=== PATIENT | male | born 1945 | race African-American/Black ===

== ENCOUNTER 2021-10-21 11:40 | Emergency (ER) | payer MEDICARE, SELFPAY ==
[2021-10-21 11:44] VITALS: BP 152/78; PULSE 70; RESP 18; TEMP 36.3; O2SAT 99
[2021-10-21 13:03] LABS: Mucus Urine Rare /lpf; Squamous Epithelial Cell Urine Occasional /hpf (Few)
[2021-10-21 13:04] LABS: Appearance Urine Clear (Clear); Bilirubin Urine Negative (Negative); Blood Urine Trace-lysed (Negative); Color Urine Yellow (Yellow); Glucose Urine UA Negative (Negative); Ketones Urine Negative (Negative); Leukocyte Esterase Ur Negative LEU/UL (Negative); Nitrate Urine Negative (Negative); Protein Urine Negative (Negative); Urobilinogen Urine 0.2 mg/dL (<2.0); pH Urine 7.5 (5.0-9.0)
[2021-10-21 13:06] LABS: Add Urine Microscopic? YES
--- NOTE | 2021-10-21 13:22 | ED.MALEGU ---
HPI - Male Genitourinary General Chief complaint: Urogenital-Male Stated complaint: Blood in urine Time Seen by Provider: 10/21/21 12:16 Source: patient Mode of arrival: ambulatory Limitations: no limitations History of Present Illness HPI Narrative: Patient 75 years old -[place] male noticed staining of blood in the underwear anteriorly this morning. Patient denies any urinary symptoms or GI symptoms. Last bowel movement last night, last urination 2 hours prior to arrival to the emergency room without any complaints. Patient is not on any blood thinner, history of prostatectomy and penile implant. He denies any fever, chills, nausea, vomiting, abdominal pain. He denies any history of GI bleed or hematuria Related Data Home Medications Medication Instructions Recorded Confirmed albuterol sulfate 90 mcg/actuation 1 puff INHALATION Q4H PRN 07/06/19 01/31/21 aerosol inhaler budesonide-formoterol HFA 160 2 puff INHALATION Q12H 07/06/19 01/31/21 mcg-4.5 mcg/actuation aerosol inhaler loratadine 10 mg capsule 10 mg PO DAILY 07/06/19 01/31/21 bisacodyl 5 mg tablet 5 mg PO DAILY 12/27/19 01/31/21 Allergies Allergy/AdvReac Type Severity Reaction Status Date / Time No Known Allergies Allergy Verified 10/21/21 12:37 Review of Systems Review of Systems: All systems reviewed & are unremarkable except as noted in HPI and below PMFSH Past Medical History Medical History Angioedema Cellulitis of external nose Complete tear of left rotator cuff Dehydration Hepatitis C antibody test negative (12/20/16) Prostate cancer Sialadenitis Surgical History Surgical History H/O prostatectomy Family History Family History Sibling Diabetes mellitus Father Hypertension Family history of coronary artery disease Social History Social History Smoking end date: 06/09/1963 Alcohol intake: never Exam Narrative: General appearance: Well-developed, well-nourished Skin: Normal color Head: Normocephalic, nontraumatic Eyes: Clear conjunctiva ENT: Oropharynx normal, ears normal, nose normal Neck: Supple, nontender Chest and respiratory: Airway patent, no respiratory distress, no accessory muscle use Heart: Regular rate/rhythm Abdomen: Soft, nontender, no organomegaly, quiet bowel sounds rectal exam showed no gross blood, yellow liquidy stool, guaiac negative, no hemorrhoids Vascular: Normal peripheral pulses, normal capillary refill. Musculoskeletal: Normal range of motion, nontender back Neurologic: Alert and oriented ?3, SQE is normal as tested, no gross motor deficit Course Course Emergency Course: Stable Urine test showed microscopic hematuria. My plan to treat hematuria as a sign of infection, repeat urine test in 5 to 7 days, if still showing hematuria. Patient probably need further imaging and possible cystoscopy. To rule out the possible cancer Vital Signs Vital signs: Vital Signs Temperature 36.3 C L 10/21/21 11:44 Pulse Rate 70 10/21/21 11:44 Respiratory Rate 18 10/21/21 11:44 Blood Pressure 152/78 H 10/21/21 11:44 Pulse Oximetry 99 10/21/21 11:44 Temperature 36.3 C L 10/21/21 11:44 Pulse Rate 70 10/21/21 11:44 Respiratory Rate 18 10/21/21 11:44 Blood Pressure 152/78 H 10/21/21 11:44 Pulse Oximetry 99 10/21/21 11:44 MDM - Male Genitourinary Differential Diagnosis Differential diagnosis: Likely urinary tract infection and urethritis Lab Data Labs: Lab Results 10/21/21
== END 2021-10-21 13:43 | disposition home or self-care (01) ==
PROVIDERS: Emergency Provider Emergency Medicine; PCP Family Medicine
DX: R31.9 Hematuria, unspecified (principal); Z85.46 Personal history of malignant neoplasm of prostate; Z90.79 Acquired absence of other genital organ(s); Z87.891 Personal history of nicotine dependence
CPT/HCPCS: 81001; 99283

== ENCOUNTER 2021-10-22 03:00 | Emergency (ER) | payer MEDICARE, SELFPAY ==
[2021-10-22 03:21] VITALS: BP 133/80; PULSE 76; RESP 16; TEMP 36.6; O2SAT 99
--- NOTE | 2021-10-22 03:45 | ED.MALEGU ---
HPI - Male Genitourinary General Chief complaint: Urogenital-Male Stated complaint: lopez problem Time Seen by Provider: 10/22/21 03:35 History of Present Illness HPI Narrative: 75-year-old male with history of penis pump implanted 4 years ago presents today because he had noticed bleeding from his scrotum where the pump was implanted, he describes as a light losing that dripped down his leg, they were able to bandage it up and presented here. Related Data Home Medications Medication Instructions Recorded Confirmed albuterol sulfate 90 mcg/actuation 1 puff INHALATION Q4H PRN 07/06/19 01/31/21 aerosol inhaler budesonide-formoterol HFA 160 2 puff INHALATION Q12H 07/06/19 01/31/21 mcg-4.5 mcg/actuation aerosol inhaler loratadine 10 mg capsule 10 mg PO DAILY 07/06/19 01/31/21 bisacodyl 5 mg tablet 5 mg PO DAILY 12/27/19 01/31/21 Allergies Allergy/AdvReac Type Severity Reaction Status Date / Time No Known Allergies Allergy Verified 10/21/21 12:37 Review of Systems Review of Systems: All systems reviewed & are unremarkable except as noted in HPI and below PMFSH Past Medical History Medical History Angioedema Cellulitis of external nose Complete tear of left rotator cuff Dehydration Hepatitis C antibody test negative (12/20/16) Prostate cancer Sialadenitis Surgical History Surgical History H/O prostatectomy Family History Family History Sibling Diabetes mellitus Father Hypertension Family history of coronary artery disease Social History Social History Smoking end date: 06/09/1963 Alcohol intake: never Exam Narrative: EXAMINATION OF ORGAN SYSTEMS/BODY AREAS: Constitutional: Vital signs per nursing GENERAL:[No acute distress, non-toxic appearing.] HEAD: Normal with no signs of head trauma. EYES: EOMI, conjunctiva normal ENT: Hearing grossly intact LUNGS: Nonlabored breathing. HEART: [Regular rate and rhythm] : No active bleeding, punctate wound over scrotum that is nontender EXT: Normal range of motion SKIN: punctate wound as above NEURO: [Alert and oriented x 3. No gross focal sensory or strength deficits.] PSYCH: Normal affect Course Course Emergency Course: 75-year-old male presenting with scrotal bleeding, vital signs stable, exam shows no active bleeding with pinpoint puncture wound that is barely visible to the eye, suspect possible puncture from the device, he is given instructions on holding pressure if this happens again, and he has follow-up with his urologist. Stable for discharge home and can return for any further issues. Vital Signs Vital signs: Vital Signs Temperature 97.9 F 10/22/21 03:21 Pulse Rate 76 10/22/21 03:21 Respiratory Rate 16 10/22/21 03:21 Blood Pressure 133/80 10/22/21 03:21 Pulse Oximetry 99 10/22/21 03:21 Temperature 97.9 F 10/22/21 03:21 Pulse Rate 76 10/22/21 03:21 Respiratory Rate 16 10/22/21 03:21 Blood Pressure 133/80 10/22/21 03:21 Pulse Oximetry 99 10/22/21 03:21 Discharge Plan Discharge Clinical Impression: Skin tear Patient Disposition: Home, Self-Care Condition: Stable Instructions: Antibiotic Form, Laceration (ED) Additional Instructions: Please follow-up with your urologist, if you start experiencing bleeding again, you can hold pressure with some gauze, and when it stops, dressed with a Band-Aid. You can return for any further issues. Prescriptions: No Action albuterol sulfate [Proventil HFA] 90 mcg/actuation HFA aerosol inhaler 1 puff INHALATION Q4H PRN (Reason: Dyspnea) RF: 0 Symbicort 160-4.5 mcg/actuation HFA aerosol inhaler 2 puff INHALATION Q12H RF: 0 loratadine 10 mg capsule 10 mg PO DAILY RF: 0 bisacodyl 5 mg tablet 5 mg PO DAILY RF: 0 ciproflo
== END 2021-10-22 03:54 | disposition home or self-care (01) ==
PROVIDERS: Emergency Provider Emergency Medicine; PCP Family Medicine
DX: S31.33XA Puncture wound without foreign body of scrotum and testes, initial encounter (principal); Z85.46 Personal history of malignant neoplasm of prostate; Z90.79 Acquired absence of other genital organ(s); Z87.891 Personal history of nicotine dependence; X58.XXXA Exposure to other specified factors, initial encounter
CPT/HCPCS: 99281

== ENCOUNTER → 2022-04-12 14:30 | Outpatient (CLI) | payer MEDICARE, SELFPAY ==
--- NOTE | ~2022-04-12 | MR_ITS ---
EXAMINATION: MR brain/brain stem wo/w con DATE: 04/12/2022 15:42 INDICATION: Memory loss. Speech deficit. TECHNIQUE: Magnetic resonance imaging (MRI) of the brain and brainstem was performed without and with 19 mL MultiHance intravenous contrast. COMPARISON: None. FINDINGS: There are scattered areas of nonspecific increased T2-weighted signal intensity in the cere bral white matter. There is no intracranial hemorrhage, acute infarction, or abnormal intracranial ma ss lesion. There is a left mastoid effusion. The orbits are normal. There is mucosal thickening in th e paranasal sinuses. There is a 16 mm Tornwaldt cyst in the nasopharynx. IMPRESSION: 1. Moderate nonspecific cerebral white matter disease, which likely represents chronic small vessel i schemic disease. Reviewed, dictated and finalized at location A. IMPRESSION: 1. Moderate nonspecific cerebral white matter disease, which likely represents chronic small vessel ischemic disease.
== END ==
PROVIDERS: PCP Family Medicine; Visit Provider Family Medicine
DX: R41.3 Other amnesia (principal); R90.82 White matter disease, unspecified
CPT/HCPCS: 70553; A9577

== ENCOUNTER 2023-08-27 09:30 | Inpatient (IN) | payer MEDICARE, SELFPAY ==
[2023-08-27] VITALS (12 sets, daily range): BP systolic 127–160; BP diastolic 68–101; PULSE 60–80; RESP 14–18; TEMP 36.2–36.7; O2SAT 91–100
--- NOTE | ~2023-08-27 | XR_ITS ---
EXAMINATION: XR abdomen/kub 1V DATE: 09/03/2023 05:35 INDICATION: Abdominal distention. TECHNIQUE: A supine view of the abdomen on 2 radiographs was obtained. COMPARISON: CT abdomen and pelvis 09/01/2023 FINDINGS: There is distention of the rectosigmoid. The small bowel is normal in caliber. There are castro rgical clips in the pelvis. IMPRESSION: 1. Persistent distention of the rectosigmoid, likely adynamic ileus. Reviewed, dictated and finalized at location A.
--- NOTE | ~2023-08-27 | CT_ITS ---
EXAMINATION: CT brain wo con DATE: 08/31/2023 11:42 INDICATION: Confusion TECHNIQUE: Computed tomography (CT) of the head was performed without intravenous contrast. The dose- length product was 529.67 mGy-cm. Automated exposure control and iterative reconstruction technique w ere employed. COMPARISON: None FINDINGS: Generalized atrophy. There are scattered moderate periventricular and subcortical white mat ter changes, most likely related to small vessel ischemic disease (microangiopathy). No ventriculomeg jim or midline shift. Basilar cisterns are patent. Mild mucosal thickening of the paranasal sinuses. Mastoids are pneumatized. No depressed skull fractures. Small chronic right lacunar infarction. IMPRESSION: 1. No acute intracranial abnormality. Reviewed, dictated and finalized at location A.
--- NOTE | ~2023-08-27 | MR_ITS ---
EXAMINATION: MR brain/brain stem wo con DATE: 08/31/2023 15:04 INDICATION: Confusion TECHNIQUE: Magnetic resonance imaging (MRI) of the brain and brainstem was performed without intraven ous contrast. Sequences included sagittal and axial T1-weighted SE, axial diffusion-weighted FS EPI A SSET, axial T2*-weighted GRE, axial T2-weighted FLAIR Propeller, and axial T2-weighted Propeller. Mo arent diffusion coefficient (ADC) maps were created. COMPARISON: CT brain 08/27/2023 and 08/31/2023. FINDINGS: No abnormal restricted diffusion to suggest acute ischemic infarct. Tiny focal right basal ganglia in farction. No MRI evidence of hemorrhage or extra-axial collection. Small foci of susceptibility, less than 5, nonspecific but most likely reflective of prior microhemorrhages. Moderate patchy white ariel er hyperintensity, likely representing moderate small vessel ischemic disease. Mild generalized paren chymal volume loss. The basilar cisterns are patent. Flow voids are preserved. Pansinus mucosal thick ening. Bilateral lens replacements. Orbital contents are within normal limits. IMPRESSION: No acute intracranial process. Reviewed, dictated and finalized at location K.
--- NOTE | ~2023-08-27 | XR_ITS ---
EXAMINATION: XR ankle LT min 3V DATE: 08/27/2023 12:38 INDICATION: Left ankle pain post fall TECHNIQUE: Anteroposterior, oblique, mortise, and lateral views of the left ankle were obtained. COMPARISON: None. FINDINGS: There is transverse fracture through the distal fibula with a fracture plane exiting medially 1.2 cm above the level of the tibiotalar joint line. There is one cortical width posterolateral displacemen t. No other fracture identified. Specifically the medial and posterior malleoli as well as the fidelina r dome are intact. Ankle mortise remains congruent. Soft tissue swelling at the lateral aspect of th e ankle and distal calf. No ankle joint effusion. IMPRESSION: 1. [Minimally displaced oblique distal left fibular metaphyseal fracture. Reviewed, dictated and finalized at location A.
--- NOTE | ~2023-08-27 | CT_ITS ---
CT head without contrast Indication: Altered mental status Technique: Serial scans were obtained through the brain without the administration of contrast. Dose reduction technique was used on this scan by utilizing automated exposure control and iterative recon struction technique. The dose-length product (DLP) was 681.00 mGy-cm. Findings: There is no evidence of intracranial hemorrhage, mass lesion, or acute infarct. The ventri cles and subarachnoid spaces are unremarkable. Low attenuation regions are seen within the periventr icular white matter bilaterally, likely representing changes from chronic microvascular ischemic dise ase. There is no evidence of edema, mass effect or midline shift. The visualized paranasal sinuses and mastoid air cells are clear. Impression: No intracranial hemorrhage, mass, or acute infarct. Chronic white matter changes, as above. Reviewed, dictated and finalized at location M. Impression: No intracranial hemorrhage, mass, or acute infarct. Chronic white matter changes, as above.
--- NOTE | ~2023-08-27 | XR_ITS ---
EXAMINATION: XR abdomen obstructive series DATE: 09/04/2023 05:42 INDICATION: Ileus TECHNIQUE: Upright and supine views of the abdomen were obtained. COMPARISON: 09/03/2023 FINDINGS: There is unchanged prominent distention of the rectosigmoid colon. No free intraperitoneal gas is identified. There are surgical clips in the pelvis. The visualized lung bases are clear. IMPRESSION: 1. Unchanged distention of the rectosigmoid colon, likely persistent ileus. Reviewed, dictated and finalized at location F.
--- NOTE | ~2023-08-27 | XR_ITS ---
EXAMINATION: XR chest 1V portable DATE: 08/27/2023 12:38 INDICATION: Altered mental status TECHNIQUE: frontal view of the chest was obtained. COMPARISON: Chest radiograph dated 12/19/2008 FINDINGS: The lungs remain clear with no focal airspace opacities, pulmonary edema, pleural effusion or pneumot horax. The cardiomediastinal silhouette is normal. Mild thoracic spondylosis. IMPRESSION: 1. No acute cardiopulmonary disease. Reviewed, dictated and finalized at location A.
--- NOTE | ~2023-08-27 | CT_ITS ---
EXAMINATION: CT abdomen pelvis wo con DATE: 09/01/2023 13:15 INDICATION: Abdominal distention TECHNIQUE: Computed tomography (CT) of the abdomen and pelvis was performed without intravenous contr ast. Automated exposure control and iterative reconstruction technique were employed. The dose-length product was 833.67 mGy-cm. COMPARISON: 05/06/2012 FINDINGS: Decreased volume in the visualized portion of the bilateral lower lobes with mild discoid atelectasis in the right lower lobe and compressive atelectasis in the medial left lower lobe where it abuts a m oderate-sized sliding-type hiatal hernia. No pneumonia, pulmonary edema or pleural effusion. Mild car diomegaly. No pericardial effusion. Mild bilateral gynecomastia. 1 cm low-attenuation likely cyst or hemangioma in segment 5 of the liver. Gallbladder, spleen and pancreas are normal. Again seen is thic kening of the bilateral adrenal glands which maintain their adreniform shape without discrete nodule. Small region of cortical scarring at the upper pole of the right kidney. There are bilateral renal c ysts measuring 1.5 cm on the right and up to 4.9 cm on the left. Moderate amount of fluid scattered t hroughout the colon with prominent dilation of the sigmoid colon which measures up to 10 cm in brody l diameter. Small bowel and appendix are normal. Bladder is normal. Status post prostatectomy with mu ltiple surgical clips in the pelvis consistent bilateral pelvic lymph node dissections. There is some heterotopic ossification along the suprapubic anterior pelvic wall. There are small bilateral indire ct inguinal hernias containing fat and small amount of ascites. No abscess or free intraperitoneal ga s or fluid. No pathologically enlarged abdominal or pelvic lymphadenopathy. Moderate lumbar and lower thoracic spondylosis. There is a stranding and small amount of gas in the subcutaneous tissues at th e right groin as well as within a small partial collapse. Rim calcified fluid collection in the infer ior right rectus abdominis muscle which likely related to a reported recently explanted penile implan t. Correlate with surgical history. IMPRESSION: 1. Stranding and small amount of gas in the right anterior pelvic wall likely related to reported rec ent explantation of a penile prosthesis. Correlate with surgical history. 2. Gas/fluid and stool filling the colon with nonspecific dilation most prominent at the sigmoid colo n where it measures up to 10 cm diameter but without evident wall thickening or distal obstructing ma ss. Differential would include ileus or Redfield syndrome. 3. Moderate-sized sliding-type hiatal hernia. 4. Postoperative change of prior prostatectomy and bilateral pelvic lymph node dissection. 5. Small amount of fat and fluid within bilateral indirect inguinal hernias. Reviewed, dictated and finalized at location A. IMPRESSION: 1. Stranding and small amount of gas in the right anterior pelvic wall likely r elated to reported recent explantation of a penile prosthesis. Correlate with s urgical history. 2. Gas/fluid and stool filling the colon with nonspecific dilation most promine nt at the sigmoid colon where it measures up to 10 cm diameter but without evid ent wall thickening or distal obstructing mass. Differential would include ileu s or Redfield syndrome. 3. Moderate-sized sliding-type hiatal hernia. 4. Postoperative change of prior prostatectomy and bilateral pelvic lymph node dissection. 5. Small amount of fat and fluid within bilateral indirect inguinal hernias.
--- NOTE | ~2023-08-27 | XR_ITS ---
EXAMINATION: XR abdomen/kub 1V INDICATION: Ileus TECHNIQUE: Supine views of the abdomen were obtained on 2 radiographs. COMPARISON: 09/04/2023 FINDINGS: There is persistent but decreased distention of the rectosigmoid colon. No free intraperito pati gas is identified. There are surgical clips of the pelvis. IMPRESSION: 1. Persistent but decreased distention of the rectosigmoid colon, likely resolving ileus. Reviewed, dictated and finalized at location A. IMPRESSION: 1. Persistent but decreased distention of the rectosigmoid colon, likely resolv ing ileus.
--- NOTE | 2023-08-27 09:35 | ECG_ITS ---
Measurements Intervals [place] Rate: 92 P: MD: 0 QRS: 50 QRSD: 90 T: 7 QT: 355 QTc: 441 Interpretive Statements SINUS RHYTHM TRANSIENT EPISODE OF ATRIAL FIBRILLATION INCOMPLETE RIGHT BUNDLE BRANCH BLOCK ABNORMAL ECG NO PREVIOUS ECG AVAILABLE FOR COMPARISON Electronically Signed On 08-27-2023 9:45:40 CDT by Elmer Jimenes D.O.
[2023-08-27 09:54] LABS: Basophils Percent Auto 0.3 % (0.2-1.2); Eosinophils Absolute Auto 0.1 K/mm3 (0-0.3); Eosinophils Percent Auto 1.3 % (0-4.4); Hematocrit 46.1 % (42.0-52.0); Hemoglobin 15.1 g/dL (14.0-18.0); Immature Granulocyte Absolute 0.03 K/mm3 (0.00-0.031); Immature Granulocyte Percent A 0.4 % (0-0.5); Lymphocytes Absolute Auto 0.81 K/mm3 (0.9-3.2); Lymphocytes Percent Auto 11.4 % (18.3-44.2); Mean Corpuscular HGB Conc 32.8 g/dl (32-36); Mean Corpuscular Hemoglobin 30.4 pg (26-34); Mean Corpuscular Volume 92.9 fl (80-100); Mean Platelet Volume 9.4 fl (7.4-10.4); Monocytes Absolute Auto 0.4 K/mm3 (0.1-0.6); Monocytes Percent Auto 6.1 % (2.6-8.5); Neutrophils Absolute Auto 5.7 K/mm3 (1.3-6.7); Neutrophils Percent Auto 80.5 % (45.5-73.1); Platelet Count Result 239 k/mm3 (150-375); Red Blood Count 4.96 M/mm3 (4.6-6.20); Red Cell Distribution Width 14.1 % (11.5-14.5); White Blood Count 7.1 K/mm3 (4.5-10.0)
[2023-08-27 10:08] LABS: Alanine Aminotransferase 15 U/L (6-50); Albumin Level 3.7 g/dL (3.5-5.1); Alkaline Phosphatase 82 U/L (38-126); Anion Gap 2 mmol/L (8-16); Aspartate Amino Transferase 22 U/L (17-59); Bilirubin,Total 0.7 mg/dL (0.2-1.3); Blood Urea Nitrogen 15 mg/dL (9-20); Calcium 8.9 mg/dL (8.4-10.2); Carbon Dioxide 32 mmol/L (22-30); Chloride 107 mmol/L (98-107); Estimated CRCL calculation 57 ml/min; Estimated Glomerular Filt Rate > 60; Glucose 109 mg/dL (65-110); Potassium 4.1 mmol/L (3.4-5.0); Sodium 141 mmol/L (137-145)
[2023-08-27 10:09] LABS: INR 0.9; Partial Thromboplastin Time 26.2 Seconds (22.3-36.8); Prothrombin Time 12.7 Seconds (11.1-14.7)
--- NOTE | 2023-08-27 10:39 | ED.AMS ---
HPI - Altered Mental Status General Chief Complaint: Altered Mental Status Stated Complaint: ams Time Seen by Provider: 08/27/23 10:04 Source: patient and family Mode of arrival: ambulatory Limitations: no limitations History of Present Illness HPI narrative: Mr. Cohen is a 69-year-old male patient presenting to the ER today with complaints of altered mental status this morning. His reports that he was acting different this morning when he woke up and was near the bed and fell back on his bottom. He denies any back pain or pain in his buttocks. reports that they were supposed to have a visit with for a eroded penis inflation device. He denies any urinary symptoms. He is currently alert oriented x2. Related Data Home Medications Medication Instructions Recorded Confirmed bisacodyl 5 mg tablet 5 mg PO DAILY PRN Constipation 12/27/19 08/27/23 Allergies Allergy/AdvReac Type Severity Reaction Status Date / Time No Known Allergies Allergy Verified 08/27/23 14:29 Review of Systems Review of Systems: Pertinent positives per HPI. Patient denies any fever, chills, rash, headache, visual changes, dizziness, cough, runny nose, sore throat, shortness of breath, chest pain, palpitations, nausea, vomiting, diarrhea, constipation, abdominal pain, or any urinary issues. [facility] Past Medical History Medical History Angioedema Cellulitis of external nose Complete tear of left rotator cuff Dehydration Hepatitis C antibody test negative (12/20/16) Prostate cancer Sialadenitis Surgical History Surgical History H/O prostatectomy History of penile implant Family History Family History Sibling Diabetes mellitus Father Hypertension Family history of coronary artery disease Social History Social History Smoking status: Former smoker Smoking end date: 06/09/1963 Alcohol intake: never Substance use: never Lack of Transportation: No Lack of Food: Never True Current Housing: I Have Housing Concerned About Future Housing: No Difficulty Paying Gas/Electric Bills: No Difficulty Paying for Meds: No Currently Unemployed: No Education: High School Diploma/GED Difficulty w/ Childcare or Family Care: No Living arrangements: with family Spiritual care concerns: No Agree to blood products: Yes Comments At the time of my signature, I reviewed and agree with the nursing past medical, surgical, social, and family history. There is no relevant family history pertinent to the patient complaint. Exam Narrative: General: Well-developed, overweight, in no apparent distress Head: Normocephalic, atraumatic Eyes: Pupils equally round and reactive to light bilaterally, EOM intact, sclera and conjunctive clear, no discharge, lids normal Ears: TMs intact and clear, ear canals clear, no drainage, grossly hearing normal. Nose: Nares patent, no discharge, no inflammation, no sinus tenderness. Mouth: Oropharynx without lesions or masses, good dentition, MMM. Tongue midline, even rise and fall of uvula Neck: Supple, trachea midline, no enlargement of anterior or posterior cervical nodes, no thyroid masses or goiter palpable. Cardio: Regular rate and rhythm, s1 and s2 normal, no murmur appreciated. Resp: Clear to auscultation bilaterally anteriorly and posteriorly, no rhonchi, rales, wheezing or rubs : Uncircumcised male with penile implant perforated/eroded through the right side of the penis. Musculoskeletal: No deformity, tender to palpation over the left lateral ankle, grossly normal range of motion, muscle strength strong and equal, peripheral pulse strong, no edema, no cyanosis, laying on stretcher Neuro: Alert and oriented x2 with normal speech, no focal
[2023-08-27 11:23] LABS: Appearance Urine Clear (Clear); Bacteria Urine None Seen /hpf; Bilirubin Urine Negative (Negative); Blood Urine Non-Hemolyzed Trace (Negative); Color Urine Yellow (Yellow); Glucose Urine UA Negative (Negative); Ketones Urine Negative (Negative); Leukocyte Esterase Ur Negative LEU/UL (Negative); Nitrate Urine Negative (Negative); Protein Urine Negative (Negative); RBC Urine 0-2 /hpf (0-2); Specific Grav Ur 1.009 (1.001-1.035); Squamous Epithelial Cell Urine None Seen /hpf (Few); Urobilinogen Urine 0.2 mg/dL (<2.0); WBC Urine 0-5 /hpf (0-3)
[2023-08-27 11:30] LABS: Add Urine Microscopic? YES
--- NOTE | 2023-08-27 12:35 | WPDURCON ---
Assessment and Plan Assessment and plan (1) Erosion of penile prosthesis: Code(s): T83.89XA - Other specified complication of genitourinary prosthetic devices, implants and grafts, initial encounter Status: Acute Assessment and Plan: Inflatable penile prosthesis placed in 2017. Has now developed erosion of the implant. He is no longer sexually active. Will plan for penile implant removal and antibiotic washout in the OR this afternoon with Dr. Das. Continue NPO diet. He has been started on IV vancomycin and cefepime and is being hydrated with IV fluids. Urology Consult Note HPI Date Seen: 08/27/23 Primary Care Provider: Payal Mason, Consult Narrative Narrative: Lamont Cohen is a 77 year old male with history of prostate cancer s/p prostatectomy in 1997 and erectile dysfunction status post inflatable penile [place] [address] Das who is being seen in consultation for evalaution of eroded penile implant. The patient's called the office 2 days ago with concerns that the penile implant was protruding through the shaft of his penis. She first noticed a few drops of blood in his underwear about 3 weeks ago but he never had any subsequent episodes of this. She then noticed a few days ago that the penile implant was visible. She reports that the implant has been inflated for about 2 months. The patient has been suffering from some memory issues and confusion and he was unable to recall how to deflate the implant. His was unsure how to deflate it as well. He was scheduled for an appointment with Dr. Das this morning for evaluation but while getting ready for the appointment he became disoriented and had a fall, therefore came to the ER. The patient denies any penile pain, drainage, bleeding, or other concerns. He is a poor historian given his memory issues. His WBC is within normal limits. UA unremarkable. He is afebrile and his vital signs are stable. Review of Systems Review of Systems: All systems reviewed & are unremarkable except as noted in HPI and below PMFSH Past Medical History Medical History (Updated 08/27/23 @ 12:45 by Manuela Casillas PA-C) Angioedema Cellulitis of external nose Complete tear of left rotator cuff Dehydration Hepatitis C antibody test negative (12/20/16) Prostate cancer Sialadenitis Surgical History Surgical History (Updated 08/27/23 @ 12:45 by Manuela Casillas PA-C) H/O prostatectomy History of penile implant Family History Family History Sibling Diabetes mellitus Father Hypertension Family history of coronary artery disease Social History Social History Smoking status: Former smoker Smoking end date: 06/09/1963 Alcohol intake: never Substance use: never Lack of Transportation: No Lack of Food: Never True Current Housing: I Have Housing Concerned About Future Housing: No Difficulty Paying Gas/Electric Bills: No Difficulty Paying for Meds: No Currently Unemployed: No Education: High School Diploma/GED Difficulty w/ Childcare or Family Care: No Living arrangements: with family Spiritual care concerns: No Agree to blood products: Yes Meds Home Medications and Allergies Home Medications Medication Instructions Recorded Confirmed Type budesonide-formoterol HFA 160 2 puff inhalation Q12H 07/06/19 03/28/22 History mcg-4.5 mcg/actuation aerosol inhaler (Symbicort) loratadine 10 mg capsule 10 mg PO DAILY 07/06/19 03/28/22 History bisacodyl 5 mg tablet 5 mg PO DAILY 12/27/19 03/28/22 History lisinopril 10 mg tablet See Rx Instructions .Route 12/26/21 03/28/22 Rx .COMPLEX #90 tabs pravastatin 10 mg tablet 10 mg PO QHS #90 tabs 05/20/22 Rx budesonide-formoterol HFA 160 2 puff inhalation Q12H 07/18/22 History mcg-4.5 mcg/actuation aerosol inhaler (Symbic
[2023-08-27] MEDS: SODIUM CHLORIDE 0.9% IV 1,000 ML 999 ML IV CONT (12:50)
[2023-08-27] MEDS: CEFEPIME 2 GM/NS 50 ML 2 GM/50 ML BAG IVPB (12:50)
--- NOTE | 2023-08-27 13:19 | WPDHPUPDATE1 ---
History and Physical Update Update Date/Time: 08/27/23 13:19 History and Physical has been reviewed, including an updated exam of the patient. There are NO changes in the patient's condition. Risks, benefits, and alternatives have been discussed and questions answered. Patient agrees to proceed with procedure.
[2023-08-27] MEDS: VANCOMYCIN 1,250 MG/NS 250 ML 1,250 MG/250 ML BAG 166.67 MG IVPB (14:09)
--- NOTE | 2023-08-27 14:16 | WPDANESEPPF ---
Anes - Initial Pre Proc Eval Procedure: Operation Date: 08/27/23 15:00 Proposed Procedures p Removal of Penile Prosthesis - Michelle Das MD Date/Time: 08/27/23 14:16 Surgeon: June Walker MD Pre Op Diagnosis: eroding penile implant ,ams,left ankle fracture Patient Data Age: 77 Gender: M Height: 1.88 m Weight: 91 kg Last Vital Signs Temp 36.7 C 08/27/23 09:43 Pulse 73 08/27/23 12:51 Resp 17 08/27/23 12:51 BP 152/90 H 08/27/23 12:51 Pulse Ox 98 08/27/23 12:51 O2 Del Method Room Air 08/27/23 09:50 Allergies Allergy/AdvReac Type Severity Reaction Status Date / Time No Known Allergies Allergy Verified 07/10/23 13:50 Home Medications Medication Instructions Recorded Confirmed Type budesonide-formoterol HFA 160 2 puff inhalation Q12H 07/06/19 03/28/22 History mcg-4.5 mcg/actuation aerosol inhaler (Symbicort) loratadine 10 mg capsule 10 mg PO DAILY 07/06/19 03/28/22 History bisacodyl 5 mg tablet 5 mg PO DAILY 12/27/19 03/28/22 History lisinopril 10 mg tablet See Rx Instructions .Route 12/26/21 03/28/22 Rx .COMPLEX #90 tabs pravastatin 10 mg tablet 10 mg PO QHS #90 tabs 05/20/22 Rx budesonide-formoterol HFA 160 2 puff inhalation Q12H 07/18/22 History mcg-4.5 mcg/actuation aerosol inhaler (Symbicort) memantine 10 mg tablet 10 mg PO BID #60 tabs 08/12/23 Rx Laboratory Tests 08/27/23 08/27/23 08/27/23 09:45 11:14 12:49 WBC 7.1 K/mm3 (4.5-10.0) RBC 4.96 M/mm3 (4.6-6.20) Hgb 15.1 g/dL (14.0-18.0) Hct 46.1 % (42.0-52.0) MCV 92.9 fl (80-100) MCH 30.4 pg (26-34) MCHC 32.8 g/dl (32-36) RDW 14.1 % (11.5-14.5) Plt Count 239 k/mm3 (150-375) MPV 9.4 fl (7.4-10.4) Immature Gran % (Auto) 0.4 % (0-0.5) Neut % (Auto) 80.5 H % (45.5-73.1) Lymph % (Auto) 11.4 L % (18.3-44.2) [place] % (Auto) 6.1 % (2.6-8.5) Eos % (Auto) 1.3 % (0-4.4) Baso % (Auto) 0.3 % (0.2-1.2) Lymph # (Auto) 0.81 L K/mm3 (0.9-3.2) [place] # (Auto) 0.4 K/mm3 (0.1-0.6) Eos # (Auto) 0.1 K/mm3 (0-0.3) Baso # (Auto) 0.0 K/mm3 (0.0-0.1) Abs Immat Gran (auto) 0.03 K/mm3 (0.00-0.031) Absolute Neuts (auto) 5.7 K/mm3 (1.3-6.7) Absolute Nucleated RBC 0.000 K/mm3 (0.0-0.012) Nucleated RBC % 0.0 % (0.0-0.2) PT 12.7 Seconds (11.1-14.7) INR 0.9 APTT 26.2 Seconds (22.3-36.8) Sodium 141 mmol/L (137-145) Potassium 4.1 mmol/L (3.4-5.0) Chloride 107 mmol/L (98-107) Carbon Dioxide 32 H mmol/L (22-30) Anion Gap 2 L mmol/L (8-16) BUN 15 mg/dL (9-20) Creatinine 1.10 mg/dL (0.7-1.3) Estim Creat Clear Calc 57 ml/min Estimated GFR > 60 (59 - ) Glucose 109 mg/dL (65-110) Calcium 8.9 mg/dL (8.4-10.2) Total Bilirubin 0.7 mg/dL (0.2-1.3) AST 22 U/L (17-59) ALT 15 U/L (6-50) Alkaline Phosphatase 82 U/L (38-126) Total Protein 7.0 g/dL (6.3-8.2) Albumin 3.7 g/dL (3.5-5.1) Urine Color Yellow (Yellow) Urine Appearance Clear (Clear) Urine pH 7.0 (5.0-9.0) Ur Specific [place] 1.009 (1.001-1.035) Urine Protein Negative mg/dL (Negative) Urine Glucose (UA) Negative mg/dL (Negative) Urine Ketones Negative mg/dL (Negative) Ur Blood (Man) Non-hemolyzed trace (Negative) Urine Nitrate Negative (Negative) Urine Bilirubin Negative (Negative) Urine Urobilinogen 0.2 mg/dL (<2.0) Leukocyte Esterase Rfl Negative MAURICE/UL (Negative) Urine RBC 0-2 /hpf (0-2) Urine WBC 0-
[2023-08-27] MEDS: LACTATED RINGERS 1,000 ML 30 ML IV CONT ×2 (14:17→17:03)
[2023-08-27 14:50] LABS: MRSA (PCR) NOT DETECTED (NOT DETECTE)
[2023-08-27] MEDS: ceFAZolin SODIUM 1 GM VIAL (16:09)
[2023-08-27] MEDS: LIDOCAINE HCL 1% LOCAL INJ 10 ML VIAL 4 ML INFILTRATE (16:10)
--- NOTE | 2023-08-27 17:03 | W.PM.PROC2 ---
Procedure Note - Detailed Date of Procedure 08/27/23 Pre-op Diagnosis eroding penile implant Post-op Diagnosis Same Procedure Performed Explant of eroded penile implant, scrotal exploration, antibiotic washout Surgeon Michelle Das MD Anesthesia General Findings Right distal corporal erosion of penile Description of Procedure Informed consent is obtained. Patient taken to the operating. He was given IV antibiotics emergency department he was induced anesthesia he was prepped and draped in the normal sterile fashion. The right penile implant cylinder was visible extruded distally just below the glans. A Dutta catheter was placed with return clear urine. We injected local anesthetic the need each of the pre-existing incisions. Incision was made over the penoscrotal incision and we bluntly dissected down to the right corporal body taking great care not to injure the urethra. We carefully dissected and opened the corpora at the insertion site of the tubing. The cylinder and rear-tip biofuels manager were removed. We irrigated this area copiously and clearly viewed the irrigation exiting through the distal corpora. There was no urethral injury. We performed an identical procedure on the contralateral side, there was no injury to corpora on this side. Incision was made in the right lower quadrant. We dissected down to the tubing and opened Gaston's fascia the external fascia directly the penile prosthesis reservoir. The reservoir was located in sub rectus space. We were able to empty the reservoir and remove it. At this point all penile prosthesis components had been removed, they were sent for culture and specimen. We then irrigated copiously with antibiotic irrigation. We then closed the external oblique fascia with interrupted 0 Vicryl sutures. Gaston's layer was closed with 2-0 Vicryl suture. Deep dermal layer of 3-0 Vicryl suture and a 4-0 Monocryl subcuticular skin closure. A 15 Colby drain was placed in inferior scrotum. We then closed the incision in multiple layers of 3-0 Vicryl suture followed by a 3-0 Monocryl horizontal mattress skin closure. The defect in the penile shaft was rather large, we therefore placed two 3-0 chromic sutures to reapproximate the edges. Glue was placed over the penoscrotal and right lower quadrant incisions. A compressive dressing was placed. Patient was then taken recovery room stable condition. Estimated Blood Loss 20 Urine Output 125 Drains Yes Pathology Yes Complications No immediate complications Condition Stable Disposition PACU
[2023-08-27] MEDS: fentaNYL CITRATE INJ (*CRX) 100 MCG/2 ML VIAL 25 MCG IV PUSH ×2 (17:27→17:50)
--- NOTE | 2023-08-27 18:55 | PC.NURSE ---
This patient, Lamont Cohen, was admitted to Medical Room 347-. Patient/family oriented to hospital policies and general routines including ID bracelet, bed and alarms, visiting hours, pain management, procedures, bathroom and other care routines, personal items, smoking policy, room service/diet, and visiting hours. Information on how to activate the Rapid Response Team has been discussed. Patient/Family are encouraged to report perceived risks to care and to ask questions if they do not understand what they are told or what they should do.
[2023-08-27] MEDS: HYDROcodone/acetaminophen (*CRX) 5-325 MG TABLET 1 TAB PO (20:07)
[2023-08-27] MEDS: SODIUM CHLORIDE 0.9% IV 1,000 ML 125 ML IV CONT (20:12)
--- NOTE | 2023-08-27 22:21 | PM.IMHP ---
H&P: HPI History of Present Illness Date/Time: 08/27/23 22:21 Chief Complaint: Confusion and Weakness Narrative: 77 y/o M presents here with confusion, generalized weakness, and dislodged penile implant with PMH prostate cancer, sialadenitis, and dementia. Patient presents here from home with increased confusion, weakness, and dislodged penal implant. Per patient woke up acting differently (i.e. slow responses, not understanding questions), fatigued, and was unable to get out of bed. Attempted to get up and he fell back onto his bottom onto the floor. Denying pain to buttocks, reported pain to L ankle post-fall, no head strike, and no difficulty with moving LEs. witnessed fall. Unable to ambulate after fall due to pain in left ankle. Did not sleep well night prior, sleepy today. Patient had scheduled visit with Dr. Ibarra with urology for a dislodged penile implant (placed in 2017) that has now developed erosion of the implant. Patient is no longer sexually active. Currently denying dysuria, urinary frequency, or hematuria. No other recent falls and does not require an assistive device. No fever, chills, or body aches. Initial VS at presentation: 98.0? F, HR 80, RR 16, 131/81, 100% on RA. ED workup showed: No anemia, no leukocytosis, INR 0.9, creatinine 1.1, no significant electrolyte derangements, UA not suggestive of UTI, and nasal MRSA negative. Head CT showed no acute findings, chronic white matter changes. XR L ankle showed minimally displaced oblique distal left fibular metaphyseal fracture. CXR showed no acute cardiopulmonary disease. Review of Systems Review of Systems: All systems reviewed & are unremarkable except as noted in HPI and below [facility] Past Medical History Medical History (Updated 08/27/23 @ 22:38 by Yesenia Kong APRN) Angioedema Cellulitis of external nose Complete tear of left rotator cuff Dehydration Hepatitis C antibody test negative (12/20/16) Prostate cancer Sialadenitis Surgical History Surgical History H/O prostatectomy History of penile implant Family History Family History Sibling Diabetes mellitus Father Hypertension Family history of coronary artery disease Social History Social History Smoking status: Former smoker Tobacco type: cigarettes Alcohol intake: never Substance use: never Do You Feel Safe in your Home?: Yes Lack of Transportation: No Lack of Food: Never True Current Housing: I Have Housing Concerned About Future Housing: No Difficulty Paying Gas/Electric Bills: No Difficulty Paying for Meds: No Currently Unemployed: No Education: High School Diploma/GED Difficulty w/ Childcare or Family Care: No Living arrangements: with family Spiritual care concerns: No Agree to blood products: Yes Meds Home Medications and Allergies Home Medications Medication Instructions Recorded Confirmed Type bisacodyl 5 mg tablet 5 mg PO DAILY PRN Constipation 12/27/19 08/27/23 History memantine 10 mg tablet 10 mg PO BID #60 tabs 08/12/23 08/27/23 Rx Allergies Allergy/AdvReac Type Severity Reaction Status Date / Time No Known Allergies Allergy Verified 08/27/23 14:29 Vital Signs Vital Signs - 24 hr 08/27/23 09:43 08/27/23 09:50 08/27/23 11:10 Temperature 98.0 F Pulse Rate 80 71 Respiratory Rate 16 15 Blood Pressure 131/81 145/68 H Pulse Oximetry 100 100 Oxygen Delivery Room Air Room Air Oxygen Flow Rate 08/27/23 12:51 08/27/23 14:19 08/27/23 17:03 Temperature 98 F 97.2 F L Pulse Rate 73 71 60 Respiratory Rate 17 16 16 Blood Pressure 152/90 H 149/94 H 133/82 Pulse Oximetry 98 100 100 Oxygen Delivery Room Air Simple Face Mask Oxygen Flow Rate 8 08/27/23 17:15 08/27/23 17:30 08/27/23 17:45 Temperature Pulse
[2023-08-28] VITALS (7 sets, daily range): BP systolic 119–179; BP diastolic 58–76; PULSE 74–87; RESP 16–21; TEMP 36.7–37.2; O2SAT 97–100
[2023-08-28 00:11] LABS: Hematocrit 43.7 % (42.0-52.0); Mean Corpuscular Hemoglobin 30.4 pg (26-34); Mean Platelet Volume 9.4 fl (7.4-10.4); Platelet Count Result 216 k/mm3 (150-375); Red Cell Distribution Width 14.4 % (11.5-14.5); White Blood Count 11.9 K/mm3 (4.5-10.0)
[2023-08-28] MEDS: CEFEPIME 1 GM/NS 50 ML 1 GM/50 ML BAG IVPB ×3 (00:12→23:46)
[2023-08-28 00:21] LABS: Anion Gap 3 mmol/L (8-16); Blood Urea Nitrogen 13 mg/dL (9-20); Calcium 8.3 mg/dL (8.4-10.2); Carbon Dioxide 27 mmol/L (22-30); Chloride 109 mmol/L (98-107); Estimated CRCL calculation 69 ml/min; Estimated Glomerular Filt Rate > 60; Glucose 114 mg/dL (65-110); Sodium 139 mmol/L (137-145)
[2023-08-28] MEDS: SODIUM CHLORIDE 0.9% IV 1,000 ML 125 ML IV CONT ×3 (03:51→22:43)
[2023-08-28 05:56] LABS: Hematocrit 42.1 % (42.0-52.0); Hemoglobin 13.6 g/dL (14.0-18.0); Mean Corpuscular HGB Conc 32.3 g/dl (32-36); Mean Corpuscular Hemoglobin 30.3 pg (26-34); Mean Corpuscular Volume 93.8 fl (80-100); Mean Platelet Volume 9.5 fl (7.4-10.4); Platelet Count Result 193 k/mm3 (150-375); Red Blood Count 4.49 M/mm3 (4.6-6.20); Red Cell Distribution Width 14.4 % (11.5-14.5); White Blood Count 10.6 K/mm3 (4.5-10.0)
[2023-08-28 06:10] LABS: Anion Gap 3 mmol/L (8-16); Blood Urea Nitrogen 13 mg/dL (9-20); Calcium 8.1 mg/dL (8.4-10.2); Carbon Dioxide 27 mmol/L (22-30); Chloride 111 mmol/L (98-107); Estimated CRCL calculation 69 ml/min; Estimated Glomerular Filt Rate > 60; Glucose 109 mg/dL (65-110); Potassium 4.2 mmol/L (3.4-5.0); Sodium 141 mmol/L (137-145)
--- NOTE | 2023-08-28 07:27 | PM.CNOR ---
Assessment and Plan Assessment and plan (1) Closed fracture of left lateral malleolus: Qualifiers: Encounter type: initial encounter <JEFF Vela - Last Filed: 08/28/23 12:43> Code(s): S82.62XA - Displaced fracture of lateral malleolus of left fibula, initial encounter for closed fracture <JEFF Vela - Last Filed: 08/28/23 12:43> Status: Acute <JEFF Vela - Last Filed: 08/28/23 12:43> Assessment and Plan: Left ankle Cougar B lateral malleolus fracture. May be treated conservatively. I recommend a CAM boot and non-weight bearing. May rest foot down for balance only. Follow up in office in 1-2 weeks with xrays. Discussed risks of further displacement and needing ORIF later. Boot dispensed to provide stability and eventually allow patient to return to ADLs. Discussed importance of ice and elevation to improve swelling. <JEFF Vela - Last Filed: 08/28/23 12:43> Assessment and Plan: Patient seen and examined. Discussed above care plan. Radiographic images reviewed personally. Agree with conservative care plan. <Miles Zarate MD - Last Filed: 08/28/23 14:54> History of Present Illness HPI Consult date: 08/28/23 <JEFF Vela - Last Filed: 08/28/23 12:43> 08/28/23 <Miles Zarate MD - Last Filed: 08/28/23 14:54> Chief complaint: eroding penile implant ,ams,left ankle fracture <JEFF Vela - Last Filed: 08/28/23 12:43> Narrative: Patient fell in his home 08/27/23. He became disoriented and fell from standing height. Unable to walk due to left ankle pain. Patient also had an eroding penile implant for which he had removed and I&D of yesterday. Patient is fairly healthy and typically lives at home with his . Typically walks without assistance. Has dementia but it is mild. No history of ankle pain or issues. Splint was placed in the ER yesterday. <JEFF Vela - Last Filed: 08/28/23 12:43> Review of Systems Review of Systems: All systems reviewed & are unremarkable except as noted in HPI and below <JEFF Vela - Last Filed: 08/28/23 12:43> [facility] Past Medical History Medical History: Medical History (Updated 08/28/23 @ 10:20 by EJFF Vela) Angioedema Cellulitis of external nose Complete tear of left rotator cuff Dehydration Hepatitis C antibody test negative (12/20/16) Prostate cancer Sialadenitis <JEFF Vela - Last Filed: 08/28/23 12:43> Surgical History Surgical History: Surgical History H/O prostatectomy History of penile implant <JEFF Vela - Last Filed: 08/28/23 12:43> Family History Family History: Family History Sibling Diabetes mellitus Father Hypertension Family history of coronary artery disease <JEFF Vela - Last Filed: 08/28/23 12:43> Social History Social History: Social History Smoking status: Former smoker Tobacco type: cigarettes Alcohol intake: never Substance use: never Do You Feel Safe in your Home?: Yes Lack of Transportation: No Lack of Food: Never True Current Housing: I Have Housing Concerned About Future Housing: No Difficulty Paying Gas/Electric Bills: No Difficulty Paying for Meds: No Currently Unemployed: No Education: High School Diploma/GED Difficulty w/ Childcare or Family Care: No Living arrangements: with family Spiritual care concerns: No Agree to blood products: Yes <JEFF Vela - Last Filed: 08/28/23 12:43> Meds Home Medications and Allergies Home medications: Home Medications Medication Instructions Recorded Confirmed Type bisacodyl 5 mg tablet 5 mg PO DAILY PRN Constipation
--- NOTE | 2023-08-28 09:22 | WPDUROPN2 ---
Progress Note: A&P Assessment and Plan (1) Erosion of penile prosthesis: Code(s): T83.89XA - Other specified complication of genitourinary prosthetic devices, implants and grafts, initial encounter Status: Acute Assessment and Plan: Dutta catheter and penile drain the can be removed any time. If he is going to be here an additional day I will wait till tomorrow. If he is ready for discharge today we will take them prior discharge. Follow-up with Dr. Salmon is 2-3 weeks Subjective Subjective Date/Time Seen: 08/28/23 09:22 Interval history: Comfortable, no complaints Review of Systems Cardiovascular: Cardiovascular: Denies chest pain, Denies lightheadedness, Denies palpitations and Denies dyspnea Respiratory: Respiratory: Denies dyspnea Gastrointestinal: Gastrointestinal: Denies diarrhea, Denies nausea and Denies vomiting Genitourinary: Genitourinary: Denies hematuria and Denies dysuria Endocrine: Endocrine: Denies palpitations Exam Const: General: no acute distress Resp: Effort & Inspection: normal respiratory effort GI: Inspection: non-distended GI Palp: No abdominal tenderness and No Guarding due to palpation present (GI) Auscultation: normal bowel sounds : Other: Dressed/wrapped - dry Urinary Catheter: Urinary Catheter: patent and draining and urine clear Objective Data Vital Signs Vital Signs: Vital Signs - 24 hr 08/27/23 09:43 08/27/23 09:50 08/27/23 11:10 Temperature 98.0 F Pulse Rate 80 71 Respiratory Rate 16 15 Blood Pressure 131/81 145/68 H Pulse Oximetry 100 100 Oxygen Delivery Room Air Room Air Oxygen Flow Rate 08/27/23 12:51 08/27/23 14:19 08/27/23 17:03 Temperature 98 F 97.2 F L Pulse Rate 73 71 60 Respiratory Rate 17 16 16 Blood Pressure 152/90 H 149/94 H 133/82 Pulse Oximetry 98 100 100 Oxygen Delivery Room Air Simple Face Mask Oxygen Flow Rate 8 08/27/23 17:15 08/27/23 17:30 08/27/23 17:45 Temperature Pulse Rate 65 64 67 Respiratory Rate 14 16 17 Blood Pressure 148/87 H 147/89 H 146/89 H Pulse Oximetry 100 100 96 Oxygen Delivery Simple Face Mask Room Air Room Air Oxygen Flow Rate 8 08/27/23 18:00 08/27/23 18:14 08/27/23 18:45 Temperature 97.8 F Pulse Rate 67 64 72 Respiratory Rate 16 16 16 Blood Pressure 160/86 H 160/90 H 149/101 H Pulse Oximetry 96 96 97 Oxygen Delivery Room Air Room Air Oxygen Flow Rate 08/27/23 20:29 08/27/23 20:45 08/28/23 00:03 Temperature 97.8 F 98.4 F Pulse Rate 62 75 Respiratory Rate 18 16 Blood Pressure 127/75 148/73 H Pulse Oximetry 91 97 Oxygen Delivery Room Air Oxygen Flow Rate 08/28/23 05:53 Temperature 99 F Pulse Rate 74 Respiratory Rate 18 Blood Pressure 143/76 H Pulse Oximetry 100 Oxygen Delivery Oxygen Flow Rate Intake/Output Intake/Output: Intake & Output 08/25/23 08/26/23 08/27/23 08/28/23 23:59 23:59 23:59 23:59 Intake Total 1450 1106.3 Output Total 501 650 Balance 949 456.3 Meds/Results Medications: Active Medications Generic Name Dose Route Start Last Admin Trade Name Freq PRN Reason Stop Dose Admin Hydrocodone Bitart/Acetaminophen 1 tab 08/27/23 18:18 08/27/23 20:07 Hydrocodone/Acetaminophen (*Crx) 5-325 Mg Tablet PO 1 tab Q4H PRN Administration Pain Rated 1-6 Bisacodyl 5 mg 08/27/23 22:23 Bisacodyl 5 Mg Tablet Ec PO DAILY PRN Constipation Enoxaparin Sodium 40 mg 08/28/23 09:00 Enoxaparin 40 Mg/0.4 Ml Syringe SUB-Q DAILY [facility] Fentanyl Citrate 25 mcg 08/27/23 14:17 08/27/23 17:50 Fentanyl Citrate Inj (*Crx) 100 Mcg/2 Ml Vial IV PUSH 25 mcg Q2M PRN Administration Pain Sodium Chloride 1,000 mls @ 125 mls/hr 08/27/23 13:00 08/28/23 03:51 Normal Saline Iv IV CONT 125 mls/hr .Q8H PILY Administration Cefepime HCl 1 gm in 50 mls @ 100 mls/hr 08/28/23 00:00 08/28/23 00:42 Maxipime 1 Gm/Ns 50 Ml IVPB Infused Q12H PILY Infusi
[2023-08-28] MEDS: VANCOMYCIN 1,500 MG/NS 500 ML 1,500 MG/500 ML BAG 250 MG IVPB (09:58)
[2023-08-28] MEDS: ENOXAPARIN 40 MG/0.4 ML SYRINGE SUB-Q (09:59)
[2023-08-28] MEDS: MEMANTINE 10 MG TABLET PO ×2 (09:59→17:56)
--- NOTE | 2023-08-28 13:42 | PM.IMPN ---
Progress Note: A&P Assessment and Plan (1) Altered mental status: Qualifiers: Altered mental status type: disorientation Qualified Code(s): R41.0 - Disorientation, unspecified Code(s): R41.82 - Altered mental status, unspecified Status: Acute Assessment and Plan: - no leukocytosis or anemia - head CT: No intracranial hemorrhage, mass, or acute infarct. Chronic white matter changes, as detailed in report. - CXR: No acute cardiopulmonary disease - UA: Non hemolyzed trace blood, otherwise unremarkable - infection/erosion of penile implant, urology consulted - suspect encephalopathy secondary to infection/erosion of the penile implant. Started on vancomycin and cefepime. - pt has NCI sees Dr Morley on namenda (2) Erosion of penile prosthesis: Code(s): T83.89XA - Other specified complication of genitourinary prosthetic devices, implants and grafts, initial encounter Status: Acute Assessment and Plan: - urology consulted, Viky INFANTE. urology team provided the following recs: OR today for implant removal and antibiotic washout Penile prosthesis components removed and sent for culture and specimen Dutta placement, will need to remain in place, remove at urology's discretion Started on vancomycin and cefepime (3) Ankle fracture, left: Qualifiers: Encounter type: initial encounter Fracture type: closed Qualified Code(s): S82.892A - Other fracture of left lower leg, initial encounter for closed fracture Code(s): S82.892A - Other fracture of left lower leg, initial encounter for closed fracture Status: Acute Assessment and Plan: - XR, left ankle: Minimally displaced oblique distal left fibular metaphyseal fracture. - splinted in ED - ortho consulted pain control Plan Here for washout, removal of implant, and antibiotics due to eroded penile implant. Urology consulted and procedure completed. Additionally has left ankle fracture, Ortho consulted. Subjective Date/time seen: 08/28/23 13:42 Interval history: 77 y/o M presents here with confusion, generalized weakness, and dislodged penile implant with PMH prostate cancer, sialadenitis, and dementia. Patient presents here from home with increased confusion, weakness, and dislodged penal implant.? Per patient woke up acting differently (i.e. slow responses, not understanding questions), fatigued, and was unable to get out of bed.? Attempted to get up and he fell back onto his bottom onto the floor. Denying pain to buttocks, reported pain to L ankle post-fall, no head strike, and no difficulty with moving LEs. witnessed fall. Unable to ambulate after fall due to pain in left ankle. Did not sleep well night prior, sleepy today. Patient had scheduled visit with Dr. Ibarra with urology for a dislodged penile implant (placed in 2017) that has now developed erosion of the implant. Pt admitted with AMS and fell onto his ankle Pt has history of Neuro cognitive impairment sees Dr Morley states that pt is back to himself today pt has trouble with speaking before, not new problem. Await and Urology recommendation pt going for penile implant removal and antibiotic washout in the OR this afternoon with Dr. Das Orthopedic recommendations seen for ankle fracture PT/ OT ordered Review of Systems Review of Systems: Less confused today Exam Narrative: General: Awake, alert, comfortable, no acute distress HEENT: Normocephalic, atraumatic, sclerae anicteric Respiratory: Normal respiratory effort, no accessory muscle use Abdomen: Nondistended, soft, nontender : foreskin easily retractable, penile implant is inflated with erosion of the right lateral shaft and exposure of penile implant, no surrounding erythema or purulent drainage Skin: Normal coloration, warm and dry Neurologic: No focal neuro deficits noted, slightly forgetful Psychiatric: Ap
--- NOTE | 2023-08-28 13:56 | WPDANESPN ---
Anes - Prog Note Post-Op Date/Time: 08/28/23 13:56 Cardiovascular status: normal Respiratory status: normal Airway patency: baseline Mental status: baseline Post-Op hydration status: normal Vital Signs: Last Vital Signs Temp 36.7 C 08/28/23 08:03 Pulse 87 08/28/23 09:51 Resp 16 08/28/23 08:03 BP 119/58 L 08/28/23 08:03 Pulse Ox 98 08/28/23 09:51 O2 Del Method Room Air 08/28/23 09:51 O2 Flow Rate 8 08/27/23 17:15 Pain Score (VAS): 0/10 I/O: Intake & Output 08/27/23 08/28/23 08/28/23 23:59 07:59 15:59 Intake Total 400 1106.3 1480 Output Total 376 650 Balance 24 456.3 1480 Laboratory Tests 08/28/23 05:45 08/28/23 05:45 08/27/23 08/27/23 08/28/23 12:49 23:55 05:45 WBC 11.9 H 10.6 H RBC 4.60 4.49 L Hgb 14.0 13.6 L Hct 43.7 42.1 MCV 95.0 93.8 MCH 30.4 30.3 MCHC 32.0 32.3 RDW 14.4 14.4 Plt Count 216 193 MPV 9.4 9.5 Sodium 139 141 Potassium 4.0 4.2 Chloride 109 H 111 H Carbon Dioxide 27 27 Anion Gap 3 L 3 L BUN 13 13 Creatinine 0.90 0.90 Estim Creat Clear Calc 69 69 Estimated GFR > 60 > 60 Glucose 114 H 109 Calcium 8.3 L 8.1 L Nasal MRSA (PCR) Not detected Microbiology 08/27/23 16:02 Other Anaerobic Culture - Preliminary Post-procedural complaints: none Patient Feedback: Patient satisfied with anesthetic care.
[2023-08-29 05:51] LABS: Hematocrit 42.1 % (42.0-52.0); Hemoglobin 13.5 g/dL (14.0-18.0); Mean Corpuscular HGB Conc 32.1 g/dl (32-36); Mean Corpuscular Hemoglobin 30.1 pg (26-34); Mean Corpuscular Volume 93.8 fl (80-100); Mean Platelet Volume 9.6 fl (7.4-10.4); Platelet Count Result 182 k/mm3 (150-375); Red Blood Count 4.49 M/mm3 (4.6-6.20); Red Cell Distribution Width 13.8 % (11.5-14.5); White Blood Count 8.9 K/mm3 (4.5-10.0)
[2023-08-29 06:00] VITALS: BP 167/91; PULSE 70; RESP 21; TEMP 36.4; O2SAT 100
[2023-08-29 06:03] LABS: Anion Gap 1 mmol/L (8-16); Blood Urea Nitrogen 10 mg/dL (9-20); Calcium 8.2 mg/dL (8.4-10.2); Carbon Dioxide 29 mmol/L (22-30); Chloride 107 mmol/L (98-107); Estimated CRCL calculation 87 ml/min; Estimated Glomerular Filt Rate > 60; Glucose 101 mg/dL (65-110); Potassium 3.5 mmol/L (3.4-5.0); Sodium 137 mmol/L (137-145)
[2023-08-29] MEDS: VANCOMYCIN 1,500 MG/NS 500 ML 1,500 MG/500 ML BAG 250 MG IVPB (06:32)
--- NOTE | 2023-08-29 07:29 | WPDUROPN2 ---
Progress Note: A&P Assessment and Plan (1) Erosion of penile prosthesis: Code(s): T83.89XA - Other specified complication of genitourinary prosthetic devices, implants and grafts, initial encounter Status: Acute Assessment and Plan: Genital drain and Dutta catheter removed Home on oral Septra DS bid x6 days fine with me Subjective Subjective Date/Time Seen: 08/29/23 07:29 Interval history: Comfortable, no complaints Review of Systems Cardiovascular: Cardiovascular: Denies chest pain, Denies lightheadedness, Denies palpitations and Denies dyspnea Respiratory: Respiratory: Denies dyspnea Gastrointestinal: Gastrointestinal: Denies diarrhea, Denies nausea and Denies vomiting Genitourinary: Genitourinary: Denies hematuria and Denies dysuria Endocrine: Endocrine: Denies palpitations Exam Const: General: no acute distress Resp: Effort & Inspection: normal respiratory effort GI: Inspection: non-distended GI Palp: No abdominal tenderness and No Guarding due to palpation present (GI) Auscultation: normal bowel sounds Objective Data Vital Signs Vital Signs: Vital Signs - 24 hr 08/28/23 09:51 08/28/23 08:03 08/28/23 12:03 Temperature 98.0 F 98.6 F Pulse Rate 87 81 75 Respiratory Rate 16 16 Blood Pressure 119/58 L 137/64 Pulse Oximetry 98 97 98 Oxygen Delivery Room Air 08/28/23 20:00 08/28/23 22:00 08/28/23 23:27 Temperature 98.2 F Pulse Rate 76 Respiratory Rate 21 H Blood Pressure 179/74 H Pulse Oximetry 100 98 Oxygen Delivery Room Air Room Air Intake/Output Intake/Output: Intake & Output 08/26/23 08/27/23 08/28/23 08/29/23 23:59 23:59 23:59 23:59 Intake Total 1450 3906.3 250 Output Total 501 1340 1210 Balance 949 2566.3 -960 Meds/Results Medications: Active Medications Generic Name Dose Route Start Last Admin Trade Name Freq PRN Reason Stop Dose Admin Hydrocodone Bitart/Acetaminophen 1 tab 08/27/23 18:18 08/27/23 20:07 Hydrocodone/Acetaminophen (*Crx) 5-325 Mg Tablet PO 1 tab Q4H PRN Administration Pain Rated 1-6 Bisacodyl 5 mg 03/20/24 22:23 Bisacodyl 5 Mg Tablet Ec PO DAILY PRN Constipation Enoxaparin Sodium 40 mg 08/28/23 09:00 08/28/23 09:59 Enoxaparin 40 Mg/0.4 Ml Syringe SUB-Q 40 mg DAILY PILY Administration Fentanyl Citrate 25 mcg 08/27/23 14:17 08/27/23 17:50 Fentanyl Citrate Inj (*Crx) 100 Mcg/2 Ml Vial IV PUSH 25 mcg Q2M PRN Administration Pain Sodium Chloride 1,000 mls @ 125 mls/hr 08/27/23 13:00 08/28/23 22:43 Normal Saline Iv IV CONT 125 mls/hr .Q8H PILY Administration Cefepime HCl 1 gm in 50 mls @ 100 mls/hr 08/28/23 00:00 08/29/23 00:16 Maxipime 1 Gm/Ns 50 Ml IVPB Infused Q12H PILY Infusion Vancomycin HCl 1,500 mg in 500 mls @ 250 mls/hr 08/29/23 04:00 08/29/23 06:32 Vancomycin 1,500 Mg/Ns 500 Ml IVPB 250 mls/hr Q18H PILY Administration Memantine 10 mg 08/28/23 09:00 08/28/23 17:56 Memantine 10 Mg Tablet PO 10 mg BID PILY Administration Morphine Sulfate 2 mg 08/27/23 18:18 Morphine Sulfate (*Crx) 2 Mg/Ml Inj IV PUSH Q2H PRN Pain Rated 7-10 Naloxone HCl 0.1 mg 08/27/23 18:18 Naloxone Hcl 0.4 Mg/Ml Vial IV PUSH Q2M PRN Opiate Reversal Ondansetron HCl 4 mg 08/27/23 14:17 Ondansetron Inj 4 Mg/2 Ml Vial IV PUSH ONCE PRN Nausea Ondansetron HCl 4 mg 08/27/23 18:18 Ondansetron Inj 4 Mg/2 Ml Vial IV PUSH Q12H PRN Nausea And Vomiting Radiology Results: ITS Impressions Head CT 08/27/23 11:07 Impression: No intracranial hemorrhage, mass, or acute infarct. Chronic white matter changes, as above. Ankle X-Ray 08/27/23 12:45 IMPRESSION: 1. [Minimally displaced oblique distal left fibular metaphyseal fracture. Chest X-Ray 08/27/23 12:47 IMPRESSION: 1. No acute cardiopulmonary disease. Labs Labs: Laboratory Results - last 2
[2023-08-29 08:19] VITALS: O2SAT 97
[2023-08-29] MEDS: ENOXAPARIN 40 MG/0.4 ML SYRINGE SUB-Q (08:42)
[2023-08-29] MEDS: MEMANTINE 10 MG TABLET PO ×2 (08:42→17:19)
--- NOTE | 2023-08-29 10:30 | PM.PNORT ---
Progress Note: A&P Assessment and Plan (1) Closed fracture of left lateral malleolus: Qualifiers: Encounter type: initial encounter Code(s): S82.62XA - Displaced fracture of lateral malleolus of left fibula, initial encounter for closed fracture Status: Acute Assessment and Plan: Left ankle [place] B lateral malleolus fracture. May be treated conservatively. I recommend a CAM boot and non-weight bearing. May rest foot down for balance only. Patient is more confused than let on. She states he is more confused than usual. He removed the walking boot on his own this morning. He may remove when at rest but must have on if he gets up. Discussed risk of displacement with him and his . I recommend he leave it on while at home so he does not forget that he has the fracture and walks without it. He should be non-weight bearing. Discussed importance of ice and elevation to improve swelling.?He and his show understanding. Okay for discharge from orthopedic standpoint. He has a follow up scheduled in our office. Thank you for allowing us to take part in his care. Ortho instructions: Xray and follow up in office in [address] scheduled for 09/10/23 at 3:30. Please arrive at 3:15 for radiographs. [facility] . Non weight bearing with Boot for 2 weeks. May rest foot down for balance only. Okay to remove for hygiene and at rest. Ice and elevation to help with swelling and pain. Pain medication: Tylenol. Subjective Subjective Date/Time Seen: 08/29/23 10:30 Interval history: Patient resting comfortably in bed. No acute distress. Pleasantly confused. at bedside. She states he is more confused than usual. He notes pain in the ankle. He has took off the boot this morning. Review of Systems Review of Systems: All systems reviewed & are unremarkable except as noted in HPI and below Exam Narrative: Normal weight 77 y/o male resting comfortably in bed. Confused. Alert to self. Not wearing boot today. Melchor wrap in place. Mild swelling. Wiggles toes. Light touch sensation intact. No knee pain. Deltoid ligament non tender. Objective Data Vital Signs Vital Signs: Vital Signs - 24 hr 08/28/23 12:03 08/28/23 20:00 08/28/23 22:00 Temperature 98.6 F 98.2 F Pulse Rate 75 76 Respiratory Rate 16 21 H Blood Pressure 137/64 179/74 H Pulse Oximetry 98 100 Oxygen Delivery Room Air 08/28/23 23:27 08/29/23 06:00 08/29/23 08:19 Temperature 97.6 F Pulse Rate 70 Respiratory Rate 21 H Blood Pressure 167/91 H Pulse Oximetry 98 100 97 Oxygen Delivery Room Air Room Air 08/29/23 08:39 08/29/23 08:42 Temperature Pulse Rate Respiratory Rate Blood Pressure Pulse Oximetry Oxygen Delivery Room Air Room Air Intake/Output Intake/Output: Intake & Output 08/26/23 08/27/23 08/28/23 08/29/23 23:59 23:59 23:59 23:59 Intake Total 1450 3906.3 490 Output Total 501 1340 1210 Balance 949 2566.3 -720 Meds/Results Medications: Active Medications Generic Name Dose Route Start Last Admin Trade Name Freq PRN Reason Stop Dose Admin Hydrocodone Bitart/Acetaminophen 1 tab 08/27/23 18:18 08/27/23 20:07 Hydrocodone/Acetaminophen (*Crx) 5-325 Mg Tablet PO 1 tab Q4H PRN Administration Pain Rated 1-6 Bisacodyl 5 mg 08/27/23 22:23 Bisacodyl 5 Mg Tablet Ec PO DAILY PRN Constipation Enoxaparin Sodium 40 mg 08/28/23 09:00 08/29/23 08:42 Enoxaparin 40 Mg/0.4 Ml Syringe SUB-Q 40 mg DAILY PILY Administration Fentanyl Citrate 25 mcg 08/27/23 14:17 08/27/23 17:50 Fentanyl Citrate Inj (*Crx) 100 Mcg/2 Ml Vial IV PUSH 25 mcg Q2M PRN Administration Pain Sodium Chloride 1,000 mls @ 125 mls/hr 08/27/23 13:00 08/29/23 08:43 Normal Saline Iv IV CONT Not Given .Q8H [facility] Cefepime HCl 1 gm in 50 mls @ 100 mls/hr 08/28/23 00:00 08/29/23 00:16 Maxipime 1 Gm/Ns 50 Ml IVPB Infused Q12H PILY
[2023-08-29 14:15] VITALS: BP 147/77; PULSE 87; RESP 20; TEMP 36.8; O2SAT 97
--- NOTE | 2023-08-29 14:43 | PM.IMPN ---
Progress Note: A&P Assessment and Plan (1) Altered mental status: Qualifiers: Altered mental status type: disorientation Qualified Code(s): R41.0 - Disorientation, unspecified Code(s): R41.82 - Altered mental status, unspecified Status: Acute (2) Erosion of penile prosthesis: Code(s): T83.89XA - Other specified complication of genitourinary prosthetic devices, implants and grafts, initial encounter Status: Acute (3) Ankle fracture, left: Qualifiers: Encounter type: initial encounter Fracture type: closed Qualified Code(s): S82.892A - Other fracture of left lower leg, initial encounter for closed fracture Code(s): S82.892A - Other fracture of left lower leg, initial encounter for closed fracture Status: Acute Plan 69-year-old male presents to the ED on 08/27/2023 with altered mental status. He also fell back on his bottom. He was supposed to have a visit with Dr. Salmon for and eroded penile inflation device. His vitals were stable and appeared nontoxic on ED evaluation. EKG was sinus rhythm no acute ST changes. CBC with WBC count of 7.1 hemoglobin of 15.1 platelet of 239. BMP within normal limit. LFTs normal urinalysis negative for any infection. CT head was done which was negative for any acute intracranial process. Chest x-ray with no acute findings. X-ray of the left ankle was done which showed left ankle lateral malleolar fracture. Orthopedics has been consulted and was placed on cam boot and not weight bearing. Follow-up in office in 1-2 weeks. Urology was also consulted and underwent removal of penile implant scrotal exploration antibiotic washout on 08/27/2023. Post surgery Dutta catheter has been removed. He has maintain on antibiotics with vancomycin and cefepime which will be switched to Bactrim today. Since is nonweightbearing and no help at home may need to go to rehab facility. PT OT has been ordered for this. His confusion has slightly improved compared to his admission which is likely related to delirium from his underlying infection. Involvement care coordination DVT prophylaxis Lovenox will stop IV fluids Subjective Date/time seen: 08/29/23 14:43 Interval history: Confusion improving. Family at bedside. Left ankle both in place. Remains afebrile. Review of Systems Review of Systems: All systems reviewed & are unremarkable except as noted in HPI and below Exam Narrative: General: Awake, alert, comfortable, no acute distress HEENT: Normocephalic, atraumatic, sclerae anicteric Respiratory: Normal respiratory effort, no accessory muscle use Abdomen: Nondistended, soft, nontender : foreskin easily retractable, no surrounding erythema or purulent drainage Skin: Normal coloration, warm and dry Neurologic: No focal neuro deficits noted, slightly forgetful Psychiatric: Appropriate mood and affect, judgment and insight fair Left ankle boot Objective Data Vital Signs Vital Signs: Vital Signs - 24 hr 08/28/23 20:00 08/28/23 22:00 08/28/23 23:27 Temperature 98.2 F Pulse Rate 76 Respiratory Rate 21 H Blood Pressure 179/74 H Pulse Oximetry 100 98 Oxygen Delivery Room Air Room Air 08/29/23 06:00 08/29/23 08:19 08/29/23 08:39 Temperature 97.6 F Pulse Rate 70 Respiratory Rate 21 H Blood Pressure 167/91 H Pulse Oximetry 100 97 Oxygen Delivery Room Air Room Air 08/29/23 08:42 Temperature Pulse Rate Respiratory Rate Blood Pressure Pulse Oximetry Oxygen Delivery Room Air Intake/Output Intake/Output: Intake & Output 08/26/23 08/27/23 08/28/23 08/29/23 23:59 23:59 23:59 23:59 Intake Total 1450 3906.3 1230 Output Total 501 1340 1210 Balance 949 2566.3 20 Meds/Results Medications: Active Medications Generic Name Dose Route Start Last Admin Trade Name Freq PRN Reason Stop Dose Admin Hydrocodone Bitart/Acetaminophen 1 tab 08/27/23 18:18 08/27/23 20:07 Hydroco
[2023-08-29 20:29] VITALS: BP 177/92; PULSE 83; RESP 16; TEMP 37.2; O2SAT 98
[2023-08-29] MEDS: SULFAMETHOXAZOLE/TRIMETHOPRIM 800/160 MG DS TABLET 1 TAB PO (20:34)
[2023-08-30 05:59] LABS: Basophils Percent Auto 0.1 % (0.2-1.2); Eosinophils Absolute Auto 0.1 K/mm3 (0-0.3); Hematocrit 40.2 % (42.0-52.0); Hemoglobin 13.3 g/dL (14.0-18.0); Immature Granulocyte Absolute 0.04 K/mm3 (0.00-0.031); Immature Granulocyte Percent A 0.4 % (0-0.5); Lymphocytes Absolute Auto 0.35 K/mm3 (0.9-3.2); Lymphocytes Percent Auto 3.3 % (18.3-44.2); Mean Corpuscular HGB Conc 33.1 g/dl (32-36); Mean Corpuscular Hemoglobin 30.2 pg (26-34); Mean Corpuscular Volume 91.2 fl (80-100); Mean Platelet Volume 9.7 fl (7.4-10.4); Monocytes Absolute Auto 0.6 K/mm3 (0.1-0.6); Monocytes Percent Auto 5.4 % (2.6-8.5); Neutrophils Absolute Auto 9.6 K/mm3 (1.3-6.7); Neutrophils Percent Auto 89.8 % (45.5-73.1); Platelet Count Result 174 k/mm3 (150-375); Red Blood Count 4.41 M/mm3 (4.6-6.20); Red Cell Distribution Width 13.3 % (11.5-14.5); White Blood Count 10.7 K/mm3 (4.5-10.0)
[2023-08-30 06:00] VITALS: BP 139/79; PULSE 84; RESP 16; TEMP 37.5; O2SAT 95
[2023-08-30 06:09] LABS: Alanine Aminotransferase 14 U/L (6-50); Albumin Level 3.1 g/dL (3.5-5.1); Alkaline Phosphatase 70 U/L (38-126); Anion Gap 3 mmol/L (8-16); Aspartate Amino Transferase 24 U/L (17-59); Blood Urea Nitrogen 11 mg/dL (9-20); Calcium 8.3 mg/dL (8.4-10.2); Carbon Dioxide 26 mmol/L (22-30); Chloride 110 mmol/L (98-107); Estimated CRCL calculation 69 ml/min; Estimated Glomerular Filt Rate > 60; Glucose 120 mg/dL (65-110); Magnesium 1.8 mg/dL (1.6-2.3); Sodium 139 mmol/L (137-145)
[2023-08-30] MEDS: MEMANTINE 10 MG TABLET PO ×2 (09:18→17:22)
[2023-08-30] MEDS: SULFAMETHOXAZOLE/TRIMETHOPRIM 800/160 MG DS TABLET 1 TAB PO ×2 (09:18→21:52)
[2023-08-30] MEDS: ENOXAPARIN 40 MG/0.4 ML SYRINGE SUB-Q (09:19)
--- NOTE | 2023-08-30 14:39 | PM.IMPN ---
Progress Note: A&P Assessment and Plan (1) Altered mental status: Qualifiers: Altered mental status type: disorientation Qualified Code(s): R41.0 - Disorientation, unspecified Code(s): R41.82 - Altered mental status, unspecified Status: Acute (2) Erosion of penile prosthesis: Code(s): T83.89XA - Other specified complication of genitourinary prosthetic devices, implants and grafts, initial encounter Status: Acute (3) Ankle fracture, left: Qualifiers: Encounter type: initial encounter Fracture type: closed Qualified Code(s): S82.892A - Other fracture of left lower leg, initial encounter for closed fracture Code(s): S82.892A - Other fracture of left lower leg, initial encounter for closed fracture Status: Acute Plan 69-year-old male presents to the ED on 08/27/2023 with altered mental status. He also fell back on his bottom. He was supposed to have a visit with Dr. Salmon for and eroded penile inflation device. His vitals were stable and appeared nontoxic on ED evaluation. EKG was sinus rhythm no acute ST changes. CBC with WBC count of 7.1 hemoglobin of 15.1 platelet of 239. BMP within normal limit. LFTs normal urinalysis negative for any infection. CT head was done which was negative for any acute intracranial process. Chest x-ray with no acute findings. X-ray of the left ankle was done which showed left ankle lateral malleolar fracture. Orthopedics has been consulted and was placed on cam boot and not weight bearing. Follow-up in office in 1-2 weeks. Urology was also consulted and underwent removal of penile implant scrotal exploration antibiotic washout on 08/27/2023. Post surgery Dutta catheter has been removed. He has maintain on antibiotics with vancomycin and cefepime which will be switched to Bactrim. Since is nonweightbearing and no help at home may need to go to rehab facility. PT OT evaluated awaiting placement His confusion has slightly improved compared to his admission which is likely related to delirium from his underlying infection. Care coordination consulted DVT prophylaxis Lovenox will stop IV fluids Subjective Date/time seen: 08/30/23 14:39 Interval history: Anxious earlier. Confusion improving pain is controlled. Labs reviewed. Awaiting for placement Review of Systems Review of Systems: All systems reviewed & are unremarkable except as noted in HPI and below Exam Narrative: General: Awake, alert, comfortable, no acute distress HEENT: Normocephalic, atraumatic, sclerae anicteric Respiratory: Normal respiratory effort, no accessory muscle use Abdomen: Nondistended, soft, nontender : foreskin easily retractable, no surrounding erythema or purulent drainage Skin: Normal coloration, warm and dry Neurologic: No focal neuro deficits noted, slightly forgetful Psychiatric: Appropriate mood and affect, judgment and insight fair Left ankle boot Objective Data Vital Signs Vital Signs: Vital Signs - 24 hr 08/29/23 20:29 08/29/23 20:00 08/30/23 06:00 Temperature 99 F 99.5 F Pulse Rate 83 84 Respiratory Rate 16 16 Blood Pressure 177/92 H 139/79 Pulse Oximetry 98 95 Oxygen Delivery Room Air 08/30/23 08:00 Temperature Pulse Rate Respiratory Rate Blood Pressure Pulse Oximetry Oxygen Delivery Room Air Intake/Output Intake/Output: Intake & Output 08/27/23 08/28/23 08/29/23 08/30/23 23:59 23:59 23:59 23:59 Intake Total 1450 3906.3 2570 320 Output Total 501 1340 1210 Balance 949 2566.3 1360 320 Meds/Results Medications: Active Medications Generic Name Dose Route Start Last Admin Trade Name Freq PRN Reason Stop Dose Admin Hydrocodone Bitart/Acetaminophen 1 tab 08/27/23 18:18 08/27/23 20:07 Hydrocodone/Acetaminophen (*Crx) 5-325 Mg Tablet PO 1 tab Q4H PRN Administration Pain Rated 1-6 Bisacodyl 5 mg 08/27/23 22:23 Bisacodyl 5 Mg Tablet Ec PO DAILY PRN
[2023-08-30 15:10] VITALS: BP 95/48; PULSE 86; RESP 15; TEMP 36.9; O2SAT 97
[2023-08-30] MEDS: POTASSIUM CHLORIDE 20 MEQ ER TABLET 40 MEQ PO (17:24)
[2023-08-30 21:27] VITALS: BP 131/73; PULSE 88; RESP 20; TEMP 37; O2SAT 98
[2023-08-31] VITALS (10 sets, daily range): BP systolic 84–156; BP diastolic 44–79; PULSE 73–110; RESP 16–24; TEMP 36.1–38.3; O2SAT 90–97; BMI 11.0
[2023-08-31 06:26] LABS: Basophils Percent Auto 0.1 % (0.2-1.2); Eosinophils Absolute Auto 0.6 K/mm3 (0-0.3); Eosinophils Percent Auto 6.9 % (0-4.4); Hematocrit 42.4 % (42.0-52.0); Hemoglobin 13.6 g/dL (14.0-18.0); Immature Granulocyte Absolute 0.05 K/mm3 (0.00-0.031); Immature Granulocyte Percent A 0.5 % (0-0.5); Lymphocytes Absolute Auto 0.55 K/mm3 (0.9-3.2); Mean Corpuscular HGB Conc 32.1 g/dl (32-36); Mean Corpuscular Hemoglobin 30.2 pg (26-34); Mean Corpuscular Volume 94.2 fl (80-100); Mean Platelet Volume 9.9 fl (7.4-10.4); Monocytes Absolute Auto 0.4 K/mm3 (0.1-0.6); Monocytes Percent Auto 4.8 % (2.6-8.5); Neutrophils Absolute Auto 7.6 K/mm3 (1.3-6.7); Neutrophils Percent Auto 81.7 % (45.5-73.1); Platelet Count Result 202 k/mm3 (150-375); Red Cell Distribution Width 14.2 % (11.5-14.5); White Blood Count 9.2 K/mm3 (4.5-10.0)
[2023-08-31 06:42] LABS: Alanine Aminotransferase 15 U/L (6-50); Albumin Level 3.4 g/dL (3.5-5.1); Alkaline Phosphatase 67 U/L (38-126); Anion Gap 6 mmol/L (8-16); Aspartate Amino Transferase 22 U/L (17-59); Bilirubin,Total 0.9 mg/dL (0.2-1.3); Blood Urea Nitrogen 19 mg/dL (9-20); Calcium 8.5 mg/dL (8.4-10.2); Carbon Dioxide 25 mmol/L (22-30); Chloride 107 mmol/L (98-107); Estimated CRCL calculation 45 ml/min; Estimated Glomerular Filt Rate 59; Glucose 104 mg/dL (65-110); Potassium 3.6 mmol/L (3.4-5.0); Sodium 138 mmol/L (137-145)
[2023-08-31] MEDS: MEMANTINE 10 MG TABLET PO ×2 (09:30→18:19)
[2023-08-31] MEDS: ENOXAPARIN 40 MG/0.4 ML SYRINGE SUB-Q (09:30)
[2023-08-31] MEDS: SULFAMETHOXAZOLE/TRIMETHOPRIM 800/160 MG DS TABLET 1 TAB PO (09:30)
--- NOTE | 2023-08-31 11:20 | PC.NURSE ---
Patient off of unit to CT scan
--- NOTE | 2023-08-31 11:22 | PM.IMPN ---
Progress Note: A&P Assessment and Plan (1) Altered mental status: Qualifiers: Altered mental status type: disorientation Qualified Code(s): R41.0 - Disorientation, unspecified Code(s): R41.82 - Altered mental status, unspecified Status: Acute (2) Erosion of penile prosthesis: Code(s): T83.89XA - Other specified complication of genitourinary prosthetic devices, implants and grafts, initial encounter Status: Acute (3) Ankle fracture, left: Qualifiers: Encounter type: initial encounter Fracture type: closed Qualified Code(s): S82.892A - Other fracture of left lower leg, initial encounter for closed fracture Code(s): S82.892A - Other fracture of left lower leg, initial encounter for closed fracture Status: Acute Plan 69-year-old male presents to the ED on 08/27/2023 with altered mental status. He also fell back on his bottom. He was supposed to have a visit with Dr. Salmon for and eroded penile inflation device. His vitals were stable and appeared nontoxic on ED evaluation. EKG was sinus rhythm no acute ST changes. CBC with WBC count of 7.1 hemoglobin of 15.1 platelet of 239. BMP within normal limit. LFTs normal urinalysis negative for any infection. CT head was done which was negative for any acute intracranial process. Chest x-ray with no acute findings. X-ray of the left ankle was done which showed left ankle lateral malleolar fracture. Orthopedics has been consulted and was placed on cam boot and not weight bearing. Follow-up in office in 1-2 weeks. Urology was also consulted and underwent removal of penile implant scrotal exploration antibiotic washout on 08/27/2023. Post surgery Dutta catheter has been removed. He has maintain on antibiotics with vancomycin and cefepime which will be switched to Bactrim. Since is nonweightbearing and no help at home may need to go to rehab facility. PT OT evaluated awaiting placement His confusion has slightly improved compared to his admission which is likely related to delirium from his underlying infection. Care coordination consulted Confusion has worsened today. Gentle IV fluid check ABG and also get MRI DVT prophylaxis Lovenox Subjective Date/time seen: 08/31/23 11:22 Interval history: Patient more confused today. Labs were reviewed. Creatinine has bumped up to 1.4. Family at bedside. Review of Systems Review of Systems: All systems reviewed & are unremarkable except as noted in HPI and below Exam Narrative: General: Awake, alert, comfortable, no acute distress HEENT: Normocephalic, atraumatic, sclerae anicteric Respiratory: Normal respiratory effort, no accessory muscle use Abdomen: Nondistended, soft, nontender : foreskin easily retractable, no surrounding erythema or purulent drainage Skin: Normal coloration, warm and dry Neurologic: No focal neuro deficits noted, slightly forgetful slurred speech Psychiatric: Appropriate mood and affect, judgment and insight fair Left ankle boot Objective Data Vital Signs Vital Signs: Vital Signs - 24 hr 08/30/23 15:10 08/30/23 21:27 08/30/23 20:00 Temperature 98.5 F 98.6 F Pulse Rate 86 88 Respiratory Rate 15 20 Blood Pressure 95/48 L 131/73 Pulse Oximetry 97 98 Oxygen Delivery Room Air 08/31/23 07:39 08/31/23 06:40 Temperature 97.0 F L Pulse Rate 93 Respiratory Rate 16 Blood Pressure 156/79 H Pulse Oximetry 97 95 Oxygen Delivery Room Air Intake/Output Intake/Output: Intake & Output 08/28/23 08/29/23 08/30/23 08/31/23 23:59 23:59 23:59 23:59 Intake Total 3906.3 2570 1180 620 Output Total 1340 1210 Balance 2566.3 1360 1180 620 Meds/Results Medications: Active Medications Generic Name Dose Route Start Last Admin Trade Name Freq PRN Reason Stop Dose Admin Hydrocodone Bitart/Acetaminophen 1 tab 08/27/23 18:18 08/27/23 20:07 Hydrocodone/Acetaminophen (*Crx) 5-325 Mg Tablet PO 1 tab Q4H PRN
[2023-08-31] MEDS: SODIUM CHLORIDE 0.9% IV 1,000 ML 75 ML IV CONT (12:43)
[2023-08-31 12:53] LABS: Glucose Point of Care 121 mg/dl (65-105)
[2023-08-31 12:53] LABS: Alveolar/Arterial O2 Gradient 50.8 mmHg; Base Excess ABG -0.1 mEq/l (+/-2.0); Device ROOM AIR; Fractional Inspired Oxygen 21 %; HCO3 ABG 22.1 mEq/l (22.0-26.0); Modified Allen's Test Pass; Oxygen Saturation ABG 94.2 % (95.0-100.0); Oxyhemoglobin 92.5 % THb (90.0-100.0); PCO2 ABG 29.5 mmHg (35.0-45.0); PO2 ABG 63.6 mmHg (80.0-100.0); PO2 FiO2 Ratio Arterial Blood 3.03 %; Site Drawn LEFT RADIAL; Total Hemoglobin 14.6 g/dL (12.0-18.0); pH ABG 7.492 (7.350-7.450)
--- NOTE | 2023-08-31 14:35 | PC.NURSE ---
Patient off of unit for MRI
[2023-08-31 16:33] LABS: Lactic Acid Reflex 1.9 mmol/L (0.7-2.0)
[2023-08-31 16:34] LABS: Anion Gap 3 mmol/L (8-16); Blood Urea Nitrogen 22 mg/dL (9-20); Calcium 8.4 mg/dL (8.4-10.2); Carbon Dioxide 27 mmol/L (22-30); Chloride 106 mmol/L (98-107); Estimated CRCL calculation 38 ml/min; Estimated Glomerular Filt Rate 47; Glucose 121 mg/dL (65-110); Potassium 3.3 mmol/L (3.4-5.0); Sodium 136 mmol/L (137-145)
[2023-08-31] MEDS: VANCOMYCIN 1,000 MG/NS 250 ML 1,000 MG/250 ML BAG 250 MG IVPB (16:48)
[2023-08-31] MEDS: ACETAMINOPHEN 325 MG TABLET 650 MG PO (18:19)
[2023-08-31] MEDS: POTASSIUM CHLORIDE 20 MEQ ER TABLET PO (18:19)
[2023-08-31] MEDS: VANCOMYCIN 1,250 MG/NS 250 ML 1,250 MG/250 ML BAG 166.67 MG IVPB (18:20)
[2023-08-31 18:41] LABS: Add Urine Microscopic? YES; Appearance Urine Sl Cloudy (Clear); Color Urine Amber (Yellow); Glucose Urine UA Negative (Negative); Protein Urine 1+ mg/dL (Negative); Specific Grav Ur >= 1.030 (1.001-1.035); pH Urine 5.5 (5.0-9.0)
[2023-08-31 18:42] LABS: Bilirubin Urine 1+ (Negative); Blood Urine Trace-intact (Negative); Ketones Urine Trace mg/dL (Negative); Leukocyte Esterase Ur Negative LEU/UL (Negative); Nitrate Urine Negative (Negative); Urobilinogen Urine 0.2 mg/dL (<2.0)
[2023-08-31 18:50] LABS: Bacteria Urine None Seen /hpf; Calcium Oxalate Crystals Urine Present /hpf; Need Manual Microscopic Reviewed; Squamous Epithelial Cell Urine Few /hpf (Few); WBC Urine 0-5 /hpf (0-3)
--- NOTE | 2023-08-31 20:13 | ECG_ITS ---
Measurements Intervals Mobile Rate: 74 P: 52 [place]: 152 QRS: 34 QRSD: 95 T: 6 QT: 372 QTc: 413 Interpretive Statements SINUS RHYTHM POSSIBLE LEFT ATRIAL ENLARGEMENT INCOMPLETE RIGHT BUNDLE BRANCH BLOCK MINIMAL Q WAVES- INFERIOR LEADS BORDERLINE ECG COMPARED TO ECG 08/27/2023 09:37:38 NO SIGNIFICANT CHANGES Electronically Signed On 08-31-2023 21:06:07 CDT by Elmer Jimenes D.O.
[2023-09-01] MEDS: SODIUM CHLORIDE 0.9% IV 1,000 ML 75 ML IV CONT (01:14)
[2023-09-01] MEDS: CEFEPIME 1 GM/NS 50 ML 1 GM/50 ML BAG IVPB ×2 (01:14→09:50)
[2023-09-01 06:00] VITALS: BP 141/81; PULSE 74; RESP 18; TEMP 37.1; O2SAT 97
[2023-09-01] MEDS: BISACODYL 5 MG TABLET EC PO (06:05)
[2023-09-01 06:14] LABS: Estimated CRCL calculation 38 ml/min; Estimated Glomerular Filt Rate 47
[2023-09-01 09:00] LABS: Basophils Percent Auto 0.1 % (0.2-1.2); Eosinophils Absolute Auto 1.1 K/mm3 (0-0.3); Eosinophils Percent Auto 12.6 % (0-4.4); Hematocrit 38.4 % (42.0-52.0); Hemoglobin 12.6 g/dL (14.0-18.0); Immature Granulocyte Percent A 1.2 % (0-0.5); Lymphocytes Absolute Auto 0.37 K/mm3 (0.9-3.2); Lymphocytes Percent Auto 4.4 % (18.3-44.2); Mean Corpuscular HGB Conc 32.8 g/dl (32-36); Mean Corpuscular Hemoglobin 30.2 pg (26-34); Mean Corpuscular Volume 92.1 fl (80-100); Mean Platelet Volume 10.1 fl (7.4-10.4); Monocytes Absolute Auto 0.5 K/mm3 (0.1-0.6); Monocytes Percent Auto 5.9 % (2.6-8.5); Neutrophils Absolute Auto 6.3 K/mm3 (1.3-6.7); Neutrophils Percent Auto 75.8 % (45.5-73.1); Platelet Count Result 197 k/mm3 (150-375); Red Blood Count 4.17 M/mm3 (4.6-6.20); Red Cell Distribution Width 14.3 % (11.5-14.5); White Blood Count 8.4 K/mm3 (4.5-10.0)
[2023-09-01 09:11] LABS: Alanine Aminotransferase 14 U/L (6-50); Albumin Level 2.9 g/dL (3.5-5.1); Alkaline Phosphatase 59 U/L (38-126); Anion Gap 4 mmol/L (8-16); Aspartate Amino Transferase 29 U/L (17-59); Bilirubin,Total 0.5 mg/dL (0.2-1.3); Blood Urea Nitrogen 23 mg/dL (9-20); Calcium 8.2 mg/dL (8.4-10.2); Carbon Dioxide 23 mmol/L (22-30); Chloride 110 mmol/L (98-107); Estimated CRCL calculation 40 ml/min; Estimated Glomerular Filt Rate 51; Glucose 112 mg/dL (65-110); Magnesium 1.9 mg/dL (1.6-2.3); Potassium 3.3 mmol/L (3.4-5.0); Sodium 137 mmol/L (137-145)
[2023-09-01] MEDS: POTASSIUM CHLORIDE 20 MEQ ER TABLET PO (09:50)
[2023-09-01] MEDS: ENOXAPARIN 40 MG/0.4 ML SYRINGE SUB-Q (09:50)
[2023-09-01] MEDS: MEMANTINE 10 MG TABLET PO ×2 (09:50→17:51)
[2023-09-01 14:00] VITALS: BP 125/67; PULSE 83; RESP 16; TEMP 37.2; O2SAT 100
--- NOTE | 2023-09-01 14:07 | PM.PNORT ---
Progress Note: A&P Assessment and Plan (1) Closed fracture of left lateral malleolus: Qualifiers: Encounter type: initial encounter Code(s): S82.62XA - Displaced fracture of lateral malleolus of left fibula, initial encounter for closed fracture Status: Acute Assessment and Plan: Patient's health condition has been declining over the past few days. Awaiting test results. Will continue to follow. No changes to the care plan for his ankle. Continue ice and elevation for edema control. Left ankle Rudyard B lateral malleolus fracture. May be treated conservatively. I recommend a CAM boot and non-weight bearing. May rest foot down for balance only. Patient is pleasantly confused. He may remove the CAM boot when at rest but must have on if he gets up. Discussed risk of displacement with him and his . I recommend he leave it on while at home so he does not forget that he has the fracture and walks without it. He should be non-weight bearing. Discussed importance of ice and elevation to improve swelling.?He and his show understanding. Okay for discharge from orthopedic standpoint. He has a follow up scheduled in our office. Thank you for allowing us to take part in his care. Ortho instructions: Xray and follow up in office in [address] Apt scheduled for 09/10/23 at 3:30. Please arrive at 3:15 for radiographs. [facility] . Non weight bearing with Boot for 2 weeks. May rest foot down for balance only. Okay to remove for hygiene and at rest. Ice and elevation to help with swelling and pain. Pain medication: Tylenol. Subjective Subjective Date/Time Seen: 09/01/23 14:07 Interval history: Patient sleeping at the time of my visit. Spoke with his . Patient has had a rough past few days. states he has been very orthostatic with formal physical therapy. His stomach is distended and he will be getting a CT of his abdomen. states his mental status is declining. He has been wearing the boot when up and walking. Melchor wrap only when at rest. states he has not been having any pain in the ankle. Review of Systems Review of Systems: ROS unobtainable: Yes unobtainable due to mental status Exam Narrative: Normal weight 77 y/o male resting comfortably in bed. Somnolent. Not wearing boot. Melchor wrap in place. Lower leg elevated. Heal off bed. Mild swelling. Mild ecchymosis. Deltoid ligament non tender. Objective Data Vital Signs Vital Signs: Vital Signs - 24 hr 08/31/23 14:10 08/31/23 15:20 08/31/23 16:43 Temperature 98.8 F 98.8 F 100.9 F H Pulse Rate 110 H 110 H 90 Respiratory Rate 24 H 24 H 20 Blood Pressure 90/54 L 99/51 L 125/78 Pulse Oximetry 90 90 96 Oxygen Delivery 08/31/23 17:00 08/31/23 20:47 08/31/23 22:00 Temperature 98.3 F 98.3 F Pulse Rate 73 73 Respiratory Rate 16 16 Blood Pressure 101/49 L 101/49 L Pulse Oximetry 96 94 94 Oxygen Delivery Room Air 08/31/23 20:00 09/01/23 06:00 09/01/23 09:50 Temperature 98.7 F Pulse Rate 74 Respiratory Rate 18 Blood Pressure 141/81 H Pulse Oximetry 97 Oxygen Delivery Room Air Room Air Intake/Output Intake/Output: Intake & Output 08/29/23 08/30/23 08/31/23 09/01/23 23:59 23:59 23:59 23:59 Intake Total 2570 1180 1832 1578.8 Output Total 1210 Balance 1360 1180 1832 1578.8 Meds/Results Medications: Active Medications Generic Name Dose Route Start Last Admin Trade Name Freq PRN Reason Stop Dose Admin Acetaminophen 650 mg 08/31/23 17:52 08/31/23 18:19 Acetaminophen 325 Mg Tablet PO 650 mg Q4H PRN Administration Mild Pain (1-3) or Fever Hydrocodone Bitart/Acetaminophen 1 tab 08/27/23 18:18 08/27/23 20:07 Hydrocodone/Acetaminophen (*Crx) 5-325 Mg Tablet PO 1 tab Q4H PRN Administration Pain Rated 1-6 Bisacodyl 5 mg 08/27/23 22:23 09/01/23 06:05 Bisacodyl 5 Mg Tablet Ec PO 5 mg DAILY PRN Administration Constipation
--- NOTE | 2023-09-01 14:16 | PM.IMPN ---
Progress Note: A&P Assessment and Plan (1) Altered mental status: Qualifiers: Altered mental status type: disorientation Qualified Code(s): R41.0 - Disorientation, unspecified Code(s): R41.82 - Altered mental status, unspecified Status: Acute (2) Erosion of penile prosthesis: Code(s): T83.89XA - Other specified complication of genitourinary prosthetic devices, implants and grafts, initial encounter Status: Acute (3) Ankle fracture, left: Qualifiers: Encounter type: initial encounter Fracture type: closed Qualified Code(s): S82.892A - Other fracture of left lower leg, initial encounter for closed fracture Code(s): S82.892A - Other fracture of left lower leg, initial encounter for closed fracture Status: Acute Plan 69-year-old male presents to the ED on 08/27/2023 with altered mental status. He also fell back on his bottom. He was supposed to have a visit with Dr. Salmon for and eroded penile inflation device. His vitals were stable and appeared nontoxic on ED evaluation. EKG was sinus rhythm no acute ST changes. CBC with WBC count of 7.1 hemoglobin of 15.1 platelet of 239. BMP within normal limit. LFTs normal urinalysis negative for any infection. CT head was done which was negative for any acute intracranial process. Chest x-ray with no acute findings. X-ray of the left ankle was done which showed left ankle lateral malleolar fracture. Orthopedics has been consulted and was placed on cam boot and not weight bearing. Follow-up in office in 1-2 weeks. Urology was also consulted and underwent removal of penile implant scrotal exploration antibiotic washout on 08/27/2023. Post surgery Dutta catheter has been removed. He has maintain on antibiotics with vancomycin and cefepime which was switched to Bactrim. Since is nonweightbearing and no help at home may need to go to rehab facility. PT OT evaluated awaiting placement. Inpatient rehab has decline. Will referral to SNF. Confusion worsened 08/31/2023: CT head negative. ABG reviewed. He was hypotensive and orthostatic. Received IV fluid with improvement. Also noted to have PERLITA. Gentle IV fluid given. Will hold further fluid due to wheezing noted. Abdominal distension will get CT abdomen pelvis which revealed stranding and small amount of gas in the right anterior pelvic wall likely related to recent explantation of the penile prosthesis. Switch antibiotics with Zosyn. Gas/fluid and stool filling the colon with nonspecific dilatation most prominent the sigmoid colon where it measures up to 10 cm diameter but without evident wall thickening or distal obstructing mass. Likely ileus or Karen syndrome will give Dulcolax suppository DVT prophylaxis Lovenox Subjective Date/time seen: 09/01/23 14:16 Interval history: Patient feels better today. Less confused. Family at bedside. Reports abdominal distension. Has not had any bowel movement. Denies any abdominal pain though. No nausea vomiting. Review of Systems Review of Systems: All systems reviewed & are unremarkable except as noted in HPI and below Exam Narrative: General: Awake, alert, comfortable, no acute distress HEENT: Normocephalic, atraumatic, sclerae anicteric Respiratory: Normal respiratory effort, no accessory muscle use Abdomen: Distended, soft, nontender : foreskin easily retractable, no surrounding erythema or purulent drainage Skin: Normal coloration, warm and dry Neurologic: No focal neuro deficits noted, slightly forgetful slurred speech Psychiatric: Appropriate mood and affect, judgment and insight fair Left ankle boot Objective Data Vital Signs Vital Signs: Vital Signs - 24 hr 08/31/23 15:20 08/31/23 16:43 08/31/23 17:00 Temperature 98.8 F 100.9 F H Pulse Rate 110 H 90 Respiratory Rate 24 H 20 Blood Pressure 99/51 L 125/78 Pulse Oximetry 90 96 96 Oxygen Delivery Room Air 08/31/23 20:47 08/31/23 22:00
[2023-09-01] MEDS: PIPERACILLN/TAZ 3.375GM/NS50ML 3.375 GM/50 ML BAG IVPB ×3 (15:26→23:23)
[2023-09-01] MEDS: BISACODYL 10 MG SUPPOSITORY RECTAL (15:31)
[2023-09-01 22:00] VITALS: BP 110/60; PULSE 79; RESP 18; TEMP 37.1; O2SAT 97
[2023-09-02] VITALS (8 sets, daily range): BP systolic 87–145; BP diastolic 66–89; PULSE 66–83; RESP 16–18; TEMP 36.6–37; O2SAT 95–97
[2023-09-02] MEDS: PIPERACILLN/TAZ 3.375GM/NS50ML 3.375 GM/50 ML BAG IVPB ×3 (06:08→17:26)
[2023-09-02 06:20] LABS: Basophils Percent Auto 0.2 % (0.2-1.2); Eosinophils Absolute Auto 1.1 K/mm3 (0-0.3); Eosinophils Percent Auto 12.1 % (0-4.4); Hemoglobin 12.6 g/dL (14.0-18.0); Immature Granulocyte Absolute 0.06 K/mm3 (0.00-0.031); Immature Granulocyte Percent A 0.6 % (0-0.5); Lymphocytes Absolute Auto 0.92 K/mm3 (0.9-3.2); Lymphocytes Percent Auto 9.7 % (18.3-44.2); Mean Corpuscular HGB Conc 32.3 g/dl (32-36); Mean Corpuscular Hemoglobin 30.1 pg (26-34); Mean Corpuscular Volume 93.1 fl (80-100); Mean Platelet Volume 9.5 fl (7.4-10.4); Monocytes Percent Auto 10.1 % (2.6-8.5); Neutrophils Absolute Auto 6.4 K/mm3 (1.3-6.7); Neutrophils Percent Auto 67.3 % (45.5-73.1); Platelet Count Result 178 k/mm3 (150-375); Red Blood Count 4.19 M/mm3 (4.6-6.20); Red Cell Distribution Width 14.4 % (11.5-14.5); White Blood Count 9.4 K/mm3 (4.5-10.0)
[2023-09-02 06:33] LABS: Alanine Aminotransferase 15 U/L (6-50); Albumin Level 2.9 g/dL (3.5-5.1); Alkaline Phosphatase 56 U/L (38-126); Anion Gap 5 mmol/L (8-16); Aspartate Amino Transferase 23 U/L (17-59); Bilirubin,Total 0.6 mg/dL (0.2-1.3); Blood Urea Nitrogen 23 mg/dL (9-20); Calcium 8.3 mg/dL (8.4-10.2); Carbon Dioxide 22 mmol/L (22-30); Chloride 110 mmol/L (98-107); Estimated CRCL calculation 43 ml/min; Estimated Glomerular Filt Rate 55; Glucose 107 mg/dL (65-110); Potassium 3.3 mmol/L (3.4-5.0); Sodium 137 mmol/L (137-145)
[2023-09-02] MEDS: MEMANTINE 10 MG TABLET PO ×2 (09:22→16:48)
[2023-09-02] MEDS: ENOXAPARIN 40 MG/0.4 ML SYRINGE SUB-Q (09:22)
[2023-09-02] MEDS: POTASSIUM CHLORIDE 20 MEQ ER TABLET 40 MEQ PO (09:22)
--- NOTE | 2023-09-02 09:49 | WPDUROPN2 ---
Progress Note: A&P Assessment and Plan (1) Erosion of penile prosthesis: Code(s): T83.89XA - Other specified complication of genitourinary prosthetic devices, implants and grafts, initial encounter Status: Acute Assessment and Plan: Status post explant of eroded penile implant, scrotal exploration, antibiotic washout on 08/27/[address] Das. Genital drain and Dutta catheter removed on 08/29/2023. Remains on Zosyn. Plan to transition to Bactrim following discharge. Hopeful discharge to rehab facility planned today. Will arrange follow-up with Dr. Das in 2-3 weeks. Subjective Subjective Date/Time Seen: 09/02/23 09:49 Interval history: Doing well today. Remains pleasantly confused. Reports voiding without difficulty. No pain. Will be going to home rehab facility due to left ankle fracture. present at bedside. Review of Systems Review of Systems: All systems reviewed & are unremarkable except as noted in HPI and below Exam Narrative: General: Awake, alert, comfortable, no acute distress HEENT: Normocephalic, atraumatic, sclerae anicteric Respiratory: Normal respiratory effort, no accessory muscle use Abdomen: Nondistended, soft, nontender Skin: Normal coloration, warm and dry Neurologic: No focal neuro deficits noted Psychiatric: Pleasantly confused, judgment and insight fair Objective Data Vital Signs Vital Signs: Vital Signs - 24 hr 09/01/23 09:50 09/01/23 14:00 09/01/23 22:00 Temperature 99.0 F 98.8 F Pulse Rate 83 79 Respiratory Rate 16 18 Blood Pressure 125/67 110/60 Pulse Oximetry 100 97 Oxygen Delivery Room Air 09/01/23 20:00 09/02/23 06:00 Temperature 97.9 F Pulse Rate 80 Respiratory Rate 18 Blood Pressure 145/80 H Pulse Oximetry 97 Oxygen Delivery Room Air Intake/Output Intake/Output: Intake & Output 08/30/23 08/31/23 09/01/23 09/02/23 23:59 23:59 23:59 23:59 Intake Total 1180 1832 3398.8 450 Balance 1180 1832 3398.8 450 Meds/Results Medications: Active Medications Generic Name Dose Route Start Last Admin Trade Name Freq PRN Reason Stop Dose Admin Acetaminophen 650 mg 08/31/23 17:52 08/31/23 18:19 Acetaminophen 325 Mg Tablet PO 650 mg Q4H PRN Administration Mild Pain (1-3) or Fever Hydrocodone Bitart/Acetaminophen 1 tab 08/27/23 18:18 08/27/23 20:07 Hydrocodone/Acetaminophen (*Crx) 5-325 Mg Tablet PO 1 tab Q4H PRN Administration Pain Rated 1-6 Bisacodyl 5 mg 08/27/23 22:23 09/01/23 06:05 Bisacodyl 5 Mg Tablet Ec PO 5 mg DAILY PRN Administration Constipation Enoxaparin Sodium 40 mg 08/28/23 09:00 09/02/23 09:22 Enoxaparin 40 Mg/0.4 Ml Syringe SUB-Q 40 mg DAILY PILY Administration Piperacillin/Tazobactam/Dextrose 3.375 gm in 50 mls @ 100 mls/hr 09/01/23 14:00 09/02/23 06:38 Zosyn 3.375 Gm/Ns 50 Ml IVPB Infused Q6HR PILY Infusion Memantine 10 mg 08/28/23 09:00 09/02/23 09:22 Memantine 10 Mg Tablet PO 10 mg BID PILY Administration Naloxone HCl 0.1 mg 08/27/23 18:18 Naloxone Hcl 0.4 Mg/Ml Vial IV PUSH Q2M PRN Opiate Reversal Ondansetron HCl 4 mg 08/27/23 14:17 Ondansetron Inj 4 Mg/2 Ml Vial IV PUSH ONCE PRN Nausea Ondansetron HCl 4 mg 08/27/23 18:18 Ondansetron Inj 4 Mg/2 Ml Vial IV PUSH Q12H PRN Nausea And Vomiting Radiology Results: ITS Impressions Ankle X-Ray 08/27/23 12:45 IMPRESSION: 1. [Minimally displaced oblique distal left fibular metaphyseal fracture. Chest X-Ray 08/27/23 12:47 IMPRESSION: 1. No acute cardiopulmonary disease. Head CT 08/31/23 11:45 IMPRESSION: 1. No acute intracranial abnormality. Brain MRI 08/31/23 15:26 IMPRESSION: No acute intracranial process. Abdomen/Pelvis CT 09/01/23 13:35 IMPRESSION: 1. Stranding and small amount of gas in the right anterior pelvic wall likely related to reported recent explantation
--- NOTE | 2023-09-02 12:49 | PM.IMPN ---
Progress Note: A&P Assessment and Plan (1) Altered mental status: Qualifiers: Altered mental status type: disorientation Qualified Code(s): R41.0 - Disorientation, unspecified Code(s): R41.82 - Altered mental status, unspecified Status: Acute (2) Erosion of penile prosthesis: Code(s): T83.89XA - Other specified complication of genitourinary prosthetic devices, implants and grafts, initial encounter Status: Acute (3) Ankle fracture, left: Qualifiers: Encounter type: initial encounter Fracture type: closed Qualified Code(s): S82.892A - Other fracture of left lower leg, initial encounter for closed fracture Code(s): S82.892A - Other fracture of left lower leg, initial encounter for closed fracture Status: Acute Plan 69-year-old male presents to the ED on 08/27/2023 with altered mental status. He also fell back on his bottom. He was supposed to have a visit with Dr. Salmon for and eroded penile inflation device. His vitals were stable and appeared nontoxic on ED evaluation. EKG was sinus rhythm no acute ST changes. CBC with WBC count of 7.1 hemoglobin of 15.1 platelet of 239. BMP within normal limit. LFTs normal urinalysis negative for any infection. CT head was done which was negative for any acute intracranial process. Chest x-ray with no acute findings. X-ray of the left ankle was done which showed left ankle lateral malleolar fracture. Orthopedics has been consulted and was placed on cam boot and not weight bearing. Follow-up in office in 1-2 weeks. Urology was also consulted and underwent removal of penile implant scrotal exploration antibiotic washout on 08/27/2023. Post surgery Dutta catheter has been removed. He has maintain on antibiotics with vancomycin and cefepime which was switched to Bactrim. Since is nonweightbearing and no help at home may need to go to rehab facility. PT OT evaluated awaiting placement. Inpatient rehab has decline. Referral sent to SNF and has been accepted. His Confusion worsened 08/31/2023: CT head negative. ABG reviewed. He was hypotensive and orthostatic. Received IV fluid with improvement. Also noted to have PERLITA. Gentle IV fluid given. Will hold further fluid due to wheezing noted. Abdominal distension noted which was further evaluated with CT abdomen pelvis which revealed stranding and small amount of gas in the right anterior pelvic wall likely related to recent explantation of the penile prosthesis. Switch antibiotics with Zosyn. Gas/fluid and stool filling the colon with nonspecific dilatation most prominent the sigmoid colon where it measures up to 10 cm diameter but without evident wall thickening or distal obstructing mass. Likely ileus or Karen syndrome. Received Dulcolax suppository with good a bowel movement. Will repeat same and recheck x-ray KUB in a.m. DVT prophylaxis Lovenox Anticipate DC in a.m. if remains stable Subjective Date/time seen: 09/02/23 12:49 Interval history: No overnight events. Feeling better. No nausea vomiting. Abdominal distension persist had good bowel movement yesterday after suppository. Labs reviewed confusion persists but improved Review of Systems Review of Systems: All systems reviewed & are unremarkable except as noted in HPI and below Exam Narrative: General: Awake, alert, comfortable, no acute distress HEENT: Normocephalic, atraumatic, sclerae anicteric Respiratory: Normal respiratory effort, no accessory muscle use Abdomen: Distended, soft, nontender : foreskin easily retractable, no surrounding erythema or purulent drainage Skin: Normal coloration, warm and dry Neurologic: No focal neuro deficits noted, slightly forgetful slurred speech Psychiatric: Appropriate mood and affect, judgment and insight fair Left ankle boot Objective Data Vital Signs Vital Signs: Vital Signs - 24 hr 09/01/23 14:00 09/01/23 22:00 09/01/23 20:00 Temperature 99.0 F 98.
[2023-09-02] MEDS: BISACODYL 10 MG SUPPOSITORY RECTAL (13:17)
[2023-09-03] MEDS: PIPERACILLN/TAZ 3.375GM/NS50ML 3.375 GM/50 ML BAG IVPB ×5 (01:13→23:51)
[2023-09-03 06:00] VITALS: BP 140/88; PULSE 62; RESP 18; TEMP 36.5; O2SAT 96
[2023-09-03 07:19] LABS: Basophils Percent Auto 0.3 % (0.2-1.2); Eosinophils Absolute Auto 1.1 K/mm3 (0-0.3); Eosinophils Percent Auto 12.5 % (0-4.4); Immature Granulocyte Absolute 0.04 K/mm3 (0.00-0.031); Immature Granulocyte Percent A 0.4 % (0-0.5); Lymphocytes Absolute Auto 1.35 K/mm3 (0.9-3.2); Lymphocytes Percent Auto 14.9 % (18.3-44.2); Mean Corpuscular HGB Conc 33.3 g/dl (32-36); Mean Corpuscular Hemoglobin 30.5 pg (26-34); Mean Corpuscular Volume 91.6 fl (80-100); Mean Platelet Volume 9.6 fl (7.4-10.4); Neutrophils Absolute Auto 5.5 K/mm3 (1.3-6.7); Neutrophils Percent Auto 60.9 % (45.5-73.1); Platelet Count Result 203 k/mm3 (150-375); Red Blood Count 3.93 M/mm3 (4.6-6.20); Red Cell Distribution Width 14.1 % (11.5-14.5); White Blood Count 9.1 K/mm3 (4.5-10.0)
[2023-09-03 07:28] LABS: Alanine Aminotransferase 15 U/L (6-50); Albumin Level 2.6 g/dL (3.5-5.1); Alkaline Phosphatase 50 U/L (38-126); Anion Gap 3 mmol/L (4-12); Aspartate Amino Transferase 27 U/L (17-59); Bilirubin,Total 0.7 mg/dL (0.2-1.3); Blood Urea Nitrogen 21 mg/dL (9-20); Calcium 8.1 mg/dL (8.4-10.2); Carbon Dioxide 26 mmol/L (22-30); Chloride 111 mmol/L (98-107); Estimated CRCL calculation 49 ml/min; Estimated Glomerular Filt Rate > 60; Glucose 97 mg/dL (65-110); Potassium 3.5 mmol/L (3.4-5.0); Sodium 140 mmol/L (137-145)
[2023-09-03] MEDS: MEMANTINE 10 MG TABLET PO ×2 (08:04→16:16)
[2023-09-03] MEDS: ENOXAPARIN 40 MG/0.4 ML SYRINGE SUB-Q (08:04)
--- NOTE | 2023-09-03 11:38 | PCNWS ---
Weekly nutritional screen. Patient is tolerating current diet with adequate intake, 50-100%. Appetite is improving. No weight loss reported. No nutritional needs at this time.
[2023-09-03 14:00] VITALS: BP 137/70; PULSE 77; RESP 16; TEMP 36.8; O2SAT 95
--- NOTE | 2023-09-03 15:39 | PM.IMPN ---
Progress Note: A&P Assessment and Plan (1) Altered mental status: Qualifiers: Altered mental status type: disorientation Qualified Code(s): R41.0 - Disorientation, unspecified Code(s): R41.82 - Altered mental status, unspecified Status: Acute Assessment and Plan: Patient with altered mental status. Vitals were stable and appeared nontoxic on ED evaluation. EKG was sinus rhythm no acute ST changes. WBC count normal. UA not consistent with UTI CT head negative for any acute intracranial process. Chest x-ray with no acute findings. ABG noted. He was hypotensive and orthostatic with PERLITA. Received IV fluid with improvement. Possibly related to pain Confusion worsened 08/30 Brain MRI showing no acute process. [place] related to PERLITA, dehydration with HoTN Renal function better. Off IVF. Continue to monitor (2) Erosion of penile prosthesis: Code(s): T83.89XA - Other specified complication of genitourinary prosthetic devices, implants and grafts, initial encounter Status: Acute Assessment and Plan: Patient follows with Dr. Salmon for eroded penile inflation device. Urology consulted Patient underwent explant of eroded penile implant, scrotal exploration with antibiotic washout 08/27/23. He tolerated the procedure well. Post surgery Dutta catheter has been removed. He has maintain on antibiotics with vancomycin and cefepime which was switched to Bactrim (now on Zosyn). Follow up with urology in clinic (3) Closed fracture of left lateral malleolus: Qualifiers: Encounter type: initial encounter Code(s): S82.62XA - Displaced fracture of lateral malleolus of left fibula, initial encounter for closed fracture Status: Acute Assessment and Plan: Patient fell prior to admission. Left ankle x-ray showed left ankle lateral malleolar fracture. Orthopedics was consulted and patient was placed on cam boot and non-weight bearing. Follow-up in office in 1-2 weeks. PT/OT consulted Since is nonweightbearing and no help at home may need to go to rehab facility. Referral sent to SNF and has been accepted. (4) Ileus: Code(s): K56.7 - Ileus, unspecified Status: Acute Assessment and Plan: Abdominal distension noted with CT abdomen pelvis which revealed stranding and small amount of gas in the right anterior pelvic wall likely related to recent explantation of the penile prosthesis.? Gas/fluid and stool filling the colon with nonspecific dilatation most prominent the sigmoid colon where it measures up to 10 cm diameter but without evident wall thickening or distal obstructing mass.? Likely ileus or Karen syndrome. Abx switched to Zosyn.? ? Received Dulcolax suppository with good a bowel movement.? Repeat x-ray KUB showing persistent distention of the rectosigmoid likely adynamic ileus. He continues to pass stool and flatus. Follow for now. Ambulation tricky since he is non-weight bearing and having trouble following instructions (5) PERLITA (acute kidney injury): Code(s): N17.9 - Acute kidney failure, unspecified Status: Acute Assessment and Plan: Cr normal on admission but increased to 1.7. ATN? Obstructive process? Dehydratin? Treated with IV fluids with benefit Follow Plan DVT prophylaxis Lovenox Code staff - full Subjective Date/time seen: 09/03/23 15:39 Interval history: 77yo male with dementia and prostate CA here for confusion and weakness and found to have dislodged penile implant. Assuming care. Chart reviewed. oR has 3 loose BM's last night per staff. Patient is alert but confused and unable to provide hx. He denies ankle pain. No CP or SOB. No cough. No abd pain. states patient had colonoscopy about 3 years ago that was normal. Passing flatus per Review of Systems Review of Systems: ROS unobtainable: Yes unobtainable due to mental status Exam Narrativ
--- NOTE | 2023-09-03 16:08 | PM.PNORT ---
Progress Note: A&P Assessment and Plan (1) Closed fracture of left lateral malleolus: Qualifiers: Encounter type: initial encounter Code(s): S82.62XA - Displaced fracture of lateral malleolus of left fibula, initial encounter for closed fracture Status: Acute Plan Patient seen and examined yesterday. Severely confused. Denies ankle pain. Minimal swelling. Minimal lateral fibular tenderness. Tolerates gentle ankle motion well. Discussed care plan with Nursing. Plan for possible penitentiary or rehab. He is doing well with the cam boot when out of bed. The fracture is quite stable and this care plan is appropriate, particularly since will be in an assisted situation. Subjective Subjective Date/Time Seen: 09/03/23 16:08 Objective Data Vital Signs Vital Signs: Vital Signs - 24 hr 09/02/23 20:00 09/02/23 22:00 09/03/23 06:00 Temperature 36.7 C 36.5 C Pulse Rate 66 62 Respiratory Rate 16 18 Blood Pressure 105/84 140/88 Pulse Oximetry 95 96 Oxygen Delivery Room Air 09/03/23 14:00 Temperature 36.8 C Pulse Rate 77 Respiratory Rate 16 Blood Pressure 137/70 Pulse Oximetry 95 Oxygen Delivery Intake/Output Intake/Output: Intake & Output 08/31/23 09/01/23 09/02/23 09/03/23 23:59 23:59 23:59 23:59 Intake Total 1832 3398.8 1130 980 Balance 1832 3398.8 1130 980 Meds/Results Medications: Active Medications Generic Name Dose Route Start Last Admin Trade Name Freq PRN Reason Stop Dose Admin Acetaminophen 650 mg 08/31/23 17:52 08/31/23 18:19 Acetaminophen 325 Mg Tablet PO 650 mg Q4H PRN Administration Mild Pain (1-3) or Fever Hydrocodone Bitart/Acetaminophen 1 tab 08/27/23 18:18 08/27/23 20:07 Hydrocodone/Acetaminophen (*Crx) 5-325 Mg Tablet PO 1 tab Q4H PRN Administration Pain Rated 1-6 Bisacodyl 5 mg 08/27/23 22:23 09/01/23 06:05 Bisacodyl 5 Mg Tablet Ec PO 5 mg DAILY PRN Administration Constipation Bisacodyl 10 mg 09/02/23 12:49 Bisacodyl 10 Mg Suppository RECTAL QAM PRN Constipation Enoxaparin Sodium 40 mg 08/28/23 09:00 09/03/23 08:04 Enoxaparin 40 Mg/0.4 Ml Syringe SUB-Q 40 mg DAILY PILY Administration Piperacillin/Tazobactam/Dextrose 3.375 gm in 50 mls @ 100 mls/hr 09/01/23 14:00 09/03/23 12:48 Zosyn 3.375 Gm/Ns 50 Ml IVPB 100 mls/hr Q6HR PILY Administration Memantine 10 mg 08/28/23 09:00 09/03/23 08:04 Memantine 10 Mg Tablet PO 10 mg BID PILY Administration Naloxone HCl 0.1 mg 08/27/23 18:18 Naloxone Hcl 0.4 Mg/Ml Vial IV PUSH Q2M PRN Opiate Reversal Ondansetron HCl 4 mg 08/27/23 14:17 Ondansetron Inj 4 Mg/2 Ml Vial IV PUSH ONCE PRN Nausea Ondansetron HCl 4 mg 08/27/23 18:18 Ondansetron Inj 4 Mg/2 Ml Vial IV PUSH Q12H PRN Nausea And Vomiting Potassium Chloride 40 meq 09/03/23 16:04 Potassium Chloride 20 Meq Packet (For Liquid) PO 09/03/23 16:05 ONCE ONE Radiology Results: ITS Impressions Ankle X-Ray 08/27/23 12:45 IMPRESSION: 1. [Minimally displaced oblique distal left fibular metaphyseal fracture. Chest X-Ray 08/27/23 12:47 IMPRESSION: 1. No acute cardiopulmonary disease. Head CT 08/31/23 11:45 IMPRESSION: 1. No acute intracranial abnormality. Brain MRI 08/31/23 15:26 IMPRESSION: No acute intracranial process. Abdomen/Pelvis CT 09/01/23 13:35 IMPRESSION: 1. Stranding and small amount of gas in the right anterior pelvic wall likely related to reported recent explantation of a penile prosthesis. Correlate with surgical history. 2. Gas/fluid and stool filling the colon with nonspecific dilation most prominent at the sigmoid colon where it measures up to 10 cm diameter but without evident wall thickening or distal obstructing mass. Differential would include ileus or [place] syndrome. 3. Moderate-sized sliding-type hiatal hernia. 4. Postoperative change of
[2023-09-03] MEDS: BISACODYL 5 MG TABLET EC PO (17:45)
[2023-09-03] MEDS: POTASSIUM CHLORIDE 20 MEQ PACKET (FOR LIQUID) 40 MEQ PO (18:10)
[2023-09-03 19:40] VITALS: BP 135/69; PULSE 71; RESP 18; TEMP 36.9; O2SAT 98
[2023-09-03 22:02] VITALS: O2SAT 97
[2023-09-04 05:06] VITALS: BP 140/70; PULSE 64; RESP 18; TEMP 36.6; O2SAT 97
[2023-09-04] MEDS: PIPERACILLN/TAZ 3.375GM/NS50ML 3.375 GM/50 ML BAG IVPB ×4 (05:16→23:47)
[2023-09-04 06:39] LABS: Albumin Level 2.8 g/dL (3.5-5.1); Anion Gap 3 mmol/L (4-12); Blood Urea Nitrogen 16 mg/dL (9-20); Calcium 8.2 mg/dL (8.4-10.2); Carbon Dioxide 25 mmol/L (22-30); Chloride 112 mmol/L (98-107); Estimated CRCL calculation 57 ml/min; Estimated Glomerular Filt Rate > 60; Glucose 93 mg/dL (65-110); Phosphorus 3.3 mg/dL (2.5-4.5); Potassium 3.3 mmol/L (3.4-5.0); Sodium 140 mmol/L (137-145)
[2023-09-04] MEDS: ENOXAPARIN 40 MG/0.4 ML SYRINGE SUB-Q (08:52)
[2023-09-04] MEDS: MEMANTINE 10 MG TABLET PO ×2 (08:52→18:02)
[2023-09-04] MEDS: BISACODYL 10 MG SUPPOSITORY RECTAL (08:52)
--- NOTE | 2023-09-04 11:34 | WPDGICN ---
Assessment and Plan Assessment and plan (1) Ileus: Code(s): K56.7 - Ileus, unspecified Status: Acute Assessment and Plan: -likely related to recent surgery and infection. -CT scan of A/P showed Gas/fluid and stool filling the colon with nonspecific dilation most prominent at the sigmoid colon where it measures up to 10 cm diameter but without evident wall thickening or distal obstructing mass. Differential would include ileus or [place] syndrome. -KUB 09/02 and 09/03 with Persistent distention of the rectosigmoid, likely adynamic ileus. -repeat KUB in AM -currently tolerating oral intake with no nausea or vomiting, will add in miralax daily. -Continue bisacodyl suppositories (2) Closed fracture of left lateral malleolus: Qualifiers: Encounter type: initial encounter Code(s): S82.62XA - Displaced fracture of lateral malleolus of left fibula, initial encounter for closed fracture Status: Acute (3) Erosion of penile prosthesis: Code(s): T83.89XA - Other specified complication of genitourinary prosthetic devices, implants and grafts, initial encounter Status: Acute GI Consult Note Consult date/time: 09/04/23 11:34 Reason for consult: severely distended colon HPI: Lamont Cohen is a 77 year old male who was admitted to [facility] on 08/27/23 for eroding penis implant. Pt underwent Explant of eroded penile implant with antibiotic washout that day. On 09/01 abdominal distention was noted and CT of ABD/Pelvis was obtained. Gas/fluid and stool filling the colon with nonspecific dilation most prominent at the sigmoid colon where it measures up to 10 cm diameter but without evident wall thickening or distal obstructing mass. Differential would include ileus or [place] syndrome. KUB 09/02 and 09/03 with Persistent distention of the rectosigmoid, likely adynamic ileus. No leukocytosis. K+ 3.3, Mag 2.0, He received bisacodyl suppository yesterday and today which produce small amount of water stool. He is passing gas. he denies any abdominal pain, nausea, or vomiting. He tolerating oral intake and had a full breakfast of english toast, clark, and milk. Patient's Bobbi does tell me that Lamont has a history of constipation that he would treat with [id number] stool softeners or laxatives 1-2 times a week as needed. His last colonoscopy was in 2019, with incomplete exam (limited to splenic flexure) and poor prep, recommended that he repeated this in 2-3 years but he has not done so. He denies any black stools or bloody stools.No hx of bowel obstructions or bowel surgeries. Review of Systems Review of Systems: All systems reviewed & are unremarkable except as noted in HPI and below Constitutional: Constitutional: Reports as per HPI Eyes: Eyes: Reports as per HPI ENT: Reports system reviewed and no additional complaints, except as documented Cardiovascular: Cardiovascular: Reports as per HPI Respiratory: Respiratory: Reports as per HPI Gastrointestinal: Gastrointestinal: Reports as per HPI Genitourinary: Genitourinary: Reports as per HPI Musculoskeletal: Musculoskeletal: Reports no additional musculoskeletal complaints Integumentary/Breasts: Skin/Breast: Reports system reviewed and no additional complaints, except as docu Neurologic: Reports system reviewed and no additional complaints, except as documented Psychiatric: Psychiatric: Reports no additional psychiatric complaints [facility] Past Medical History Medical History (Updated 09/03/23 @ 15:51 by Sam Tay MD) Angioedema Cellulitis of external nose Complete tear of left rotator cuff Dehydration Hepatitis C antibody test negative (12/20/16) Prostate cancer Sialadenitis Surgical History Surgical History H/O prostatectomy History of penile implant Family History Family History
--- NOTE | 2023-09-04 12:06 | PM.IMPN ---
Progress Note: A&P Assessment and Plan (1) Altered mental status: Qualifiers: Altered mental status type: disorientation Qualified Code(s): R41.0 - Disorientation, unspecified Code(s): R41.82 - Altered mental status, unspecified Status: Acute Assessment and Plan: Patient with altered mental status. Vitals were stable and appeared nontoxic on ED evaluation. EKG was sinus rhythm no acute ST changes. WBC count normal. UA not consistent with UTI CT head negative for any acute intracranial process. Chest x-ray with no acute findings. ABG noted. He was hypotensive and orthostatic with PERLITA. Received IV fluid with improvement. AMS felt related to pain, infection possibly Confusion worsened 08/30 Brain MRI showing no acute process. [place] related to PERLITA, dehydration with HoTN Renal function better. Off IVF. mental status better. Continue to monitor (2) Erosion of penile prosthesis: Code(s): T83.89XA - Other specified complication of genitourinary prosthetic devices, implants and grafts, initial encounter Status: Acute Assessment and Plan: Patient follows with Dr. Salmon for eroded penile inflation device. Urology consulted Patient underwent explant of eroded penile implant, scrotal exploration with antibiotic washout 08/27/23. He tolerated the procedure well. Post surgery Dutta catheter has been removed. He was on antibiotics with vancomycin and cefepime which was switched to Bactrim (now on Zosyn). Follow up with urology in clinic (3) Closed fracture of left lateral malleolus: Qualifiers: Encounter type: initial encounter Code(s): S82.62XA - Displaced fracture of lateral malleolus of left fibula, initial encounter for closed fracture Status: Acute Assessment and Plan: Patient fell prior to admission. Left ankle x-ray showed left ankle lateral malleolar fracture. Orthopedics was consulted and patient was placed on cam boot and non-weight bearing. Follow-up in office in 1-2 weeks. PT/OT consulted Since he is nonweightbearing and no help at home, may need to go to rehab facility. Referral sent to SNF and has been accepted. (4) Ileus: Code(s): K56.7 - Ileus, unspecified Status: Acute Assessment and Plan: Abdominal distension noted with CT abdomen pelvis which revealed stranding and small amount of gas in the right anterior pelvic wall likely related to recent explantation of the penile prosthesis.? Gas/fluid and stool filling the colon with nonspecific dilatation most prominent the sigmoid colon where it measures up to 10 cm diameter but without evident wall thickening or distal obstructing mass.? Likely ileus or [place] syndrome. Abx switched to Zosyn.? ? Received Dulcolax suppository with good a bowel movement.? Colonoscopy report in chart (2019) was limited to the sigmoid flexure due to poor prep. Repeat x-ray KUB showing persistent distention of the rectosigmoid likely adynamic ileus. He continues to pass stool and flatus. GI consulted for possible decompression Mag 2.0 but potassium 3.3. Replace potassium (5) PERLITA (acute kidney injury): Code(s): N17.9 - Acute kidney failure, unspecified Status: Acute Assessment and Plan: Cr normal on admission but increased to 1.7. ATN? Obstructive process? Dehydratin? Treated with IV fluids with benefit Follow Plan DVT prophylaxis Lovenox Code staff - full Subjective Date/time seen: 09/04/23 12:06 Interval history: 77yo male with dementia and prostate CA here for confusion and weakness and found to have dislodged penile implant. Patient alert but confused. Slept well per . No abdominal pain. Passing flatus and had loose BM yesterday. Exam Narrative: AF 97.9 140/70 64 18 97% ra Gen - NARD Chest - CTA bilaterally, nml RR CV - RRR S1/S2 Abd - Soft, distended and tympanitic. +BS Ext - left ankle BRUNA wrapped Ne
[2023-09-04] MEDS: POTASSIUM CHLORIDE 20 MEQ PACKET (FOR LIQUID) 40 MEQ PO (13:34)
[2023-09-04 14:05] VITALS: BP 131/84; PULSE 62; RESP 16; TEMP 37.1; O2SAT 98
--- NOTE | 2023-09-04 16:20 | WPDUROPN2 ---
Progress Note: A&P Assessment and Plan (1) Erosion of penile prosthesis: Code(s): T83.89XA - Other specified complication of genitourinary prosthetic devices, implants and grafts, initial encounter Status: Acute Assessment and Plan: Status post explant of eroded penile implant, scrotal exploration, antibiotic washout on 08/27/[address] aDs. Scrotal drain and Dutta catheter removed on 08/29/2023. Remains on Zosyn. Plan to transition to Bactrim following discharge. Awaiting discharge to rehab facility. Will follow-up with Dr. Das in 2-3 weeks (09/24/23 10:45 am). Subjective Subjective Date/Time Seen: 09/04/23 16:20 Interval history: Lamont is doing well today. Awaiting rehab placement. No issues with penile drainage or pain. Voiding without difficulty. He has no concerns. Review of Systems Review of Systems: All systems reviewed & are unremarkable except as noted in HPI and below Exam Narrative: General: Awake, alert, comfortable, no acute distress HEENT: Normocephalic, atraumatic, sclerae anicteric Respiratory: Normal respiratory effort, no accessory muscle use Abdomen: Nondistended, soft, nontender : foreskin easily retracted, no penile drainage Skin: Normal coloration, warm and dry Neurologic: No focal neuro deficits noted Psychiatric: Pleasantly confused, judgment and insight fair Objective Data Vital Signs Vital Signs: Vital Signs - 24 hr 09/03/23 19:40 09/03/23 22:02 09/04/23 05:06 Temperature 98.4 F 97.9 F Pulse Rate 71 64 Respiratory Rate 18 18 Blood Pressure 135/69 140/70 Pulse Oximetry 98 97 97 Oxygen Delivery Room Air 09/04/23 08:56 09/04/23 14:05 Temperature 98.8 F Pulse Rate 62 Respiratory Rate 16 Blood Pressure 131/84 Pulse Oximetry 98 Oxygen Delivery Room Air Intake/Output Intake/Output: Intake & Output 09/01/23 09/02/23 09/03/23 09/04/23 23:59 23:59 23:59 23:59 Intake Total 3398.8 1130 1320 1300 Output Total 350 Balance 3398.8 1130 1320 950 Meds/Results Medications: Active Medications Generic Name Dose Route Start Last Admin Trade Name Freq PRN Reason Stop Dose Admin Acetaminophen 650 mg 08/31/23 17:52 08/31/23 18:19 Acetaminophen 325 Mg Tablet PO 650 mg Q4H PRN Administration Mild Pain (1-3) or Fever Hydrocodone Bitart/Acetaminophen 1 tab 08/27/23 18:18 08/27/23 20:07 Hydrocodone/Acetaminophen (*Crx) 5-325 Mg Tablet PO 1 tab Q4H PRN Administration Pain Rated 1-6 Bisacodyl 5 mg 08/27/23 22:23 09/03/23 17:45 Bisacodyl 5 Mg Tablet Ec PO 5 mg DAILY PRN Administration Constipation Bisacodyl 10 mg 09/02/23 12:49 Bisacodyl 10 Mg Suppository RECTAL QAM PRN Constipation Enoxaparin Sodium 40 mg 08/28/23 09:00 09/04/23 08:52 Enoxaparin 40 Mg/0.4 Ml Syringe SUB-Q 40 mg DAILY PILY Administration Piperacillin/Tazobactam/Dextrose 3.375 gm in 50 mls @ 100 mls/hr 09/01/23 14:00 09/04/23 12:45 Zosyn 3.375 Gm/Ns 50 Ml IVPB Infused Q6HR [facility] Infusion Memantine 10 mg 08/28/23 09:00 09/04/23 08:52 Memantine 10 Mg Tablet PO 10 mg BID PILY Administration Naloxone HCl 0.1 mg 08/27/23 18:18 Naloxone Hcl 0.4 Mg/Ml Vial IV PUSH Q2M PRN Opiate Reversal Ondansetron HCl 4 mg 08/27/23 14:17 Ondansetron Inj 4 Mg/2 Ml Vial IV PUSH ONCE PRN Nausea Ondansetron HCl 4 mg 08/27/23 18:18 Ondansetron Inj 4 Mg/2 Ml Vial IV PUSH Q12H PRN Nausea And Vomiting Polyethylene Glycol 17 gm 09/04/23 17:00 Polyethylene Glycol 3350 17 Gm Powd.Pack PO BID PILY Polyethylene Glycol 17 gm 09/05/23 09:00 Polyethylene Glycol 3350 17 Gm Powd.Pack PO QAM [facility] Radiology Results: ITS Impressions Ankle X-Ray 08/27/23 12:45 IMPRESSION: 1. [Minimally displaced oblique distal left fibular metaphyseal fracture. Chest X-Ray 08/27/23 12:47 IMPRESSION: 1. No acute cardiopulmon
[2023-09-04] MEDS: polyethylene glycoL 3350 17 GM POWD.PACK PO (18:02)
[2023-09-04 19:46] VITALS: BP 141/65; PULSE 67; RESP 16; TEMP 36.6; O2SAT 98
[2023-09-05] MEDS: PIPERACILLN/TAZ 3.375GM/NS50ML 3.375 GM/50 ML BAG IVPB ×2 (05:23→12:27)
[2023-09-05 05:31] VITALS: BP 166/81; PULSE 64; RESP 16; TEMP 36.6; O2SAT 98
[2023-09-05 06:22] LABS: Anion Gap 5 mmol/L (4-12); Blood Urea Nitrogen 14 mg/dL (9-20); Calcium 8.2 mg/dL (8.4-10.2); Carbon Dioxide 26 mmol/L (22-30); Chloride 110 mmol/L (98-107); Estimated CRCL calculation 63 ml/min; Estimated Glomerular Filt Rate > 60; Glucose 105 mg/dL (65-110); Magnesium 1.9 mg/dL (1.6-2.3); Potassium 3.4 mmol/L (3.4-5.0); Sodium 141 mmol/L (137-145)
--- NOTE | 2023-09-05 07:22 | PM.PNORT ---
Progress Note: A&P Assessment and Plan (1) Closed fracture of left lateral malleolus: Qualifiers: Encounter type: initial encounter Code(s): S82.62XA - Displaced fracture of lateral malleolus of left fibula, initial encounter for closed fracture Status: Acute Assessment and Plan: Patient awaiting discharge to facility. Left lateral malleolus fracture. Stable fracture. No pain. Continue CAM boot when up. Non-weight bearing. Ortho instructions: Xray and follow up in office in 2 weeks. Apt scheduled for 09/10/23 at 3:30. Please arrive at 3:15 for radiographs. [facility] orthopaedics . Non weight bearing with Boot for 2 weeks. May rest foot down for balance only. Okay to remove for hygiene and at rest. Ice and elevation to help with swelling and pain. Pain medication: Tylenol. Subjective Subjective Date/Time Seen: 09/05/23 07:22 Interval history: Patient resting comfortably in bed. Exam Narrative: Normal weight 77 y/o male resting comfortably in bed. Pleasantly confused. Not wearing boot. Melchor wrap in place. Lower leg elevated. Heal off bed. Mild swelling. Mild ecchymosis. Deltoid ligament non tender. Objective Data Vital Signs Vital Signs: Vital Signs - 24 hr 09/04/23 08:56 09/04/23 14:05 09/04/23 19:46 Temperature 98.8 F 97.9 F Pulse Rate 62 67 Respiratory Rate 16 16 Blood Pressure 131/84 141/65 H Pulse Oximetry 98 98 Oxygen Delivery Room Air 09/05/23 05:31 Temperature 97.9 F Pulse Rate 64 Respiratory Rate 16 Blood Pressure 166/81 H Pulse Oximetry 98 Oxygen Delivery Intake/Output Intake/Output: Intake & Output 09/02/23 09/03/23 09/04/23 09/05/23 23:59 23:59 23:59 23:59 Intake Total 1130 1320 1590 200 Output Total 350 Balance 1130 1320 1240 200 Meds/Results Medications: Active Medications Generic Name Dose Route Start Last Admin Trade Name Freq PRN Reason Stop Dose Admin Acetaminophen 650 mg 08/31/23 17:52 08/31/23 18:19 Acetaminophen 325 Mg Tablet PO 650 mg Q4H PRN Administration Mild Pain (1-3) or Fever Hydrocodone Bitart/Acetaminophen 1 tab 08/27/23 18:18 08/27/23 20:07 Hydrocodone/Acetaminophen (*Crx) 5-325 Mg Tablet PO 1 tab Q4H PRN Administration Pain Rated 1-6 Bisacodyl 5 mg 08/27/23 22:23 09/03/23 17:45 Bisacodyl 5 Mg Tablet Ec PO 5 mg DAILY PRN Administration Constipation Bisacodyl 10 mg 09/02/23 12:49 Bisacodyl 10 Mg Suppository RECTAL QAM PRN Constipation Enoxaparin Sodium 40 mg 08/28/23 09:00 09/04/23 08:52 Enoxaparin 40 Mg/0.4 Ml Syringe SUB-Q 40 mg DAILY PILY Administration Piperacillin/Tazobactam/Dextrose 3.375 gm in 50 mls @ 100 mls/hr 09/01/23 14:00 09/05/23 05:53 Zosyn 3.375 Gm/Ns 50 Ml IVPB Infused Q6HR PILY Infusion Memantine 10 mg 08/28/23 09:00 09/04/23 18:02 Memantine 10 Mg Tablet PO 10 mg BID PILY Administration Naloxone HCl 0.1 mg 08/27/23 18:18 Naloxone Hcl 0.4 Mg/Ml Vial IV PUSH Q2M PRN Opiate Reversal Ondansetron HCl 4 mg 08/27/23 14:17 Ondansetron Inj 4 Mg/2 Ml Vial IV PUSH ONCE PRN Nausea Ondansetron HCl 4 mg 08/27/23 18:18 Ondansetron Inj 4 Mg/2 Ml Vial IV PUSH Q12H PRN Nausea And Vomiting Polyethylene Glycol 17 gm 09/04/23 17:00 09/04/23 18:02 Polyethylene Glycol 3350 17 Gm Powd.Pack PO 17 gm BID PILY Administration Radiology Results: ITS Impressions Ankle X-Ray 08/27/23 12:45 IMPRESSION: 1. [Minimally displaced oblique distal left fibular metaphyseal fracture. Chest X-Ray 08/27/23 12:47 IMPRESSION: 1. No acute cardiopulmonary disease. Head CT 08/31/23 11:45 IMPRESSION: 1. No acute intracranial abnormality. Brain MRI 08/31/23 15:26 IMPRESSION: No acute intracranial process. Abdomen/Pelvis CT 09/01/23 13:35 IMPRESSION: 1. Stranding and small amount of gas in the right anterior pelvic wal
[2023-09-05] MEDS: ENOXAPARIN 40 MG/0.4 ML SYRINGE SUB-Q (08:47)
[2023-09-05] MEDS: MEMANTINE 10 MG TABLET PO ×2 (08:47→18:16)
[2023-09-05] MEDS: POTASSIUM CHLORIDE 20 MEQ PACKET (FOR LIQUID) 40 MEQ PO (08:47)
[2023-09-05] MEDS: polyethylene glycoL 3350 17 GM POWD.PACK PO ×2 (08:47→18:18)
--- NOTE | 2023-09-05 12:28 | PM.DS ---
DS: Admitting Diagnosis Discharge Date 09/05/23 Admitting Diagnosis Confusion and weakness DS: Discharge Diagnosis Discharge Diagnosis (1) Altered mental status: Qualifiers: Altered mental status type: disorientation Qualified Code(s): R41.0 - Disorientation, unspecified Code(s): R41.82 - Altered mental status, unspecified Status: Acute (2) Erosion of penile prosthesis: Code(s): T83.89XA - Other specified complication of genitourinary prosthetic devices, implants and grafts, initial encounter Status: Acute (3) Closed fracture of left lateral malleolus: Qualifiers: Encounter type: initial encounter Code(s): S82.62XA - Displaced fracture of lateral malleolus of left fibula, initial encounter for closed fracture Status: Acute (4) Ileus: Code(s): K56.7 - Ileus, unspecified Status: Acute (5) PERLITA (acute kidney injury): Code(s): N17.9 - Acute kidney failure, unspecified Status: Acute DS: Summary Hospital Course Reason for hospitalization: 77yo male with dementia and prostate CA here for confusion and weakness and found to have dislodged penile implant. Please see H&P for details. Hospital Course: Patient presents with altered mental status.? Vitals were stable and appeared nontoxic on ED evaluation.?EKG was sinus rhythm no acute ST changes.? WBC count normal. UA not consistent with UTI. CT head negative for any acute intracranial process.? Chest x-ray with no acute findings.?He was hypotensive and orthostatic with PERLITA.? Received IV fluid with improvement.?AMS felt related to pain, infection possibly from penile implant. [place] initially but confusion worsened 08/30. Brain MRI showing no acute process. [place] related to PERLITA, dehydration with HoTN. Cr normal on admission but increased to 1.7. Treated with IV fluids with benefit. Renal function better and now off IVF. Mental status better. He does have underlying dementia which played a part in his confusion. Patient found to have eroded penile inflation device. Patient follows with Dr. Salmon. Urology consulted on admission. Patient underwent explant of eroded penile implant, scrotal exploration with antibiotic washout 08/27/23. He tolerated the procedure well. Post surgery Dutta catheter was removed.?He was on antibiotics with vancomycin and cefepime which was switched to Bactrim with plans for treatment through 09/04/23. Patient fell prior to admission. Left ankle x-ray showed left ankle lateral malleolar fracture.?Orthopedics was consulted and patient was placed on cam boot and non-weight bearing.?Follow-up in office in 1-2 weeks.?He worked with PT/OT. Since he is nonweightbearing and no help at home, plans made for him to go to rehab facility.? Abdominal distension noted with CT abdomen pelvis which revealed stranding and small amount of gas in the right anterior pelvic wall likely related to recent explantation of the penile prosthesis.? Gas/fluid and stool filling the colon with nonspecific dilatation most prominent the sigmoid colon where it measures up to 10 cm diameter but without evident wall thickening or distal obstructing mass.? Likely ileus or [place] syndrome. Abx switched to Zosyn.?Received Dulcolax suppository with good a bowel movement.? Colonoscopy report (2019) was limited to the sigmoid flexure due to poor prep. GI consulted and we continued bowel regiment. He continued to have stools and flatus. Abd distention improved. Repeat x-ray KUB showing decreased distention of the rectosigmoid likely resolving ileus. He had clinical improvement. He completed a course of abx. He overall did well and was able to be discharged on 09/05/23. Status at Discharge Cognitive/behavioral status at discharge: stable Time Spent with Patient Time attestation: Total time spent providing and/or coordinating discharge services: 35 minutes Time spent: Greater than 30 minutes Specific discharge activities:
[2023-09-05 14:35] LABS: SARS-CoV-2 RNA PCR Negative (Negative)
--- NOTE | 2023-09-05 15:17 | WPDGIPROGNO ---
Progress Note: A&P Assessment and Plan (1) Ileus: Code(s): K56.7 - Ileus, unspecified Status: Acute Assessment and Plan: resolved no abdominal pain and less distended he can follow-up in office and schedule next colonoscopy as outpatient (last time had poor bowel prep) (2) Closed fracture of left lateral malleolus: Qualifiers: Encounter type: initial encounter Code(s): S82.62XA - Displaced fracture of lateral malleolus of left fibula, initial encounter for closed fracture Status: Acute (3) Erosion of penile prosthesis: Code(s): T83.89XA - Other specified complication of genitourinary prosthetic devices, implants and grafts, initial encounter Status: Acute Assessment and Plan: treated (4) Screening for colon cancer: Code(s): Z12.11 - Encounter for screening for malignant neoplasm of colon Status: Acute Subjective Date/time seen: 09/05/23 15:17 Interval history: comfortable, eating and having BM he is going to be discharged Review of Systems Review of Systems: All systems reviewed & are unremarkable except as noted in HPI and below Exam Narrative: Gen - NARD Neck- supple ENT- reactive pupils Chest - CTA bilaterally, nml RR CV - RRR S1/S2 Abd - Soft, less distended, +BS, NT Ext - left ankle BRUNA wrapped with slight edema noted Neuro - Alert but confused Psych - Nml mood and affect Skin - Warm and dry Objective Data Vital Signs Vital Signs: Vital Signs - 24 hr 09/04/23 19:46 09/05/23 05:31 09/05/23 08:50 Temperature 97.9 F 97.9 F Pulse Rate 67 64 Respiratory Rate 16 16 Blood Pressure 141/65 H 166/81 H Pulse Oximetry 98 98 Oxygen Delivery Room Air Intake/Output Intake/Output: Intake & Output 09/02/23 09/03/23 09/04/23 09/05/23 23:59 23:59 23:59 23:59 Intake Total 1130 1320 1590 320 Output Total 350 Balance 1130 1320 1240 320 Meds/Results Medications: Active Medications Generic Name Dose Route Start Last Admin Trade Name Freq PRN Reason Stop Dose Admin Acetaminophen 650 mg 08/31/23 17:52 08/31/23 18:19 Acetaminophen 325 Mg Tablet PO 650 mg Q4H PRN Administration Mild Pain (1-3) or Fever Hydrocodone Bitart/Acetaminophen 1 tab 08/27/23 18:18 08/27/23 20:07 Hydrocodone/Acetaminophen (*Crx) 5-325 Mg Tablet PO 1 tab Q4H PRN Administration Pain Rated 1-6 Bisacodyl 5 mg 08/27/23 22:23 09/03/23 17:45 Bisacodyl 5 Mg Tablet Ec PO 5 mg DAILY PRN Administration Constipation Bisacodyl 10 mg 09/02/23 12:49 Bisacodyl 10 Mg Suppository RECTAL QAM PRN Constipation Enoxaparin Sodium 40 mg 08/28/23 09:00 09/05/23 08:47 Enoxaparin 40 Mg/0.4 Ml Syringe SUB-Q 40 mg DAILY PILY Administration Piperacillin/Tazobactam/Dextrose 3.375 gm in 50 mls @ 100 mls/hr 09/01/23 14:00 09/05/23 12:27 Zosyn 3.375 Gm/Ns 50 Ml IVPB 100 mls/hr Q6HR PILY Administration Memantine 10 mg 08/28/23 09:00 09/05/23 08:47 Memantine 10 Mg Tablet PO 10 mg BID PILY Administration Naloxone HCl 0.1 mg 08/27/23 18:18 Naloxone Hcl 0.4 Mg/Ml Vial IV PUSH Q2M PRN Opiate Reversal Ondansetron HCl 4 mg 08/27/23 14:17 Ondansetron Inj 4 Mg/2 Ml Vial IV PUSH ONCE PRN Nausea Ondansetron HCl 4 mg 08/27/23 18:18 Ondansetron Inj 4 Mg/2 Ml Vial IV PUSH Q12H PRN Nausea And Vomiting Polyethylene Glycol 17 gm 09/04/23 17:00 09/05/23 08:47 Polyethylene Glycol 3350 17 Gm Powd.Pack PO 17 gm BID PILY Administration Radiology Results: ITS Impressions Ankle X-Ray 08/27/23 12:45 IMPRESSION: 1. [Minimally displaced oblique distal left fibular metaphyseal fracture. Chest X-Ray 08/27/23 12:47 IMPRESSION: 1. No acute cardiopulmonary disease. Head CT 08/31/23 11:45 IMPRESSION: 1. No acute intracranial abnormality. Brain MRI 08/31/23 15:26 IMPRESSION: No acute intracranial pro
[2023-09-05 15:30] VITALS: BP 138/72; PULSE 64; RESP 15; TEMP 36.7; O2SAT 98
== END 2023-09-05 20:00 | DRG 674 ==
LOC: ANHED 13:24 → ANH3MED 13:38
PROVIDERS: Emergency Medicine; Internal Medicine; Student in an Organized Health Care Education/Training Program; Urology; Admitting Provider Family Medicine; Emergency Provider Nurse Practitioner Family; PCP Family Medicine; Visit Provider Internal Medicine
PROC: 0VPS0JZ Removal of Synthetic Substitute from Penis, Open Approach (ICD-10-PCS; principal; 2023-08-27 15:00)
DX: T83.719A Erosion of other prosthetic materials to surrounding organ or tissue, initial encounter (principal); G93.49 Other encephalopathy; N17.8 Other acute kidney failure; K91.89 Other postprocedural complications and disorders of digestive system; K56.7 Ileus, unspecified; I95.1 Orthostatic hypotension; S82.432A Displaced oblique fracture of shaft of left fibula, initial encounter for closed fracture; F03.90 Unspecified dementia, unspecified severity, without behavioral disturbance, psychotic disturbance, mood disturbance, and anxiety; W19.XXXA Unspecified fall, initial encounter; Z87.891 Personal history of nicotine dependence; Z85.46 Personal history of malignant neoplasm of prostate; Z11.52 Encounter for screening for COVID-19
CPT/HCPCS: 29515; 36415; 36600; 70450; 70551; 71045; 73610; 74018; 74019; 74176; 80048; 80053; 80069; 81001; 82565; 82805; 82948; 83605; 83735; 85025; 85027; 85610; 85730; 87015; 87040; 87070; 87075; 87102; 87116; 87205; 87206; 87635; 87641; 88300; 93005; 97110; 97112; 97161; 97166; 97530; 97535; 99285; A9270; J0690; J0692; J1650; J2405; J2543; J2704; J3010; J3370; J7030; J7120

== ENCOUNTER 2023-09-23 04:19 | Emergency (ER) | payer MEDICARE, SELFPAY ==
[2023-09-23] VITALS (14 sets, daily range): BP systolic 106–145; BP diastolic 67–80; PULSE 56–74; RESP 12–18; TEMP 36.4; O2SAT 96–98
--- NOTE | ~2023-09-23 | XR_ITS ---
Portable chest x-ray Comparison: 08/27/2023 Clinical History: Altered mental status Findings: Lungs are clear, without focal consolidation or pleural effusion. Cardiomediastinal silho uette is stable. Bones and soft tissues are unremarkable. Impression: Clear lungs. Reviewed, dictated and finalized at location . Impression: Clear lungs.
--- NOTE | ~2023-09-23 | CT_ITS ---
Noncontrast CT scan of the cervical spine Technique: Multiple contiguous axial [address] images of the cervical spine were obtained and rec onstructed in 2D sagittal and coronal planes on the acquisition scanner. Dose reduction technique was used on this scan by utilizing automated exposure control, adjustment of the mA and/or kV according to patient size. The dose-length product (DLP) was 405.55 mGy-cm. Clinical History: Pain Findings: No fractures or dislocations. There is moderate degenerative disc narrowing at C4-C5, C5-C 6, C6-C7. There is disc osteophyte complex and bilateral neural foraminal narrowing at C4-C5, C5-C6, and C6-C7. Probable mild canal stenosis at C4-C5 and C5-C6. No prevertebral soft tissue swelling. Impression: No fracture or subluxation of the cervical spine. Degenerative spondylosis, as above. Reviewed, dictated and finalized at [facility]. Impression: No fracture or subluxation of the cervical spine. Degenerative spondylosis, as above.
--- NOTE | ~2023-09-23 | CT_ITS ---
CT head without contrast Indication: Altered mental status COMPARISON: 08/31/2023 Technique: Serial scans were obtained through the brain without the administration of contrast. Dose reduction technique was used on this scan by utilizing automated exposure control and iterative recon struction technique. The dose-length product (DLP) was 605.33 mGy-cm. Findings: There is no evidence of intracranial hemorrhage, mass lesion, or acute infarct. The ventri cles and subarachnoid spaces are unremarkable. Low attenuation regions are seen within the periventr icular white matter bilaterally, likely representing changes from chronic microvascular ischemic dise ase. There is no evidence of edema, mass effect or midline shift. The visualized paranasal sinuses and mastoid air cells are clear. Impression: No intracranial hemorrhage, mass, or acute infarct. Stable chronic white matter changes, as above. Reviewed, dictated and finalized at location . Impression: No intracranial hemorrhage, mass, or acute infarct. Stable chronic white matter changes, as above.
--- NOTE | 2023-09-23 04:25 | ECG_ITS ---
SEE SCANNED COPY FOR CONFIRMED REPORT MTDD
[2023-09-23 04:50] LABS: Basophils Percent Auto 0.7 % (0.2-1.2); Eosinophils Absolute Auto 0.2 K/mm3 (0-0.3); Eosinophils Percent Auto 4.4 % (0-4.4); Hematocrit 41.6 % (42.0-52.0); Hemoglobin 13.9 g/dL (14.0-18.0); Immature Granulocyte Absolute 0.02 K/mm3 (0.00-0.031); Immature Granulocyte Percent A 0.4 % (0-0.5); Lymphocytes Absolute Auto 1.66 K/mm3 (0.9-3.2); Lymphocytes Percent Auto 30.5 % (18.3-44.2); Mean Corpuscular HGB Conc 33.4 g/dl (32-36); Mean Corpuscular Hemoglobin 30.2 pg (26-34); Mean Corpuscular Volume 90.4 fl (80-100); Mean Platelet Volume 9.8 fl (7.4-10.4); Monocytes Absolute Auto 0.6 K/mm3 (0.1-0.6); Monocytes Percent Auto 10.1 % (2.6-8.5); Neutrophils Absolute Auto 2.9 K/mm3 (1.3-6.7); Neutrophils Percent Auto 53.9 % (45.5-73.1); Platelet Count Result 212 k/mm3 (150-375); Red Cell Distribution Width 14.7 % (11.5-14.5); White Blood Count 5.4 K/mm3 (4.5-10.0)
[2023-09-23 04:59] LABS: Ethanol < 10 mg/dL (<10)
[2023-09-23 05:17] LABS: Alanine Aminotransferase 18 U/L (6-50); Albumin Level 3.3 g/dL (3.5-5.1); Alkaline Phosphatase 97 U/L (38-126); Anion Gap 5 mmol/L (4-12); Aspartate Amino Transferase 21 U/L (17-59); Bilirubin,Total 0.6 mg/dL (0.2-1.3); Blood Urea Nitrogen 15 mg/dL (9-20); Calcium 8.2 mg/dL (8.4-10.2); Carbon Dioxide 24 mmol/L (22-30); Chloride 110 mmol/L (98-107); Estimated CRCL calculation 67 ml/min; Estimated Glomerular Filt Rate > 60; Glucose 110 mg/dL (65-110); Potassium 3.2 mmol/L (3.4-5.0); Sodium 139 mmol/L (137-145)
[2023-09-23 05:29] LABS: Troponin I < 0.012 ng/mL (0.000-0.034)
[2023-09-23] MEDS: SODIUM CHLORIDE 0.9% IV 1,000 ML 999 ML IV CONT (05:32)
[2023-09-23] MEDS: POTASSIUM CHLORIDE 20 MEQ ER TABLET 40 MEQ PO (06:10)
--- NOTE | 2023-09-23 07:02 | ED.AMS ---
HPI - Altered Mental Status General Chief Complaint: Altered Mental Status Stated Complaint: AMS Time Seen by Provider: 09/23/23 04:25 History of Present Illness HPI narrative: Patient presenting after a syncopal episode, he had been getting up to go to the bathroom when his heard a thump, she found him on the floor with several seconds of slight shaking, and then he woke up, tried to sit up immediately, and then start off and was not really and responsive for about a minute, then started speaking and moving again, EMS arrived and and noticed that his blood pressure was quite low (70s/40s?), they started IV fluids, which improved his blood pressure and he came back to normal baseline, and transported him here. Related Data Home Medications Medication Instructions Recorded Confirmed bisacodyl 5 mg tablet 5 mg PO DAILY PRN Constipation 12/27/19 09/11/23 Allergies Allergy/AdvReac Type Severity Reaction Status Date / Time No Known Allergies Allergy Verified 09/10/23 15:30 Review of Systems Review of Systems: CONST: No fever. HEENT: No sore throat C/V: No chest pain RESP: No cough GI: no abdominal pain, nausea vomiting : No dysuria. M/S: No joint pain. SKIN: No rash. NEURO: Syncope, no focal numbness or weakness PSYCH: [No depression] [facility] Past Medical History Medical History Angioedema Cellulitis of external nose Complete tear of left rotator cuff Dehydration Hepatitis C antibody test negative (12/20/16) Prostate cancer Sialadenitis Surgical History Surgical History H/O prostatectomy History of penile implant Family History Family History Sibling Diabetes mellitus Father Hypertension Family history of coronary artery disease Social History Social History Smoking status: Former smoker Tobacco type: cigarettes Alcohol intake: never Substance use: never Do You Feel Safe in your Home?: Yes Lack of Transportation: No Lack of Food: Never True Current Housing: I Have Housing Concerned About Future Housing: No Difficulty Paying Gas/Electric Bills: No Difficulty Paying for Meds: No Currently Unemployed: No Education: High School Diploma/GED Difficulty w/ Childcare or Family Care: No Living arrangements: with family Spiritual care concerns: No Agree to blood products: Yes Exam Narrative: EXAMINATION OF ORGAN SYSTEMS/BODY AREAS: Constitutional: Vital signs per nursing GENERAL:[No acute distress, non-toxic appearing.] HEAD: Normal with no signs of head trauma. EYES: EOMI, conjunctiva normal ENT: Hearing grossly intact LUNGS: Nonlabored breathing. HEART: [Regular rate and rhythm] ABD: [Soft], [nontender to palpation] EXT: Normal range of motion SKIN: [No rashes or lesions.] NEURO: [Alert. No gross focal sensory or strength deficits.] PSYCH: Normal affect, pleasant answering questions appropriately Course Vital Signs Vital signs: Vital Signs Temperature 97.5 F L 09/23/23 04:15 Pulse Rate 74 09/23/23 04:15 Respiratory Rate 14 09/23/23 04:15 Blood Pressure 134/77 09/23/23 04:15 Pulse Oximetry 98 09/23/23 04:15 Oxygen Delivery Room Air 09/23/23 04:15 Temperature 97.5 F L 09/23/23 04:15 Pulse Rate 57 L 09/23/23 07:31 Respiratory Rate 14 09/23/23 07:31 Blood Pressure 132/71 09/23/23 07:31 Pulse Oximetry 96 09/23/23 07:31 Oxygen Delivery Room Air 09/23/23 04:23 MDM - Altered Mental Status MDM Narrative Medical decision making narrative: Patient presents here after an episode of altered mental status, he is describing he seemed to have a few seconds of shaking, then was minimally responsive for another minute, and seem to come to, with low blood pressure seen by EMS, given this descri
[2023-09-23 07:13] LABS: Appearance Urine Cloudy (Clear); Bacteria Urine 4+ /hpf; Bilirubin Urine Negative (Negative); Blood Urine 1+ (Negative); Color Urine Yellow (Yellow); Glucose Urine UA Negative (Negative); Ketones Urine Trace mg/dL (Negative); Leukocyte Esterase Ur 3+ LEU/UL (Negative); Nitrate Urine Positive (Negative); Non Pathogenic Casts 0-2; Protein Urine Trace mg/dL (Negative); Specific Grav Ur 1.014 (1.001-1.035); Squamous Epithelial Cell Urine None Seen /hpf (Few); WBC Urine >100 /hpf (0-3); pH Urine 6.5 (5.0-9.0)
[2023-09-23 07:16] LABS: Add Urine Microscopic? YES
[2023-09-23 07:28] LABS: Amphetamine Screen Urine Negative (Negative); Barbiturate Screen Urine Negative (Negative); Benzodiazepines Screen Urine Negative (Negative); Cannabinoid Screen Urine Negative (Negative); Cocaine Screen Urine Negative (Negative); Methadone Screen Urine Negative (Negative); Opiate Screen Urine Negative (Negative); Phencyclidine Screen Urine Negative (Negative)
== END 2023-09-23 08:14 | disposition home or self-care (01) ==
PROVIDERS: Emergency Provider Emergency Medicine; PCP Family Medicine
DX: N39.0 Urinary tract infection, site not specified (principal); R55 Syncope and collapse; Z85.46 Personal history of malignant neoplasm of prostate
CPT/HCPCS: 36415; 70450; 71045; 72125; 80053; 80307; 81001; 84443; 84484; 85025; 87077; 87086; 87088; 87186; 93005; 96361; 96365; 99284; A9270; J0696; J7030

== ENCOUNTER 2023-09-24 15:31 | Inpatient (IN) | payer MEDICARE, SELFPAY ==
[2023-09-24] VITALS (13 sets, daily range): BP systolic 114–156; BP diastolic 47–95; PULSE 80–95; RESP 18–25; TEMP 36.4–38.6; O2SAT 95–97
--- NOTE | ~2023-09-24 | XR_ITS ---
XR abdomen/kub 1V 09/27/2023 09:55 Indication: Karen syndrome Procedure: KUB Comparison: Comparison to multiple prior studies sequentially, with oldest reviewed study dated 09/04. Findings: Surgical clips reidentified in the pelvis. Persistent moderate dilation of the colon withou t significant change. No abnormal calcifications. No acute osseous abnormality. Impression: 1: Stable dilated air-filled colon, likely ileus or distal colonic obstruction. Reviewed, dictated and finalized at location A. Impression: 1: Stable dilated air-filled colon, likely ileus or distal colonic obstruction.
--- NOTE | ~2023-09-24 | CT_ITS ---
EXAMINATION: CT abdomen pelvis w con DATE: 09/24/2023 17:06 INDICATION: Abdominal pain. Fever. TECHNIQUE: Computed tomography (CT) of the abdomen and pelvis was performed with 100 mL Omnipaque 350 intravenous contrast. Automated exposure control and iterative reconstruction technique were employe d. The dose-length product was 748.93 mGy-cm. COMPARISON: CT abdomen and pelvis 09/01/2023 FINDINGS: The visualized portions of the lung bases demonstrate minimal atelectasis. No pleural effus ion. The heart size is normal. No pericardial effusion. There is fluid in the esophagus. There is a m oderate-sized sliding hiatal hernia. There are cysts in the liver measuring up to 9 mm. The gallbladd er is distended. The spleen, pancreas, and adrenal glands are normal. There are cysts in the kidneys measuring up to 4.9 cm on the left. There is an umbilical hernia containing fat. There are surgical c lips in from prostatectomy and pelvic lymph node dissection. The sigmoid colon is distended. There is a 7.4 x 3.6 x 1.9 cm fluid collection with peripheral calcifications in the right rectus abdominis m uscle. There is subcutaneous fat stranding superficial to this area. There are no pathologically enla rged lymph nodes. There is a right inguinal hernia containing fat. There is no free intraperitoneal f luid. There is severe lumbar spondylosis. IMPRESSION: 1. Gallbladder distention, which may be secondary to fasting. Correlate with physical exam to exclude acute cholecystitis. 2. Distention of the sigmoid colon, likely adynamic ileus. 3. Fluid collection in the right rectus abdominis muscle, likely a seroma after penile prosthesis exp lant. 4. Moderate-sized sliding hiatal hernia. Reviewed, dictated and finalized at location E. IMPRESSION: 1. Gallbladder distention, which may be secondary to fasting. Correlate with ph ysical exam to exclude acute cholecystitis. 2. Distention of the sigmoid colon, likely adynamic ileus. 3. Fluid collection in the right rectus abdominis muscle, likely a seroma after penile prosthesis explant. 4. Moderate-sized sliding hiatal hernia.
--- NOTE | ~2023-09-24 | XR_ITS ---
Supine and upright views of the abdomen Clinical history: Karen syndrome COMPARISON: 09/25/2023 Findings: Marked air distention of portions of the large bowel are again present. Probable pelvic link gical clips present. No abnormal mass lesion or calcification is seen. Osseous structures are intact. Impression: Stable marked air distention of portions of what appear to be distal large bowel. Reviewed, dictated and finalized at location . Impression: Stable marked air distention of portions of what appear to be distal large liv l.
--- NOTE | ~2023-09-24 | XR_ITS ---
XR abdomen/kub 1V 09/28/2023 11:56 Indication: Abdominal distention with pain Procedure: KUB Comparison: Comparison to multiple prior studies sequentially, with oldest reviewed study dated 09/24. Findings: Persistent dilated colon which is gas-filled. Extensive surgical changes of the pelvis. No significant interval change. Impression: 1: Persistent dilated colon which may represent ileus or distal colonic obstruction. Reviewed, dictated and finalized at location A. Impression: 1: Persistent dilated colon which may represent ileus or distal colonic obstruc tion.
--- NOTE | ~2023-09-24 | XR_ITS ---
Supine and upright views of the abdomen Clinical history: Ileus COMPARISON: 09/05/2023 Findings: Prominent air distention of probable distal large bowel again present. No definite bowel ob struction or free air.. No abnormal mass lesion or calcification is seen. Osseous structures are inta ct. Impression: Persistent prominent air distention of what is probably distal large bowel. Reviewed, dictated and finalized at location . Impression: Persistent prominent air distention of what is probably distal large bowel.
--- NOTE | 2023-09-24 15:51 | ED.FEVER ---
HPI - Fever General Chief Complaint: Fever Stated Complaint: tremors History of Present Illness HPI Narrative: 77-year-old male presenting to the emergency department for evaluation of tremor at home. Patient is currently being treated for urinary tract infection and patient was febrile upon arrival to the emergency department. Patient arrived to the emergency department by EMS. Patient does have history of dementia Related Data Home Medications Medication Instructions Recorded Confirmed bisacodyl 5 mg tablet 5 mg PO DAILY PRN Constipation 12/27/19 09/11/23 Allergies Allergy/AdvReac Type Severity Reaction Status Date / Time No Known Allergies Allergy Verified 09/10/23 15:30 Review of Systems Review of Systems: All systems reviewed & are unremarkable except as noted in HPI and below PMFSH Past Medical History Medical History Angioedema Cellulitis of external nose Complete tear of left rotator cuff Dehydration Hepatitis C antibody test negative (12/20/16) Prostate cancer Sialadenitis Surgical History Surgical History H/O prostatectomy History of penile implant Family History Family History Sibling Diabetes mellitus Father Hypertension Family history of coronary artery disease Social History Social History Smoking status: Former smoker Tobacco type: cigarettes Alcohol intake: never Substance use: never Do You Feel Safe in your Home?: Yes Lack of Transportation: No Lack of Food: Never True Current Housing: I Have Housing Concerned About Future Housing: No Difficulty Paying Gas/Electric Bills: No Difficulty Paying for Meds: No Currently Unemployed: No Education: High School Diploma/GED Difficulty w/ Childcare or Family Care: No Living arrangements: with family Spiritual care concerns: No Agree to blood products: Yes Exam Narrative: APPEARANCE: Well appearing, no pain, no distress, well-nourished. HEAD: normocephalic, atraumatic. EYES: PERRLA/EOMI, conjunctivae clear. NOSE: Normal no drainage EARS:TMS clear with good light reflex. THROAT: Pharynx clear, no exudate. NECK: Supple. No adenopathy, no masses. RESPIRATORY: Airway patent, respirations nonlabored. Clear to auscultation bilaterally, no rales, rhonchi, wheezing. CARDIOVASCULAR: Regular rate and rhythm without murmurs rubs or gallops. ABDOMINAL: Lower abdominal tenderness to palpation MUSCULOSKELETAL: Moves all extremities. Strength/ROM intact, No edema, No calf tenderness. NEURO: Alert. Cranial nerves II through XII intact. Grossly intact PSYCHIATRIC: Normal affect/mood. Course Vital Signs Vital signs: Vital Signs Temperature 101 F H 09/24/23 15:35 Pulse Rate 95 09/24/23 15:35 Respiratory Rate 25 H 09/24/23 15:35 Blood Pressure 156/81 H 09/24/23 15:35 Pulse Oximetry 97 09/24/23 15:35 Oxygen Delivery Room Air 09/24/23 15:35 Temperature 100.4 F H 09/24/23 17:59 Pulse Rate 87 09/24/23 18:56 Respiratory Rate 21 H 09/24/23 18:56 Blood Pressure 114/54 L 09/24/23 18:56 Pulse Oximetry 97 09/24/23 18:56 Oxygen Delivery Room Air 09/24/23 15:35 MDM - Fever MDM Narrative Medical decision making narrative: 69-year-old male presents emergency department for evaluation of tremor and fever. Patient fever was treated with Tylenol in the emergency department. Patient had an elevated leukocytosis at 12.2. UA was concerning for urinary tract infection, patient has a normal CMP. Patient had been on Bactrim and was switched to Rocephin in the emergency department. Patient was negative for influenza RSV and for COVID. CT scan showed no other acute abnormalities. Case was discussed with hospitalist patient was accepted for admission. Family is also conc
[2023-09-24 16:03] LABS: Basophils Percent Auto 0.2 % (0.2-1.2); Eosinophils Absolute Auto 0.1 K/mm3 (0-0.3); Eosinophils Percent Auto 0.7 % (0-4.4); Hematocrit 45.2 % (42.0-52.0); Hemoglobin 14.3 g/dL (14.0-18.0); Immature Granulocyte Absolute 0.04 K/mm3 (0.00-0.031); Immature Granulocyte Percent A 0.3 % (0-0.5); Lymphocytes Absolute Auto 0.67 K/mm3 (0.9-3.2); Lymphocytes Percent Auto 5.5 % (18.3-44.2); Mean Corpuscular HGB Conc 31.6 g/dl (32-36); Mean Corpuscular Hemoglobin 30.5 pg (26-34); Mean Corpuscular Volume 96.4 fl (80-100); Monocytes Absolute Auto 0.2 K/mm3 (0.1-0.6); Monocytes Percent Auto 1.6 % (2.6-8.5); Neutrophils Absolute Auto 11.1 K/mm3 (1.3-6.7); Neutrophils Percent Auto 91.7 % (45.5-73.1); Platelet Count Result 185 k/mm3 (150-375); Red Blood Count 4.69 M/mm3 (4.6-6.20); Red Cell Distribution Width 14.9 % (11.5-14.5); White Blood Count 12.2 K/mm3 (4.5-10.0)
[2023-09-24 16:15] LABS: Alanine Aminotransferase 18 U/L (6-50); Albumin Level 3.7 g/dL (3.5-5.1); Alkaline Phosphatase 100 U/L (38-126); Anion Gap 9 mmol/L (4-12); Aspartate Amino Transferase 21 U/L (17-59); Bilirubin,Total 0.7 mg/dL (0.2-1.3); Blood Urea Nitrogen 16 mg/dL (9-20); Carbon Dioxide 25 mmol/L (22-30); Chloride 109 mmol/L (98-107); Estimated CRCL calculation 52 ml/min; Estimated Glomerular Filt Rate > 60; Glucose 135 mg/dL (65-110); Potassium 3.8 mmol/L (3.4-5.0); Sodium 143 mmol/L (137-145)
[2023-09-24] MEDS: ACETAMINOPHEN 325 MG TABLET 650 MG PO ×2 (16:15→23:26)
[2023-09-24 16:27] LABS: Platelet Estimate Adequate (Adequate)
[2023-09-24 16:28] LABS: Anisocytosis 1+; Hypochromasia 2+; Schistocytes None Seen
[2023-09-24 16:41] LABS: Appearance Urine Cloudy (Clear); Bacteria Urine None Seen /hpf; Bilirubin Urine Negative (Negative); Blood Urine 1+ (Negative); Color Urine Dark Yellow (Yellow); Glucose Urine UA Negative (Negative); Ketones Urine Trace mg/dL (Negative); Leukocyte Esterase Ur 2+ LEU/UL (Negative); Need Manual Microscopic Reviewed; Nitrate Urine Negative (Negative); Protein Urine Trace mg/dL (Negative); Specific Grav Ur 1.019 (1.001-1.035); Squamous Epithelial Cell Urine Occasional /hpf (Few); WBC Urine >100 /hpf (0-3)
[2023-09-24 16:50] LABS: Add Urine Microscopic? YES
[2023-09-24 16:56] LABS: Influenza A QL RT-PCR Negative (Negative); Influenza B QL RT-PCR Negative (Negative); RSV RNA, RT-PCR Negative (Negative); SARS-CoV-2 RNA PCR Negative (Negative)
--- NOTE | 2023-09-24 17:49 | PC.NURSE ---
This RN called dietary and ordered a dinner tray for pt at this time.
--- NOTE | 2023-09-24 20:40 | PM.IMHP ---
H&P: HPI History of Present Illness Date/Time: 09/24/23 21:30 Chief Complaint: Tremors. Narrative: This is a 77-year-old male with dementia, hypertension, hyperlipidemia, and prostate cancer presented to the emergency department for evaluation of tremors. The patient is known to the hospitalist service from a recent admission last month at which time he presented with altered mental status felt to be related to dehydration and acute kidney injury. During his workup he was found to have and eroded penile implant. Urology was consulted and the implant was explanted with scrotal exploration and antibiotic washout on 08/27/2023. He was seen in the emergency department early yesterday morning after having what sounds like a vasovagal syncope while going to the bathroom. Urinalysis was concerning for UTI and he was discharged home on Bactrim. Today he was having severe tremors and was brought back in for evaluation. Temperature was 101? F on arrival. The remainder of his vital signs were stable. Labs were significant for a WBC count of 12.2, hemoglobin 14.3, creatinine 1.10. Urine was positive for trace ketones, 1+ blood, 2+ leukocyte esterase, 11 to 20 RBC, and greater than 100 WBC. No bacteria were seen on microscopy. Urine culture obtained during his ED visit yesterday is growing E coli. He tested negative for influenza, RSV, and COVID. CT of the abdomen/pelvis showed gallbladder distension with may be due to fasting, distension of the sigmoid colon likely adynamic ileus, moderate sized sliding hiatal hernia, and a fluid collection in the right rectus abdominus muscle which is likely a seroma from recent penile prosthesis explant. He was given a dose of ceftriaxone and is being admitted in this setting for further treatment. Review of Systems Review of Systems: 12 systems were reviewed and are negative except for as per HPI. [facility] Past Medical History Medical History (Updated 09/24/23 @ 22:56 by Mara Sanchez PA-C) Dementia Hyperlipidemia Hypertension Prostate cancer Surgical History Surgical History (Updated 09/24/23 @ 22:55 by Mara Sanchez PA-C) History of cataract extraction History of penile implant Explanted in September 2023 due to erosion. History of prostatectomy Family History Family History Sibling Diabetes mellitus Father Hypertension Family history of coronary artery disease Social History Social History (Updated 09/24/23 @ 22:55 by Mara Sanchez PA-C) Social History: Surrogate medical decision maker: Bobbi Cohen, spouse. Code status: Full code. Smoking status: Never smoker Tobacco type: cigarettes Alcohol intake: never Substance use: never Substance use type: does not use Do You Feel Safe in your Home?: Yes Lack of Transportation: No Lack of Food: Never True Current Housing: I Have Housing Concerned About Future Housing: No Difficulty Paying Gas/Electric Bills: No Difficulty Paying for Meds: No Currently Unemployed: No Education: High School Diploma/GED Difficulty w/ Childcare or Family Care: No Living arrangements: with family Spiritual care concerns: No Agree to blood products: Yes Meds Home Medications and Allergies Home Medications Medication Instructions Recorded Confirmed Type memantine 10 mg tablet 10 mg PO BID #60 tabs 08/12/23 09/24/23 Rx acetaminophen 325 mg tablet 650 mg PO Q4H PRN Mild Pain (1-3) 09/05/23 09/24/23 Rx Or Fever #30 tabs sulfamethoxazole 800 1 tablet PO Q12H #12 tabs 09/23/23 09/24/23 Rx mg-trimethoprim 160 mg tablet (Bactrim DS) polyethylene glycol 3350 17 gram 17 g PO DAILY PRN Constipation 09/24/23 09/24/23 History oral powder packet (Miralax) potassium chloride 20 mEq 20 meq PO DAILY 09/24/23 09/24/23 History tablet,extended release Allergies Allergy/AdvReac Type Severity Reaction Status Date / Time No Known Allergies Allergy
--- NOTE | 2023-09-24 21:01 | ADMGEN ---
This patient, Lamont Cohen, was admitted to Medical Room 245-. Patient/family oriented to hospital policies and general routines including ID bracelet, bed and alarms, visiting hours, pain management, procedures, bathroom and other care routines, personal items, smoking policy, room service/diet, and visiting hours. Information on how to activate the Rapid Response Team has been discussed. Patient/Family are encouraged to report perceived risks to care and to ask questions if they do not understand what they are told or what they should do.
[2023-09-24 21:43] LABS: Lactic Acid Reflex 1.7 mmol/L (0.7-2.0)
[2023-09-24 21:46] LABS: CRP 0.9 mg/dL (<1.0)
[2023-09-24 22:15] LABS: Procalcitonin 6.5 ng/mL
[2023-09-24] MEDS: MEMANTINE 10 MG TABLET PO (23:29)
[2023-09-25 00:25] VITALS: TEMP 38.1
[2023-09-25] MEDS: LACTATED RINGERS 1,000 ML 100 ML IV CONT (01:17)
[2023-09-25 05:58] VITALS: BP 113/54; PULSE 74; RESP 18; TEMP 36.9; O2SAT 97
[2023-09-25 06:15] LABS: Hematocrit 41.7 % (42.0-52.0); Hemoglobin 13.6 g/dL (14.0-18.0); Mean Corpuscular HGB Conc 32.6 g/dl (32-36); Mean Corpuscular Hemoglobin 29.8 pg (26-34); Mean Corpuscular Volume 91.2 fl (80-100); Mean Platelet Volume 10.4 fl (7.4-10.4); Platelet Count Result 176 k/mm3 (150-375); Red Blood Count 4.57 M/mm3 (4.6-6.20); Red Cell Distribution Width 14.6 % (11.5-14.5)
[2023-09-25 06:27] LABS: Anion Gap 7 mmol/L (4-12); Blood Urea Nitrogen 22 mg/dL (9-20); Calcium 8.8 mg/dL (8.4-10.2); Carbon Dioxide 27 mmol/L (22-30); Chloride 106 mmol/L (98-107); Estimated CRCL calculation 33 ml/min; Estimated Glomerular Filt Rate 44; Glucose 126 mg/dL (65-110); Magnesium 1.9 mg/dL (1.6-2.3); Potassium 3.7 mmol/L (3.4-5.0); Sodium 140 mmol/L (137-145)
--- NOTE | 2023-09-25 06:51 | WPDURCON ---
Assessment and Plan Assessment and plan (1) Postoperative seroma: Status: Acute (2) Escherichia coli urinary tract infection: Code(s): N39.0 - Urinary tract infection, site not specified; B96.20 - Unspecified Escherichia coli [E. coli] as the cause of diseases classified elsewhere Status: Acute Assessment and Plan: Chronic, small, calcified anterior abdominal wall (rectus abdominus muscle) seroma not related to the recent surgery and not clinically significant Urology Consult Note HPI Date Seen: 09/25/23 Requesting Physician: Karolyn Albert MD Primary Care Provider: Payal Mason DO Consult Narrative Narrative: Lamont Cohen is a 77 year old male, known to our service s/p explantation of infected penile prosthesis ast month who was admitted through the emergency department with some tremors and mental status change that may be related to urinary tract infection. CT imaging demonstrates a walled-off, calcified seroma in the right rectus abdominus. This seroma was present on imaging last month, around the time of his surgical explantation and is likely chronic given the calcification. Additionally, explantation was undertaken through a penoscrotal incision, nowhere near this anterior abdominal wall seroma Review of Systems Review of Systems: All systems reviewed & are unremarkable except as noted in HPI and below PMFSH Past Medical History Medical History (Updated 09/24/23 @ 22:56 by Mara Sanchez PA-C) Dementia Hyperlipidemia Hypertension Prostate cancer Surgical History Surgical History (Updated 09/24/23 @ 22:55 by Mara Sanchez PA-C) History of cataract extraction History of penile implant Explanted in September 2023 due to erosion. History of prostatectomy Family History Family History Sibling Diabetes mellitus Father Hypertension Family history of coronary artery disease Social History Social History (Updated 09/24/23 @ 22:55 by Mara Sanchez PA-C) Social History: Surrogate medical decision maker: Bobbi Cohen, spouse. Code status: Full code. Smoking status: Never smoker Tobacco type: cigarettes Alcohol intake: never Substance use: never Substance use type: does not use Do You Feel Safe in your Home?: Yes Lack of Transportation: No Lack of Food: Never True Current Housing: I Have Housing Concerned About Future Housing: No Difficulty Paying Gas/Electric Bills: No Difficulty Paying for Meds: No Currently Unemployed: No Education: High School Diploma/GED Difficulty w/ Childcare or Family Care: No Living arrangements: with family Spiritual care concerns: No Agree to blood products: Yes Meds Home Medications and Allergies Home Medications Medication Instructions Recorded Confirmed Type memantine 10 mg tablet 10 mg PO BID #60 tabs 08/12/23 09/24/23 Rx acetaminophen 325 mg tablet 650 mg PO Q4H PRN Mild Pain (1-3) 09/05/23 09/24/23 Rx Or Fever #30 tabs sulfamethoxazole 800 1 tablet PO Q12H #12 tabs 09/23/23 09/24/23 Rx mg-trimethoprim 160 mg tablet (Bactrim DS) polyethylene glycol 3350 17 gram 17 g PO DAILY PRN Constipation 09/24/23 09/24/23 History oral powder packet (Miralax) potassium chloride 20 mEq 20 meq PO DAILY 09/24/23 09/24/23 History tablet,extended release Allergies Allergy/AdvReac Type Severity Reaction Status Date / Time No Known Allergies Allergy Verified 09/10/23 15:30 Vital Signs Vital Signs - 24 hr 09/24/23 15:35 09/24/23 16:16 09/24/23 17:19 Temperature 101 F H 100.8 F H Pulse Rate 95 94 Respiratory Rate 25 H 22 H Blood Pressure 156/81 H Pulse Oximetry 97 95 Oxygen Delivery Room Air 09/24/23 17:19 09/24/23 17:59 09/24/23 16:44 Temperature 100.8 F H 100.4 F H Pulse Rate 84 89 Respiratory Rate 20 21 H Blood Pressure 127/60 126/47 L Pulse Oximetry 96 96 Oxygen Deliver
--- NOTE | 2023-09-25 07:07 | PC.NURSE ---
PT HAS NOT URINATED SINCE ARRIVAL TO FLOOR, BLADDER SCANNED OF [address] EDWARD NOTIFIED. NO NEW ORDERS
--- NOTE | 2023-09-25 07:09 | P.PNIM_ITS ---
Progress Note: A&P Assessment and Plan (1) Escherichia coli urinary tract infection: Code(s): N39.0 - Urinary tract infection, site not specified; B96.20 - Unspecified Escherichia coli [E. coli] as the cause of diseases classified elsewhere Status: Acute (2) Postoperative seroma: Status: Acute (3) Ileus: Code(s): K56.7 - Ileus, unspecified Status: Acute (4) Dementia: Code(s): F03.90 - Unspecified dementia, unspecified severity, without behavioral disturbance, psychotic disturbance, mood disturbance, and anxiety Status: Acute (5) Sepsis without septic shock: Code(s): A41.9 - Sepsis, unspecified organism Status: Acute (6) PERLITA (acute kidney injury): Code(s): N17.9 - Acute kidney failure, unspecified Status: Acute Plan Sepsis without septic shock secondary to urinary tract infection * febrile peaked at 101.5, WBC worsening 12.2 to 18, PERLITA Cr up to 1.8, UA showing ECOLI * empiric IV antibiotic therapy * Monitor lactic acid levels q6hr. * Repeat CBC, CMP. * Two sets of blood cultures pending * urine cultures. Shows ECOLI * CT/KUB shows persistent air distention large bowel * Monitor albumin, monitoring of mental status. UTI * Urine cultures Show ECOLI * blood cultures pending * Continue IV hydration. * No urinary output last bladder scan 247/Bladder scan if no void * urology consulted * empiric ABX * Monitor for obstructive uropathy and pyelonephritis Ileus/LBO * CT show persistent air distension of the large bowel * wbc trending up 18 today * NPO * Surgery consulted * IV fluids * pain control * serial ABD exams Acute Kidney Injury Prerenal secondary to dehydration * IV fluids * Cr. 1.8 from 1.1 * Avoid nephrotoxic drugs. * Routine CMP monitoring GFR. * Monitor electrolytes especially potassium. * Antibiotic doses depending on creatinine clearance. * Pharmacy does medications. Seroma * Chronic, small, calcified anterior abdominal wall (rectus abdominus muscle) seroma not related to the recent surgery and not clinically significant * Urology consulted post-op penile explant does not believe this is acute HX Dementia: Resume Namenda Code status: Full code per patient DVT prophylaxis: Lovenox Stress ulcer prophylaxis: Protonix 40 PT/OT notes: PT/OT pending Disposition: Patient admitted for sepsis secondary to UTI UA with ECOLI, CT ABD also showing persistent air distension of large bowel surgery consult as well as Urology. PT OT pending plan will be for patient to return to [facility] at discharge once medically stable Time Spent With Patient Time with patient: 15 - 25 minutes Subjective Date/time seen: 09/25/23 07:09 Interval history: Admission: Medical record This is a 77-year-old male with dementia, hypertension, hyperlipidemia, and prostate cancer presented to the emergency department for evaluation of tremors. The patient is known to the hospitalist service from a recent admission last month at which time he presented with altered mental status felt to be related to dehydration and acute kidney injury. During his workup he was found to have and eroded penile implant. Urology was consulted and the implant was explanted with scrotal exploration and antibiotic washout on 08/27/2023. He was seen in the emergency department early yesterday morning after having what sounds like a vasovagal syncope while going to the bathroom. Urinalysis was ruthie
--- NOTE | 2023-09-25 07:09 | PM.IMPN ---
Progress Note: A&P Assessment and Plan (1) Escherichia coli urinary tract infection: Code(s): N39.0 - Urinary tract infection, site not specified; B96.20 - Unspecified Escherichia coli [E. coli] as the cause of diseases classified elsewhere Status: Acute (2) Postoperative seroma: Status: Acute (3) Ileus: Code(s): K56.7 - Ileus, unspecified Status: Acute (4) Dementia: Code(s): F03.90 - Unspecified dementia, unspecified severity, without behavioral disturbance, psychotic disturbance, mood disturbance, and anxiety Status: Acute (5) Sepsis without septic shock: Code(s): A41.9 - Sepsis, unspecified organism Status: Acute (6) PERLITA (acute kidney injury): Code(s): N17.9 - Acute kidney failure, unspecified Status: Acute Plan Sepsis without septic shock secondary to urinary tract infection febrile peaked at 101.5, WBC worsening 12.2 to 18, PERLITA Cr up to 1.8, UA showing ECOLI empiric IV antibiotic therapy Monitor lactic acid levels q6hr. Repeat CBC, CMP. Two sets of blood cultures pending urine cultures. Shows ECOLI CT/KUB shows persistent air distention large bowel Monitor albumin, monitoring of mental status. UTI Urine cultures Show ECOLI blood cultures pending Continue IV hydration. No urinary output last bladder scan 247/Bladder scan if no void urology consulted empiric ABX Monitor for obstructive uropathy and pyelonephritis Ileus/LBO CT show persistent air distension of the large bowel wbc trending up 18 today NPO Surgery consulted IV fluids pain control serial ABD exams Acute Kidney Injury Prerenal secondary to dehydration IV fluids Cr. 1.8 from 1.1 Avoid nephrotoxic drugs. Routine CMP monitoring GFR. Monitor electrolytes especially potassium. Antibiotic doses depending on creatinine clearance. Pharmacy does medications. Seroma Chronic, small, calcified anterior abdominal wall (rectus abdominus muscle) seroma not related to the recent surgery and not clinically significant Urology consulted post-op penile explant does not believe this is acute HX Dementia: Resume Namenda Code status: Full code per patient DVT prophylaxis: Lovenox Stress ulcer prophylaxis: Protonix 40 PT/OT notes: PT/OT pending Disposition: Patient admitted for sepsis secondary to UTI UA with ECOLI, CT ABD also showing persistent air distension of large bowel surgery consult as well as Urology. PT OT pending plan will be for patient to return [facility] facility [facility] once medically stable Time Spent With Patient Time with patient: 15 - 25 minutes Subjective Date/time seen: 09/25/23 07:09 Interval history: Admission: Medical record This is a 77-year-old male with dementia, hypertension, hyperlipidemia, and prostate cancer presented to the emergency department for evaluation of tremors. The patient is known to the hospitalist service from a recent admission last month at which time he presented with altered mental status felt to be related to dehydration and acute kidney injury. During his workup he was found to have and eroded penile implant. Urology was consulted and the implant was explanted with scrotal exploration and antibiotic washout on 08/27/2023. He was seen in the emergency department early yesterday morning after having what sounds like a vasovagal syncope while going to the bathroom. Urinalysis was concerning for UTI and he was discharged home on Bactrim. Today he was having severe tremors and was brought back in for evaluation. Temperature was 101? F on arrival. The remainder of his vital signs were stable. Labs were significant for a WBC count of 12.2, hemoglobin 14.3, creatinine 1.10. Urine was positive for trace ketones, 1+ blood, 2+ leukocyte esterase, 11 to 20 RBC, and greater than 100 WBC. No bacteria were seen on microscopy. Urine culture obtained during his ED
[2023-09-25 07:46] LABS: Lactic Acid Reflex 1.4 mmol/L (0.7-2.0)
[2023-09-25] MEDS: MEMANTINE 10 MG TABLET PO ×2 (08:03→19:35)
[2023-09-25] MEDS: ENOXAPARIN 40 MG/0.4 ML SYRINGE SUB-Q (08:03)
[2023-09-25] MEDS: PANTOPRAZOLE SODIUM IV 40 MG VIAL IV PUSH ×2 (08:03→19:34)
[2023-09-25] MEDS: POTASSIUM CHLORIDE 20 MEQ ER TABLET PO (08:03)
[2023-09-25] MEDS: PIPERACILLN/TAZ 3.375GM/NS50ML 3.375 GM/50 ML BAG IVPB ×4 (08:06→23:19)
[2023-09-25 11:09] VITALS: BMI 26.3
--- NOTE | 2023-09-25 12:08 | PM.CNGS ---
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 This was evaluated and treated by GI last month during his admission. I do not really see that this is now a surgical problem. He has been on chronic stimulant laxatives from chronic constipation and likely has some reliance to these. Will resume Dulcolax tablets daily and give a Dulcolax suppository today. Will also start simethicone to help with the gas and bloating. I reviewed the CT and there does not appear to be any signs of ischemia and there is focal dilation of the sigmoid colon. I do not see any volvulus or any other anatomic cause for obstruction. He does not have an ileus as his small bowel appears normal in size. Continue bowel stimulation and medical treatment of other issues that have brought him into the hospital for this admission. (2) UTI (urinary tract infection): Code(s): N39.0 - Urinary tract infection, site not specified Status: Acute (3) Dementia: Code(s): F03.90 - Unspecified dementia, unspecified severity, without behavioral disturbance, psychotic disturbance, mood disturbance, and anxiety Status: Acute (4) Sepsis without septic shock: Code(s): A41.9 - Sepsis, unspecified organism Status: Acute History of Present Illness Consult details Consult date: 09/25/23 Reason for consult: other (Karen syndrome) Requesting physician: Yazmin Masters APRN Narrative: This is a 77-year-old man who I am asked to see for bloating. He is hospitalized with sepsis, UTI, and postoperative seroma for a urologic surgery. He was hospitalized last month with similar postoperative complications and was seen by GI at that time. He continues to have bloating and some liquid stool. The patient has some dementia and full history is difficult to obtain. He did have a colonoscopy in 2019. This was not completed due to a poor prep, but there did not appear to be any evidence of stricture or obstruction at that time. The patient does deal with chronic constipation and was taking Dulcolax tablets daily at home prior to his penile implant extraction. Review of Systems Review of Systems: All systems reviewed & are unremarkable except as noted in HPI and below Constitutional: Constitutional: Reports fever(s) Cardiovascular: Cardiovascular: Denies chest pain and Denies dyspnea Respiratory: Respiratory: Denies dyspnea Gastrointestinal: Gastrointestinal: Reports as per HPI [facility] Past Medical History Medical History (Updated 09/25/23 @ 12:14 by Herman Newman DO) Dementia Hyperlipidemia Hypertension Prostate cancer Surgical History Surgical History (Updated 09/24/23 @ 22:55 by Mara Sanchez PA-C) History of cataract extraction History of penile implant Explanted in September 2023 due to erosion. History of prostatectomy Family History Family History Sibling Diabetes mellitus Father Hypertension Family history of coronary artery disease Social History Social History (Updated 09/24/23 @ 22:55 by Mara Sanchez PA-C) Social History: Surrogate medical decision maker: Bobbi Cohen, spouse. Code status: Full code. Smoking status: Never smoker Tobacco type: cigarettes Alcohol intake: never Substance use: never Substance use type: does not use Do You Feel Safe in your Home?: Yes Lack of Transportation: No Lack of Food: Never True Current Housing: I Have Housing Concerned About Future Housing: No Difficulty Paying Gas/Electric Bills: No Difficulty Paying for Meds: No Currently Unemployed: No Education: High School Diploma/GED Difficulty w/ Childcare or Family Care: No Living arrangements: with family Spiritual care concer
[2023-09-25] MEDS: BISACODYL 10 MG SUPPOSITORY RECTAL (13:51)
[2023-09-25] MEDS: SIMETHICONE 125 MG CHEW TAB PO ×3 (13:54→19:35)
[2023-09-25 14:34] VITALS: BP 117/55; PULSE 70; RESP 16; TEMP 36.6; O2SAT 98
[2023-09-25 19:29] VITALS: BP 150/55; PULSE 70; RESP 18; TEMP 37.8; O2SAT 100
[2023-09-26] MEDS: PIPERACILLN/TAZ 3.375GM/NS50ML 3.375 GM/50 ML BAG IVPB (05:12)
[2023-09-26 05:15] VITALS: BP 135/70; PULSE 83; RESP 18; TEMP 36.7; O2SAT 97
[2023-09-26 05:20] LABS: Hematocrit 42.2 % (42.0-52.0); Hemoglobin 13.6 g/dL (14.0-18.0); Immature Platelet Fraction Pct 4.6 % (0.9-11.2); Mean Corpuscular HGB Conc 32.2 g/dl (32-36); Mean Corpuscular Hemoglobin 29.8 pg (26-34); Mean Corpuscular Volume 92.5 fl (80-100); Mean Platelet Volume 10.5 fl (7.4-10.4); Platelet Count Result 142 k/mm3 (150-375); Red Blood Count 4.56 M/mm3 (4.6-6.20); Red Cell Distribution Width 14.7 % (11.5-14.5); White Blood Count 9.4 K/mm3 (4.5-10.0)
[2023-09-26 05:39] LABS: Alanine Aminotransferase 16 U/L (6-50); Albumin Level 3.3 g/dL (3.5-5.1); Alkaline Phosphatase 78 U/L (38-126); Anion Gap 9 mmol/L (4-12); Aspartate Amino Transferase 22 U/L (17-59); Blood Urea Nitrogen 23 mg/dL (9-20); Carbon Dioxide 25 mmol/L (22-30); Chloride 110 mmol/L (98-107); Estimated CRCL calculation 37 ml/min; Estimated Glomerular Filt Rate 51; Glucose 106 mg/dL (65-110); Potassium 4.3 mmol/L (3.4-5.0); Sodium 144 mmol/L (137-145)
[2023-09-26] MEDS: POTASSIUM CHLORIDE 20 MEQ ER TABLET PO (08:15)
[2023-09-26] MEDS: BISACODYL 5 MG TABLET EC 10 MG PO (08:15)
[2023-09-26] MEDS: SIMETHICONE 125 MG CHEW TAB PO ×4 (08:15→21:40)
[2023-09-26] MEDS: PANTOPRAZOLE SODIUM IV 40 MG VIAL IV PUSH ×2 (08:15→21:40)
[2023-09-26] MEDS: MEMANTINE 10 MG TABLET PO ×2 (08:15→21:40)
[2023-09-26] MEDS: ENOXAPARIN 40 MG/0.4 ML SYRINGE SUB-Q (08:27)
--- NOTE | 2023-09-26 10:04 | P.PNIM_ITS ---
Progress Note: A&P Assessment and Plan (1) Escherichia coli urinary tract infection: Code(s): N39.0 - Urinary tract infection, site not specified; B96.20 - Unspecified Escherichia coli [E. coli] as the cause of diseases classified elsewhere Status: Acute (2) Postoperative seroma: Status: Acute (3) Ileus: Code(s): K56.7 - Ileus, unspecified Status: Acute (4) Dementia: Code(s): F03.90 - Unspecified dementia, unspecified severity, without behavioral disturbance, psychotic disturbance, mood disturbance, and anxiety Status: Acute (5) Sepsis without septic shock: Code(s): A41.9 - Sepsis, unspecified organism Status: Acute (6) PERLITA (acute kidney injury): Code(s): N17.9 - Acute kidney failure, unspecified Status: Acute Plan Sepsis without septic shock secondary to urinary tract infection-Resolving * febrile peaked at 101.5, WBC worsening 12.2 to 18, PERLITA Cr up to 1.8, UA showing ECOLI * empiric IV antibiotic therapy * Monitor lactic acid levels q6hr. * Repeat CBC, CMP. * Two sets of blood cultures pending * urine cultures. Shows ECOLI * CT/KUB shows persistent air distention large bowel/HX [place] syndrome * Monitor albumin, monitoring of mental status. UTI * Urine cultures Show ECOLI * blood cultures NGTD * Continue IV hydration. * No urinary output last bladder scan 247/Bladder scan if no void * urology consulted * de-escalate ABX to culture/sensitivity * Monitor for obstructive uropathy and pyelonephritis Ileus: HX of Karen syndrome * CT show persistent air distension of the large bowel * wbc trending up 18 today * Surgery consulted no need for surgical intervention * Treat supportively * Dulcolax suppositories simethicone for bloating * IV fluids * pain control * serial ABD exams Acute Kidney Injury Prerenal secondary to dehydration-Imrpoving * IV fluids * Cr. 1.8 POA from 1.1 basleline >1.6 * Avoid nephrotoxic drugs. * Routine CMP monitoring GFR. * Monitor electrolytes especially potassium. * Antibiotic doses depending on creatinine clearance. * Pharmacy does medications. Seroma * Chronic, small, calcified anterior abdominal wall (rectus abdominus muscle) seroma not related to the recent surgery and not clinically significant * Urology consulted post-op penile explant does not believe this is acute HX Dementia: Resume Namenda Code status: Full code per patient DVT prophylaxis: Lovenox Stress ulcer prophylaxis: Protonix 40 PT/OT notes: PT/OT pending Disposition: Patient admitted for sepsis secondary to UTI UA with ECOLI, CT ABD also showing persistent air distension history of [place] syndrome treat supportively. PT is recommending SNF, [facility] consult for discharge planning. Time Spent With Patient Time with patient: 15 - 25 minutes Subjective Date/time seen: 09/26/23 10:04 Interval history: Admission: Medical record This is a 77-year-old male with dementia, hypertension, hyperlipidemia, and prostate cancer presented to the emergency department for evaluation of tremors. The patient is known to the hospitalist service from a recent admission last month at which time he presented with altered mental status felt to be related to dehydration and acute kidney injury. During his workup he was found to have and eroded penile implant. Urology was consulted and the implant was explanted with scrotal exploration and antibiotic washout on 08/27/2023. He was seen i
--- NOTE | 2023-09-26 10:04 | PM.IMPN ---
Progress Note: A&P Assessment and Plan (1) Escherichia coli urinary tract infection: Code(s): N39.0 - Urinary tract infection, site not specified; B96.20 - Unspecified Escherichia coli [E. coli] as the cause of diseases classified elsewhere Status: Acute (2) Postoperative seroma: Status: Acute (3) Ileus: Code(s): K56.7 - Ileus, unspecified Status: Acute (4) Dementia: Code(s): F03.90 - Unspecified dementia, unspecified severity, without behavioral disturbance, psychotic disturbance, mood disturbance, and anxiety Status: Acute (5) Sepsis without septic shock: Code(s): A41.9 - Sepsis, unspecified organism Status: Acute (6) PERLITA (acute kidney injury): Code(s): N17.9 - Acute kidney failure, unspecified Status: Acute Plan Sepsis without septic shock secondary to urinary tract infection-Resolving febrile peaked at 101.5, WBC worsening 12.2 to 18, PERLITA Cr up to 1.8, UA showing ECOLI empiric IV antibiotic therapy Monitor lactic acid levels q6hr. Repeat CBC, CMP. Two sets of blood cultures pending urine cultures. 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 UTI Urine cultures Show ECOLI blood cultures NGTD Continue IV hydration. No urinary output last bladder scan 247/Bladder scan if no void urology consulted de-escalate ABX to culture/sensitivity Monitor for obstructive uropathy and pyelonephritis Ileus: HX of Karen syndrome CT show persistent air distension of the large bowel wbc trending up 18 today Surgery consulted no need for surgical intervention Treat supportively Dulcolax suppositories simethicone for bloating IV fluids pain control serial ABD exams Acute Kidney Injury Prerenal secondary to dehydration-Imrpoving IV fluids Cr. 1.8 POA from 1.1 basleline >1.6 Avoid nephrotoxic drugs. Routine CMP monitoring GFR. Monitor electrolytes especially potassium. Antibiotic doses depending on creatinine clearance. Pharmacy does medications. Seroma Chronic, small, calcified anterior abdominal wall (rectus abdominus muscle) seroma not related to the recent surgery and not clinically significant Urology consulted post-op penile explant does not believe this is acute HX Dementia: Resume Namenda Code status: Full code per patient DVT prophylaxis: Lovenox Stress ulcer prophylaxis: Protonix 40 PT/OT notes: PT/OT pending Disposition: Patient admitted for sepsis secondary to UTI UA with ECOLI, CT ABD also showing persistent air distension history of Karen syndrome treat supportively. PT is recommending SNF, [facility] consult for discharge planning. Time Spent With Patient Time with patient: 15 - 25 minutes Subjective Date/time seen: 09/26/23 10:04 Interval history: Admission: Medical record This is a 77-year-old male with dementia, hypertension, hyperlipidemia, and prostate cancer presented to the emergency department for evaluation of tremors. The patient is known to the hospitalist service from a recent admission last month at which time he presented with altered mental status felt to be related to dehydration and acute kidney injury. During his workup he was found to have and eroded penile implant. Urology was consulted and the implant was explanted with scrotal exploration and antibiotic washout on 08/27/2023. He was seen in the emergency department early yesterday morning after having what sounds like a vasovagal syncope while going to the bathroom. Urinalysis was concerning for UTI and he was discharged home on Bactrim. Today he was having severe tremors and was brought back in for evaluation. Temperature was 101? F on arrival. The remainder of his vital signs were stable. Labs were significant for a WBC count of 12.2, hemoglobin 14.3, creatinine 1.10. Urine was positive for trace ketones, 1
--- NOTE | 2023-09-26 10:41 | PCNFU ---
Nutrition Follow-Up Complete: Altered GI function as related to possible bowel obstruction as evidenced by NPO. Goal: Meet estimated nutritional needs. Patient is progressing towards goal. No new goal. Pt current nutrition is Clear liquids. Nutrition recommendation: advance as tolerated per MD orders. Last recorded weight is 84.3 kg. Bowel Motility:No BM reported. Labs Reviewed: Cr 1.6,GFR 51, BUN 23, Alb 3.3 Meds Noted:Zosyn, Protonix, Lovenox Skin: WNL Additional Notes: Patient had surgery consult, no ileus reported. Diet order has advanced to a clear liquid diet, 10% reported at breakfast with 240 ml of Ensure Clear consumed. When diet order advanced recommend advancing as tolerated per MD Orders. Ensure compact BID is also recommending providing an additional 220 kcals and 9 gms protein. Agree with diet orders. Will monitor weight, labs, skin, diet order, meds every 3 days.
[2023-09-26] MEDS: CEPHALEXIN 500 MG CAPSULE PO ×2 (12:07→21:40)
[2023-09-26 14:00] VITALS: BP 132/70; PULSE 82; RESP 16; TEMP 36.7; O2SAT 97
[2023-09-26 20:01] VITALS: BP 142/72; PULSE 65; RESP 16; TEMP 36.6; O2SAT 97
[2023-09-27 04:19] VITALS: BP 138/73; PULSE 58; RESP 16; TEMP 36.4; O2SAT 100
[2023-09-27 04:38] LABS: Hematocrit 40.2 % (42.0-52.0); Hemoglobin 13.3 g/dL (14.0-18.0); Immature Platelet Fraction Pct 5.2 % (0.9-11.2); Mean Corpuscular HGB Conc 33.1 g/dl (32-36); Mean Corpuscular Hemoglobin 30.4 pg (26-34); Mean Platelet Volume 10.6 fl (7.4-10.4); Platelet Count Result 130 k/mm3 (150-375); Red Blood Count 4.37 M/mm3 (4.6-6.20); Red Cell Distribution Width 14.6 % (11.5-14.5); White Blood Count 5.8 K/mm3 (4.5-10.0)
[2023-09-27 04:46] LABS: Alanine Aminotransferase 14 U/L (6-50); Alkaline Phosphatase 72 U/L (38-126); Anion Gap 6 mmol/L (4-12); Aspartate Amino Transferase 16 U/L (17-59); Bilirubin,Total 0.6 mg/dL (0.2-1.3); Blood Urea Nitrogen 20 mg/dL (9-20); Calcium 8.5 mg/dL (8.4-10.2); Carbon Dioxide 25 mmol/L (22-30); Chloride 111 mmol/L (98-107); Estimated CRCL calculation 63 ml/min; Estimated Glomerular Filt Rate > 60; Glucose 96 mg/dL (65-110); Potassium 3.3 mmol/L (3.4-5.0); Sodium 142 mmol/L (137-145)
--- NOTE | 2023-09-27 06:59 | P.PNIM_ITS ---
Progress Note: A&P Assessment and Plan (1) Escherichia coli urinary tract infection: Code(s): N39.0 - Urinary tract infection, site not specified; B96.20 - Unspecified Escherichia coli [E. coli] as the cause of diseases classified elsewhere Status: Acute (2) Postoperative seroma: Status: Acute (3) Ileus: Code(s): K56.7 - Ileus, unspecified Status: Acute (4) Dementia: Code(s): F03.90 - Unspecified dementia, unspecified severity, without behavioral disturbance, psychotic disturbance, mood disturbance, and anxiety Status: Acute (5) Sepsis without septic shock: Code(s): A41.9 - Sepsis, unspecified organism Status: Acute (6) PERLITA (acute kidney injury): Code(s): N17.9 - Acute kidney failure, unspecified Status: Acute Plan Sepsis without septic shock secondary to urinary tract infection-Resolving * febrile peaked at 101.5, WBC worsening 12.2 to 18, PERLITA Cr up to 1.8, UA showing ECOLI * empiric IV antibiotic therapy * Monitor lactic acid levels q6hr. * Repeat CBC, CMP. * Two sets of blood cultures pending * urine cultures. Shows ECOLI * CT/KUB shows persistent air distention large bowel/HX [place] syndrome * Monitor albumin, monitoring of mental status. UTI * Urine cultures Show ECOLI * blood cultures NGTD * Continue IV hydration. * No urinary output last bladder scan 247/Bladder scan if no void * urology consulted * de-escalate ABX to culture/sensitivity * Monitor for obstructive uropathy and pyelonephritis Ileus: HX of Karen syndrome * CT show persistent air distension of the large bowel * wbc trending up 18 today * Surgery consulted no need for surgical intervention * Treat supportively * Dulcolax suppositories simethicone for bloating * IV fluids * pain control * serial ABD exams 09/26 * More distention/No BM or flatulence * KUB shows air ileus vs obstruction not responding to bowel regiment * GI consulted for possible decompression or further recommendations Acute Kidney Injury Prerenal secondary to dehydration-Improving * IV fluids * Cr. 1.8 POA from 1.1 basleline >1.6 * Avoid nephrotoxic drugs. * Routine CMP monitoring GFR. * Monitor electrolytes especially potassium. * Antibiotic doses depending on creatinine clearance. * Pharmacy does medications. Seroma-Chronic * Chronic, small, calcified anterior abdominal wall (rectus abdominus muscle) seroma not related to the recent surgery and not clinically significant * Urology consulted post-op penile explant does not believe this is acute HX Dementia: Resume Namenda Code status: Full code per patient DVT prophylaxis: Lovenox Stress ulcer prophylaxis: Protonix 40 PT/OT notes: PT/OT pending Disposition: Patient admitted for sepsis secondary to UTI UA with ECOLI, CT ABD also showing persistent air distension history of [place] syndrome, GI consulted for possible decompression. PT is recommending SNF, [facility] consult for discharge planning. Time Spent With Patient Time with patient: 15 - 25 minutes Subjective Date/time seen: 09/27/23 06:59 Interval history: Admission: Medical record This is a 77-year-old male with dementia, hypertension, hyperlipidemia, and prostate cancer presented to the emergency department for evaluation of tremors. The patient is known to the hospitalist service from a recent admission last month at which time he presented with altered mental status felt to be related to de
--- NOTE | 2023-09-27 06:59 | PM.IMPN ---
Progress Note: A&P Assessment and Plan (1) Escherichia coli urinary tract infection: Code(s): N39.0 - Urinary tract infection, site not specified; B96.20 - Unspecified Escherichia coli [E. coli] as the cause of diseases classified elsewhere Status: Acute (2) Postoperative seroma: Status: Acute (3) Ileus: Code(s): K56.7 - Ileus, unspecified Status: Acute (4) Dementia: Code(s): F03.90 - Unspecified dementia, unspecified severity, without behavioral disturbance, psychotic disturbance, mood disturbance, and anxiety Status: Acute (5) Sepsis without septic shock: Code(s): A41.9 - Sepsis, unspecified organism Status: Acute (6) PERLITA (acute kidney injury): Code(s): N17.9 - Acute kidney failure, unspecified Status: Acute Plan Sepsis without septic shock secondary to urinary tract infection-Resolving febrile peaked at 101.5, WBC worsening 12.2 to 18, PERLITA Cr up to 1.8, UA showing ECOLI empiric IV antibiotic therapy Monitor lactic acid levels q6hr. Repeat CBC, CMP. Two sets of blood cultures pending urine cultures. 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 UTI Urine cultures Show ECOLI blood cultures NGTD Continue IV hydration. No urinary output last bladder scan 247/Bladder scan if no void urology consulted de-escalate ABX to culture/sensitivity Monitor for obstructive uropathy and pyelonephritis Ileus: HX of Karen syndrome CT show persistent air distension of the large bowel wbc trending up 18 today Surgery consulted no need for surgical intervention Treat supportively Dulcolax suppositories simethicone for bloating IV fluids pain control serial ABD exams 09/26 More distention/No BM or flatulence KUB shows air ileus vs obstruction not responding to bowel regiment GI consulted for possible decompression or further recommendations Acute Kidney Injury Prerenal secondary to dehydration-Improving IV fluids Cr. 1.8 POA from 1.1 basleline >1.6 Avoid nephrotoxic drugs. Routine CMP monitoring GFR. Monitor electrolytes especially potassium. Antibiotic doses depending on creatinine clearance. Pharmacy does medications. Seroma-Chronic Chronic, small, calcified anterior abdominal wall (rectus abdominus muscle) seroma not related to the recent surgery and not clinically significant Urology consulted post-op penile explant does not believe this is acute HX Dementia: Resume Namenda Code status: Full code per patient DVT prophylaxis: Lovenox Stress ulcer prophylaxis: Protonix 40 PT/OT notes: PT/OT pending Disposition: Patient admitted for sepsis secondary to UTI UA with ECOLI, CT ABD also showing persistent air distension history of [place] syndrome, GI consulted for possible decompression. PT is recommending SNF, CC consult for discharge planning. Time Spent With Patient Time with patient: 15 - 25 minutes Subjective Date/time seen: 09/27/23 06:59 Interval history: Admission: Medical record This is a 77-year-old male with dementia, hypertension, hyperlipidemia, and prostate cancer presented to the emergency department for evaluation of tremors. The patient is known to the hospitalist service from a recent admission last month at which time he presented with altered mental status felt to be related to dehydration and acute kidney injury. During his workup he was found to have and eroded penile implant. Urology was consulted and the implant was explanted with scrotal exploration and antibiotic washout on 08/27/2023. He was seen in the emergency department early yesterday morning after having what sounds like a vasovagal syncope while going to the bathroom. Urinalysis was concerning for UTI and he was discharged home on Bactrim. Today he was having severe tremors and was brought back in for e
[2023-09-27] MEDS: POTASSIUM CHLORIDE 20 MEQ ER TABLET PO (10:20)
[2023-09-27] MEDS: SIMETHICONE 125 MG CHEW TAB PO ×4 (10:20→21:12)
[2023-09-27] MEDS: CEPHALEXIN 500 MG CAPSULE PO ×2 (10:20→21:12)
[2023-09-27] MEDS: BISACODYL 5 MG TABLET EC 10 MG PO (10:20)
[2023-09-27] MEDS: MEMANTINE 10 MG TABLET PO ×2 (10:21→21:12)
[2023-09-27] MEDS: PANTOPRAZOLE SODIUM IV 40 MG VIAL IV PUSH ×2 (10:21→21:12)
[2023-09-27] MEDS: ENOXAPARIN 40 MG/0.4 ML SYRINGE SUB-Q (10:21)
[2023-09-27 14:00] VITALS: BP 115/71; PULSE 58; RESP 18; TEMP 36.5; O2SAT 100
[2023-09-27] MEDS: polyethylene glycoL 3350 17 GM POWD.PACK PO (17:01)
[2023-09-27 19:56] VITALS: BP 127/79; PULSE 58; RESP 16; TEMP 36.4; O2SAT 100
[2023-09-27 21:21] VITALS: O2SAT 100
[2023-09-28 04:21] VITALS: BP 126/69; PULSE 62; RESP 16; TEMP 36.4; O2SAT 98
[2023-09-28 05:08] LABS: Hematocrit 41.3 % (42.0-52.0); Hemoglobin 13.5 g/dL (14.0-18.0); Mean Corpuscular HGB Conc 32.7 g/dl (32-36); Mean Corpuscular Hemoglobin 29.9 pg (26-34); Mean Corpuscular Volume 91.6 fl (80-100); Mean Platelet Volume 10.3 fl (7.4-10.4); Platelet Count Result 141 k/mm3 (150-375); Red Blood Count 4.51 M/mm3 (4.6-6.20); Red Cell Distribution Width 14.5 % (11.5-14.5); White Blood Count 5.1 K/mm3 (4.5-10.0)
[2023-09-28 05:16] LABS: Alanine Aminotransferase 15 U/L (6-50); Albumin Level 3.3 g/dL (3.5-5.1); Alkaline Phosphatase 79 U/L (38-126); Anion Gap 2 mmol/L (4-12); Aspartate Amino Transferase 17 U/L (17-59); Bilirubin,Total 0.6 mg/dL (0.2-1.3); Blood Urea Nitrogen 19 mg/dL (9-20); Calcium 8.7 mg/dL (8.4-10.2); Carbon Dioxide 29 mmol/L (22-30); Chloride 111 mmol/L (98-107); Estimated CRCL calculation 63 ml/min; Estimated Glomerular Filt Rate > 60; Glucose 101 mg/dL (65-110); Potassium 3.5 mmol/L (3.4-5.0); Sodium 142 mmol/L (137-145)
--- NOTE | 2023-09-28 07:00 | P.PNIM_ITS ---
Progress Note: A&P Assessment and Plan (1) Escherichia coli urinary tract infection: Code(s): N39.0 - Urinary tract infection, site not specified; B96.20 - Unspecified Escherichia coli [E. coli] as the cause of diseases classified elsewhere Status: Acute (2) Postoperative seroma: Status: Acute (3) Ileus: Code(s): K56.7 - Ileus, unspecified Status: Acute (4) Dementia: Code(s): F03.90 - Unspecified dementia, unspecified severity, without behavioral disturbance, psychotic disturbance, mood disturbance, and anxiety Status: Acute (5) Sepsis without septic shock: Code(s): A41.9 - Sepsis, unspecified organism Status: Acute (6) PERLITA (acute kidney injury): Code(s): N17.9 - Acute kidney failure, unspecified Status: Acute Plan Sepsis without septic shock secondary to urinary tract infection-Resolving * febrile peaked at 101.5, WBC worsening 12.2 to 18, PERLITA Cr up to 1.8, UA showing ECOLI * empiric IV antibiotic therapy * Monitor lactic acid levels q6hr. * Repeat CBC, CMP. * Two sets of blood cultures pending * urine cultures. Shows ECOLI * CT/KUB shows persistent air distention large bowel/HX [place] syndrome * Monitor albumin, monitoring of mental status. UTI * Urine cultures Show ECOLI * blood cultures NGTD * Continue IV hydration. * No urinary output last bladder scan 247/Bladder scan if no void * urology consulted * de-escalate ABX to culture/sensitivity * Monitor for obstructive uropathy and pyelonephritis Ileus: HX of Karen syndrome * CT show persistent air distension of the large bowel * wbc trending up 18 today * Surgery consulted no need for surgical intervention * Treat supportively * Dulcolax suppositories simethicone for bloating * IV fluids * pain control * serial ABD exams 09/26 * More distention/No BM or flatulence * KUB shows air ileus vs obstruction not responding to bowel regiment * GI consulted for possible decompression or further recommendations 09/27 * Small BM overnight still distended * KUB pending Acute Kidney Injury Prerenal secondary to dehydration-Improving * IV fluids * Cr. 1.8 POA from 1.1 basleline >1.6 * Avoid nephrotoxic drugs. * Routine CMP monitoring GFR. * Monitor electrolytes especially potassium. * Antibiotic doses depending on creatinine clearance. * Pharmacy does medications. Seroma-Chronic * Chronic, small, calcified anterior abdominal wall (rectus abdominus muscle) seroma not related to the recent surgery and not clinically significant * Urology consulted post-op penile explant does not believe this is acute HX Dementia: Resume Namenda Code status: Full code per patient DVT prophylaxis: Lovenox Stress ulcer prophylaxis: Protonix 40 PT/OT notes: PT/OT pending Disposition: Patient admitted for sepsis secondary to UTI UA with ECOLI, CT ABD also showing persistent air distension history of [place] syndrome, GI consulted for possible decompression. PT is recommending SNF, CC consult for discharge planning. Time Spent With Patient Time with patient: 15 - 25 minutes Subjective Date/time seen: 09/28/23 07:00 Interval history: Admission: Medical record This is a 77-year-old male with dementia, hypertension, hyperlipidemia, and prostate cancer presented to the emergency department for evaluation of tremors. The patient is known to the hospitalist service from a recent admission last month at which ti
--- NOTE | 2023-09-28 07:00 | PM.IMPN ---
Progress Note: A&P Assessment and Plan (1) Escherichia coli urinary tract infection: Code(s): N39.0 - Urinary tract infection, site not specified; B96.20 - Unspecified Escherichia coli [E. coli] as the cause of diseases classified elsewhere Status: Acute (2) Postoperative seroma: Status: Acute (3) Ileus: Code(s): K56.7 - Ileus, unspecified Status: Acute (4) Dementia: Code(s): F03.90 - Unspecified dementia, unspecified severity, without behavioral disturbance, psychotic disturbance, mood disturbance, and anxiety Status: Acute (5) Sepsis without septic shock: Code(s): A41.9 - Sepsis, unspecified organism Status: Acute (6) PERLITA (acute kidney injury): Code(s): N17.9 - Acute kidney failure, unspecified Status: Acute Plan Sepsis without septic shock secondary to urinary tract infection-Resolving febrile peaked at 101.5, WBC worsening 12.2 to 18, PERLITA Cr up to 1.8, UA showing ECOLI empiric IV antibiotic therapy Monitor lactic acid levels q6hr. Repeat CBC, CMP. Two sets of blood cultures pending urine cultures. 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 UTI Urine cultures Show ECOLI blood cultures NGTD Continue IV hydration. No urinary output last bladder scan 247/Bladder scan if no void urology consulted de-escalate ABX to culture/sensitivity Monitor for obstructive uropathy and pyelonephritis Ileus: HX of Karen syndrome CT show persistent air distension of the large bowel wbc trending up 18 today Surgery consulted no need for surgical intervention Treat supportively Dulcolax suppositories simethicone for bloating IV fluids pain control serial ABD exams 09/26 More distention/No BM or flatulence KUB shows air ileus vs obstruction not responding to bowel regiment GI consulted for possible decompression or further recommendations 09/27 Small BM overnight still distended KUB pending Acute Kidney Injury Prerenal secondary to dehydration-Improving IV fluids Cr. 1.8 POA from 1.1 basleline >1.6 Avoid nephrotoxic drugs. Routine CMP monitoring GFR. Monitor electrolytes especially potassium. Antibiotic doses depending on creatinine clearance. Pharmacy does medications. Seroma-Chronic Chronic, small, calcified anterior abdominal wall (rectus abdominus muscle) seroma not related to the recent surgery and not clinically significant Urology consulted post-op penile explant does not believe this is acute HX Dementia: Resume Namenda Code status: Full code per patient DVT prophylaxis: Lovenox Stress ulcer prophylaxis: Protonix 40 PT/OT notes: PT/OT pending Disposition: Patient admitted for sepsis secondary to UTI UA with ECOLI, CT ABD also showing persistent air distension history of [place] syndrome, GI consulted for possible decompression. PT is recommending SNF, CC consult for discharge planning. Time Spent With Patient Time with patient: 15 - 25 minutes Subjective Date/time seen: 09/28/23 07:00 Interval history: Admission: Medical record This is a 77-year-old male with dementia, hypertension, hyperlipidemia, and prostate cancer presented to the emergency department for evaluation of tremors. The patient is known to the hospitalist service from a recent admission last month at which time he presented with altered mental status felt to be related to dehydration and acute kidney injury. During his workup he was found to have and eroded penile implant. Urology was consulted and the implant was explanted with scrotal exploration and antibiotic washout on 08/27/2023. He was seen in the emergency department early yesterday morning after having what sounds like a vasovagal syncope while going to the bathroom. Urinalysis was concerning for UTI and he was discharged home on Bactrim. Today h
[2023-09-28 07:21] VITALS: O2SAT 98
[2023-09-28] MEDS: MEMANTINE 10 MG TABLET PO ×2 (10:51→20:48)
[2023-09-28] MEDS: POTASSIUM CHLORIDE 20 MEQ ER TABLET PO (10:51)
[2023-09-28] MEDS: CEPHALEXIN 500 MG CAPSULE PO ×2 (10:51→20:48)
[2023-09-28] MEDS: ENOXAPARIN 40 MG/0.4 ML SYRINGE SUB-Q (10:51)
[2023-09-28] MEDS: SIMETHICONE 125 MG CHEW TAB PO ×4 (10:51→20:48)
[2023-09-28] MEDS: PANTOPRAZOLE SODIUM IV 40 MG VIAL IV PUSH ×2 (10:51→20:48)
[2023-09-28] MEDS: BISACODYL 5 MG TABLET EC 10 MG PO (10:51)
[2023-09-28] MEDS: polyethylene glycoL 3350 17 GM POWD.PACK PO (10:51)
--- NOTE | 2023-09-28 13:01 | WPDGICN ---
Assessment and Plan Assessment and plan (1) Sepsis without septic shock: Code(s): A41.9 - Sepsis, unspecified organism Status: Acute Assessment and Plan: probably uti related treated urology on board (2) Colon distention: Code(s): K63.89 - Other specified diseases of intestine Status: Acute Assessment and Plan: ileus, ? josephine chronic constipation relatively benign gi exam, no nausea probably colonoscopy in 1-2 days (3) Escherichia coli urinary tract infection: Code(s): N39.0 - Urinary tract infection, site not specified; B96.20 - Unspecified Escherichia coli [E. coli] as the cause of diseases classified elsewhere Status: Acute Assessment and Plan: on abx (4) Postoperative seroma: Status: Acute (5) Dementia: Code(s): F03.90 - Unspecified dementia, unspecified severity, without behavioral disturbance, psychotic disturbance, mood disturbance, and anxiety Status: Acute (6) Erosion of penile prosthesis: Code(s): T83.89XA - Other specified complication of genitourinary prosthetic devices, implants and grafts, initial encounter Status: Acute GI Consult Note Consult date/time: 09/28/23 13:01 Reason for consult: ileus, distended sigmoid HPI: Lamont Cohen is a 77 year old male ?s/p explantation of infected penile prosthesis last month who was admitted through the emergency department with some tremors and mental status change, also found to have UTI. CT imaging demonstrates a walled-off, calcified seroma in the right rectus abdominus and same distended sigmoid as previously. He is poor historian. I met him during last hospitalization with similar problem, diagnosed with ileus vs sigmoid distension, last colonoscopy 2019 but incomplete due to poor bowel prep. RN reports that has been eating and does not have nausea but he has chronic constipation using dulcolax at home. Review of Systems Review of Systems: Able to provide some ROS when asked per HPI All systems reviewed & are unremarkable except as noted in HPI and below ROS unobtainable: Yes unobtainable due to mental status PMFSH Past Medical History Medical History (Updated 09/28/23 @ 13:06 by Rene Johnston MD) Colon distention Dementia Hyperlipidemia Hypertension Prostate cancer Surgical History Surgical History (Updated 09/24/23 @ 22:55 by Mara Sanchez PA-C) History of cataract extraction History of penile implant Explanted in September 2023 due to erosion. History of prostatectomy Family History Family History Sibling Diabetes mellitus Father Hypertension Family history of coronary artery disease Social History Social History (Updated 09/24/23 @ 22:55 by Mara Sanchez PA-C) Social History: Surrogate medical decision maker: Bobbi Cohen, spouse. Code status: Full code. Smoking status: Never smoker Tobacco type: cigarettes Alcohol intake: never Substance use: never Substance use type: does not use Do You Feel Safe in your Home?: Yes Lack of Transportation: No Lack of Food: Never True Current Housing: I Have Housing Concerned About Future Housing: No Difficulty Paying Gas/Electric Bills: No Difficulty Paying for Meds: No Currently Unemployed: No Education: High School Diploma/GED Difficulty w/ Childcare or Family Care: No Living arrangements: with family Spiritual care concerns: No Agree to blood products: Yes Meds Home Medications and Allergies Home Medications Medication Instructions Recorded Confirmed Type memantine 10 mg tablet 10 mg PO BID #60 tabs 08/12/23 09/24/23 Rx acetaminophen 325 mg tablet 650 mg PO Q4H PRN Mild Pain (1-3) 09/05/23 09/24/23 Rx Or Fever #30 tabs sulfamethoxazole 800 1 tablet PO Q12H #12 tabs 09/23/23 09/24/23 Rx mg-trimethoprim 160 mg tablet (Bactrim DS) polyethylene glycol 335
[2023-09-28 14:00] VITALS: BP 110/63; PULSE 62; RESP 14; TEMP 36.8; O2SAT 100
--- NOTE | 2023-09-28 15:33 | PCOTNOTE ---
Attempted to see pt for Occupational Therapy treatment. Pt was sleeping at therapist arrival and was able to wake up with verbal acknowledgement. Both pt's spouse and therapist educated pt on the importance of continued therapy participation for independence with daily tasks. Pt acknowledged importance however, declined participation expressing that he wants to finish his nap. Will continue per poc duration/frequency tomorrow.
[2023-09-28 20:13] VITALS: BP 129/68; PULSE 58; RESP 18; TEMP 36.5; O2SAT 100
[2023-09-28] MEDS: ACETAMINOPHEN 325 MG TABLET 650 MG PO (20:51)
[2023-09-29 05:32] LABS: Hemoglobin 13.3 g/dL (14.0-18.0); Mean Corpuscular HGB Conc 33.3 g/dl (32-36); Mean Corpuscular Hemoglobin 30.2 pg (26-34); Mean Corpuscular Volume 90.7 fl (80-100); Mean Platelet Volume 10.3 fl (7.4-10.4); Platelet Count Result 157 k/mm3 (150-375); Red Blood Count 4.41 M/mm3 (4.6-6.20); Red Cell Distribution Width 14.6 % (11.5-14.5); White Blood Count 4.9 K/mm3 (4.5-10.0)
[2023-09-29 05:37] LABS: Alanine Aminotransferase 13 U/L (6-50); Alkaline Phosphatase 73 U/L (38-126); Anion Gap 4 mmol/L (4-12); Aspartate Amino Transferase 15 U/L (17-59); Bilirubin,Total 0.6 mg/dL (0.2-1.3); Blood Urea Nitrogen 22 mg/dL (9-20); Calcium 9.1 mg/dL (8.4-10.2); Carbon Dioxide 26 mmol/L (22-30); Chloride 114 mmol/L (98-107); Estimated CRCL calculation 52 ml/min; Estimated Glomerular Filt Rate > 60; Glucose 107 mg/dL (65-110); Potassium 3.6 mmol/L (3.4-5.0); Sodium 144 mmol/L (137-145)
[2023-09-29 06:00] VITALS: BP 131/82; PULSE 65; RESP 18; TEMP 36.4; O2SAT 100
--- NOTE | 2023-09-29 07:07 | P.PNIM_ITS ---
Progress Note: A&P Assessment and Plan (1) Escherichia coli urinary tract infection: Code(s): N39.0 - Urinary tract infection, site not specified; B96.20 - Unspecified Escherichia coli [E. coli] as the cause of diseases classified elsewhere Status: Acute (2) Postoperative seroma: Status: Acute (3) Ileus: Code(s): K56.7 - Ileus, unspecified Status: Acute (4) Dementia: Code(s): F03.90 - Unspecified dementia, unspecified severity, without behavioral disturbance, psychotic disturbance, mood disturbance, and anxiety Status: Acute (5) Sepsis without septic shock: Code(s): A41.9 - Sepsis, unspecified organism Status: Acute (6) PERLITA (acute kidney injury): Code(s): N17.9 - Acute kidney failure, unspecified Status: Acute Plan Sepsis without septic shock secondary to urinary tract infection-Resolving * febrile peaked at 101.5, WBC worsening 12.2 to 18, PERLITA Cr up to 1.8, UA showing ECOLI * empiric IV antibiotic therapy * Monitor lactic acid levels q6hr. * Repeat CBC, CMP. * Two sets of blood cultures pending * urine cultures. Shows ECOLI * CT/KUB shows persistent air distention large bowel/HX [place] syndrome * Monitor albumin, monitoring of mental status. UTI * Urine cultures Show ECOLI * blood cultures NGTD * Continue IV hydration. * No urinary output last bladder scan 247/Bladder scan if no void * urology consulted * de-escalate ABX to culture/sensitivity * Monitor for obstructive uropathy and pyelonephritis Ileus: HX of Karen syndrome * CT show persistent air distension of the large bowel * wbc trending up 18 today * Surgery consulted no need for surgical intervention * Treat supportively * Dulcolax suppositories simethicone for bloating * IV fluids * pain control * serial ABD exams 09/26 * More distention/No BM or flatulence * KUB shows air ileus vs obstruction not responding to bowel regiment * GI consulted for possible decompression or further recommendations 09/27 * Small BM overnight still distended * KUB pending 09/28 * Small BM overnight but still distended * KUB from yesterday midday showed persistent dilated colon * GI is taking him for colonoscopy tomorrow Acute Kidney Injury Prerenal secondary to dehydration-Improving * IV fluids * Cr. 1.8 POA from 1.1 basleline >1.6 * Avoid nephrotoxic drugs. * Routine CMP monitoring GFR. * Monitor electrolytes especially potassium. * Antibiotic doses depending on creatinine clearance. * Pharmacy does medications. Seroma-Chronic * Chronic, small, calcified anterior abdominal wall (rectus abdominus muscle) seroma not related to the recent surgery and not clinically significant * Urology consulted post-op penile explant does not believe this is acute HX Dementia: Resume Namenda Code status: Full code per patient DVT prophylaxis: Lovenox Stress ulcer prophylaxis: Protonix 40 PT/OT notes: PT/OT pending Disposition: Patient admitted for sepsis secondary to UTI UA with ECOLI, CT ABD also showing persistent air distension history of [place] syndrome, GI consulted for possible decompression. PT is recommending SNF, CC consult for discharge planning. Subjective Date/time seen: 09/29/23 07:07 Interval history: This is a 77-year-old male with dementia, hypertension, hyperlipidemia, and prostate cancer presented to the emergency department for evaluation of tremors. The patient is known to the hospital
--- NOTE | 2023-09-29 07:07 | PM.IMPN ---
Progress Note: A&P Assessment and Plan (1) Escherichia coli urinary tract infection: Code(s): N39.0 - Urinary tract infection, site not specified; B96.20 - Unspecified Escherichia coli [E. coli] as the cause of diseases classified elsewhere Status: Acute (2) Postoperative seroma: Status: Acute (3) Ileus: Code(s): K56.7 - Ileus, unspecified Status: Acute (4) Dementia: Code(s): F03.90 - Unspecified dementia, unspecified severity, without behavioral disturbance, psychotic disturbance, mood disturbance, and anxiety Status: Acute (5) Sepsis without septic shock: Code(s): A41.9 - Sepsis, unspecified organism Status: Acute (6) PERLITA (acute kidney injury): Code(s): N17.9 - Acute kidney failure, unspecified Status: Acute Plan Sepsis without septic shock secondary to urinary tract infection-Resolving febrile peaked at 101.5, WBC worsening 12.2 to 18, PERLITA Cr up to 1.8, UA showing ECOLI empiric IV antibiotic therapy Monitor lactic acid levels q6hr. Repeat CBC, CMP. Two sets of blood cultures pending urine cultures. 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 UTI Urine cultures Show ECOLI blood cultures NGTD Continue IV hydration. No urinary output last bladder scan 247/Bladder scan if no void urology consulted de-escalate ABX to culture/sensitivity Monitor for obstructive uropathy and pyelonephritis Ileus: HX of Karen syndrome CT show persistent air distension of the large bowel wbc trending up 18 today Surgery consulted no need for surgical intervention Treat supportively Dulcolax suppositories simethicone for bloating IV fluids pain control serial ABD exams 09/26 More distention/No BM or flatulence KUB shows air ileus vs obstruction not responding to bowel regiment GI consulted for possible decompression or further recommendations 09/27 Small BM overnight still distended KUB pending 09/28 Small BM overnight but still distended KUB from yesterday midday showed persistent dilated colon GI is taking him for colonoscopy tomorrow Acute Kidney Injury Prerenal secondary to dehydration-Improving IV fluids Cr. 1.8 POA from 1.1 basleline >1.6 Avoid nephrotoxic drugs. Routine CMP monitoring GFR. Monitor electrolytes especially potassium. Antibiotic doses depending on creatinine clearance. Pharmacy does medications. Seroma-Chronic Chronic, small, calcified anterior abdominal wall (rectus abdominus muscle) seroma not related to the recent surgery and not clinically significant Urology consulted post-op penile explant does not believe this is acute HX Dementia: Resume Namenda Code status: Full code per patient DVT prophylaxis: Lovenox Stress ulcer prophylaxis: Protonix 40 PT/OT notes: PT/OT pending Disposition: Patient admitted for sepsis secondary to UTI UA with ECOLI, CT ABD also showing persistent air distension history of [place] syndrome, GI consulted for possible decompression. PT is recommending SNF, CC consult for discharge planning. Subjective Date/time seen: 09/29/23 07:07 Interval history: This is a 77-year-old male with dementia, hypertension, hyperlipidemia, and prostate cancer presented to the emergency department for evaluation of tremors. The patient is known to the hospitalist service from a recent admission last month at which time he presented with altered mental status felt to be related to dehydration and acute kidney injury. During his workup he was found to have and eroded penile implant. Urology was consulted and the implant was explanted with scrotal exploration and antibiotic washout on 08/27/2023. He was seen in the emergency department early yesterday morning after having what sounds like a vasovagal syncope while going to the bathroom. Urinalysis was concerni
[2023-09-29] MEDS: CEPHALEXIN 500 MG CAPSULE PO ×2 (08:24→21:01)
[2023-09-29] MEDS: MEMANTINE 10 MG TABLET PO ×2 (08:24→21:01)
[2023-09-29 08:25] VITALS: RESP 18; O2SAT 100
[2023-09-29] MEDS: ENOXAPARIN 40 MG/0.4 ML SYRINGE SUB-Q (08:25)
[2023-09-29] MEDS: PANTOPRAZOLE SODIUM IV 40 MG VIAL IV PUSH ×2 (08:25→21:00)
[2023-09-29] MEDS: SIMETHICONE 125 MG CHEW TAB PO ×4 (08:25→21:01)
[2023-09-29] MEDS: POTASSIUM CHLORIDE 20 MEQ ER TABLET PO (08:25)
[2023-09-29] MEDS: BISACODYL 5 MG TABLET EC 10 MG PO (08:25)
--- NOTE | 2023-09-29 09:28 | PCNFU ---
Nutrition Follow-Up Complete: Altered GI function as related to possible bowel obstruction as evidenced by NPO. Meet estimated nutritional needs. - Progressing with goal. Continue with same goal Goal: Pt current nutrition is Regular diet. 75% intake. Family bringing food in sometimes. Ensure Compact BID for additional 220 kcal and 9 g protein each. Nutrition recommendation: No new nutrition recommendations. Continue with current nutrition care plan and orders. Last recorded weight is 83.4 kg. Bowel Motility: +1 BM 09/28/23 Labs Reviewed: Hgb 13.3, Hct 40, Alb 3.0, BUN 22 Meds Noted: Zofran, Protonix, Memantine Skin: WNL Additional Notes: Intakes improving. Diet advanced to regular. Will monitor weight, labs, skin, diet order, meds every 5 days.
[2023-09-29 14:00] VITALS: BP 114/70; PULSE 62; RESP 14; TEMP 36.7; O2SAT 100
--- NOTE | 2023-09-29 14:55 | WPDGIPROGNO ---
Progress Note: A&P Assessment and Plan (1) Colon distention: Code(s): K63.89 - Other specified diseases of intestine Status: Acute Assessment and Plan: colonoscopy tomorrow ileus vs distal colonic obstruction- no nausea or abdominal pain, has been tolerating diet (2) Sepsis without septic shock: Code(s): A41.9 - Sepsis, unspecified organism Status: Acute Assessment and Plan: resolved normal wbc now on abx (3) Escherichia coli urinary tract infection: Code(s): N39.0 - Urinary tract infection, site not specified; B96.20 - Unspecified Escherichia coli [E. coli] as the cause of diseases classified elsewhere Status: Acute Assessment and Plan: on abx (4) Dementia: Code(s): F03.90 - Unspecified dementia, unspecified severity, without behavioral disturbance, psychotic disturbance, mood disturbance, and anxiety Status: Acute (5) Hypertension: Code(s): I10 - Essential (primary) hypertension Status: Acute Subjective Date/time seen: 09/29/23 14:55 Interval history: no changes, he is tolerating diet, no nausea Review of Systems Review of Systems: All systems reviewed & are unremarkable except as noted in HPI and below Exam Const: General: cooperative and no acute distress HENMT: Head: normal to inspection Eyes: General: appearance normal, both eyes and all related structures Sclera: sclerae normal Neck: Neck: normal visual inspection and full ROM Resp: Effort & Inspection: normal respiratory effort and able to speak in complete sentences Cardio: Rate: regular rate Rhythm: regular rhythm GI: Inspection: distended GI Palp: Yes Soft to palpation, No Tenderness to palpation present (GI) and No Guarding due to palpation present (GI) Auscultation: normal bowel sounds Back/Spine/Pelvis: Cervical Spine: normal cervical lordosis Skin: General skin exam: normal color and no rashes or lesions noted Neuro: General: moves all extremities and no focal motor deficits Speech: normal speech Other: awake and alert but gets confused Extrem: General: normal to inspection and full ROM Psych: Appearance: grossly normal Speech and movement: Normal speech and movement present Affect: normal affect Attitude: cooperative Objective Data Vital Signs Vital Signs: Vital Signs - 24 hr 09/28/23 20:13 09/28/23 20:50 09/29/23 06:00 Temperature 97.7 F 97.5 F L Pulse Rate 58 L 65 Respiratory Rate 18 18 Blood Pressure 129/68 131/82 Pulse Oximetry 100 100 Oxygen Delivery Room Air 09/29/23 08:25 09/29/23 14:00 Temperature 98.1 F Pulse Rate 62 Respiratory Rate 18 14 Blood Pressure 114/70 Pulse Oximetry 100 100 Oxygen Delivery Room Air Intake/Output Intake/Output: Intake & Output 09/26/23 09/27/23 09/28/23 09/29/23 23:59 23:59 23:59 23:59 Intake Total 1090 440 250 140 Balance 1090 440 250 140 Meds/Results Medications: Active Medications Generic Name Dose Route Start Last Admin Trade Name Freq PRN Reason Stop Dose Admin Acetaminophen 650 mg 09/24/23 20:42 09/28/23 20:51 Acetaminophen 325 Mg Tablet PO 650 mg Q6H PRN Administration Mild Pain (1-3) or Fever Bisacodyl 10 mg 09/26/23 09:00 09/29/23 08:25 Bisacodyl 5 Mg Tablet Ec PO 10 mg QAM PILY Administration Cephalexin HCl 500 mg 09/26/23 12:00 09/29/23 08:24 Cephalexin 500 Mg Capsule PO 500 mg Q12HR PILY Administration Enoxaparin Sodium 40 mg 09/25/23 09:00 09/29/23 08:25 Enoxaparin 40 Mg/0.4 Ml Syringe SUB-Q 40 mg DAILY PILY Administration Memantine 10 mg 09/24/23 23:10 09/29/23 08:24 Memantine 10 Mg Tablet PO 10 mg Q12HR PILY Administration Ondansetron HCl 4 mg 09/24/23 17:43 Ondansetron Inj 4 Mg/2 Ml Vial IV PUSH Q4H PRN Nausea Pantoprazole Sodium 40 mg 09/25/23 09:00 09/29/23 08:25 Pantoprazole Sodium Iv 40 Mg Vial IV PUSH 40 mg Q12HR PILY Administration Polye
[2023-09-29] MEDS: BISACODYL 5 MG TABLET EC 20 MG PO (16:06)
[2023-09-29] MEDS: polyethylene glycoL 3350 238 GM BOTTLE PO (16:06)
[2023-09-29 21:00] VITALS: BP 148/73; PULSE 68; RESP 20; TEMP 36; O2SAT 98
[2023-09-30] VITALS (13 sets, daily range): BP systolic 81–145; BP diastolic 47–104; PULSE 53–67; RESP 16–20; TEMP 35.8–36.7; O2SAT 97–100
[2023-09-30] MEDS: MAGNESIUM CITRATE 300 ML BTL PO ×2 (01:02→09:17)
[2023-09-30] MEDS: SODIUM CHLORIDE 0.9% IV 1,000 ML 999 ML IV CONT (03:32)
[2023-09-30 05:40] LABS: Hematocrit 39.9 % (42.0-52.0); Hemoglobin 13.1 g/dL (14.0-18.0); Mean Corpuscular HGB Conc 32.8 g/dl (32-36); Mean Corpuscular Hemoglobin 30.5 pg (26-34); Mean Platelet Volume 10.3 fl (7.4-10.4); Platelet Count Result 161 k/mm3 (150-375); Red Blood Count 4.29 M/mm3 (4.6-6.20); White Blood Count 6.4 K/mm3 (4.5-10.0)
[2023-09-30 05:52] LABS: Alanine Aminotransferase 14 U/L (6-50); Albumin Level 3.2 g/dL (3.5-5.1); Alkaline Phosphatase 71 U/L (38-126); Anion Gap 6 mmol/L (4-12); Aspartate Amino Transferase 19 U/L (17-59); Bilirubin,Total 0.6 mg/dL (0.2-1.3); Blood Urea Nitrogen 20 mg/dL (9-20); Calcium 8.9 mg/dL (8.4-10.2); Carbon Dioxide 23 mmol/L (22-30); Chloride 115 mmol/L (98-107); Estimated CRCL calculation 48 ml/min; Estimated Glomerular Filt Rate > 60; Glucose 110 mg/dL (65-110); Potassium 4.6 mmol/L (3.4-5.0); Sodium 144 mmol/L (137-145)
--- NOTE | 2023-09-30 07:15 | P.PNIM_ITS ---
Progress Note: A&P Assessment and Plan (1) Escherichia coli urinary tract infection: Code(s): N39.0 - Urinary tract infection, site not specified; B96.20 - Unspecified Escherichia coli [E. coli] as the cause of diseases classified elsewhere Status: Acute (2) Postoperative seroma: Status: Acute (3) Ileus: Code(s): K56.7 - Ileus, unspecified Status: Acute (4) Dementia: Code(s): F03.90 - Unspecified dementia, unspecified severity, without behavioral disturbance, psychotic disturbance, mood disturbance, and anxiety Status: Acute (5) Sepsis without septic shock: Code(s): A41.9 - Sepsis, unspecified organism Status: Acute (6) PERLITA (acute kidney injury): Code(s): N17.9 - Acute kidney failure, unspecified Status: Acute Plan Sepsis without septic shock secondary to urinary tract infection-Resolving * febrile peaked at 101.5, WBC worsening 12.2 to 18, PERLITA Cr up to 1.8, UA showing ECOLI * empiric IV antibiotic therapy * Monitor lactic acid levels q6hr. * Repeat CBC, CMP. * Two sets of blood cultures pending * urine cultures. Shows ECOLI * CT/KUB shows persistent air distention large bowel/HX [place] syndrome * Monitor albumin, monitoring of mental status. UTI * Urine cultures Show ECOLI * blood cultures NGTD * Continue IV hydration. * No urinary output last bladder scan 247/Bladder scan if no void * urology consulted * de-escalate ABX to culture/sensitivity * Monitor for obstructive uropathy and pyelonephritis Ileus: HX of [place] syndrome * CT show persistent air distension of the large bowel * wbc trending up 18 today * Surgery consulted no need for surgical intervention * Treat supportively * Dulcolax suppositories simethicone for bloating * IV fluids * pain control * serial ABD exams 09/26 * More distention/No BM or flatulence * KUB shows air ileus vs obstruction not responding to bowel regiment * GI consulted for possible decompression or further recommendations 09/27 * Small BM overnight still distended * KUB pending 09/28 * Small BM overnight but still distended * KUB from yesterday midday showed persistent dilated colon * GI is taking him for colonoscopy tomorrow 4/23: * colonoscopy scheduled for today Acute Kidney Injury Prerenal secondary to dehydration-Improving * IV fluids * Cr. 1.8 POA from 1.1 basleline >1.6 * Avoid nephrotoxic drugs. * Routine CMP monitoring GFR. * Monitor electrolytes especially potassium. * Antibiotic doses depending on creatinine clearance. * Pharmacy does medications. Seroma-Chronic * Chronic, small, calcified anterior abdominal wall (rectus abdominus muscle) seroma not related to the recent surgery and not clinically significant * Urology consulted post-op penile explant does not believe this is acute HX Dementia: Resume Namenda Code status: Full code per patient DVT prophylaxis: Lovenox Stress ulcer prophylaxis: Protonix 40 PT/OT notes: PT/OT pending Disposition: Patient admitted for sepsis secondary to UTI UA with ECOLI, CT ABD also showing persistent air distension history of Karen syndrome, GI consulted colonoscopy today 09/29. PT is recommending SNF, CC consult for discharge planning. Time Spent With Patient Time with patient: 15 - 25 minutes Subjective Date/time seen: 09/30/23 07:15 Interval history: This is a 77-year-old male with dementia, hypertension, hyperlipidemia, and prost
--- NOTE | 2023-09-30 07:15 | PM.IMPN ---
Progress Note: A&P Assessment and Plan (1) Escherichia coli urinary tract infection: Code(s): N39.0 - Urinary tract infection, site not specified; B96.20 - Unspecified Escherichia coli [E. coli] as the cause of diseases classified elsewhere Status: Acute (2) Postoperative seroma: Status: Acute (3) Ileus: Code(s): K56.7 - Ileus, unspecified Status: Acute (4) Dementia: Code(s): F03.90 - Unspecified dementia, unspecified severity, without behavioral disturbance, psychotic disturbance, mood disturbance, and anxiety Status: Acute (5) Sepsis without septic shock: Code(s): A41.9 - Sepsis, unspecified organism Status: Acute (6) PERLITA (acute kidney injury): Code(s): N17.9 - Acute kidney failure, unspecified Status: Acute Plan Sepsis without septic shock secondary to urinary tract infection-Resolving febrile peaked at 101.5, WBC worsening 12.2 to 18, PERLITA Cr up to 1.8, UA showing ECOLI empiric IV antibiotic therapy Monitor lactic acid levels q6hr. Repeat CBC, CMP. Two sets of blood cultures pending urine cultures. 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 UTI Urine cultures Show ECOLI blood cultures NGTD Continue IV hydration. No urinary output last bladder scan 247/Bladder scan if no void urology consulted de-escalate ABX to culture/sensitivity Monitor for obstructive uropathy and pyelonephritis Ileus: HX of [place] syndrome CT show persistent air distension of the large bowel wbc trending up 18 today Surgery consulted no need for surgical intervention Treat supportively Dulcolax suppositories simethicone for bloating IV fluids pain control serial ABD exams 09/26 More distention/No BM or flatulence KUB shows air ileus vs obstruction not responding to bowel regiment GI consulted for possible decompression or further recommendations 09/27 Small BM overnight still distended KUB pending 09/28 Small BM overnight but still distended KUB from yesterday midday showed persistent dilated colon GI is taking him for colonoscopy tomorrow 09/29: colonoscopy scheduled for today Acute Kidney Injury Prerenal secondary to dehydration-Improving IV fluids Cr. 1.8 POA from 1.1 basleline >1.6 Avoid nephrotoxic drugs. Routine CMP monitoring GFR. Monitor electrolytes especially potassium. Antibiotic doses depending on creatinine clearance. Pharmacy does medications. Seroma-Chronic Chronic, small, calcified anterior abdominal wall (rectus abdominus muscle) seroma not related to the recent surgery and not clinically significant Urology consulted post-op penile explant does not believe this is acute HX Dementia: Resume Namenda Code status: Full code per patient DVT prophylaxis: Lovenox Stress ulcer prophylaxis: Protonix 40 PT/OT notes: PT/OT pending Disposition: Patient admitted for sepsis secondary to UTI UA with ECOLI, CT ABD also showing persistent air distension history of Karen syndrome, GI consulted colonoscopy today 09/29. PT is recommending SNF, CC consult for discharge planning. Time Spent With Patient Time with patient: 15 - 25 minutes Subjective Date/time seen: 09/30/23 07:15 Interval history: This is a 77-year-old male with dementia, hypertension, hyperlipidemia, and prostate cancer presented to the emergency department for evaluation of tremors. The patient is known to the hospitalist service from a recent admission last month at which time he presented with altered mental status felt to be related to dehydration and acute kidney injury. During his workup he was found to have and eroded penile implant. Urology was consulted and the implant was explanted with scrotal exploration and antibiotic washout on 08/27/2023. He was seen in the emergency department early yesterday morning afte
[2023-09-30] MEDS: PANTOPRAZOLE SODIUM IV 40 MG VIAL IV PUSH ×2 (09:14→21:01)
[2023-09-30] MEDS: MEMANTINE 10 MG TABLET PO ×2 (09:15→21:01)
[2023-09-30] MEDS: CEPHALEXIN 500 MG CAPSULE PO ×2 (09:15→21:01)
--- NOTE | 2023-09-30 11:21 | PCOTNOTE ---
Attempted to see Patient at this time. Patient was in bed. Per Patient's , Patient had an episode this A.M. and was required to be layed back down due to his low blood pressure. Patient's requested OT let him rest this morning and check back this afternoon.
--- NOTE | 2023-09-30 13:07 | PC.NURSE ---
To GI Lab via [facility].
[2023-09-30] MEDS: LACTATED RINGERS 1,000 ML 150 ML IV CONT (13:23)
--- NOTE | 2023-09-30 13:24 | WPDANESEPPF ---
Anes - Initial Pre Proc Eval Procedure: Operation Date: 09/30/23 15:00 Proposed Procedures p Colonoscopy - Rene Johnston MD Date/Time: 09/30/23 13:24 Surgeon: Karolyn Albert MD Pre Op Diagnosis: UTI Patient Data Age: 77 Gender: M Height: 1.8 m Weight: 86.3 kg Last Vital Signs Temp 97.2 F L 09/30/23 13:21 Pulse 66 09/30/23 13:21 Resp 18 09/30/23 13:21 BP 136/80 09/30/23 13:21 Pulse Ox 100 09/30/23 13:21 O2 Del Method Room Air 09/30/23 13:21 Allergies Allergy/AdvReac Type Severity Reaction Status Date / Time No Known Allergies Allergy Verified 09/30/23 13:18 Home Medications Medication Instructions Recorded Confirmed Type memantine 10 mg tablet 10 mg PO BID #60 tabs 08/12/23 09/24/23 Rx acetaminophen 325 mg tablet 650 mg PO Q4H PRN Mild Pain (1-3) 09/05/23 09/24/23 Rx Or Fever #30 tabs sulfamethoxazole 800 1 tablet PO Q12H #12 tabs 09/23/23 09/24/23 Rx mg-trimethoprim 160 mg tablet (Bactrim DS) polyethylene glycol 3350 17 gram 17 g PO DAILY PRN Constipation 09/24/23 09/24/23 History oral powder packet (Miralax) potassium chloride 20 mEq 20 meq PO DAILY 09/24/23 09/24/23 History tablet,extended release Laboratory Tests 09/30/23 05:06 WBC 6.4 K/mm3 (4.5-10.0) RBC 4.29 L M/mm3 (4.6-6.20) Hgb 13.1 L g/dL (14.0-18.0) Hct 39.9 L % (42.0-52.0) MCV 93.0 fl (80-100) MCH 30.5 pg (26-34) MCHC 32.8 g/dl (32-36) RDW 15.0 H % (11.5-14.5) Plt Count 161 k/mm3 (150-375) MPV 10.3 fl (7.4-10.4) Sodium 144 mmol/L (137-145) Potassium 4.6 mmol/L (3.4-5.0) Chloride 115 H mmol/L (98-107) Carbon Dioxide 23 mmol/L (22-30) Anion Gap 6 mmol/L (4-12) BUN 20 mg/dL (9-20) Creatinine 1.20 mg/dL (0.7-1.3) Estim Creat Clear Calc 48 ml/min Estimated GFR > 60 (59 - ) Glucose 110 mg/dL (65-110) Calcium 8.9 mg/dL (8.4-10.2) Total Bilirubin 0.6 mg/dL (0.2-1.3) AST 19 U/L (17-59) ALT 14 U/L (6-50) Alkaline Phosphatase 71 U/L (38-126) Total Protein 6.0 L g/dL (6.3-8.2) Albumin 3.2 L g/dL (3.5-5.1) Patient hx anesthesia problems: none Family hx anesthesia problems: none Results Review: All pre-operative results and documents have been reviewed as part of the pre-operative evaluation. [facility] Past Medical History Medical History (Updated 09/28/23 @ 13:06 by Rene Johnston MD) Colon distention Dementia Hyperlipidemia Hypertension Prostate cancer Surgical History Surgical History (Updated 09/24/23 @ 22:55 by Mara Sanchez PA-C) History of cataract extraction History of penile implant Explanted in September 2023 due to erosion. History of prostatectomy Family History Family History Sibling Diabetes mellitus Father Hypertension Family history of coronary artery disease Social History Social History (Updated 09/24/23 @ 22:55 by Mara Sanchez PA-C) Social History: Surrogate medical decision maker: Bobbi Cohen, spouse. Code status: Full code. Smoking status: Never smoker Tobacco type: cigarettes Alcohol intake: never Substance use: never Substance use type: does not use Do You Feel Safe in your Home?: Yes Lack of Transportation: No Lack of Food: Never True Current Housing: I Have Housing Concerned About Future Housing: No Difficulty Paying Gas/Electric Bills: No Difficulty Paying for Meds: No Currently Unemployed: No Education: High School Diploma/GED Difficulty w/ Childcare or Family Care: No Living arrangements: with family Spiritual care concerns: No Agree to blood products: Yes Anes - Evsam Final PreProcedure Day of Procedure 09/30/23 13:24 Patient weight: normal Heart: regular rate and rhythm Lungs: clear to auscultation Airway: Mallampati scale clas
--- NOTE | 2023-09-30 13:34 | PCOTNOTE ---
Attempted to see Patient this P.M. Patient out of the room at this time. Per RN, Patient is down in the GI lab.
--- NOTE | 2023-09-30 14:25 | PC.NURSE ---
Returned from GI Lab via stretcher. Family at bedside.
[2023-09-30] MEDS: SIMETHICONE 125 MG CHEW TAB PO ×2 (16:04→21:01)
[2023-10-01 05:04] VITALS: BP 147/64; PULSE 53; RESP 18; TEMP 35.8; O2SAT 97
[2023-10-01 06:06] LABS: Hematocrit 39.5 % (42.0-52.0); Hemoglobin 12.9 g/dL (14.0-18.0); Mean Corpuscular HGB Conc 32.7 g/dl (32-36); Mean Corpuscular Hemoglobin 29.9 pg (26-34); Mean Corpuscular Volume 91.6 fl (80-100); Platelet Count Result 170 k/mm3 (150-375); Red Blood Count 4.31 M/mm3 (4.6-6.20); Red Cell Distribution Width 14.6 % (11.5-14.5); White Blood Count 5.7 K/mm3 (4.5-10.0)
[2023-10-01 06:20] LABS: Alanine Aminotransferase 16 U/L (6-50); Albumin Level 2.8 g/dL (3.5-5.1); Alkaline Phosphatase 69 U/L (38-126); Anion Gap 1 mmol/L (4-12); Aspartate Amino Transferase 19 U/L (17-59); Bilirubin,Total 0.6 mg/dL (0.2-1.3); Blood Urea Nitrogen 15 mg/dL (9-20); Calcium 8.3 mg/dL (8.4-10.2); Carbon Dioxide 27 mmol/L (22-30); Chloride 113 mmol/L (98-107); Estimated CRCL calculation 63 ml/min; Estimated Glomerular Filt Rate > 60; Glucose 97 mg/dL (65-110); Potassium 3.6 mmol/L (3.4-5.0); Sodium 141 mmol/L (137-145)
[2023-10-01] MEDS: POTASSIUM CHLORIDE 20 MEQ ER TABLET PO (08:22)
[2023-10-01] MEDS: BISACODYL 5 MG TABLET EC 10 MG PO (08:22)
[2023-10-01] MEDS: SIMETHICONE 125 MG CHEW TAB PO ×2 (08:22→14:37)
[2023-10-01] MEDS: MEMANTINE 10 MG TABLET PO (08:22)
[2023-10-01] MEDS: CEPHALEXIN 500 MG CAPSULE PO (08:22)
[2023-10-01] MEDS: PANTOPRAZOLE SODIUM IV 40 MG VIAL IV PUSH (08:29)
[2023-10-01] MEDS: ENOXAPARIN 40 MG/0.4 ML SYRINGE SUB-Q (08:29)
--- NOTE | 2023-10-01 10:59 | P.PNIM_ITS ---
Progress Note: A&P Assessment and Plan (1) Escherichia coli urinary tract infection: Code(s): N39.0 - Urinary tract infection, site not specified; B96.20 - Unspecified Escherichia coli [E. coli] as the cause of diseases classified elsewhere Status: Acute (2) Postoperative seroma: Status: Acute (3) Ileus: Code(s): K56.7 - Ileus, unspecified Status: Acute (4) Dementia: Code(s): F03.90 - Unspecified dementia, unspecified severity, without behavioral disturbance, psychotic disturbance, mood disturbance, and anxiety Status: Acute (5) Sepsis without septic shock: Code(s): A41.9 - Sepsis, unspecified organism Status: Acute (6) PERLITA (acute kidney injury): Code(s): N17.9 - Acute kidney failure, unspecified Status: Acute Plan Sepsis without septic shock secondary to urinary tract infection-Resolved * febrile peaked at 101.5, WBC worsening 12.2 to 18, PERLITA Cr up to 1.8, UA showing ECOLI * empiric IV antibiotic therapy * Monitor lactic acid levels q6hr. * Repeat CBC, CMP. * Two sets of blood cultures pending * urine cultures. Shows ECOLI * CT/KUB shows persistent air distention large bowel/HX [place] syndrome * Monitor albumin, monitoring of mental status. UTI * Urine cultures Show ECOLI * blood cultures NGTD * Continue IV hydration. * No urinary output last bladder scan 247/Bladder scan if no void * urology consulted * de-escalate ABX to culture/sensitivity to Keflex * Monitor for obstructive uropathy and pyelonephritis Ileus: HX of [place] syndrome * CT show persistent air distension of the large bowel * wbc trending up 18 today * Surgery consulted no need for surgical intervention * Treat supportively * Dulcolax suppositories simethicone for bloating * IV fluids * pain control * serial ABD exams 09/26 * More distention/No BM or flatulence * KUB shows air ileus vs obstruction not responding to bowel regiment * GI consulted for possible decompression or further recommendations 09/27 * Small BM overnight still distended * KUB pending 09/28 * Small BM overnight but still distended * KUB from yesterday midday showed persistent dilated colon * GI is taking him for colonoscopy tomorrow 09/29: * colonoscopy scheduled for today 09/30: * Patient with no obstruction or lesions on colonoscopy * Continue bowel regiment at discharge Acute Kidney Injury Prerenal secondary to dehydration-Resolved * IV fluids * Cr. 1.8 POA from 1.1 basleline >1.6 * Avoid nephrotoxic drugs. * Routine CMP monitoring GFR. * Monitor electrolytes especially potassium. * Antibiotic doses depending on creatinine clearance. * Pharmacy does medications. Seroma-Chronic * Chronic, small, calcified anterior abdominal wall (rectus abdominus muscle) seroma not related to the recent surgery and not clinically significant * Urology consulted post-op penile explant does not believe this is acute HX Dementia: Resume Namenda Code status: Full code per patient DVT prophylaxis: Lovenox Stress ulcer prophylaxis: Protonix 40 PT/OT notes: PT/OT pending Disposition: Patient admitted for sepsis secondary to UTI UA with ECOLI, CT ABD also showing persistent air distension history of Karen syndrome, GI consulted colonoscopy today 09/29. Currently just waiting on SNF authorization but is ready for discharge. Time Spent With Patient Time with patient: 15 - 25 minutes Subjective Date/time seen:
--- NOTE | 2023-10-01 10:59 | PM.IMPN ---
Progress Note: A&P Assessment and Plan (1) Escherichia coli urinary tract infection: Code(s): N39.0 - Urinary tract infection, site not specified; B96.20 - Unspecified Escherichia coli [E. coli] as the cause of diseases classified elsewhere Status: Acute (2) Postoperative seroma: Status: Acute (3) Ileus: Code(s): K56.7 - Ileus, unspecified Status: Acute (4) Dementia: Code(s): F03.90 - Unspecified dementia, unspecified severity, without behavioral disturbance, psychotic disturbance, mood disturbance, and anxiety Status: Acute (5) Sepsis without septic shock: Code(s): A41.9 - Sepsis, unspecified organism Status: Acute (6) PERLITA (acute kidney injury): Code(s): N17.9 - Acute kidney failure, unspecified Status: Acute Plan Sepsis without septic shock secondary to urinary tract infection-Resolved febrile peaked at 101.5, WBC worsening 12.2 to 18, PERLITA Cr up to 1.8, UA showing ECOLI empiric IV antibiotic therapy Monitor lactic acid levels q6hr. Repeat CBC, CMP. Two sets of blood cultures pending urine cultures. Shows ECOLI CT/KUB shows persistent air distention large bowel/HX [place] syndrome Monitor albumin, monitoring of mental status. UTI Urine cultures Show ECOLI blood cultures NGTD Continue IV hydration. No urinary output last bladder scan 247/Bladder scan if no void urology consulted de-escalate ABX to culture/sensitivity to Keflex Monitor for obstructive uropathy and pyelonephritis Ileus: HX of [place] syndrome CT show persistent air distension of the large bowel wbc trending up 18 today Surgery consulted no need for surgical intervention Treat supportively Dulcolax suppositories simethicone for bloating IV fluids pain control serial ABD exams 09/26 More distention/No BM or flatulence KUB shows air ileus vs obstruction not responding to bowel regiment GI consulted for possible decompression or further recommendations 09/27 Small BM overnight still distended KUB pending 09/28 Small BM overnight but still distended KUB from yesterday midday showed persistent dilated colon GI is taking him for colonoscopy tomorrow 09/29: colonoscopy scheduled for today 09/30: Patient with no obstruction or lesions on colonoscopy Continue bowel regiment at discharge Acute Kidney Injury Prerenal secondary to dehydration-Resolved IV fluids Cr. 1.8 POA from 1.1 basleline >1.6 Avoid nephrotoxic drugs. Routine CMP monitoring GFR. Monitor electrolytes especially potassium. Antibiotic doses depending on creatinine clearance. Pharmacy does medications. Seroma-Chronic Chronic, small, calcified anterior abdominal wall (rectus abdominus muscle) seroma not related to the recent surgery and not clinically significant Urology consulted post-op penile explant does not believe this is acute HX Dementia: Resume Namenda Code status: Full code per patient DVT prophylaxis: Lovenox Stress ulcer prophylaxis: Protonix 40 PT/OT notes: PT/OT pending Disposition: Patient admitted for sepsis secondary to UTI UA with ECOLI, CT ABD also showing persistent air distension history of [place] syndrome, GI consulted colonoscopy today 09/29. Currently just waiting on SNF authorization but is ready for discharge. Time Spent With Patient Time with patient: 15 - 25 minutes Subjective Date/time seen: 10/01/23 10:59 Interval history: This is a 77-year-old male with dementia, hypertension, hyperlipidemia, and prostate cancer presented to the emergency department for evaluation of tremors. The patient is known to the hospitalist service from a recent admission last month at which time he presented with altered mental status felt to be related to dehydration and acute kidney injury. During his workup he was found to have and eroded penile implant. Urology was consulted and the implant was explanted with sc
[2023-10-01 14:00] VITALS: BP 138/72; PULSE 58; RESP 19; TEMP 36.4; O2SAT 98
--- NOTE | 2023-10-01 14:56 | P.DS_ITS ---
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 coli] as the cause of diseases classified elsewhere Status: Acute (2) Postoperative seroma: Status: Acute (3) Ileus: Code(s): K56.7 - Ileus, unspecified Status: Acute (4) Dementia: Code(s): F03.90 - Unspecified dementia, unspecified severity, without behavioral disturbance, psychotic disturbance, mood disturbance, and anxiety Status: Acute (5) Sepsis without septic shock: Code(s): A41.9 - Sepsis, unspecified organism Status: Acute (6) PERLITA (acute kidney injury): Code(s): N17.9 - Acute kidney failure, unspecified Status: Acute Plan Sepsis without septic shock secondary to urinary tract infection-Resolved * febrile peaked at 101.5, WBC worsening 12.2 to 18, PERLITA Cr up to 1.8, UA showing ECOLI * empiric IV antibiotic therapy * Monitor lactic acid levels q6hr. * Repeat CBC, CMP. * Two sets of blood cultures pending * urine cultures. Shows ECOLI * CT/KUB shows persistent air distention large bowel/HX [place] syndrome * Monitor albumin, monitoring of mental status. UTI * Urine cultures Show ECOLI * blood cultures NGTD * Continue IV hydration. * No urinary output last bladder scan 247/Bladder scan if no void * urology consulted * de-escalate ABX to culture/sensitivity to Keflex * Monitor for obstructive uropathy and pyelonephritis Ileus: HX of [place] syndrome * CT show persistent air distension of the large bowel * wbc trending up 18 today * Surgery consulted no need for surgical intervention * Treat supportively * Dulcolax suppositories simethicone for bloating * IV fluids * pain control * serial ABD exams 09/26 * More distention/No BM or flatulence * KUB shows air ileus vs obstruction not responding to bowel regiment * GI consulted for possible decompression or further recommendations 09/27 * Small BM overnight still distended * KUB pending 09/28 * Small BM overnight but still distended * KUB from yesterday midday showed persistent dilated colon * GI is taking him for colonoscopy tomorrow 09/29: * colonoscopy scheduled for today 09/30: * Patient with no obstruction or lesions on colonoscopy * Continue bowel regiment at discharge Acute Kidney Injury Prerenal secondary to dehydration-Resolved * IV fluids * Cr. 1.8 POA from 1.1 basleline >1.6 * Avoid nephrotoxic drugs. * Routine CMP monitoring GFR. * Monitor electrolytes especially potassium. * Antibiotic doses depending on creatinine clearance. * Pharmacy does medications. 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
--- NOTE | 2023-10-01 14:56 | PM.DS ---
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 coli] as the cause of diseases classified elsewhere Status: Acute (2) Postoperative seroma: Status: Acute (3) Ileus: Code(s): K56.7 - Ileus, unspecified Status: Acute (4) Dementia: Code(s): F03.90 - Unspecified dementia, unspecified severity, without behavioral disturbance, psychotic disturbance, mood disturbance, and anxiety Status: Acute (5) Sepsis without septic shock: Code(s): A41.9 - Sepsis, unspecified organism Status: Acute (6) PERLITA (acute kidney injury): Code(s): N17.9 - Acute kidney failure, unspecified Status: Acute Plan Sepsis without septic shock secondary to urinary tract infection-Resolved febrile peaked at 101.5, WBC worsening 12.2 to 18, PERLITA Cr up to 1.8, UA showing ECOLI empiric IV antibiotic therapy Monitor lactic acid levels q6hr. Repeat CBC, CMP. Two sets of blood cultures pending urine cultures. Shows ECOLI CT/KUB shows persistent air distention large bowel/HX [place] syndrome Monitor albumin, monitoring of mental status. UTI Urine cultures Show ECOLI blood cultures NGTD Continue IV hydration. No urinary output last bladder scan 247/Bladder scan if no void urology consulted de-escalate ABX to culture/sensitivity to Keflex Monitor for obstructive uropathy and pyelonephritis Ileus: HX of Karen syndrome CT show persistent air distension of the large bowel wbc trending up 18 today Surgery consulted no need for surgical intervention Treat supportively Dulcolax suppositories simethicone for bloating IV fluids pain control serial ABD exams 09/26 More distention/No BM or flatulence KUB shows air ileus vs obstruction not responding to bowel regiment GI consulted for possible decompression or further recommendations 09/27 Small BM overnight still distended KUB pending 09/28 Small BM overnight but still distended KUB from yesterday midday showed persistent dilated colon GI is taking him for colonoscopy tomorrow 09/29: colonoscopy scheduled for today 09/30: Patient with no obstruction or lesions on colonoscopy Continue bowel regiment at discharge Acute Kidney Injury Prerenal secondary to dehydration-Resolved IV fluids Cr. 1.8 POA from 1.1 basleline >1.6 Avoid nephrotoxic drugs. Routine CMP monitoring GFR. Monitor electrolytes especially potassium. Antibiotic doses depending on creatinine clearance. Pharmacy does medications. 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 The patient is known to the hospitalist service from a recent admission last month at which time he presented with altered mental status felt to be related to dehydration and acute kidney injury. During his workup he was found to have and eroded penile implant. Urology was consulted and the implant was explanted with scrotal exploration and antibiotic washout on 08/27/2023. He was seen in the emergency depar
[2023-10-01 16:28] LABS: SARS-CoV-2 RNA PCR Negative (Negative)
== END 2023-10-01 17:21 | DRG 690 ==
LOC: ANHED 17:43 → ANH2MED 20:16
PROVIDERS: Internal Medicine Gastroenterology; Physician Assistant; Admitting Provider Family Medicine; Emergency Provider Emergency Medicine; PCP Family Medicine; Visit Provider Nurse Practitioner Family
PROC: 0DJD8ZZ Inspection of Lower Intestinal Tract, Via Natural or Artificial Opening Endoscopic (ICD-10-PCS; CPT 45378; principal; 2023-09-30 15:00)
DX: N39.0 Urinary tract infection, site not specified (principal); K56.0 Paralytic ileus; N17.9 Acute kidney failure, unspecified; K63.5 Polyp of colon; K57.30 Diverticulosis of large intestine without perforation or abscess without bleeding; B96.20 Unspecified Escherichia coli [E. coli] as the cause of diseases classified elsewhere; E78.5 Hyperlipidemia, unspecified; F03.90 Unspecified dementia, unspecified severity, without behavioral disturbance, psychotic disturbance, mood disturbance, and anxiety; I10 Essential (primary) hypertension; K44.9 Diaphragmatic hernia without obstruction or gangrene; K59.09 Other constipation; Z85.46 Personal history of malignant neoplasm of prostate; Z20.822 Contact with and (suspected) exposure to COVID-19; Z11.52 Encounter for screening for COVID-19; Z90.79 Acquired absence of other genital organ(s)
CPT/HCPCS: 36415; 70450; 71045; 72125; 74018; 74019; 74177; 80048; 80053; 80307; 81001; 83605; 83735; 84145; 84443; 84484; 85025; 85027; 85055; 86140; 87040; 87077; 87086; 87088; 87186; 87635; 87637; 88305; 93005; 96361; 96365; 96372; 96375; 97110; 97161; 97165; 97530; 97535; 99284; 99285; A9270; C9113; G0378; J0696; J1650; J2543; J2704; J7030; J7120; Q9967

== ENCOUNTER 2023-10-19 11:54 | Inpatient (IN) | payer MEDICARE, SELFPAY ==
[2023-10-19] VITALS (43 sets, daily range): BP systolic 70–147; BP diastolic 45–103; PULSE 67–127; RESP 11–27; TEMP 36–36.7; O2SAT 79–100; BMI 26.8
--- NOTE | ~2023-10-19 | CT_ITS ---
EXAMINATION: CT brain wo con DATE: 10/19/2023 13:33 INDICATION: Transient alteration of awareness. Syncopal episode. TECHNIQUE: Computed tomography (CT) of the head was performed without intravenous contrast. The mA wa s adjusted according to patient size. Iterative reconstruction technique was employed. Exam dose: 60 5.33 mGy-cm total exam DLP. COMPARISON: September 23, 2023 CT brain FINDINGS: There is nonspecific diminished attenuation of the cerebral white matter, likely due to chr onic small vessel ischemic changes. No intracranial mass lesion or hemorrhage or cerebrovascular accident, midline shift or mass effect i s noted. No subdural or epidural hematoma. No fracture or bone destruction of the cranial vault. The mastoid air cells and paranasal sinuses are well-developed and aerated, with mild septal soft tis bianca thickening is in the ethmoid air cells. IMPRESSION: No acute intracranial finding or significant change since September 23, 2023 Reviewed, dictated and finalized at [facility]. Reviewed, dictated and finalized at location [facility].
--- NOTE | ~2023-10-19 | CT_ITS ---
EXAMINATION: CTA chest PE abdomen pel DATE: 10/19/2023 13:33 INDICATION: Syncope. Abdominal distention. TECHNIQUE: Computed tomography angiography (CTA) of the chest was performed with 100 mL Omnipaque-350 intravenous contrast timed to evaluate the pulmonary arteries. Coronal maximum intensity projection 3D-reconstructions were created by the technologist. Computed tomography (CT) of the abdomen and pelv is was performed with intravenous contrast. Automated exposure control and iterative reconstruction t echnique were employed. The dose-length product was 1615.82 mGy-cm. COMPARISON: CT abdomen and pelvis 09/24/2023 FINDINGS: CTA chest: The lungs demonstrate mild atelectasis. No pleural effusion. Cardiomegaly is noted. No per icardial effusion. There is no pulmonary embolus. There is a moderate-sized sliding hernia. There are bridging endplate osteophytes at multiple levels in the spine, consistent with diffuse idiopathic sk eletal hyperostosis (DISH). CT abdomen and pelvis: There is a 9 mm cyst in the liver. The gallbladder, spleen, pancreas, and adre nal glands are normal. There are cysts in the kidneys measuring up to 5.0 cm on the left. There is fo jose volume loss of the right kidney. The distal colon is distended, consistent with adynamic ileus. T he appendix is normal. There is a 3.9 x 2.3 cm fluid collection in the right rectus abdominis muscle with peripheral calcifications. There is a right inguinal hernia containing fat. There are no patholo gically enlarged lymph nodes. There is no free intraperitoneal fluid. There is severe lower lumbar sp ondylosis. IMPRESSION: 1. No pulmonary embolus. Sensitivity is moderately decreased by motion artifact. 2. Moderate-sized sliding hiatal hernia. 3. Distention of the distal colon, likely adynamic ileus. 4. Fluid collection in the right rectus abdominis muscle, likely a seroma after penile prosthesis exp lant. Reviewed, dictated and finalized at location E. IMPRESSION: 1. No pulmonary embolus. Sensitivity is moderately decreased by motion artifact . 2. Moderate-sized sliding hiatal hernia. 3. Distention of the distal colon, likely adynamic ileus. 4. Fluid collection in the right rectus abdominis muscle, likely a seroma after penile prosthesis explant.
--- NOTE | ~2023-10-19 | XR_ITS ---
EXAMINATION: XR abdomen obstructive series DATE: 10/20/2023 10:13 INDICATION: Ileus TECHNIQUE: Frontal supine and upright views of the abdomen were obtained. COMPARISON: CT dated 10/19/2023 FINDINGS: Large amount of gas and moderate amount of stool scattered throughout the colon. No dilated loops of gas-filled small bowel. No free intraperitoneal gas. Mild cardiomegaly. Retrocardiac opacity correspo nding to a moderate-sized hiatal hernia on prior CT. Postoperative changes with multiple surgical cli ps in the deep pelvis likely related to prior prostatectomy and pelvic lymph node dissection. There i s some excreted contrast material within the bladder likely related to the earlier contrast-enhanced CT. IMPRESSION: 1. No free intraperitoneal gas or dilated gas-filled loops of small bowel to suggest obstruction. 2. Large amount of gas and moderate amount stool scattered throughout the colon. 3. Moderate-sized hiatal hernia. Reviewed, dictated and finalized at location B. IMPRESSION: 1. No free intraperitoneal gas or dilated gas-filled loops of small bowel to s uggest obstruction. 2. Large amount of gas and moderate amount stool scattered throughout the colon . 3. Moderate-sized hiatal hernia.
--- NOTE | ~2023-10-19 | XR_ITS ---
XR chest 2V DATE: 10/19/2023 12:50 INDICATION: Sepsis TECHNIQUE: AP and lateral views COMPARISON: September 23, 2023 portable AP chest October 19, 2023 CTA chest abdomen pelvis is not available yet. FINDINGS: There is infiltrate and/or atelectasis in the left retrocardiac area and to a lesser extent right lower lung. Cardiomegaly. Mild prominence of pulmonary fissure may indicate subpleural edema. IMPRESSION: Bilateral lower lung infiltrates-atelectasis, greater on the left Cardiomegaly Reviewed, dictated and finalized at location A.
--- NOTE | 2023-10-19 12:06 | ED.GENADULT ---
HPI - General Adult General Chief complaint: Unspecified Stated complaint: syncope Time Seen by Provider: 10/19/23 12:04 History of Present Illness HPI narrative: Patient is a 77 year old male with history prostate cancer, orthostatic hypotension, dementia here with an episode of unresponsiveness at home. at bedside helps provide history. Patient was reportedly his normal self yesterday. This morning he woke up and noted he seemed a bit more tired than usual. She notes that he had been sitting in his recliner, got up to do something and she started noticing that it seemed like he might pass out. She started yelling at him to get his attention and was able to get his wheelchair over to him before he passed out. She saw him go limp and he began drooling and would not lift his arm up for her to take his blood pressure so she called an ambulance. On EMS arrival he had low BP, improving with IVF. Patient began talking with EMS en route. states he now seems like his normal self and is able to speak with myself and her although his responses are a bit jumbled and she notes this is his normal with dementia. He both endorses and denies chest pain. His last BM was yesterday. She does not believe he has urinated yet today. does say he has had several episodes of passing out in the recent past, was found to have orthostatic hypotension. No home oxygen use. She believes he is FULL CODE, she is his DPOA. Related Data Allergies Allergy/AdvReac Type Severity Reaction Status Date / Time No Known Allergies Allergy Verified 10/08/23 14:19 Review of Systems Review of Systems: ROS unobtainable: Yes unobtainable due to mental status (dementia) [facility] Past Medical History Medical History Colon distention Dementia Fracture, ankle 08/27/2023 Left Hyperlipidemia Hypertension Prostate cancer Surgical History Surgical History History of cataract extraction History of penile implant Explanted in September 2023 due to erosion. History of prostatectomy Family History Family History Sibling Diabetes mellitus Father Hypertension Family history of coronary artery disease Social History Social History Social History: Surrogate medical decision maker: Bobbi Cohen, spouse. Code status: Full code. Smoking status: Never smoker Tobacco type: cigarettes Alcohol intake: never Substance use: never Substance use type: does not use Do You Feel Safe in your Home?: Yes Lack of Transportation: No Lack of Food: Never True Current Housing: I Have Housing Concerned About Future Housing: No Difficulty Paying Gas/Electric Bills: No Difficulty Paying for Meds: No Currently Unemployed: No Education: High School Diploma/GED Difficulty w/ Childcare or Family Care: No Living arrangements: with family Spiritual care concerns: No Agree to blood products: Yes Exam Narrative: GENERAL: Ill-appearing, well-nourished, and in no acute distress. HEAD: Normocephalic, atraumatic. EYES: PERRLA and EOMI. ENT: Nares clear. Mucous membranes dry. NECK: Supple. CHEST: Clear to auscultation. No respiratory distress. On 2L NC HEART: Regular rate and rhythm. Normal peripheral pulses. ABDOMEN: Soft, nontender, distended EXTREMITIES: Normal range of motion. No edema. SKIN: Warm, dry, no rash. NEURO: No focal deficits. Alert and oriented x2. Course Course Emergency Course: Chart review performed. Patient here with Afib with RVR, hypotension and syncopal episode. Triage vitals show hypotension at 87/45, triage HR 96. Discharge summary from last hospitalization on 09/25/23 reviewed. Patient was admitted for septic shock secondary to UTI, PERLITA, Ileus secondary to [place] syndrome. He appears to have had a colono
--- NOTE | 2023-10-19 12:09 | ECG_ITS ---
SEE SCANNED COPY FOR CONFIRMED REPORT MTDD
[2023-10-19 12:29] LABS: Basophils Percent Auto 0.5 % (0.2-1.2); Eosinophils Absolute Auto 0.6 K/mm3 (0-0.3); Eosinophils Percent Auto 9.5 % (0-4.4); Hematocrit 40.2 % (42.0-52.0); Hemoglobin 13.1 g/dL (14.0-18.0); Immature Granulocyte Absolute 0.03 K/mm3 (0.00-0.031); Immature Granulocyte Percent A 0.5 % (0-0.5); Lymphocytes Absolute Auto 1.66 K/mm3 (0.9-3.2); Lymphocytes Percent Auto 27.7 % (18.3-44.2); Mean Corpuscular HGB Conc 32.6 g/dl (32-36); Mean Corpuscular Hemoglobin 30.3 pg (26-34); Mean Corpuscular Volume 92.8 fl (80-100); Mean Platelet Volume 9.8 fl (7.4-10.4); Monocytes Absolute Auto 0.5 K/mm3 (0.1-0.6); Neutrophils Absolute Auto 3.2 K/mm3 (1.3-6.7); Neutrophils Percent Auto 53.8 % (45.5-73.1); Platelet Count Result 243 k/mm3 (150-375); Red Blood Count 4.33 M/mm3 (4.6-6.20); Red Cell Distribution Width 15.3 % (11.5-14.5)
[2023-10-19] MEDS: LACTATED RINGERS 1,000 ML 999 ML IV CONT (12:29)
[2023-10-19 12:40] LABS: Lactic Acid Reflex 2.9 mmol/L (0.7-2.0)
[2023-10-19 12:42] LABS: Alanine Aminotransferase 14 U/L (6-50); Albumin Level 3.2 g/dL (3.5-5.1); Alkaline Phosphatase 80 U/L (38-126); Anion Gap 6 mmol/L (4-12); Aspartate Amino Transferase 16 U/L (17-59); Bilirubin,Total 0.6 mg/dL (0.2-1.3); Blood Urea Nitrogen 14 mg/dL (9-20); CRP < 0.5 mg/dL (<1.0); Calcium 8.9 mg/dL (8.4-10.2); Carbon Dioxide 23 mmol/L (22-30); Chloride 110 mmol/L (98-107); Estimated Glomerular Filt Rate > 60; Glucose 134 mg/dL (65-110); Partial Thromboplastin Time 28.8 Seconds (22.3-36.8); Potassium 3.5 mmol/L (3.4-5.0); Prothrombin Time 13.9 Seconds (11.1-14.7); Sodium 139 mmol/L (137-145)
[2023-10-19 12:55] LABS: Troponin I < 0.012 ng/mL (0.000-0.034)
[2023-10-19 13:58] LABS: Appearance Urine Clear (Clear); Bilirubin Urine Negative (Negative); Blood Urine Negative (Negative); Color Urine Yellow (Yellow); Glucose Urine UA Negative (Negative); Ketones Urine Negative (Negative); Leukocyte Esterase Ur Negative LEU/UL (Negative); Nitrate Urine Negative (Negative); Protein Urine Negative (Negative); Specific Grav Ur 1.014 (1.001-1.035); Urobilinogen Urine 0.2 mg/dL (<2.0); pH Urine 6.5 (5.0-9.0)
[2023-10-19 14:21] LABS: Add Urine Microscopic? NO
[2023-10-19 15:26] LABS: Reflex Lactic Acid Yes or No Add Lactic
--- NOTE | 2023-10-19 15:40 | ECG_ITS ---
SEE SCANNED COPY FOR CONFIRMED REPORT MTDD
[2023-10-19 15:41] LABS: Troponin I 0.033 ng/mL (0.000-0.034)
--- NOTE | 2023-10-19 17:33 | PM.IMHP ---
H&P: HPI History of Present Illness Date/Time: 10/19/23 18:00 Chief Complaint: Syncope. Narrative: This is a 77-year-old male with history of orthostatic hypotension, syncope, dementia, hypertension, hyperlipidemia, and prostate cancer presented to the emergency department for evaluation after a syncopal episode. He is not a reliable historian and his provides the majority the following history. The patient is known to myself and the hospitalist service from 2 recent admissions; the 1st being in late mid August with altered mental status, left ankle fracture, acute kidney injury, and ileus. He was admitted again in mid September with E coli urinary tract infection and ileus. He was discharged to [facility] for rehab and has been at home for a couple of days. He seemed to be doing just fine yesterday and when he got up this morning. Not long prior to arrival he got up from his recliner at which time noticed that he seemed to be weak and having troubles keeping his balance. She rushed to his side and was able to get him seated in his wheelchair before he went unconscious. She called 911 and on EMS arrival he was reportedly hypotensive but blood pressures improved with IV fluids. At the time my evaluation he is alert and in good spirits. He does not recall what happened today or why he was brought to the hospital. He remembers that sometimes he gets lightheaded and dizzy after going from a seated to standing position but he does not remember if he was feeling like that today. Currently he denies headache, vertigo, visual changes, chest pain, pleuritic pain, palpitations, sensations of racing heart, shortness of breath, nausea, vomiting, diarrhea, dysuria, and edema. In the ED: Blood pressure was 87/45 on arrival but has normalized after a L of lactated Ringer's. Labs were significant for WBC count of 6.0, hemoglobin 13.1, lactic acid 2.9, troponin less than 0.012, total protein 6.0, albumin 3.2. Urinalysis was unremarkable. Head CT showed no acute intracranial finding or significant change compared to CT from last month. CT of the chest, abdomen, and pelvis showed no pulmonary embolism (sensitivity moderately decreased by motion artifact), moderate-sized sliding hiatal hernia, distension of distal colon (likely adynamic ileus), and again noted is a postoperative seroma. EKG shows transient atrial fibrillation which is a new diagnosis for him. He is being admitted in this setting for further treatment and evaluation. Review of Systems Review of Systems: Unable to obtain accurately given his dementia and significant short-term memory loss. [facility] Past Medical History Medical History Dementia Hyperlipidemia Hypertension Prostate cancer Surgical History Surgical History History of cataract extraction History of penile implant Explanted in September 2023 due to erosion. History of prostatectomy Family History Family History Sibling Diabetes mellitus Father Hypertension Family history of coronary artery disease Social History Social History Social History: Surrogate medical decision maker: Bobbi Cohen, spouse. Code status: Full code. Smoking status: Never smoker Second hand tobacco smoke exposure: No Alcohol intake: never Substance use: never Substance use type: does not use Do You Feel Safe in your Home?: Yes Lack of Transportation: No Lack of Food: Never True Current Housing: I Have Housing Concerned About Future Housing: No Difficulty Paying Gas/Electric Bills: No Difficulty Paying for Meds: No Currently Unemployed: No Education: High School Diploma/GED Difficulty w/ Childcare or Family Care: No Living arrangements: with family Spiritual care concerns: No Agr
[2023-10-19 17:38] LABS: Lactic Acid 1.6 mmol/L (0.7-2.0)
--- NOTE | 2023-10-19 18:24 | ADMGEN ---
This patient, Lamont Cohen, was admitted to [address] [place] [address] Room 322-01. Patient/family oriented to hospital policies and general routines including ID bracelet, bed and alarms, visiting hours, pain management, procedures, bathroom and other care routines, personal items, smoking policy, room service/diet, and visiting hours. Information on how to activate the Rapid Response Team has been discussed. Patient/Family are encouraged to report perceived risks to care and to ask questions if they do not understand what they are told or what they should do.
[2023-10-19 19:40] LABS: NT Pro B Type Natriuretic Pept 487 pg/mL (19.9-100)
[2023-10-19 19:54] LABS: Troponin I 0.051 ng/mL (0.000-0.034)
[2023-10-19] MEDS: BISACODYL 10 MG SUPPOSITORY RECTAL (23:37)
[2023-10-20] VITALS (10 sets, daily range): BP systolic 101–149; BP diastolic 67–82; PULSE 65–76; RESP 16–18; TEMP 36.5–36.6; O2SAT 94–99
[2023-10-20 06:54] LABS: Basophils Percent Auto 0.6 % (0.2-1.2); Eosinophils Absolute Auto 0.5 K/mm3 (0-0.3); Eosinophils Percent Auto 7.4 % (0-4.4); Hematocrit 40.7 % (42.0-52.0); Hemoglobin 13.2 g/dL (14.0-18.0); Immature Granulocyte Absolute 0.03 K/mm3 (0.00-0.031); Immature Granulocyte Percent A 0.4 % (0-0.5); Lymphocytes Absolute Auto 1.56 K/mm3 (0.9-3.2); Lymphocytes Percent Auto 22.6 % (18.3-44.2); Mean Corpuscular HGB Conc 32.4 g/dl (32-36); Mean Corpuscular Hemoglobin 29.9 pg (26-34); Mean Corpuscular Volume 92.3 fl (80-100); Mean Platelet Volume 9.7 fl (7.4-10.4); Monocytes Absolute Auto 0.6 K/mm3 (0.1-0.6); Monocytes Percent Auto 9.1 % (2.6-8.5); Neutrophils Absolute Auto 4.1 K/mm3 (1.3-6.7); Neutrophils Percent Auto 59.9 % (45.5-73.1); Platelet Count Result 247 k/mm3 (150-375); Red Blood Count 4.41 M/mm3 (4.6-6.20); Red Cell Distribution Width 15.2 % (11.5-14.5); White Blood Count 6.9 K/mm3 (4.5-10.0)
[2023-10-20 07:10] LABS: Anion Gap 4 mmol/L (4-12); Blood Urea Nitrogen 11 mg/dL (9-20); Calcium 8.5 mg/dL (8.4-10.2); Carbon Dioxide 25 mmol/L (22-30); Chloride 109 mmol/L (98-107); Estimated CRCL calculation 73 ml/min; Estimated Glomerular Filt Rate > 60; Glucose 94 mg/dL (65-110); Magnesium 1.9 mg/dL (1.6-2.3); Potassium 3.8 mmol/L (3.4-5.0); Sodium 138 mmol/L (137-145)
[2023-10-20] MEDS: ENOXAPARIN 40 MG/0.4 ML SYRINGE SUB-Q (08:50)
--- NOTE | 2023-10-20 11:59 | ECG_ITS ---
SEE SCANNED COPY FOR CONFIRMED REPORT MTDD
[2023-10-20 12:38] LABS: Troponin I 0.021 ng/mL (0.000-0.034)
--- NOTE | 2023-10-20 17:54 | ECHO_ITS ---
Patient Info Name: Lamont Cohen Age: 77 years : 1945 Gender: Male Ht: 72 in Wt: 183 lbs BSA: 2.06 m2 HR: 73 bpm BP: 141 / 74 mmHg Technical Quality: Fair Exam Date: 10/20/2023 11:20 AM Exam Location: Echo Lab Patient Status: Inpatient Admit Date: 10/19/2023 Staff Ordering Physician: Mara Sanchez PA-C Pawn Shop Keeper: Elizabeth Willett RDCS Attending Provider: Karolyn Albert MD Referring Physician: Laura CELESTIN; Exam Type: CA echo doppler color flow Study Info Indications R55 - Syncope and collapse I48.1 - Persistent atrial fibrillation Complete two-dimensional, color flow and Doppler transthoracic echocardiogram is performed. Summary 1. Complete two-dimensional, color flow and Doppler transthoracic echocardiogram is performed. 2. Left ventricular chamber dimension is normal. 3. Left ventricular systolic function is normal, estimated at 60-65%. 4. The left ventricular diastolic function is grade I diastolic dysfunction. 5. E/e' 11 is mildly elevated. 6. Left atrial chamber dimension is mildly enlarged. 7. Right atrial chamber dimension is mildly enlarged. 8. There is trace tricuspid valve regurgitation. 9. There is trace pulmonic regurgitation. Left Ventricle E/e' 11 is mildly elevated. Left ventricular chamber dimension is normal. Left ventricular systolic function is normal, estimated at 60-65%. The left ventricular diastolic function is grade I diastolic dysfunction. Right Ventricle Right ventricular systolic function is normal and with normal TAPSE 3.1 cm. Right ventricular chamber dimension is normal. Left Atria Left atrial chamber dimension is mildly enlarged. Right Atria Right atrial chamber dimension is mildly enlarged. Aortic Valve The aortic valve is trileaflet. There is no aortic valve stenosis. There is no aortic valve regurgitation. Pulmonic Valve There is trace pulmonic regurgitation. Mitral Valve There is no mitral valve stenosis. There is no mitral valve regurgitation. Tricuspid Valve There is trace tricuspid valve regurgitation. RVSP is not calculated due to an inadequate TR jet. Pericardium/Pleural There is no pericardial effusion. Inferior Vena Cava Normal inferior vena cava with >50% collapse upon inspiration consistent with normal right atrial pressure, 5 mmHg. Aorta The aortic root size at the sinus of Valsalva is normal. Tricuspid Valve Name Value Normal Estimated PAP/RSVP RA Pressure 5 mmHg <=5 Report Signatures
--- NOTE | 2023-10-20 18:15 | PM.IMPN ---
Progress Note: A&P Assessment and Plan (1) Atrial fibrillation: Code(s): I48.91 - Unspecified atrial fibrillation Status: Acute (2) Syncope: Code(s): R55 - Syncope and collapse Status: Acute (3) Orthostatic hypotension: Code(s): I95.1 - Orthostatic hypotension Status: Acute (4) New onset a-fib: Code(s): I48.91 - Unspecified atrial fibrillation Status: Acute Plan This is a very pleasant 77-year-old male with a past medical history orthostatic hypotension, syncope, dementia (baseline A&O x2), history of hypertension, hyperlipidemia, history of prostate cancer resides at home with his Bobbi. She has taken from the . He is brought in due to a syncopal episode. He had got up from his recliner and immediately began to have trouble balancing. The got him back into his wheelchair at which point he became unconscious. EMS noted patient to be hypotensive but blood pressures improved with IV fluids. In the [place] [facility] his blood pressure was again low but normalized after another L of lactated Ringer's. CT head without acute intracranial abnormality. Patient admitted on 10/19/2023 for further management. On 10/19 his orthostatic vitals are again positive. He has been counseled by the admitting nurse practitioner and myself on performing low maneuvers from lying and sitting. This is done with the who is his sausage inspector. I have also ordered abdominal binder. We do not have waist high compression stockings and she is advised she can order those from a [employer] or even [employer]. The patient drinks less than 3 small cups of water per day. Educated on the importance of hydration. He is not on any antihypertensives. Troponin peaked at 0.035 which is barely elevated and his EKG is without acute ischemia. PTOT consulted. Atrial fibrillation reported on EKGs performed in the emergency department. However, there appears to be multiple PACs and PVCs. While this may predispose the patient to atrial fibrillation we do not have to find objective evidence of that. He is also at risk for falls. Hold off on anticoagulation for now and discuss this further. Continue telemetry Constipation: It has been managed by his home meds which we will continue. Continue Namenda for dementia Lovenox. Full code. Stable on medical floor with telemetry. Subjective Date/time seen: 10/20/23 18:15 Interval history: Patient evaluated lying in bed with head of the bed elevated. He appears comfortable and converses pleasantly. History is taken from the Bobbi. Review of Systems Review of Systems: All systems reviewed & are unremarkable except as noted in HPI and below (Subjective) Exam Const: General: comfortable and no acute distress Other: A&O x2 to time and self. This is reported to be baseline Eyes: Pupils: Equal, round and reactive pupils present Neck: Neck: supple Resp: Effort & Inspection: normal respiratory effort Auscultation: clear to auscultation bilaterally Cardio: Rate: regular rate Rhythm: regular rhythm GI: GI Palp: Yes Soft to palpation and No Tenderness to palpation present (GI) Neuro: Other: Globally weak. No focal deficits identified. Extrem: General: no edema Objective Data Vital Signs Vital Signs: Vital Signs - 24 hr 10/19/23 20:00 10/19/23 22:00 10/20/23 00:00 Temperature 97.6 F Pulse Rate 88 84 72 Respiratory Rate 17 Blood Pressure 98/64 L Pulse Oximetry 98 10/20/23 04:00 10/20/23 06:00 10/20/23 08:00 Temperature 97.8 F Pulse Rate 71 67 71 Respiratory Rate 17 Blood Pressure 141/74 H Pulse Oximetry 99 10/20/23 12:00 10/20/23 14:00 10/20/23 15:47 Temperature 97.7 F Pulse Rate 76 69 65 Respiratory Rate 16 Blood Pressure 137/74 149/81 H Pulse Oximetry 94 10/20/23 15:47 10/20/23 15:47 10/20/23 16:00 Temperature Pulse Rate 72 73 Respirator
[2023-10-20] MEDS: SIMETHICONE 125 MG CHEW TAB PO (19:54)
[2023-10-21] VITALS (7 sets, daily range): BP systolic 125–166; BP diastolic 66–116; PULSE 67–90; RESP 18–22; TEMP 36.2–36.3; O2SAT 95–100
[2023-10-21] MEDS: BISACODYL 5 MG TABLET EC 10 MG PO (07:50)
[2023-10-21] MEDS: SIMETHICONE 125 MG CHEW TAB PO ×2 (07:50→12:46)
[2023-10-21] MEDS: MEMANTINE 10 MG TABLET PO (07:51)
[2023-10-21] MEDS: POTASSIUM CHLORIDE 20 MEQ ER TABLET PO (07:51)
[2023-10-21] MEDS: ENOXAPARIN 40 MG/0.4 ML SYRINGE SUB-Q (07:52)
--- NOTE | 2023-10-21 15:29 | PM.DS ---
DS: Admitting Diagnosis Discharge Date October 21, 2023 Admitting Diagnosis Syncope DS: Discharge Diagnosis Discharge Diagnosis (1) Syncope and collapse: Code(s): R55 - Syncope and collapse Status: Acute (2) Dehydration: Code(s): E86.0 - Dehydration Status: Acute (3) Orthostatic hypotension: Code(s): I95.1 - Orthostatic hypotension Status: Acute DS: Summary Hospital Course Hospital Course: This is an extremely pleasant 77-year-old male with a past medical history orthostatic hypotension, syncope, dementia (baseline A&O x2), history of hypertension, hyperlipidemia, history of prostate cancer resides at home with his Bobbi.? She has taken from the .? He is brought in due to a syncopal episode.? He had got up from his recliner and immediately began to have trouble balancing.? The got him back into his wheelchair at which point he became unconscious.? EMS noted patient to be hypotensive but blood pressures improved with IV fluids.? In the [place] ER his blood pressure was again low but normalized after another L of lactated Ringer's.? CT head without acute intracranial abnormality.? Patient admitted on 10/19/2023 for further management. Status post fluid resuscitation via peripheral IV and oral route the patient's orthostatic vitals resulted negative. He has been educated alongside his on staying hydrated and maneuvers to prevent syncope. Abdominal binder also ordered and advised waist high compression stockings can be purchased from a [employer] or [employer]. The patient was globally weak which is multifactorial it was suggested by Physical therapy the patient discharge to SNF for rehab. Unfortunately, the patient was recently in rehab and this would not be covered therefore the elected to take the patient home and have home health therapy visit the patient. The is very involved with his care and she feels she can keep him from falling and keep him exercising even on days off from the therapist. All their questions and concerns were answered to satisfaction. The patient is discharged to home on 10/20 in stable condition. Full code during the admission. Time Spent with Patient Time attestation: Total time spent providing and/or coordinating discharge services: Exam Const: General: comfortable and no acute distress Other: A&O x2 to time and self. This is reported to be baseline Eyes: Pupils: Equal, round and reactive pupils present Neck: Neck: supple Resp: Effort & Inspection: normal respiratory effort Auscultation: clear to auscultation bilaterally Cardio: Rate: regular rate Rhythm: regular rhythm GI: GI Palp: Yes Soft to palpation and No Tenderness to palpation present (GI) Neuro: Other: Globally weak. No focal deficits identified. Extrem: General: no edema DS: Data Data Completed and Pending Labs on day of discharge: Preliminary micro results at discharge 10/19/23 14:43 Blood Culture - Preliminary Blood 10/19/23 17:20 Blood Culture - Preliminary Blood Discharge Plan Discharge Attending physician on discharge: Karolyn Albert Discharging Clinician: Karolyn Albert Patient Disposition: Home Health Service Activity: october shower Diet: as tolerated Discharge Instructions: Per Care Coordination: [facility] ([phone]) will call to set up initial visit. Stand Alone Forms: General Discharge Information Follow-up/Referrals: Payal Mason DO [Primary Care Provider] - 2 Weeks Discharge Medications: Continued bisacodyl [Laxative (bisacodyl)] 5 mg Tablet,Delayed Release (Dr/Ec) 10 mg PO QAM Qty: 1 0RF simethicone [Gas-X Extra Strength] 125 mg Capsule 125 mg PO QID Qty: 1 0RF memantine 10 mg tablet 10 mg PO BID Qty: 60 5RF ergocalciferol (vitamin D2) [Vitamin D2] 1,250 mcg (50,000 unit) capsule 1,250 mcg PO WEEKLY Qty: 12 1RF Rx Instructions:
== END 2023-10-21 16:35 | disposition home health service (06) | DRG 312 ==
LOC: ANHED 16:30 → ANH3MEDSUR 17:17
PROVIDERS: Physician Assistant; Admitting Provider General Practice; Emergency Provider Student in an Organized Health Care Education/Training Program; PCP Family Medicine; Visit Provider General Practice
DX: I95.1 Orthostatic hypotension (principal); K56.7 Ileus, unspecified; I48.91 Unspecified atrial fibrillation; E86.0 Dehydration; F03.90 Unspecified dementia, unspecified severity, without behavioral disturbance, psychotic disturbance, mood disturbance, and anxiety; E78.5 Hyperlipidemia, unspecified; I10 Essential (primary) hypertension; Z85.46 Personal history of malignant neoplasm of prostate; Z98.49 Cataract extraction status, unspecified eye
CPT/HCPCS: 36415; 70450; 71046; 71275; 74019; 74177; 80048; 80053; 81003; 83605; 83735; 83880; 84484; 85025; 85610; 85730; 86140; 87040; 93005; 93306; 96360; 97162; 97165; 99285; A9270; J1650; J7120; Q9967

== ENCOUNTER 2024-07-24 12:35 | Emergency (ER) | payer MEDICARE, SELFPAY ==
[2024-07-24] VITALS (36 sets, daily range): BP systolic 102–188; BP diastolic 47–136; PULSE 73–92; RESP 12–23; TEMP 36.4; O2SAT 92–98
--- NOTE | ~2024-07-24 | XR_ITS ---
CHEST RADIOGRAPH CLINICAL HISTORY: syncope . COMPARISON: 10/19/2023 TECHNIQUE: Single portable view of the chest. FINDINGS The cardiomediastinal silhouette is enlarged, unchanged. Increased interstitial markings are identified bilaterally, findings suggesting mild pulmonary vascul ar congestion. Hazy opacification of the bilateral hemidiaphragms, left greater than right suggesting small bilatera l pleural effusions, left greater than right. Gaseous distention of the intra-abdominal contents, poorly evaluated on the current study. IMPRESSION: Mild pulmonary vascular congestion with small bilateral pleural effusions, left greater than right. Significant gaseous distention of the underlying intra-abdominal contents. Reviewed, dictated and finalized at location A. FIRER/FIREMAN
--- NOTE | ~2024-07-24 | CT_ITS ---
EXAMINATION: CT brain wo con DATE: 07/24/2024 13:47 INDICATION: Altered mental status TECHNIQUE: Computed tomography (CT) of the head was performed without intravenous contrast. Sagittal and coronal reconstructions were performed. The mA was adjusted according to patient size. Iterative reconstruction technique was employed. The dose-length product was 681.00 mGy-cm. COMPARISON: head CT dated 10/19/2023 FINDINGS: No acute intracranial hemorrhage, acute infarction or abnormal extra axial fluid collection. There is moderate scattered white matter hypoattenuation consistent with chronic small vessel ischemic diseas e. Ventricles are normal and symmetric. No mass/mass effect. Moderate mucosal thickening throughout the paranasal sinuses. The orbits and mastoid air cells are normal. IMPRESSION: 1. Moderate scattered white matter hypoattenuation consistent with chronic small vessel ischemic dise ase. No acute intracranial process. 2. Moderate diffuse sinus disease. Reviewed, dictated and finalized at location A. O NEWS ANCHOR IMPRESSION: 1. Moderate scattered white matter hypoattenuation consistent with chronic smal l vessel ischemic disease. No acute intracranial process. 2. Moderate diffuse sinus disease.
--- NOTE | ~2024-07-24 | CT_ITS ---
CLINICAL INDICATION: Abdominal distention COMPARISON: 10/19/2023. TECHNIQUE: Multiple contiguous axial images of the abdomen and pelvis were performed following the ad ministration of with 100 mL Omnipaque-350 intravenous contrast The dose-length product (DLP) was 848.15 mGy-cm. Automated exposure control and iterative reconstruction technique were employed. FINDINGS/OBSERVATIONS: Visualized lower thorax: The bilateral lung bases are clear. The heart is enlarged without pericardial effusion. Large hiatal hernia. Liver: The liver enhances homogeneously and is not enlarged measuring 17 cm in longitudinal dimension Gallbladder and biliary system: The gallbladder is only minimally distended, and otherwise unremarkable. Pancreas: The pancreas enhances homogeneously without ductal dilatation. Spleen: The spleen enhances homogeneously and is not enlarged measuring 7 cm in longitudinal dimension. Kidneys: Redemonstration of a 5 cm rounded focus of decreased attenuation within the upper pole of th e left kidney. The remainder of the bilateral kidneys otherwise enhance symmetrically without hydronephrosis or becki l calculi. Adrenal glands: Unremarkable. Gastrointestinal tract: Redemonstration of significant gaseous distention of the rectum and redundant sigmoid colon which ext ends into the upper abdomen, markedly distorting the remainder of the loops of bowel and intra-abdomi nal contents. Significant fecal stasis within the rectum which is distended with thickened cuenca. Vasculature: Unremarkable. Lymph nodes: No pathologically enlarged or morphologically suspicious lymph nodes within the retroperitoneum or at the root of the mesentery. Pelvic structures: The bladder is decompressed, and otherwise unremarkable. The prostate gland is not visualized. Body wall and musculoskeletal: Trace degenerative disease within the lower thoracic or lumbosacral spine. IMPRESSION: Redemonstration of significant gaseous distention of the rectum and redundant sigmoid colon which ext ends to the level of the diaphragm, demonstrating progression since prior examination. Reviewed, dictated and finalized at location A. IATIVE SENIOR NP IMPRESSION: Redemonstration of significant gaseous distention of the rectum and redundant s igmoid colon which extends to the level of the diaphragm, demonstrating progres gavin since prior examination.
[2024-07-24 13:17] LABS: Basophils Percent Auto 0.2 % (0.2-1.2); Eosinophils Absolute Auto 0.1 K/mm3 (0-0.3); Eosinophils Percent Auto 1.1 % (0-4.4); Hematocrit 44.6 % (42.0-52.0); Hemoglobin 14.9 g/dL (14.0-18.0); Immature Granulocyte Absolute 0.05 K/mm3 (0.00-0.031); Immature Granulocyte Percent A 0.6 % (0-0.5); Lymphocytes Absolute Auto 1.19 K/mm3 (0.9-3.2); Lymphocytes Percent Auto 14.8 % (18.3-44.2); Mean Corpuscular HGB Conc 33.4 g/dl (32-36); Mean Corpuscular Hemoglobin 30.4 pg (26-34); Mean Platelet Volume 9.8 fl (7.4-10.4); Monocytes Absolute Auto 0.6 K/mm3 (0.1-0.6); Monocytes Percent Auto 7.6 % (2.6-8.5); Neutrophils Absolute Auto 6.1 K/mm3 (1.3-6.7); Neutrophils Percent Auto 75.7 % (45.5-73.1); Platelet Count Result 255 k/mm3 (150-375); Red Cell Distribution Width 14.3 % (11.5-14.5)
[2024-07-24 13:27] LABS: Ethanol < 10 mg/dL (<10); INR 0.9
--- NOTE | 2024-07-24 13:27 | ECG_ITS ---
Test Date: 2024-07-24 12:44:58 Measurements Intervals [place] Rate: 72 P: 21 AK: 165 QRS: 21 QRSD: 98 T: -2 QT: 411 QTc: 452 Interpretive Statements SINUS RHYTHM LEFT VENTRICULAR HYPERTROPHY AND ST-T CHANGE CONSIDER INFERIOR INFARCT, AGE INDETERMINATE BASELINE ARTIFACT- I, II, III, AVR, AVL, AVF, V1, V4-V6 ABNORMAL ECG No previous ECG available for comparison Electronically Signed On 07-24-2024 16:57:09 CONDUIT BENDER by Elmer Jimenes D.O.
[2024-07-24 13:28] LABS: Partial Thromboplastin Time 20.2 Seconds (22.3-36.8)
[2024-07-24 13:30] LABS: Alanine Aminotransferase 24 U/L (6-50); Albumin Level 3.8 g/dL (3.5-5.1); Alkaline Phosphatase 97 U/L (38-126); Anion Gap 15 mmol/L (4-12); Aspartate Amino Transferase 30 U/L (17-59); Bilirubin,Total 1.1 mg/dL (0.2-1.3); Blood Urea Nitrogen 16 mg/dL (9-20); Calcium 8.8 mg/dL (8.4-10.2); Carbon Dioxide 31 mmol/L (22-30); Chloride 98 mmol/L (98-107); Estimated Glomerular Filt Rate 59; Glucose 129 mg/dL (65-110); Sodium 144 mmol/L (137-145)
[2024-07-24 13:42] LABS: Troponin I 0.061 ng/mL (0.000-0.034)
[2024-07-24 13:43] LABS: Lactic Acid Reflex 5.5 mmol/L (0.7-2.0)
[2024-07-24 13:44] LABS: Add Urine Microscopic? YES; Appearance Urine Cloudy (Clear); Bacteria Urine None Seen /hpf; Bilirubin Urine Negative (Negative); Blood Urine Negative (Negative); Color Urine Yellow (Yellow); Glucose Urine UA Negative (Negative); Ketones Urine Trace mg/dL (Negative); Leukocyte Esterase Ur Negative LEU/UL (Negative); Nitrate Urine Negative (Negative); Non Pathogenic Casts 0-2; Protein Urine Negative (Negative); RBC Urine 0-2 /hpf (0-2); Specific Grav Ur 1.015 (1.001-1.035); Squamous Epithelial Cell Urine None Seen /hpf (Few); Urobilinogen Urine 0.2 mg/dL (<2.0); WBC Urine 0-5 /hpf (0-3)
[2024-07-24 13:53] LABS: Influenza A QL RT-PCR Negative (Negative); Influenza B QL RT-PCR Negative (Negative); RSV RNA, RT-PCR Negative (Negative); SARS-CoV-2 RNA PCR Positive (Negative)
[2024-07-24 13:54] LABS: Amphetamine Screen Urine Negative (Negative); Barbiturate Screen Urine Negative (Negative); Benzodiazepines Screen Urine Negative (Negative); Cannabinoid Screen Urine Negative (Negative); Cocaine Screen Urine Negative (Negative); Methadone Screen Urine Negative (Negative); Opiate Screen Urine Negative (Negative); Phencyclidine Screen Urine Negative (Negative)
[2024-07-24] MEDS: POTASSIUM CHLORIDE INJ 40 MEQ in SODIUM CHLORIDE 0.9% IV 500 ML 130 MEQ IVPB (14:15)
[2024-07-24] MEDS: SODIUM CHLORIDE 0.9% IV 1,000 ML 999 ML IV CONT (14:16)
[2024-07-24 16:13] LABS: Reflex Lactic Acid Yes or No Add Lactic
--- NOTE | 2024-07-24 16:25 | ED_ITS ---
HPI - General Adult General Chief complaint: Altered Mental Status Stated complaint: ams Time Seen by Provider: 07/24/24 12:47 History of Present Illness HPI narrative: Patient is a 78-year-old male who presents ER after having what may have been a seizure-like episode. was cleaning him off while he use the bathroom and he developed a long staring look in his face. He then began shaking with his upper extremities up his leg straight out. He had snoring respirations and then was confused and did not wake up afterwards. He laid on the floor for prolonged period. She reports this has happened 2 other times. No history of seizure. Patient has some blood at his 2/lip but no obvious bite guerrero. Patient has dementia. He is nonverbal baseline. Related Data Home Medications ?Medication ?Instructions ?Recorded ?Confirmed ?Last Taken ?Type polyethylene glycol 3350 17 17 g PO ONCE PRN constipation 11/11/23 07/24/24 Unknown History gram/dose oral powder (Miralax) docusate sodium 100 mg capsule 100 mg PO DAILY 07/24/24 07/24/24 Unknown History (Colace) Allergies Allergy/AdvReac Type Severity Reaction Status Date / Time No Known Allergies Allergy Verified 03/12/24 15:34 Review of Systems 2 Review of Systems: ROS unobtainable: Yes unobtainable due to mental status PMFSH Past Medical History Medical History (Updated 07/24/24 @ 19:33 by Jose Huitron MD) Dementia of the Alzheimer's type Hyperlipidemia Hypertension Dementia Prostate cancer Surgical History Surgical History History of cataract extraction History of prostatectomy History of penile implant Explanted in September 2023 due to erosion. Family History Family History Sibling Diabetes mellitus Father Hypertension Family history of coronary artery disease Social History Social History Social History: Surrogate medical decision maker: Bobbi Cohen, spouse. Code status: Full code. Smoking status: Never smoker Second hand tobacco smoke exposure: No Alcohol intake: never Substance use: never Substance use type: does not use Do You Feel Safe in your Home?: Yes Lack of Transportation: No Lack of Food: Never True Current Housing: I Have Housing Concerned About Future Housing: No Difficulty Paying Gas/Electric Bills: No Difficulty Paying for Meds: No Currently Unemployed: No Education: High School Diploma/GED Difficulty w/ Childcare or Family Care: No Living arrangements: with family Spiritual care concerns: No Agree to blood products: Yes Exam 2 Narrative: GENERAL: Chronically ill-appearing, well-nourished, and in no acute distress. HEAD: Normocephalic, atraumatic. EYES: PERRL and EOMI. ENT: Mucous membranes moist. NECK: Supple. CHEST: Clear to auscultation. No respiratory distress. HEART: Regular rate and rhythm. Normal peripheral pulses. ABDOMEN: Soft, nontender, nondistended. EXTREMITIES: Normal range of motion. No edema. SKIN: Warm, dry, no rash. NEURO: Awake alert. Not oriented. Intermittently follows commands. No facial droop. Course Course Emergency Course: No Neurology at this facility. Patient receiving Keppra IV as well as IV potassium. Enema for stool in distal rectum. Patient has chronic ileus of the large bowel. Accepted to [facility] by Dr. Mustafa. Neurology was contacted by [facility] transfer line. Vital Signs Vital signs: Vital Signs Pulse Rate 79 07/24/24 12:43 Respiratory Rate 18 07/24/24 12:43 Temperature 97.6 F 07/24/24 12:44 Pulse Rate 92 07/24/24 18:45 Respiratory Rate 18 07/24/24 18:45 Blood Pressure 155/84 H 07/24/24 18:31 Pulse Oximetry 93 07/24/24 18:45 Oxygen Delivery Room Air 07/24/24 15:08 Medical Decision Making Vital Signs Vital Signs: Vital Signs Pulse Rate 79 07/24/24 12:43 Respiratory Rate 18 07/24/24 12:43 Temperature 97.6 F 07/24/24 12:44 Pulse Rate 92 07/24/24 18:45 Respiratory Rate 18 07/24/24 18:45 Blood Pressure 155/84 H 07/24/24 18:31 Pulse Oximetry 93 07/24/24 18:45 Oxygen Delivery Room Air 07/24/24 15:08 Lab Data 07/24/24 13:07 07/24/24 13:07 Labs: Lab Results 07/24/24 07/24/24 07/24/24 Range/Units 12:59 13:07 13:21 WBC 8.0 (4.5-10.0) K/mm3 RBC 4.90 (4.6-6.20) M/mm3 Hgb 14.9 (14.0-18.0) g/dL Hct 44.6 (42.0-52.0) % MCV 91.0 (80-100) fl MCH 30.4 (26-34) pg MCHC 33.4 (32-36) g/dl RDW 14.3 (11.5-14.5) % Plt Count 255 (150-375) k/mm3 MPV 9.8 (7.4-10.4) fl Immature Gran % (Auto) 0.6 H (0-0.5) % Neut % (Auto) 75.7 H (45.5-73.1) % Lymph % (Auto) 14.8 L (18.3-44.2) % [place] % (Auto) 7.6 (2.6-8.5) % Eos % (Auto) 1.1 (0-4.4) % Baso % (Auto) 0.2 (0.2-1.2) % Lymph # (Auto) 1.19 (0.9-3.2) K/mm3 [place] # (Auto) 0.6 (0.1-0.6) K/mm3 Eos # (Auto) 0.1 (0-0.3) K/mm3 Baso # (Auto) 0.0 (0.0-0.1) K/mm3 Abs Immat Gran (auto) 0.05 H (0.00-0.031) K/mm3 Absolute Neuts (auto) 6.1 (1.3-6.7) K/mm3 Absolute Nucleated RBC 0.000 (0.0-0.012) K/mm3 Nucleated RBC % 0.0 (0.0-0.2) % PT 13.0 (11.1-14.7) Seconds INR 0.9 APTT 20.2 L (22.3-36.8) Seconds Sodium 144 (137-145) mmol/L Potassium 3.0 L (3.4-5.0) mmol/L Chloride 98 (98-107) mmol/L Carbon Dioxide 31 H (22-30) mmol/L Anion Gap 15 H (4-12) mmol/L BUN 16 (9-20) mg/dL Creatinine 1.40 H (0.7-1.3) mg/dL Estim Creat Clear Calc Not Reportable Estimated GFR 59 (59 - ) Glucose 129 H (65-110) mg/dL Lactic Acid 5.5 H* (0.7-2.0) mmol/L Calcium 8.8 (8.4-10.2) mg/dL Total Bilirubin 1.1 (0.2-1.3) mg/dL AST 30 (17-59) U/L ALT 24 (6-50) U/L Alkaline Phosphatase 97 (38-126) U/L Troponin I 0.061 H* (0.000-0.034) ng/mL Total Protein 7.0 (6.3-8.2) g/dL Albumin 3.8 (3.5-5.1) g/dL Urine Color Yellow (Yellow) Urine Appearance Cloudy H (Clear) Urine pH 7.0 (5.0-9.0) Ur Specific [place] 1.015 (1.001-1.035) Urine Protein Negative (Negative) mg/dL Urine Glucose (UA) Negative (Negative) mg/dL Urine Ketones Trace H (Negative) mg/dL Ur Blood (Man) Negative (Negative) Urine Nitrate Negative (Negative) Urine Bilirubin Negative (Negative) Urine Urobilinogen 0.2 (<2.0) mg/dL Leukocyte Esterase Rfl Negative (Negative) MAURICE/UL Urine RBC 0-2 (0-2) /hpf Urine WBC 0-5 (0-3) /hpf Ur Squamous Epith Cells None seen (Few) /hpf Urine Bacteria None seen /hpf Urine Casts 0-2 Urine Opiates Screen Negative (Negative) Urine Methadone Screen Negative (Negative) Ur Barbiturates Screen Negative (Negative) Ur Phencyclidine Scrn Negative (Negative) Ur Amphetamine Screen Negative (Negative) U Benzodiazepines Scrn Negative (Negative) Urine Cocaine Screen Negative (Negative) U Cannabinoids Screen Negative (Negative) Ethyl Alcohol < 10 (<10) mg/dL Influenza A (RT-PCR) Negative (Negative) Influenza B (RT-PCR) Negative (Negative) RSV (RT-PCR) Negative (Negative) SARS-CoV-2 RNA (RT-PCR) Positive A (Negative) 07/24/24 Range/Units 16:39 WBC (4.5-10.0) K/mm3 RBC (4.6-6.20) M/mm3 Hgb (14.0-18.0) g/dL Hct (42.0-52.0) % MCV (80-100) fl MCH (26-34) pg MCHC (32-36) g/dl RDW (11.5-14.5) % Plt Count (150-375) k/mm3 MPV (7.4-10.4) fl Immature Gran % (Auto) (0-0.5) % Neut % (Auto) (45.5-73.1) % Lymph % (Auto) (18.3-44.2) % [place] % (Auto) (2.6-8.5) % Eos % (Auto) (0-4.4) % Baso % (Auto) (0.2-1.2) % Lymph # (Auto) (0.9-3.2) K/mm3 [place] # (Auto) (0.1-0.6) K/mm3 Eos # (Auto) (0-0.3) K/mm3 Baso # (Auto) (0.0-0.1) K/mm3 Abs Immat Gran (auto) (0.00-0.031) K/mm3 Absolute Neuts (auto) (1.3-6.7) K/mm3 Absolute Nucleated RBC (0.0-0.012) K/mm3 Nucleated RBC % (0.0-0.2) % PT (11.1-14.7) Seconds INR APTT (22.3-36.8) Seconds Sodium (137-145) mmol/L Potassium (3.4-5.0) mmol/L Chloride (98-107) mmol/L Carbon Dioxide (22-30) mmol/L Anion Gap (4-12) mmol/L BUN (9-20) mg/dL Creatinine (0.7-1.3) mg/dL Estim Creat Clear Calc Estimated GFR (59 - ) Glucose (65-110) mg/dL Lactic Acid 2.2 H (0.7-2.0) mmol/L Calcium (8.4-10.2) mg/dL Total Bilirubin (0.2-1.3) mg/dL AST (17-59) U/L ALT (6-50) U/L Alkaline Phosphatase (38-126) U/L Troponin I (0.000-0.034) ng/mL Total Protein (6.3-8.2) g/dL Albumin (3.5-5.1) g/dL Urine Color (Yellow) Urine Appearance (Clear) Urine pH (5.0-9.0) Ur Specific [place] (1.001-1.035) Urine Protein (Negative) mg/dL Urine Glucose (UA) (Negative) mg/dL Urine Ketones (Negative) mg/dL Ur Blood (Man) (Negative) Urine Nitrate (Negative) Urine Bilirubin (Negative) Urine Urobilinogen (<2.0) mg/dL Leukocyte Esterase Rfl (Negative) MAURICE/UL Urine RBC (0-2) /hpf Urine WBC (0-3) /hpf Ur Squamous Epith Cells (Few) /hpf Urine Bacteria /hpf Urine Casts Urine Opiates Screen (Negative) Urine Methadone Screen (Negative) Ur Barbiturates Screen (Negative) Ur Phencyclidine Scrn (Negative) Ur Amphetamine Screen (Negative) U Benzodiazepines Scrn (Negative) Urine Cocaine Screen (Negative) U Cannabinoids Screen (Negative) Ethyl Alcohol (<10) mg/dL Influenza A (RT-PCR) (Negative) Influenza B (RT-PCR) (Negative) RSV (RT-PCR) (Negative) SARS-CoV-2 RNA (RT-PCR) (Negative) Imaging Data Radiologist's impression: ITS Impressions Head CT 07/24/24 13:55 IMPRESSION: 1. Moderate scattered white matter hypoattenuation consistent with chronic small vessel ischemic disease. No acute intracranial process. 2. Moderate diffuse sinus disease. Chest X-Ray 07/24/24 16:07 IMPRESSION: Mild pulmonary vascular congestion with small bilateral pleural effusions, left greater than right. Significant gaseous distention of the underlying intra-abdominal contents. Abdomen/Pelvis CT 07/24/24 16:43 IMPRESSION: Redemonstration of significant gaseous distention of the rectum and redundant sigmoid colon which extends to the level of the diaphragm, demonstrating progression since prior examination. ECG Data EKG #1: ECG completion date: 07/24/24 ECG completion time: 12:44 EKG Interpretation: normal rate (72), sinus rhythm, non-specific ST changes, normal QRS, normal QT and other (LVH) Critical Care Time Critical Care Time Critical Care Time: Yes Total Critical Care Time: 35 Discharge Plan Discharge Clinical Impression: Seizure, PERLITA (acute kidney injury), Acute hypokalemia, Elevated troponin Patient Disposition: Acute Care Hospital Condition: Stable Patient Language: [place] Tim[place]se Prescriptions: No Action polyethylene glycol 3350 [Miralax] 17 gram/dose powder 17 g PO ONCE PRN (Reason: constipation) potassium chloride 20 mEq packet 20 meq PO DAILY Qty: 100 0RF memantine 10 mg tablet 10 mg PO BID Qty: 180 3RF bisacodyl [Laxative (bisacodyl)] 5 mg Tablet,Delayed Release (Dr/Ec) 10 mg PO QAM Qty: 1 0RF simethicone [Gas-X Extra Strength] 125 mg Capsule 125 mg PO QID Qty: 1 0RF docusate sodium [Colace] 100 mg capsule 100 mg PO DAILY potassium chloride 20 mEq tablet extended release 20 meq PO DAILY Qty: 90 1RF ergocalciferol (vitamin D2) [Vitamin D2] 1,250 mcg (50,000 unit) capsule 1,250 mcg PO WEEKLY Qty: 12 1RF Rx Instructions: every friday Follow-up/Referrals: Payal Mason DO [Primary Care Provider] -
[2024-07-24 16:52] LABS: Lactic Acid 2.2 mmol/L (0.7-2.0)
--- NOTE | 2024-07-24 18:30 | ECG_ITS ---
Test Date: 2024-07-24 18:34:27 Measurements Intervals [place] Rate: 84 P: 35 CT: 183 QRS: 33 QRSD: 93 T: 35 QT: 387 QTc: 460 Interpretive Statements SINUS RHYTHM CONSIDER INFERIOR INFARCT, AGE INDETERMINATE NONSPECIFIC T-WAVE ABNORMALITY- LAT/HIGH LAT LEADS BASELINE ARTIFACT- I, II, III, AVR, AVL,A VF, V1-V6 ABNORMAL ECG Compared to ECG 07/24/2024 12:44:58 NO SIGNIFICANT CHANGE Electronically Signed On 07-25-2024 08:05:56 MEDICAL ADMINISTRATOR by Elmer Jimenes D.O.
[2024-07-24] MEDS: levETIRAcetam 1000MG/NACL100ML 1,000 MG/100 ML BAG 400 MG IVPB (19:24)
--- NOTE | 2024-07-24 20:45 | PC.NURSE ---
This RN spoke with phlebotomy and they state they were unsuccessful drawing pt 3 hr troponin.
--- NOTE | 2024-07-24 22:00 | PC.NURSE ---
[facility] called ED rn unit manager and pushed back ETA to 0015 due to 911 calls. Pt and family notified.
--- NOTE | 2024-07-24 23:39 | PC.NURSE ---
Pt son called ED to speak with this RN on status of transportation for pt to go to [facility]. This RN told pt son the same thing stated with pt at bedside that [facility] has to prioritize 911 calls before pt transfer. This RN explained to pt family that [place] [facility] so they declined the pt transfer leaving us only [place]. This RN explained to pt family that the pt ETA time was pushed back due to 911 calls. 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 The pt son further states Here's what we are going to do...you continue taking care of my dad and I am going to get a hold of my trust and estates attorney . This RN explained it is their right to be upset and apologizes for the wait but we have no control over what [facility] transfer process is or what they tell us their ETA is. We have no control over 911 calls. This RN explains to pt family we can continue to make pt comfortable here and monitoring the pt but we have done everything on our end for this transfer process. This RN has spoke with pt RN that will be taking care of him at [facility]. This RN gave report to that RN. This RN has filled out all transfer paperwork. This RN has changed and cleaned up pt. This RN has received conset from pt family about the transfer. This pt has a bed and room ready for him whenever [facility] can take pt over to [facility]. Pt states you need to tell your superior that this process is wrong and you are doing it all wrong and I would like to speak with the conveyor line battery charger . This RN notified conveyor line battery charger Ella.
[2024-07-25] VITALS: PULSE 78; RESP 13
[2024-07-25 00:15] VITALS: PULSE 79; RESP 14
--- NOTE | 2024-07-25 00:15 | PC.NURSE ---
[facility] calls to ED litigation legal secretary stating new ETA is 0115. Pt and family notified.
--- NOTE | 2024-07-25 01:15 | PC.NURSE ---
[facility] called to ED hoop punch and coiler operator and states the new ETA for transfer is 0330. Pt and family is notified.
--- NOTE | 2024-07-25 01:44 | PC.NURSE ---
[facility] @ 2014 and they declined transport. Cd [facility] @ 2017 and they declined for no resources. Cd [facility] @ 2336 and declined for no resources. Cd [facility] @ 2333 and per supervisor tank house transport was declined.
[2024-07-25 02:23] VITALS: BP 173/99; PULSE 79; RESP 18; O2SAT 96
== END 2024-07-25 04:34 | disposition short-term general hospital (02) ==
PROVIDERS: Emergency Provider Emergency Medicine; PCP Family Medicine
DX: N17.9 Acute kidney failure, unspecified (principal); R56.9 Unspecified convulsions; E87.6 Hypokalemia; R79.89 Other specified abnormal findings of blood chemistry; U07.1 COVID-19; I10 Essential (primary) hypertension; E78.5 Hyperlipidemia, unspecified; Z85.46 Personal history of malignant neoplasm of prostate; G30.9 Alzheimer's disease, unspecified; F02.80 Dementia in other diseases classified elsewhere, unspecified severity, without behavioral disturbance, psychotic disturbance, mood disturbance, and anxiety; Z90.79 Acquired absence of other genital organ(s); Z98.49 Cataract extraction status, unspecified eye; J32.9 Chronic sinusitis, unspecified; R09.89 Other specified symptoms and signs involving the circulatory and respiratory systems; Z79.899 Other long term (current) drug therapy
CPT/HCPCS: 36415; 70450; 71045; 74177; 80053; 80307; 81001; 82077; 83605; 84484; 85025; 85610; 85730; 87637; 93005; 96365; 96366; 96375; 99285; J1953; J3480; J7030; J7040; Q9967

== ENCOUNTER 2024-08-13 10:19 | Inpatient (IN) | payer MEDICARE, SELFPAY ==
[2024-08-13] VITALS (28 sets, daily range): BP systolic 100–157; BP diastolic 63–111; PULSE 54–88; RESP 10–22; TEMP 36.3–36.6; O2SAT 92–100; BMI 23.9; BMI 23.6
--- NOTE | ~2024-08-13 | XR_ITS ---
EXAMINATION: XR chest 1V portable Exam Date/Time: 08/16/2024 22:05 CDT HISTORY: r/o aspiration Comparison: 07/24/2024. RESULT: Lines, tubes, and devices: None. Lungs and pleura: Segmental left medial basilar opacity. Mild left costophrenic angle blunting. Cardiomediastinal silhouette: Stable. Other: Multiple loops of gas-distended bowel in the upper abdomen. IMPRESSION: Segmental left medial basilar opacity may represent atelectasis or pneumonia, to include aspiration. Possible small left pleural effusion. Multiple loops of dilated bowel in the upper abdomen. Reviewed, dictated and finalized at location K. IMPRESSION: Segmental left medial basilar opacity may represent atelectasis or pneumonia, t o include aspiration. Possible small left pleural effusion. Multiple loops of d ilated bowel in the upper abdomen.
--- NOTE | ~2024-08-13 | CT_ITS ---
EXAMINATION: CT brain wo con DATE: 08/13/2024 13:42 INDICATION: Syncope TECHNIQUE: Computed tomography (CT) of the head was performed without intravenous contrast. Sagittal and coronal reconstructions were performed. The mA was adjusted according to patient size. Iterative reconstruction technique was employed. The dose-length product was 605.33 mGy-cm. COMPARISON: head CT dated 07/24/2024 FINDINGS: There is residual contrast in the dural sinuses from the contrast enhanced CT performed an hour and a half prior. There is hough matter enhancement along multiple gyri in the bilateral parietal lobes, ri ght greater than left previously seen in the setting subacute infarct. The distribution suggests poss ible watershed infarcts in the setting of hypertension. No acute intracranial hemorrhage, acute infar ction or abnormal extra axial fluid collection. There is moderate scattered white matter hypoattenuat ion consistent with chronic small vessel ischemic disease. Ventricles are normal and symmetric. No m ass/mass effect. Changes of bilateral intraocular lens replacement. The orbits and mastoid air cells are normal. Mucosal thickening in the bilateral ethmoid and maxillary sinuses with dependent mucus in the bilateral maxillary sinuses which can be seen with acute sinusitis. IMPRESSION: 1. Cortical hough matter enhancement along the gyri in the bilateral parietal lobes, right or left samantha picious for subacute infarcts. The distribution suggests possibility of watershed infarcts in the set ting of hypotension. 2. Moderate scattered white matter hypoattenuation consistent with chronic small vessel ischemic dise ase. 3. Ongoing sinus disease with new dependently layering mucus in the bilateral maxillary sinuses. Reviewed, dictated and finalized at location B. 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 Cortical hough matter enhancement along the gyri in the bilateral parietal lo bes, right or left suspicious for subacute infarcts. The distribution suggests possibility of watershed infarcts in the setting of hypotension. 2. Moderate scattered white matter hypoattenuation consistent with chronic smal l vessel ischemic disease. 3. Ongoing sinus disease with new dependently layering mucus in the bilateral m axillary sinuses.
--- NOTE | ~2024-08-13 | CT_ITS ---
EXAMINATION: CT chest abdomen pelvis w con DATE: 08/13/2024 12:06 INDICATION: Chest wall injury. Syncope. TECHNIQUE: Computed tomography (CT) of the chest, abdomen, and pelvis was performed with 100 mL Omnip aque 350 intravenous contrast. Automated exposure control and iterative reconstruction technique were employed. The dose-length product was 991.55 mGy-cm. COMPARISON: CT abdomen and pelvis 07/24/2024 FINDINGS: CHEST CT: The lungs demonstrate mild atelectasis. There is a trace left pleural effusion. Cardiomegaly is noted . No pericardial effusion. There is a large sliding hiatal hernia. There is a 7 mm nodule in the thyr oid, likely not clinically significant. ABDOMEN/PELVIS CT: There is a portal venous shunt in right hepatic lobe. There are cysts in the liver measuring up to 7 mm. The gallbladder, spleen, pancreas, and adrenal glands are normal. There are cysts in the kidneys measuring up to 4.2 cm on the left. There is a 3 mm stone in right kidney. The rectosigmoid is disten ded, consistent with adynamic ileus. The appendix is normal. There is a 3.6 x 1.7 cm rim-calcified se ghassan in right rectus abdominis muscle. There are surgical clips from prostatectomy. There is a right inguinal hernia containing fat. There are no pathologically enlarged lymph nodes. There is an umbilic al hernia containing fat. There is severe lower lumbar spondylosis. IMPRESSION: 1. Large sliding hiatal hernia. 2. Distended rectosigmoid, consistent with adynamic ileus. Reviewed, dictated and finalized at location A. 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
--- NOTE | ~2024-08-13 | XR_ITS ---
EXAMINATION: XR abdomen/kub 1V DATE: 08/16/2024 09:20 INDICATION: Colonic pseudoobstruction. TECHNIQUE: A supine view of the abdomen was obtained. COMPARISON: CT 08/13/2024 FINDINGS: The rectosigmoid is distended. The small bowel is normal in caliber. There are surgical cli ps in the pelvis. IMPRESSION: 1. Distended rectosigmoid, consistent with adynamic ileus. Reviewed, dictated and finalized at location B.
--- NOTE | 2024-08-13 10:31 | ECG_ITS ---
Test Date: 2024-08-13 12:50:25 Measurements Intervals [place] Rate: 78 P: 77 [place]: 169 QRS: 41 QRSD: 91 T: -19 QT: 374 QTc: 428 Interpretive Statements SINUS RHYTHM NONSPECIFIC T-WAVE ABNORMALITY ABNORMAL ECG Compared to ECG 07/24/2024 18:34:27 NO SIGNIFICANT DIFFERENCE Electronically Signed On 08-14-2024 15:23:27 SPEECH LANGUAGE SPECIALIST by Dave Gonzalez M.D.
--- NOTE | 2024-08-13 10:36 | ED.GENADULT ---
HPI - General Adult General Chief complaint: Syncope Stated complaint: syncope History of Present Illness HPI narrative: 78-year-old male presents emergency department for evaluation after having a syncopal episode while sitting on the toilet. Patient is unable to provide history but EMS states that they were called due to syncope. When they arrived on scene patient did not have a palpable pulse they did 1 round of chest compressions without medications and then had a bounding pulse. Upon arrival to the emergency department patient is A&O x1 which is his baseline. Patient does complain chest wall tenderness. Patient denies any other complaints. Related Data Home Medications ?Medication ?Instructions ?Recorded ?Confirmed ?Last Taken ?Type polyethylene glycol 3350 17 17 g PO ONCE PRN constipation 11/11/23 08/13/24 Unknown History gram/dose oral powder (Miralax) docusate sodium 100 mg capsule 100 mg PO DAILY 07/24/24 08/13/24 Unknown History (Colace) aspirin 81 mg capsule 81 mg PO DAILY 08/13/24 08/13/24 Unknown History atorvastatin 80 mg tablet (Lipitor) 80 mg PO DAILY 08/13/24 08/13/24 Unknown History clopidogrel 75 mg tablet 75 mg PO DAILY 08/13/24 08/13/24 Unknown History levetiracetam 250 mg tablet 250 mg PO BID 08/13/24 08/13/24 Unknown History (Keppra) Allergies Allergy/AdvReac Type Severity Reaction Status Date / Time No Known Allergies Allergy Verified 08/13/24 14:57 Review of Systems Review of Systems: All systems reviewed & are unremarkable except as noted in HPI and below PMFSH Past Medical History Medical History Dementia of the Alzheimer's type Hyperlipidemia Hypertension Dementia Prostate cancer Surgical History Surgical History History of cataract extraction History of prostatectomy History of penile implant Explanted in September 2023 due to erosion. Family History Family History Sibling Diabetes mellitus Father Hypertension Family history of coronary artery disease Social History Social History Social History: Surrogate medical decision maker: Bobbi Cohen, spouse. Code status: Full code. Smoking status: Former smoker Tobacco type: cigarettes Second hand tobacco smoke exposure: No Alcohol intake: former Substance use: never Substance use type: does not use Do You Feel Safe in your Home?: Yes Lack of Transportation: No Lack of Food: Never True Current Housing: I Have Housing Concerned About Future Housing: No Difficulty Paying Gas/Electric Bills: No Difficulty Paying for Meds: No Currently Unemployed: No Education: Don't Know Difficulty w/ Childcare or Family Care: No Living arrangements: with family Spiritual care concerns: No Agree to blood products: Yes Exam Narrative: APPEARANCE: Alert at his baseline HEAD: normocephalic, atraumatic. EYES: PERRLA/EOMI, conjunctivae clear. NOSE: Normal no drainage EARS:TMS clear with good light reflex. THROAT: Pharynx clear, no exudate. NECK: Supple. No adenopathy, no masses. RESPIRATORY: Airway patent, respirations nonlabored. Clear to auscultation bilaterally, no rales, rhonchi, wheezing. CARDIOVASCULAR: Regular rate and rhythm without murmurs rubs or gallops. ABDOMINAL: Soft, nontender, nondistended, normal bowel sounds MUSCULOSKELETAL: Chest wall tenderness to palpation NEURO: Alert. Cranial nerves II through XII intact. No focal deficit SKIN: Warm, dry. Normal Color Course Vital Signs Vital signs: Vital Signs Temperature 97.9 F 08/13/24 10:21 Pulse Rate 73 08/13/24 10:21 Respiratory Rate 16 08/13/24 10:21 Blood Pressure 100/63 08/13/24 10:21 Pulse Oximetry 97 08/13/24 10:21 Oxygen Delivery Nasal Cannula 08/13/24 10:21 Oxygen Flow Rate 2 08/13/24 10:21 Temperature 97.4 F L 08/13/24 17:30 Pulse Rate 80 08/13/24 18:00 Respiratory Rate 22 H 08/13/24 17:30 Blood Pressure 110/76 08/13/24 17:30 Pulse Oximetry 97 08/13/24 19:55 Oxygen Delivery Room Air 08/13/24 19:55 Oxygen Flow Rate 2 08/13/24 10:21 Fraction of Inspired Oxygen 21 08/13/24 19:55 Medical Decision Making [facility] Narrative Medical decision making narrative: 78-year-old male presenting to the emergency department for evaluation for a syncopal episode. Patient did receive a short course of CPR but was essentially responsive once he was laid prone. Patient did complain of some chest wall tenderness to palpation but CTA showed no acute trauma patient's troponins were not elevated. CT brain does show subacute infarct consistent with a recent stroke that was treated at [facility]. Family feels they are unable to care for the patient at home and they are requesting the patient to be admitted to a correction facility. Differential Diagnosis Differential Diagnosis: COVID, RSV, influenza, ACS, rib fracture, pulmonary contusion, syncope, orthostatic hypotension Vital Signs Vital Signs: Vital Signs Temperature 97.9 F 08/13/24 10:21 Pulse Rate 73 08/13/24 10:21 Respiratory Rate 16 08/13/24 10:21 Blood Pressure 100/63 08/13/24 10:21 Pulse Oximetry 97 08/13/24 10:21 Oxygen Delivery Nasal Cannula 08/13/24 10:21 Oxygen Flow Rate 2 08/13/24 10:21 Temperature 97.4 F L 08/13/24 17:30 Pulse Rate 80 08/13/24 18:00 Respiratory Rate 22 H 08/13/24 17:30 Blood Pressure 110/76 08/13/24 17:30 Pulse Oximetry 97 08/13/24 19:55 Oxygen Delivery Room Air 08/13/24 19:55 Oxygen Flow Rate 2 08/13/24 10:21 Fraction of Inspired Oxygen 21 08/13/24 19:55 Lab Data Lab results reviewed: Yes I reviewed the patient's lab results. 08/13/24 10:39 08/13/24 10:39 Labs: Lab Results 08/13/24 08/13/24 Range/Units 10:39 14:03 WBC 9.7 (4.5-10.0) K/mm3 RBC 4.55 L (4.6-6.20) M/mm3 Hgb 13.8 L (14.0-18.0) g/dL Hct 41.9 L (42.0-52.0) % MCV 92.1 (80-100) fl MCH 30.3 (26-34) pg MCHC 32.9 (32-36) g/dl RDW 15.8 H (11.5-14.5) % Plt Count 145 L (150-375) k/mm3 MPV 11.6 H (7.4-10.4) fl Immature Gran % (Auto) 0.4 (0-0.5) % Neut % (Auto) 74.6 H (45.5-73.1) % Lymph % (Auto) 15.3 L (18.3-44.2) % [place] % (Auto) 6.6 (2.6-8.5) % Eos % (Auto) 2.9 (0-4.4) % Baso % (Auto) 0.2 (0.2-1.2) % Lymph # (Auto) 1.48 (0.9-3.2) K/mm3 [place] # (Auto) 0.6 (0.1-0.6) K/mm3 Eos # (Auto) 0.3 (0-0.3) K/mm3 Baso # (Auto) 0.0 (0.0-0.1) K/mm3 Abs Immat Gran (auto) 0.04 H (0.00-0.031) K/mm3 Absolute Neuts (auto) 7.2 H (1.3-6.7) K/mm3 Absolute Nucleated RBC 0.000 (0.0-0.012) K/mm3 Nucleated RBC % 0.0 (0.0-0.2) % PT 14.9 H (11.1-14.7) Seconds INR 1.1 APTT 28.3 (22.3-36.8) Seconds Sodium 153 H (137-145) mmol/L Potassium 2.6 L* (3.4-5.0) mmol/L Chloride 116 H (98-107) mmol/L Carbon Dioxide 25 (22-30) mmol/L Anion Gap 12 (4-12) mmol/L BUN 32 H D (9-20) mg/dL Creatinine 1.53 H (0.7-1.3) mg/dL Estim Creat Clear Calc Not Reportable Estimated GFR 44 L (59 - ) Glucose 92 (65-110) mg/dL Lactic Acid 2.9 H 1.6 (0.7-2.0) mmol/L Calcium 8.7 (8.4-10.2) mg/dL Magnesium 1.8 (1.6-2.3) mg/dL Total Bilirubin 1.0 (0.2-1.3) mg/dL AST 49 (17-59) U/L ALT 41 (6-50) U/L Alkaline Phosphatase 105 (38-126) U/L Troponin I 0.021 (0.000-0.034) ng/mL NT-Pro-B Natriuret Pep 230 H (19.9-100) pg/mL Total Protein 7.0 (6.3-8.2) g/dL Albumin 3.2 L (3.5-5.1) g/dL ABG Data ABG results: 08/13/24 11:05 Puncture Site Right brachial ABG pH 7.421 ABG pCO2 36.2 ABG pO2 97.9 ABG PO2/FiO2 Ratio 3.50 ABG HCO3 23.0 ABG O2 Saturation 97.6 ABG O2 Content 18.6 ABG Base Excess -1.0 A-a Gradient 59.0 Oxyhemoglobin 96.8 Total Hemoglobin 13.6 O2 Delivery Device Nasal cannula O2 Liters/Min 2.0 FiO2 28 Imaging Data Radiologist's impression: Impressions Chest/Abdomen/Pelvis CT 08/13/24 12:24 IMPRESSION: 1. Large sliding hiatal hernia. 2. Distended rectosigmoid, consistent with adynamic ileus. Head CT 08/13/24 13:43 IMPRESSION: 1. Cortical hough matter enhancement along the gyri in the bilateral parietal lobes, right or left suspicious for subacute infarcts. The distribution suggests possibility of watershed infarcts in the setting of hypotension. 2. Moderate scattered white matter hypoattenuation consistent with chronic small vessel ischemic disease. 3. Ongoing sinus disease with new dependently layering mucus in the bilateral maxillary sinuses. Discharge Plan Discharge Clinical Impression: Syncope and collapse, Chest pain Patient Disposition: Still a Patient Condition: Serious
[2024-08-13 10:48] LABS: Basophils Percent Auto 0.2 % (0.2-1.2); Eosinophils Absolute Auto 0.3 K/mm3 (0-0.3); Eosinophils Percent Auto 2.9 % (0-4.4); Hematocrit 41.9 % (42.0-52.0); Hemoglobin 13.8 g/dL (14.0-18.0); Immature Granulocyte Absolute 0.04 K/mm3 (0.00-0.031); Immature Granulocyte Percent A 0.4 % (0-0.5); Lymphocytes Absolute Auto 1.48 K/mm3 (0.9-3.2); Lymphocytes Percent Auto 15.3 % (18.3-44.2); Mean Corpuscular HGB Conc 32.9 g/dl (32-36); Mean Corpuscular Hemoglobin 30.3 pg (26-34); Mean Corpuscular Volume 92.1 fl (80-100); Mean Platelet Volume 11.6 fl (7.4-10.4); Monocytes Absolute Auto 0.6 K/mm3 (0.1-0.6); Monocytes Percent Auto 6.6 % (2.6-8.5); Neutrophils Absolute Auto 7.2 K/mm3 (1.3-6.7); Neutrophils Percent Auto 74.6 % (45.5-73.1); Platelet Count Result 145 k/mm3 (150-375); Red Blood Count 4.55 M/mm3 (4.6-6.20); Red Cell Distribution Width 15.8 % (11.5-14.5); White Blood Count 9.7 K/mm3 (4.5-10.0)
[2024-08-13 11:06] LABS: Alanine Aminotransferase 41 U/L (6-50); Albumin Level 3.2 g/dL (3.5-5.1); Alkaline Phosphatase 105 U/L (38-126); Anion Gap 12 mmol/L (4-12); Aspartate Amino Transferase 49 U/L (17-59); Blood Urea Nitrogen 32 mg/dL (9-20); Calcium 8.7 mg/dL (8.4-10.2); Carbon Dioxide 25 mmol/L (22-30); Chloride 116 mmol/L (98-107); Estimated Glomerular Filt Rate 44; Glucose 92 mg/dL (65-110); Magnesium 1.8 mg/dL (1.6-2.3); Potassium 2.6 mmol/L (3.4-5.0); Sodium 153 mmol/L (137-145)
[2024-08-13 11:08] LABS: Lactic Acid Reflex 2.9 mmol/L (0.7-2.0)
[2024-08-13] MEDS: LACTATED RINGERS 1,000 ML 999 ML IV CONT (11:20)
[2024-08-13 11:23] LABS: NT Pro B Type Natriuretic Pept 230 pg/mL (19.9-100); Troponin I 0.021 ng/mL (0.000-0.034)
[2024-08-13 11:25] LABS: Partial Thromboplastin Time 28.3 Seconds (22.3-36.8)
--- OUTSIDE RECORDS SUMMARY | 2024-08-13 11:38 | XMS_ITS | Continuity of Care Document ---
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 Name Role Phone Unavailable Primary Care Physician Unavailab le Encounter(s) 07/28/24 [facility] and [address] [id number]- Attending Physician: Iqra Noland Admitting Physician: Iqra Noland Allergies, Adverse Reactions, Alerts Substance Criticality Severity Reaction Reaction Severity Status No Known Allergies A ctive Assessment and Plan Extracted from: Title:Clinical Document Author:Aidan Chong Date:08/10/24 PHYSIATRY (PM&R) PROGRESS NO TE SMALL APPLIANCE ASSEMBLY SUPERVISOR: TERA Bacon PLACE OF SERVICE: [facility] PATIENT NAME: Lamont Cohen DATE OF : 1945 DATE OF SERVICE: 08/10/2024 CHIEF COMPLAINT: Mobility and ADL deficits secondary to weakness, fatigue, seizure. HISTORY OF PRESENT ILLNESS UPON ADMISSION: Patient is a 78 y/o male. Relevant PMH includes hypertension, hyperlipidemia, Alzheimer's dementia, prostate cancer, who was admitted to [facility] for care home and rehabilitation secondary to deficits in mobility and ADL s . Patient presented to the ED with his family due to seizure-like activity. Neurology was consulted. 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 Patient was started on Keppra. Recommending SNF for PT and OT. The HPI was obtained through chart review and my patient visit. PAST MEDICAL HISTORY: Hypertension, hyperlipidemia, Alzheimer's dementia, prostate cancer. SUBJECTIVE: The patient s plan and progress was discussed with nursing staff and therapy. Patient has been participating in therapy. Patient exhibits no signs and symptoms of distress. Patient denies chest pain, pressure tightness, heaviness, nausea, vomiting, fever, chills or shortness of breath at this time. MEDICATIONS: As per MAR/EMR. LABS/IMAGING: Reviewed in EMR. CURRENT FUNCTIONAL STATUS: Bed mobility mod, rolling mod, supine to sit min, sit to supine mod, transfer mod, [id number] mod, stand pivot DNT, standing mod, bed DNT, wheelchair mod. Level surfaces max, assistive device FWW, max verbal and tactile cues. [id number] from wheelchair requiring max assist, standing balance with BUE support and min assist attempted to engage in taking steps with patient pushing the walker away and not stepping into it. PFSH/ROS: Unchanged from initial encounter unless otherwise noted in Subjective above. Otherwise, 10 systems were reviewed and were negative. PHYSICAL EXAMINATION: Vitals: Blood pressure 112/60, heart rate 69, temperature 97.8, respiratory rate 18, O2 sat 96%. Constitutional: Patient alert, exhibits no signs and symptoms of distress or discomfort. Sitting up in a wheelchair at this time. Psych: A&Ox1 with appropriate mood and appropriate behavior. Cardiac: No swelling observed. Respiratory: Normal respiratory effort; no accessory muscle use. LCTA. GI/: Abdomen soft, nondistended, nontender to palpation. No lopez catheter present. No suprapubic tenderness. Skin: No skin lesions or rashes noted in b/l UE and LE. Neuro: Due to cognition, patient is at times able to follow commands and at times not. Dysphagia followed by speech therapy. No facial droop. Good coordination in all extremities. Normal reflexes and no focal sensation intact to light touch. Musculoskeletal Exam: Inspection: No asymmetry, masses, or effusions of b/l UE and LE. Tone: Normal tone in b/l UE and LE. Stability: Joints are stable with no joint laxity or subluxation. Palpation: No tenderness to palpation of b/l UE and LE. Range of Motion: Functional ROM in b/l UE, functional ROM in b/l LE. Muscle Strength: BUE 3/5, BLE 3+/5. Gait: Not observed. ASSESSMENT & PLAN: 1) ADL and mobility dysfunction secondary to weakness, fatigue, seizure. 2) The patient will continue with their skilled therapy services. Services may include PT/OT/PAYROLL COORDINATOR with the goal of increasing strength, endurance, self-care abilities, neuromotor training, and functional mobility training. 3) Deconditioning/Gait Instability: Patient is high risk for functional impairment without therapy and adequate pain control. 4) Seizures: Continue current medication regimen. Stable at this time. 5) Asthma: Continue current medication regimen. Patient stable at this time. Followed by an in-house RT. 6) Alzheimer's/dementia without behavioral disturbances: Stable at this time. Continue current medication regimen. 7) Fall risk: Continue safety measures. Patient stable at this time. 8) Dysphagia: Followed by PAYROLL COORDINATOR aspiration precaution. . 9) Pain: Patient s pain is currently controlled. Continue current pain medications. 10) Bowel & Bladder Management: Will continue to monitor in conjunction with nursing team; will discuss any issues identified with internal medicine. 11) Medical comorbidities continue to be managed by primary care team. Patient will continue medications per primary care team. Labs, previous imaging, relevant previous records, and therapy notes were reviewed. Patient s rehab and medical needs were discussed with nursing staff and therapy. Discharge planning/Disposition: Will continue discussion with the therapy team, family, and rn social work. Will further determine as rehab progresses. Will follow the patient throughout rehabilitation course to manage rehabilitation and any barriers to therapies. Patient's goal is to return home with spouse. Patient will possibly be discharged home with spouse with home health. Please do not hesitate to contact me with any questions. TERA Bacon Please note this dictation was completed with voice recording software. Unanticipated grammatical and interpretive errors may have been inadvertently transcribed. Please contact the ticket writer for any clarification. Extracted from: Title:Clinical Document Author:Humza Rosales [place] Date:08/09/24 Resident and were prese nt while rn social work presented [facility]. Resident's would like to take the resident back their home in the community with home health services. Extracted from: Title:Clinical Document Author:Humza Rosales [place] Date:08/06/24 Resident and rn social work m et to discuss discharge options. Resident's is not able to care for her at the home around the clock without the help of paid supports. Mrs. Cohen was given pamphlets regarding memory care facilities local to her. She is familiar with [facility] in [place] and would like to explore them as an option. When official discharge planning occurs Mrs. Cohen would like to explore them as an option. Extracted from: Title:Clinical Document Author:Aidan Chong Date:08/05/24 PHYSIATRY (PM&R) PROGRESS NO TE SMALL APPLIANCE ASSEMBLY SUPERVISOR: TERA Bacon PLACE OF SERVICE: [facility] PATIENT NAME: Lamont Cohen DATE OF : 1945 DATE OF SERVICE: 08/05/2024 CHIEF COMPLAINT: Mobility and ADL deficits secondary to weakness, fatigue, seizure. HISTORY OF PRESENT ILLNESS UPON ADMISSION: Patient is a 78 y/o male. Relevant PMH includes hypertension, hyperlipidemia, Alzheimer's dementia, prostate cancer, who was admitted to [facility] for care home and rehabilitation secondary to deficits in mobility and ADL s . Patient presented to the ED with his family due to seizure-like activity. Neurology was consulted. 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 Patient was started on Keppra. Recommending SNF for PT and OT. The HPI was obtained through chart review and my patient visit. PAST MEDICAL HISTORY: Hypertension, hyperlipidemia, Alzheimer's dementia, prostate cancer. SUBJECTIVE: The patient s plan and progress was discussed with nursing staff and therapy. Patient has been participating in therapy. Patient exhibits no signs and symptoms of distress. Patient denies any chest pain, shortness of breath, abdominal pain, nausea or vomiting at this time. MEDICATIONS: As per MAR/EMR. LABS/IMAGING: Reviewed in EMR. CURRENT FUNCTIONAL STATUS: Transfer max assist, [id number] max assist. Patient ambulated with a FWW, min assist 25 feet. PFSH/ROS: Unchanged from initial encounter unless otherwise noted in Subjective above. Otherwise, 10 systems were reviewed and were negative. PHYSICAL EXAMINATION: Vitals: Reviewed at time of exam. Constitutional: Patient is currently in the PT gym participating in OT at this time. Patient exhibits no signs and symptoms of distress or discomfort. Psych: A&Ox1 with appropriate mood and appropriate behavior. Cardiac: No swelling observed. Respiratory: Normal respiratory effort; no accessory muscle use. LCTA. GI/: Abdomen soft, nondistended, nontender to palpation. No lopez catheter present. No suprapubic tenderness. Skin: No skin lesions or rashes noted in b/l UE and LE. Neuro: Due to cognition, patient is at times able to follow commands and at times not. Dysphagia followed by speech therapy. No facial droop. Good coordination in all extremities. Normal reflexes and no focal sensation intact to light touch. Musculoskeletal Exam: Inspection: No asymmetry, masses, or effusions of b/l UE and LE. Tone: Normal tone in b/l UE and LE. Stability: Joints are stable with no joint laxity or subluxation. Palpation: No tenderness to palpation of b/l UE and LE. Range of Motion: Functional ROM in b/l UE, functional ROM in b/l LE. Muscle Strength: BUE 3/5, BLE 3+/5. Gait: Not observed. ASSESSMENT & PLAN: 1) ADL and mobility dysfunction secondary to weakness, fatigue, seizure. 2) The patient will continue with their skilled therapy services. Services may include PT/OT/PAYROLL COORDINATOR with the goal of increasing strength, endurance, self-care abilities, neuromotor training, and functional mobility training. 3) Deconditioning/Gait Instability: Patient is high risk for functional impairment without therapy and adequate pain control. 4) Seizures: Continue current medication regimen. Stable at this time. 5) Asthma: Continue current medication regimen. Patient stable at this time. Followed by an in-house RT. 6) Alzheimer's/dementia without behavioral disturbances: Stable at this time. Continue current medication regimen. 7) Fall risk: Continue safety measures. Patient stable at this time. 8) Dysphagia: Followed by PAYROLL COORDINATOR aspiration precaution. . 9) Pain: Patient s pain is currently controlled. Continue current pain medications. 10) Bowel & Bladder Management: Will continue to monitor in conjunction with nursing team; will discuss any issues identified with internal medicine. 11) Medical comorbidities continue to be managed by primary care team. Patient will continue medications per primary care team. Labs, previous imaging, relevant previous records, and therapy notes were reviewed. Patient s rehab and medical needs were discussed with nursing staff and therapy. Discharge planning/Disposition: Will continue discussion with the therapy team, family, and rn social work. Will further determine as rehab progresses. Will follow the patient throughout rehabilitation course to manage rehabilitation and any barriers to therapies. Patient's goal is to return home with spouse. Please do not hesitate to contact me with any questions. TERA Bacon Please note this dictation was completed with voice recording software. Unanticipated grammatical and interpretive errors may have been inadvertently transcribed. Please contact the ticket writer for any clarification. Extracted from: Title:Clinical Document Author:Felicitas Gordon Date:08/03/24 [facility] PROGRESS NOTE Lamont Cohen is a 78 YO M at [facility] for rehabilitation. Subjective: Interval History: Patient is being seen today for a routine skilled visit. Patient is sitting up to his WC in his room at the time of exam; is also present. Appears to be sleeping, but easily awoken. Review of Systems: A 14 point comprehensive review of systems was negative except what is documented in interval history above. Objective: Exam: Vital Signs: Vital signs were reviewed in the facility EMR and were stable General: Well developed, well nourished, in no distress, appears sleepy Skin: Normal appearance, normal turgor, no rashes HEENT: Normocephalic, atraumatic, no flaring Eyes: nonicteric, intact extra ocular movement, PERRL Neck: normal, supple, no lymphadenopathy Heart: regular rate and rhythm, S1, S2 normal, no murmur, click, rub or gallop Lungs: clear to auscultation, normal respirations, normal precautions Abdominal: soft, non-tender; bowel sounds normal; no masses, no organomegaly Extremities: no deformities, joint mobility appears intact, no clubbing Neuro: Non-focal, CN intact, sensory and motor intact Psychological: disoriented x 3 - only oriented to self/, unable to assess judgement/memory Lab Results: The most recent lab results were reviewed. Imaging: N/A Assessment/Plan: Generalized weakness and physical deconditioning PT/OT to regain strength, balance, mobility supportive care Seizures/Stroke Neurology started Keppra and recommended to continue Lipitor and ASA Plavix x 20 days continue PT/OT Dysphagia speech recommended no need for MBS continue [facility] soft diet with thin liquids and crushed pills per hospital PAYROLL COORDINATOR recommendations 1:1 assist for feeding Chronic ileus per [facility] notes: [facility] documented a chronic large bowel ileus continue home regimen: Miralax, Colace, Simethicone and Bisacodyl Alzheimer's dementia continue Memantine supportive care By: Felicitas Gordon, GLOVE TAGGER-C Extracted from: Title:Clinical Document Author:Obdulio Carlson Pharmacist Date:07/29/24 Pharmacy Progress Note Based upon the information available at the time of the review, and assuming the accuracy and completeness of such information, it is my professional judgement that at such time, the resident s medication regimen contained no new irregularities Diagnostic Tests Pending * Basic Met Pnl Incl GFR (BMP) * ([facility]) 08/09/24 * CBC w/Diff *([facility]) 08/09/24 Functional Status 08/11/24 Behaviors Exhibited Calm, Cooperative Interventions Used to Alter Behavior Com fort and compassion 08/04/24 Affect/Behavior Cooperative 07/28/24 Recent Travel History No recent travel Family Member Travel History No recent t ravel Other Exposure to Infectious Disease Unk nown Results Laboratory List Name Date Ongoing Evaluation Skilled Services Ongoing Evaluation Skilled Services Most recent to oldest [Reference Range]: 1 2 Urine Color Urine Dipstick Yellow (08/11/24 7:40 PM) Yellow (08/08/24 9:00 PM) Urine Appearance Urine Dipstick Clear (08/11/24 7:40 PM) Clear (08/08/24 9:00 PM) Vital Signs Most recent to oldest [Reference Range]: 1 Blood Pressure [90-120/60-80 mmHg] 137/6 0mmHg *HI* (08/11/24 3:11 PM) Temperature Axillary [95.9-97.34 DegF] 9 7.3 DegF (08/08/24 9:17 AM) Peripheral Pulse Rate [60-100 bpm] 72 bp m (08/11/24 3:11 PM) Respiratory Rate [14-20 br/min] 18 br/mi n (08/11/24 3:11 PM) Mean Arterial Pressure, Cuff [70-110 mmH g] 98 mmHg (07/28/24 7:21 PM) Temperature Infrared [96.44-98.42 DegF] 98 DegF (08/11/24 3:11 PM) Weight Measured-lbs 177.8 lb (08/10/24 2:11 PM) Social History Social History Type Response Smoking Status Never (less than 100 in lifetime); Type: Cigarettes entered on: 07/28/24 Sex Sex Representation Male (finding) Hospital Discharge Instructions Patient Education 08/12/2024 09:14:44 Alzheimer's Disease Alzheimer's Disease Alzheimer's disease is a brain disease that affects memory, thinking, language, and behavior. People with Alzheimer's disease lose mental abilities, and the disease gets worse over time. Alzheimer's disease is a form of dementia. What are the causes? This condition develops when a protein called beta-amyloid forms deposits in the brain. It is not known what causes these deposits to form. Alzheimer's disease may also be caused by a gene mutation that is inherited from one parent or bothparents. A gene mutation is a harmful change in a gene. Not everyone who inherits the genetic mutation will get the disease. What increases the risk? You are more likely to develop this condition if you: ??? Are older than age 65. ??? Are female. ??? Have any of these medical conditions: ??? High blood pressure. ??? Diabetes. ??? Heart or blood vessel disease. ??? Smoke. ??? Have obesity. ??? Have had a brain injury. ??? Have had a stroke. ??? Have a family history of dementia. What are the signs or symptoms? Symptoms of this condition may happen in three stages, which often overlap. Early stage In this stage, you may continue to be independent. You may still be able to drive, work, and be social. Symptoms in this stage include: ??? Minor memory problems, such as forgetting a name, words, or what you did recently. ??? Difficulty with: ??? Paying attention. ??? Communicating. ??? Doing familiar tasks. ??? Problem solving or doing calculations. ??? Following instructions. ??? Learning new things. ??? Anxiety. ??? Social withdrawal. ??? Loss of motivation. Moderate stage In this stage, you will start to need care. Symptoms in this stage include: ??? Difficulty with expressing thoughts. ??? Memory loss that affects daily life. This can include forgetting: ??? Recent events that have happened. ??? If you have taken medicines or eaten. ??? Familiar places. You may get lost while walking or driving. ??? To pay bills or manage finances. ??? Personal hygiene such as bathing or using the bathroom. ??? Confusion about where you are or what time it is. ??? Difficulty in judging distance. ??? Changes in personality, mood, and behavior. You may be gould, irritable, angry, frustrated, fearful, anxious, or suspicious. ??? Poor reasoning and judgment. ??? Delusions or hallucinations. ??? Changes in sleep patterns. Severe stage In the final stage, you will need help with your personal care and daily activities. Symptoms in this stage include: ??? Worsening memory loss. ??? Personality changes. ??? Loss of awareness of your surroundings. ??? Changes in physical abilities, including the ability to walk, sit, and swallow. ??? Difficulty in communicating. ??? Inability to control your bladder and bowels. ??? Increasing confusion. ??? Increasing behavior changes. How is this diagnosed? This condition is diagnosed by a health care provider who specializes in diseases of the nervous system (neurologist) or one who specializes in care of the elderly (assistant pressman or geriatric psychiatrist). Other causes of dementia may also be ruled out. Your health care provider will talk with you and your family, friends, or caregivers about your history and symptoms. A thorough medical history will be taken, and you will have a physical exam and tests. Tests may include: ??? Lab tests, such as blood or urine tests. ??? Imaging tests, such as a CT scan, a PET scan, or an MRI. ??? A lumbar puncture. This test involves removing and testing a small amount of the fluid that surrounds the brain and spinal cord. ??? An electroencephalogram (EEG). In this test, small metal discs are used to measure electrical activity in the brain. ??? Memory tests, cognitive tests, and neuropsychological tests. These tests evaluate brain function. ??? Genetic testing. This may be done if you have early onset of the disease (before age 60) or if other family members have the disease. How is this treated? At this time, there is no treatment to cure Alzheimer's disease or stop it from getting worse. The goals of treatment are: ??? To manage behavioral changes. ??? To provide you with a safe environment. ??? To help manage daily life for you and your caregivers. The following treatment options are available: ??? Medicines. Medicines may help the memory work better and manage behavioral symptoms. ??? Cognitive therapy. Cognitive therapy provides you with education, support, and memory aids. It is most helpful in the early stages of the condition. ??? Counseling or spiritual guidance. It is normal to have a lot of feelings, including anger, relief, fear, and isolation. Counseling and guidance can help you deal with these feelings. ??? Caregiving. This involves having caregivers help you with your daily activities. ??? Family support groups. These provide education, emotional support, and information about community resources to family members who are taking care of you. Follow these instructions at home: Medicines ??? Take ghvv-[id number]-[id number] and prescription medicines only as told by your health care provider. ??? Use a pill organizer or pill reminder to help you manage your medicines. ??? Avoid taking medicines that can affect thinking, such as pain medicines or sleeping medicines. Lifestyle ??? Make healthy lifestyle choices: ??? Be physically active as told by your health care provider. Regular exercise may help improve symptoms. ??? Do not use any products that contain nicotine or tobacco, such as cigarettes, e-cigarettes, andchewing tobacco. If you need help quitting, ask your health care provider. ??? Do not drink alcohol. ??? Eat a healthy diet. ??? Practice stress-management techniques when you get stressed. ??? Stay social. ??? Drink enough fluid to keep your urine pale yellow. ??? Make sure to get quality sleep. ??? Avoid taking long naps during the day. Take short naps of 30 minutes or less if needed. ??? Keep your sleeping area dark and cool. ??? Avoid exercising during the few hours before you go to bed. ??? Avoid caffeine products in the afternoon and evening. General instructions ??? Work with your health care provider to determine what you need help with and what your safety needs are. ??? If you were given a bracelet that identifies you as a person with memory loss or tracks your location, make sure to wear it at all times. ??? Talk with your health care provider about whether it is safe for you to drive. ??? Work with your family to make important decisions, such as advance directives, medical power ofattorney, or a living will. ??? Keep all follow-up visits. This is important. Where to find more information ??? The Alzheimer's Association: Call the -hour helpline at , or visit www.alz.org Contact a health care provider if: ??? You have nausea, vomiting, or trouble with eating related to a medicine. ??? You have worsening mood or behavior changes, such as depression, anxiety, or hallucinations. ??? You or your family members become concerned for your safety. Get help right away if: ??? You become less responsive or are difficult to wake up. ??? Your memory suddenly gets worse. ??? You feel that you want to harm yourself. If you ever feel like you may hurt yourself or others, or have thoughts about taking your own life,get help right away. Go to your nearest emergency department or: ??? Call your local emergency services (911 in the [place] ??? Call a suicide crisis helpline, such as the National Suicide Prevention Lifeline at or 230 in the [place] This is open 24 hours a day in the [place] ??? Text the Crisis Text Line at 112717 (in the [place] Summary ??? Alzheimer's disease is a brain disease that affects memory, thinking, language, and behavior. Alzheimer's disease is a form of dementia. ??? This condition is diagnosed by a specialist in diseases of the nervous system (neurologist) or one who specializes in care of the elderly. ??? At this time, there is no treatment to cure Alzheimer's disease or stop it from getting worse. The goal of treatment is to help you manage any symptoms. ??? Work with your family to make important decisions, such as advance directives, medical power ofattorney, or a living will. This information is not intended to replace advice given to you by your health care provider. Make sure you discuss any questions you have with your health care provider. Document Revised: 12/19/2021 Document Reviewed: 09/11/2020 Else[employer] Patient Education ?? 2021 [employer] 08/12/2024 09:14:37 Alzheimer's Disease Caregiver Guide, [id number] Alzheimer's Disease Caregiver Guide Alzheimer's disease is a condition that makes a person: ??? Forget things. ??? Act differently. ??? Have trouble paying attention and doing simple tasks. These things get worse with time. The tips below can help you care for the person. How to help manage lifestyle changes Tips to help with symptoms ??? Be calm and patient. ??? Give simple, short answers to questions. ??? Avoid correcting the person in a negative way. ??? Try not to take things personally, even if the person forgets your name. ??? Do not argue with the person. This may make the person more upset. Tips to lessen frustration ??? Make appointments and do daily tasks when the person is at his or her best. ??? Take your time. Simple tasks may take longer. Allow plenty of time to complete tasks. ??? Limit choices for the person. ??? Involve the person in what you are doing. ??? Keep things organized: ??? Keep a daily routine. ??? Organize medicines in a pillbox for each day of the week. ??? Keep a calendar in a central location to remind the person of meetings or other activities. ??? Avoid new or crowded places, if possible. ??? Use simple words, short sentences, and a calm voice. Only give one direction at a time. ??? Buy clothes and shoes that are easy to put on and take off. ??? Try to change the subject if the person becomes frustrated or angry. Tips to prevent injury ??? Keep floors clear. Remove rugs, magazine racks, and floor lamps. ??? Keep hallways well-lit. ??? Put a handrail and non-slip mat in the bathtub or shower. ??? Put childproof locks on cabinets that have dangerous items in them. These items include medicine, alcohol, guns, toxic cleaning items, sharp tools, matches, and lighters. ??? Put locks on doors where the person cannot see or reach them. This helps keep the person from going out of the house and getting lost. ??? Be ready for emergencies. Keep a list of emergency phone numbers and addresses close by. ??? Remove car keys and lock garage doors so that the person does not try to drive. ??? Bracelets may be worn that track location and identify the person as having memory problems. This should be worn at all times for safety. Tips for the future ??? Discuss financial and legal planning early. People with this disease have trouble managing their money as the disease gets worse. Get help from a professional. ??? Talk about advance directives, safety, and daily care. Take these steps: ??? Create a living will and choose a power of civil attorney. This is someone who can make decisions forthe person with Alzheimer's disease when he or she can no longer do so. ??? Discuss driving safety and when to stop driving. The person's doctor can help with this. ??? If the person lives alone, make sure he or she is safe. Some people need extra help at home. Other people need more care at a residential or care center. How to recognize changes in the person's condition With this disease, memory problems and confusion slowly get worse. In time, the person may not knowhis or her friends and family members. The disease can also cause changes in behavior and mood, such as anxiety or anger. The person may see, hear, taste, smell, or feel things that are not real (hallucinate). These changes can come on all of a sudden. They may happen in response to something such as: ??? Pain. ??? An infection. ??? Changes in temperature or noise. ??? Too much stimulation. ??? Feeling lost or scared. ??? Medicines. Where to find support ??? Find out about services that can provide short-term care (respite care). These can allow you totake a break when you need it. ??? Join a support group near you. These groups can help you: ??? Learn ways to manage stress. ??? Share experiences with others. ??? Get emotional comfort and support. ??? Learn about caregiving as the disease gets worse. ??? Know what community resources are available. Where to find more information ??? Alzheimer's Association: www.alz.org Contact a doctor if: ??? The person has a fever. ??? The person has a sudden behavior change that does not get better with calming strategies. ??? The person is not able to take care of himself or herself at home. ??? You are no longer able to care for the person. Get help right away if: ??? The person has a sudden increase in confusion or new hallucinations. ??? The person threatens you or anyone else, including himself or herself. Get help right away if you feel like your loved one may hurt himself or herself or others, or has thoughts about taking his or her own life. Go to your nearest emergency room or: ??? Call your local emergency services (911 in the [place] ??? Call the National Suicide Prevention Lifeline at or 302 in the [place] This is open24 hours a day. ??? Text the Crisis Text Line at 132813. Summary ??? Alzheimer's disease causes a person to forget things. ??? A person who has this condition may have trouble doing simple tasks. ??? Take steps to keep the person from getting hurt. Plan for future care. ??? You can find support by joining a support group near you. This information is not intended to replace advice given to you by your health care provider. Make sure you discuss any questions you have with your health care provider. Document Revised: 12/19/2021 Document Reviewed: 09/11/2020 [employer] Patient Education ?? 2021 [employer] Pharmacology Progress note * Obdulio Carlson Pharmacist: PERFORM Event Display: Pharmacy Progress Note Authored Date: Pharmacy Progress Note Based upon the information available at the time of the review, and assuming the accuracy and completeness of such information, it is my professional judgement that at such time, the resident???s medication regimen contained no new irregularities Electronically Signed on 07/29/2024 11:30 YELLOW P[employer] SPACE SALESPERSON Obdulio Carlson Pharmacist Progress note * Aidan Chong MD: PERFORM Event Display: Progress Note-Physician Authored Date: [id number] PHYSIATRY (PM&R) PROGRESS NOTE SMALL APPLIANCE ASSEMBLY SUPERVISOR: TERA Bacon PLACE OF SERVICE: [facility] PATIENT NAME: Lamont Cohen DATE OF : 1945 DATE OF SERVICE: 08/10/2024 CHIEF COMPLAINT: Mobility and ADL deficits secondary to weakness, fatigue, seizure. HISTORY OF PRESENT ILLNESS UPON ADMISSION: Patient is a 78 y/o male. Relevant PMH includes hypertension, hyperlipidemia, Alzheimer's dementia, prostate cancer, who was admitted to [facility] for care home and rehabilitation secondary to deficits in mobility and ADL???s. Patient presented to the ED with his family due to seizure-like activity. Neurology was consulted. 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 Patient was started on Keppra. Recommending SNF for PT and OT. The HPI was obtained through chart review and my patient visit. PAST MEDICAL HISTORY: Hypertension, hyperlipidemia, Alzheimer's dementia, prostate cancer. SUBJECTIVE: The patient???s plan and progress was discussed with nursing staff and therapy. Patient has been participating in therapy. Patient exhibits no signs and symptoms of distress. Patient denies chest pain, pressure tightness, heaviness, nausea, vomiting, fever, chills or shortness of breath at this time. MEDICATIONS: As per MAR/EMR. LABS/IMAGING: Reviewed in EMR. CURRENT FUNCTIONAL STATUS: Bed mobility mod, rolling mod, supine to sit min, sit to supine mod, transfer mod, [id number] mod, stand pivot DNT, standing mod, bed DNT, wheelchair mod. Level surfaces max, assistive device FWW, max verbal and tactile cues. [id number] from wheelchair requiring max assist, standing balance with BUE support and min assist attempted to engage in taking steps with patient pushing the walker away and not stepping into it. PFSH/ROS: Unchanged from initial encounter unless otherwise noted in Subjective above. Otherwise, 10 systems were reviewed and were negative. PHYSICAL EXAMINATION: Vitals: Blood pressure 112/60, heart rate 69, temperature 97.8, respiratory rate 18, O2 sat 96%. Constitutional: Patient alert, exhibits no signs and symptoms of distress or discomfort. Sitting up in a wheelchair at this time. Psych: A&Ox1 with appropriate mood and appropriate behavior. Cardiac: No swelling observed. Respiratory: Normal respiratory effort; no accessory muscle use. LCTA. GI/: Abdomen soft, nondistended, nontender to palpation. No lopez catheter present. No suprapubic tenderness. Skin: No skin lesions or rashes noted in b/l UE and LE. Neuro: Due to cognition, patient is at times able to follow commands and at times not. Dysphagia followed by speech therapy. No facial droop. Good coordination in all extremities. Normal reflexes and no focal sensation intact to light touch. Musculoskeletal Exam: Inspection: No asymmetry, masses, or effusions of b/l UE and LE. Tone: Normal tone in b/l UE and LE. Stability: Joints are stable with no joint laxity or subluxation. Palpation: No tenderness to palpation of b/l UE and LE. Range of Motion: Functional ROM in b/l UE, functional ROM in b/l LE. Muscle Strength: BUE 3/5, BLE 3+/5. Gait: Not observed. ASSESSMENT & PLAN: 1) ADL and mobility dysfunction secondary to weakness, fatigue, seizure. 2) The patient will continue with their skilled therapy services. Services may include PT/OT/PAYROLL COORDINATOR with the goal of increasing strength, endurance, self-care abilities, neuromotor training, and functional mobility training. 3) Deconditioning/Gait Instability: Patient is high risk for functional impairment without therapy and adequate pain control. 4) Seizures: Continue current medication regimen. Stable at this time. 5) Asthma: Continue current medication regimen. Patient stable at this time. Followed by an in-house RT. 6) Alzheimer's/dementia without behavioral disturbances: Stable at this time. Continue current medication regimen. 7) Fall risk: Continue safety measures. Patient stable at this time. 8) Dysphagia: Followed by PAYROLL COORDINATOR aspiration precaution. . 9) Pain: Patient???s pain is currently controlled. Continue current pain medications. 10) Bowel & Bladder Management: Will continue to monitor in conjunction with nursing team; will discuss any issues identified with internal medicine. 11) Medical comorbidities continue to be managed by primary care team. Patient will continue medications per primary care team. Labs, previous imaging, relevant previous records, and therapy notes were reviewed. Patient???s rehab and medical needs were discussed with nursing staff and therapy. Discharge planning/Disposition: Will continue discussion with the therapy team, family, and rn social work. Will further determine as rehab progresses. Will follow the patient throughout rehabilitation course to manage rehabilitation and any barriers to therapies. Patient's goal is to return home with spouse. Patient will possibly be discharged home with spouse with home health. Please do not hesitate to contact me with any questions. TERA Bacon Please note this dictation was completed with voice recording software. Unanticipated grammatical and interpretive errors may have been inadvertently transcribed. Please contact the ticket writer for any clarification. Electronically Signed on 08/12/2024 08:29 YELLOW PAGES SPACE SALESPERSON Aidan Chong MD munitions worker Progress note * Humza Rosales SSC: PERFORM Event Display: Anhydrous Ammonia Production Supervisor Progress Note* Authored Date: [id number] Resident and were present while rn social work presented [facility]. Resident's would like to take the resident back their home in the community with home health services. Electronically Signed on 08/09/2024 14:33 YELLOW PAGES SPACE SALESPERSON Humza Rosales [facility] [place] Patient Care team information Care Team Related Persons Name: COHENOBEY Insurance Providers Guarantor name: LAMONT COHEN Health Plan Information #: 1 Payer: [facility] [place] Medicare Part A Member Number: NA Policy Number: NA
[2024-08-13 11:46] LABS: INR 1.1; Prothrombin Time 14.9 Seconds (11.1-14.7)
[2024-08-13 11:47] LABS: Fractional Inspired Oxygen 28 %; Oxygen Content ABG 18.6 %vol (16.0-22.0); Oxygen Saturation ABG 97.6 % (95.0-100.0); Oxyhemoglobin 96.8 % THb (90.0-100.0); PCO2 ABG 36.2 mmHg (35.0-45.0); PO2 ABG 97.9 mmHg (80.0-100.0); Total Hemoglobin 13.6 g/dL (12.0-18.0); pH ABG 7.421 (7.350-7.450)
[2024-08-13 11:48] LABS: Device NASAL CANNULA; Site Drawn RIGHT BRACHIAL
[2024-08-13] MEDS: KCL 20 MEQ/SW 100 ML 100 ML 50 MEQ IVPB (12:20)
[2024-08-13 13:45] LABS: Reflex Lactic Acid Yes or No Add Lactic
[2024-08-13 14:24] LABS: Lactic Acid 1.6 mmol/L (0.7-2.0)
--- NOTE | 2024-08-13 14:30 | P.HP_ITS ---
H&P: HPI History of Present Illness Date/Time: 08/13/24 14:30 Chief Complaint: Syncope versus cardiac arrest Narrative: 78-year-old male past medical history of this dementia hypertension hyperlipidemia, and prostate cancer and stroke last month workup at [facility] presents the hospital with syncope versus cardiac arrest. Since discharge from the hospital after acute stroke patient has orthostatic hypot ension. Per the family they were getting him up helping him to the bathroom when he lost consciousness and sat him down on the toilet. When EMS arrived they were unable to feel pulses a gave him CPR for about 2 minutes with the patient becoming responsive. Patient did not receive cardiac medications or need to be intubated afterwards. On bedside exam the patient is awake and talking. Denies chest pain or abdominal pain CT shows new subacute stroke compared to our last imaging however he did have a stroke last month with workup at [facility]. ABG the ED is perfect on 2 L nasal cannula. His potassium is 2.6, sodium 153, BUN 32, creatinine 1.53 no known history of CKD, lactic acid 2.9 with repeat 1.6, troponin 0.021, BNP 230, CT abdomen showed Distended rectosigmoid, consis tent with adynamic ileus. EKG shows sinus rhythm rate 84. Review of Systems Review of Systems: 12 systems were reviewed and are negativ e except for as per HPI. [facility] Past Medical History Medical History Dementia of the Alzheimer's type Hyperlipidemia Hypertension Dementia Prostate cancer Surgical History Surgical History History of cataract extraction History of prostatectomy History of penile implant Explanted in September 2023 due to erosion. Family History Family History Sibling Diabetes mellitus Father Hypertension Family history of coronary artery disease Social History Social History Social History: Surrogate medical decision maker: Bobbi Cohen, spouse. Code status: Full code. Smoking status: Former smoker Tobacco type: cigarettes Second hand tobacco smoke exposure: No Alcohol intake: former Substance use: never Substance use type: does not use Do You Feel Safe in your Home?: Yes Lack of Transportation: No Lack of Food: Never True Current Housing: I Have Housing Concerned About Future Housing: No Difficulty Paying Gas/Electric Bills: No Difficulty Paying for Meds: No Currently Unemployed: No Education: Don't Know Difficulty w/ Childcare or Family Care: No Living arrangements: with family Spiritual care concerns: No Agree to blood products: Yes Meds Home Medications and Allergies Home Medications ?Medication ?Instructions ?Recorded ?Confirmed ?Type bisacodyl 5 mg tablet,delayed 10 mg (2 x 5 mg) PO QAM #1 tablet 10/01/23 08/13/24 Rx release (Laxative (bisacodyl)) simethicone 125 mg capsule (Gas-X 125 mg PO QID #1 cap 10/01/23 08/13/24 Rx Extra Strength) potassium chloride 20 mEq 20 meq PO DAILY #90 tabs 10/13/23 08/13/24 Rx tablet,extended release polyethylene glycol 3350 17 17 g PO ONCE PRN constipation 11/11/23 08/13/24 History gram/dose oral powder (Miralax) potassium chloride 20 mEq oral 20 meq PO DAILY #100 ea 11/11/23 08/13/24 Rx packet memantine 10 mg tablet 10 mg PO BID #180 tabs 03/12/24 08/13/24 Rx ergocalciferol (vitamin D2) 1,250 1,250 mcg PO WEEKLY #12 caps 05/10/24 08/13/24 Rx mcg (50,000 unit) capsule (Vitamin D2) docusate sodium 100 mg capsule 100 mg PO DAILY 07/24/24 08/13/24 History (Colace) aspirin 81 mg capsule 81 mg PO DAILY 08/13/24 08/13/24 History atorvastatin 80 mg tablet (Lipitor) 80 mg PO DAILY 08/13/24 08/13/24 History clopidogrel 75 mg tablet 75 mg PO DAILY 08/13/24 08/13/24 History levetiracetam 250 mg tablet 250 mg PO BID 08/13/24 08/13/24 History (Keppra) Allergies Allergy/AdvReac Type Severity Reaction Status Date / Time No Known Allergies Allergy Verified 08/13/24 14:57 Vital Signs Vital Signs - 24 hr 08/13/24 10:21 08/13/24 10:46 08/13/24 11:01 Temperature 97.9 F Pulse Rate 73 76 67 Respiratory Rate 16 17 14 Blood Pressure 100/63 124/93 H 129/83 Pulse Oximetry 97 98 98 Oxygen Delivery Nasal Cannula Oxygen Flow Rate 2 08/13/24 11:16 08/13/24 11:30 08/13/24 11:31 Temperature Pulse Rate 68 66 68 Respiratory Rate 15 10 L 13 Blood Pressure 143/83 H 148/85 H Pulse Oximetry 96 96 97 Oxygen Delivery Oxygen Flow Rate 08/13/24 11:45 08/13/24 11:46 08/13/24 12:09 Temperature Pulse Rate 66 69 70 Respiratory Rate 12 16 13 Blood Pressure 127/101 H Pulse Oximetry 96 96 96 Oxygen Delivery Oxygen Flow Rate 08/13/24 12:11 08/13/24 12:15 08/13/24 12:16 Temperature Pulse Rate 71 73 74 Respiratory Rate 17 19 16 Blood Pressure 157/81 H 127/96 H Pulse Oximetry 97 97 97 Oxygen Delivery Oxygen Flow Rate 08/13/24 12:36 08/13/24 12:46 Temperature Pulse Rate 82 80 Respiratory Rate 16 19 Blood Pressure 147/85 H 143/71 H Pulse Oximetry 99 99 Oxygen Delivery Oxygen Flow Rate Exam Narrative: General: well appearing, appears stated age. Mumbled speech at baseline HEENT: normocephalic, atraumatic. Mucous membranes moist. EOMI, PERRLA, bilateral sclera anicteric, no conjunctival injection. Neck supple without JVD, lymphadenopathy, or bruit. Respiratory: clear to ascultation bilaterally. No rales/rhonic/wheezes. Cardiovascular: Regular rate and rhythm, normal S1-S2 upon ascultation. No murmurs, rubs, or clicks. PMI is nondisplaced, capillary refill less than 3 second. Abdomen: Soft, round, no pulsatile masses, nondistended and nontender. No rebound, no guarding. No CVA tenderness, no hepatosplenomegaly. Bowel sounds present to all four quadrants. No high pitch or tinkling sounds, resonant to percussion. Extremities: No cyanosis, clubbing, or edema present. Pulses are palpable 2/2. Limited range of motion on left side from previous stroke Neuro: Alert and orientated x 4. PERRLA. Cranial nerves 2-12 intact without focal deficit. Skin: Warm, dry, and intact, without rash, erythema, or lesion. Psych: pleasant, cooperative, normal speech, normal affect, no hallucinations, no dysarthia H&P: Results Labs Labs: Short CBC 08/13/24 Range/Units 10:39 WBC 9.7 (4.5-10.0) K/mm3 Hgb 13.8 L (14.0-18.0) g/dL Hct 41.9 L (42.0-52.0) % Plt Count 145 L (150-375) k/mm3 BMP 08/13/24 10:39 Sodium 153 H Potassium 2.6 L* Chloride 116 H Carbon Dioxide 25 BUN 32 H D Creatinine 1.53 H Glucose 92 Calcium 8.7 Cardiac Enzymes 08/13/24 Range/Units 10:39 Troponin I 0.021 (0.000-0.034) ng/mL Liver Function 08/13/24 Range/Units 10:39 Total Bilirubin 1.0 (0.2-1.3) mg/dL AST 49 (17-59) U/L ALT 41 (6-50) U/L Alkaline Phosphatase 105 (38-126) U/L Albumin 3.2 L (3.5-5.1) g/dL Assessment and Plan Assessment and plan (1) Stroke: Code(s): I63.9 - Cerebral infarction, unspecified Status: Acute Assessment and Plan: Subacute stroke seen on CT will request records from [facility] to compared to stroke from 2 weeks ago PT and OT evaluate and treat (2) Syncope: Code(s): R55 - Syncope and collapse Status: Acute Assessment and Plan: Syncope with severe hypotension is more likely than cardiac arrest due to patient is only receiving brief CPR and not requiring cardiac medications or intubation Telemetry monitoring Echo with bubble study pending Orthostatic vital signs (3) Colon distention: Code(s): K63.89 - Other specified diseases of intestine Status: Acute Assessment and Plan: GI and surgery consulted NPO sips med IVF (4) Atrial fibrillation: Code(s): I48.91 - Unspecified atrial fibrillation Status: Acute Assessment and Plan: On aspirin and Plavix (5) Hypertension: Code(s): I10 - Essential (primary) hypertension Status: Acute Assessment and Plan: Continue home antihypertensive (6) Hypokalemia: Code(s): E87.6 - Hypokalemia Status: Acute Assessment and Plan: Daily BMP Replete as needed (7) Dementia of the Alzheimer's type: Code(s): G30.9 - Alzheimer's disease, unspecified; F02.80 - Dementia in other diseases classified elsewhere, unspecified severity, without behavioral disturbance, psychotic disturbance, mood disturbance, and anxiety Status: Acute Assessment and Plan: Continue home medications (8) Seizure: Code(s): R56.9 - Unspecified convulsions Status: Inactive Assessment and Plan: Continue Keppra Plan Will hold off on anticoagulation until he is seen by surgery Quality VTE Prophylaxis VTE prophylaxis: mechanical ordered If No VTE Prophylaxis Answer both mechanical and pharmacologic: Reason no mechanical VTE proph: medical contraindication Hospitalist MIPS Advance Care Plan I have confirmed that the patient's Advanced Care Plan is present, code status is documented, or surrogate decision maker is listed in patient medical record.: Yes Medication Reconciliation I have utilized all available resources to obtain, update and review the patients current medications (includes all prescriptions, OTC, herbals, cannabis, and nutritional supplements).: Yes
--- NOTE | 2024-08-13 15:13 | PCDIET ---
MST 3 for weight loss of 14-23 ibs in the past 2-3 months and poor po intake reported. Patient currently in virtual bed with orders for IMU admit. Per EMR, weight showing 8 ibs weight gain since Jul 24, 2024. Would recommend adding Ensure Enlive BID to diet orders 2/2 to poor po intake. Will screen when admitted to floor.
--- NOTE | 2024-08-13 17:00 | ADMGEN ---
This patient, Lamont Cohen, was admitted to IMU Room 205-01. Patient/family oriented to hospital policies and general routines including ID bracelet, bed and alarms, visiting hours, pain management, procedures, bathroom and other care routines, personal items, smoking policy, room service/diet, and visiting hours. Information on how to activate the Rapid Response Team has been discussed. Patient/Family are encouraged to report perceived risks to care and to ask questions if they do not understand what they are told or what they should do.
[2024-08-13] MEDS: levETIRAcetam 250 MG TABLET PO (18:11)
[2024-08-13] MEDS: MEMANTINE 10 MG TABLET PO (22:20)
[2024-08-14] VITALS (18 sets, daily range): BP systolic 121–167; BP diastolic 68–97; PULSE 62–93; RESP 14–69; TEMP 36.4–37.2; O2SAT 92–100; BMI 10.0
--- NOTE | 2024-08-14 | ECHO_ITS ---
Patient Info Name: Lamont Cohen Age: 78 years : 1945 Gender: Male Ht: 72 in Wt: 176 lbs BSA: 2.02 m2 HR: 70 bpm BP: 134 / 72 mmHg Heart Rhythm: Sinus Rhythm Technical Quality: Fair Exam Date: 08/14/2024 8:19 AM Exam Location: Echo Lab Patient Status: Inpatient Admit Date: 08/13/2024 Staff Ordering Physician: Yara Wong APRN Ice Bag Assembler: Zhane Enamorado RDCS Attending Provider: Akash Plummer MD Referring Physician: Marvin FELTON; Exam Type: CA echo doppler color flow Study Info Indications - CHF Complete two-dimensional, color flow and Doppler transthoracic echocardiogram is performed. Summary 1. Complete two-dimensional, color flow and Doppler transthoracic echocardiogram is performed. 2. Normal left and right ventricular size and systolic function. 3. Grade 1 diastolic noncompliance. 4. Mildly sclerotic aortic valve with well maintained leaflet excursion. Left Ventricle Left ventricular chamber dimension is normal. Left ventricular systolic function is normal, estimated at 65-70%. The left ventricular diastolic function is grade I diastolic dysfunction. Right Ventricle Right ventricular chamber dimension is normal. Left Atria Left atrial chamber dimension is normal. Right Atria Right atrial chamber dimension is normal. Aortic Valve The aortic valve is trileaflet. There is mild aortic valve sclerosis. Pulmonic Valve The pulmonic valve is normal. Mitral Valve The mitral valve has normal leaflets. Tricuspid Valve The tricuspid valve leaflets are normal. Pericardium/Pleural The pericardium appears normal. Aorta The aortic root size at the sinus of Valsalva is normal. Left Ventricular Outflow Tract Name Value Normal LVOT 2D LVOT Diameter 2.1 cm LVOT Doppler LVOT Peak Gradient 3 mmHg LVOT Mean Gradient 1 mmHg LVOT VTI 17 cm LVOT VTI/AV VTI Ratio 0.7 LVOT Stroke Volume 58 ml LVOT CO 3.8 l/min LVOT CI 1.9 l/min/m2 Pulmonic Valve Name Value Normal RVOT Doppler RVOT Peak Gradient 2 mmHg PV Doppler PV Peak Gradient 6 mmHg Mitral Valve Name Value Normal MV Doppler MV Decel [place] 214 cm/s2 MV PHT 73 ms MV Area (PHT) 3.0 cm2 4.0-5.0 MV Diastolic Function MV E Peak Velocity 54 cm/s MV A Peak Velocity 95 cm/s MV E/A 0.6 MV Decel Time 251 ms MV Annular TDI MV E/e' (Septal) 9.8 <=8.0 MV E/e' (Lateral) 7.0 <=8.0 MV E/e' (Average) 8.4 Tricuspid Valve Name Value Normal TV Regurgitation Doppler TR Peak Velocity 304 cm/s TR Peak Gradient 33 mmHg Aortic Valve Name Value Normal AV Doppler AV Peak Velocity 109 cm/s AV Peak Gradient 5 mmHg AV Mean Gradient 2 mmHg AV VTI 23 cm AV Area (Cont Eq VTI) 2.5 cm2 >=3.0 AV Area (Cont Eq Georges) 2.5 cm2 AV Regurgitation 2D LVOT Area 3.4 cm2 Ventricles Name Value Normal LV Dimensions 2D/MM IVS Diastolic Thickness (2D) 1.0 cm 0.6-1.0 LVID Diastole (2D) 4.3 cm 4.2-5.8 LVIW Diastolic Thickness (2D) 1.0 cm 0.6-1.0 LVID Systole (2D) 2.7 cm 2.5-4.0 LVOT Diameter 2.1 cm LV Mass (2D Cubed) 140.92 g 88.00-224.00 LV Mass Index (2D Cubed) 70 g/m2 49-115 Relative Wall Thickness (2D) 0.45 LV Fractional Shortening/Ejection Fraction 2D/MM LV Fractional Shortening (2D) 39 % 25-43 LV EF (2D Teicholz) 69 % 52-72 LV Diastolic Volume (4C MOD) 142 ml LV EF (4C MOD) 67 % LV Diastolic Volume (2C MOD) 108 ml LV EF (2C MOD) 73 % LV Diastolic Volume (BP MOD) 124 ml 62-150 LV Diastolic Volume Index (BP MOD) 61 ml/m2 34-74 LV Systolic Volume (BP MOD) 39 ml 21-61 LV Systolic Volume Index (BP MOD) 19 ml/m2 11-31 LV EF (BP MOD) 69 % 52-72 LV Diastolic Length (4C) 8.9 cm LV Systolic Length (4C) 6.7 cm LV Stroke Volume (4C MOD) 95 ml Atria Name Value Normal LA Dimensions LA Volume (4C A-L) 61 ml LA Volume (BP A-L) 62 ml Report Signatures
[2024-08-14] MEDS: MEMANTINE 10 MG TABLET PO ×2 (09:31→23:07)
[2024-08-14] MEDS: levETIRAcetam 250 MG TABLET PO ×2 (09:31→16:16)
[2024-08-14] MEDS: CLOPIDOGREL BISULFATE 75 MG TABLET PO (09:31)
[2024-08-14] MEDS: ASPIRIN 81 MG CHEWABLE TABLET PO (09:31)
[2024-08-14] MEDS: ATORVASTATIN 40 MG TABLET 80 MG PO (09:32)
[2024-08-14 12:28] LABS: Hematocrit 42.5 % (42.0-52.0); Hemoglobin 14.3 g/dL (14.0-18.0); Immature Platelet Fraction Pct 7.6 % (0.9-11.2); Mean Corpuscular HGB Conc 33.6 g/dl (32-36); Mean Corpuscular Hemoglobin 30.4 pg (26-34); Mean Corpuscular Volume 90.4 fl (80-100); Mean Platelet Volume 11.2 fl (7.4-10.4); Platelet Count Result 135 k/mm3 (150-375); Red Cell Distribution Width 15.3 % (11.5-14.5); White Blood Count 7.2 K/mm3 (4.5-10.0)
--- NOTE | 2024-08-14 12:34 | P.CONGI_ITS ---
Assessment and Plan Assessment and plan (1) Colon distention: Code(s): K63.89 - Other specified diseases of intestine Status: Acute Assessment and Plan: this is a chronic finding, he even had incomplete colonoscopy last year- noted tortuous sigmoid colon, no signs of ischemia he is on chronic laxatives because constipation relatively benign gi exam, no nausea I will recommend conservative treatment but surgery will evaluate again if no more pain or nausea then we can start diet as tolerated (2) Dementia: Code(s): F03.90 - Unspecified dementia, unspecified severity, without behavioral disturbance, psychotic disturbance, mood disturbance, and anxiety Status: Acute (3) Stroke: Code(s): I63.9 - Cerebral infarction, unspecified Status: Acute (4) Ileus: Code(s): K56.7 - Ileus, unspecified Status: Acute (5) Orthostatic hypotension: Code(s): I95.1 - Orthostatic hypotension Status: Acute (6) Syncope and collapse: Code(s): R55 - Syncope and collapse Status: Acute GI Consult Note Consult date/time: 08/14/24 12:34 Reason for consult: chronic sigmoid distension HPI: Lamont Cohen is a 78 year old male with history of advanced dementia, also explantation of infected penile prosthesis 2023 and he is known to me because distended sigmoid colon/constipation. This time he was admitted after he had syncopal episode while sitting on the toilet. History obtained from records and at bedside. EMS arrived on scene and he did not have a palpable pulse they did 1 round of chest compressions without medications and then had a bounding pulse. He is back to his baseline which is alert to himself, he seems comfortable. says that he has not been complaining of abdominal pain, he would have loose stools once a day and is using laxatives at home, no major changes last few months. CT scan again showed distended sigmoid with possible ileus. He had incomplete colonoscopy 09/2023, noted redundant sigmoid and few benign polyps removed, I could not reach cecum because the same. Review of Systems 2 Review of Systems: ROS unobtainable: Yes unobtainable due to mental status PMFSH Past Medical History Medical History Dementia of the Alzheimer's type Hyperlipidemia Hypertension Dementia Prostate cancer Surgical History Surgical History History of cataract extraction History of prostatectomy History of penile implant Explanted in September 2023 due to erosion. Family History Family History Sibling Diabetes mellitus Father Hypertension Family history of coronary artery disease Social History Social History Social History: Surrogate medical decision maker: Bobbi Cohen, spouse. Code status: Full code. Smoking status: Former smoker Tobacco type: cigarettes Second hand tobacco smoke exposure: No Alcohol intake: former Substance use: never Substance use type: does not use Do You Feel Safe in your Home?: Yes Lack of Transportation: No Lack of Food: Never True Current Housing: I Have Housing Concerned About Future Housing: No Difficulty Paying Gas/Electric Bills: No Difficulty Paying for Meds: No Currently Unemployed: No Education: Don't Know Difficulty w/ Childcare or Family Care: No Living arrangements: with family Spiritual care concerns: No Agree to blood products: Yes Meds Home Medications and Allergies Home Medications ?Medication ?Instructions ?Recorded ?Confirmed ?Type bisacodyl 5 mg tablet,delayed 10 mg (2 x 5 mg) PO QAM #1 tablet 10/01/23 08/13/24 Rx release (Laxative (bisacodyl)) simethicone 125 mg capsule (Gas-X 125 mg PO QID #1 cap 10/01/23 08/13/24 Rx Extra Strength) potassium chloride 20 mEq 20 meq PO DAILY #90 tabs 10/13/23 08/13/24 Rx tablet,extended release polyethylene glycol 3350 17 17 g PO ONCE PRN constipation 11/11/23 08/13/24 History gram/dose oral powder (Miralax) potassium chloride 20 mEq oral 20 meq PO DAILY #100 ea 11/11/23 08/13/24 Rx packet memantine 10 mg tablet 10 mg PO BID #180 tabs 03/12/24 08/13/24 Rx ergocalciferol (vitamin D2) 1,250 1,250 mcg PO WEEKLY #12 caps 05/10/24 08/13/24 Rx mcg (50,000 unit) capsule (Vitamin D2) docusate sodium 100 mg capsule 100 mg PO DAILY 07/24/24 08/13/24 History (Colace) aspirin 81 mg capsule 81 mg PO DAILY 08/13/24 08/13/24 History atorvastatin 80 mg tablet (Lipitor) 80 mg PO DAILY 08/13/24 08/13/24 History clopidogrel 75 mg tablet 75 mg PO DAILY 08/13/24 08/13/24 History levetiracetam 250 mg tablet 250 mg PO BID 08/13/24 08/13/24 History (Keppra) Allergies Allergy/AdvReac Type Severity Reaction Status Date / Time No Known Allergies Allergy Verified 08/13/24 14:57 Vital Signs Vital Signs - 24 hr 08/13/24 12:36 08/13/24 12:46 08/13/24 14:02 Temperature Pulse Rate 82 80 81 Respiratory Rate 16 19 20 Blood Pressure 147/85 H 143/71 H 155/83 H Pulse Oximetry 99 99 98 Oxygen Delivery Fraction of Inspired Oxygen 08/13/24 14:46 08/13/24 15:01 08/13/24 15:16 Temperature Pulse Rate 88 81 80 Respiratory Rate 15 11 L 16 Blood Pressure 127/94 H 140/111 H 141/92 H Pulse Oximetry 99 98 97 Oxygen Delivery Fraction of Inspired Oxygen 08/13/24 15:31 08/13/24 16:25 08/13/24 17:00 Temperature 97.9 F Pulse Rate 84 76 54 L Respiratory Rate 16 16 18 Blood Pressure 153/92 H 150/88 H 148/84 H Pulse Oximetry 95 97 Oxygen Delivery Fraction of Inspired Oxygen 08/13/24 17:00 08/13/24 17:30 08/13/24 18:00 Temperature 97.4 F L Pulse Rate 66 80 Respiratory Rate 22 H Blood Pressure 110/76 Pulse Oximetry 100 100 Oxygen Delivery Room Air Fraction of Inspired Oxygen 08/13/24 19:55 08/13/24 20:00 08/13/24 20:00 Temperature 97.6 F Pulse Rate 72 Respiratory Rate 18 Blood Pressure 155/63 H 155/63 H Pulse Oximetry 97 92 Oxygen Delivery Room Air Fraction of Inspired Oxygen 21 08/13/24 20:00 08/13/24 20:00 08/13/24 21:00 Temperature Pulse Rate 75 72 Respiratory Rate 18 Blood Pressure 114/81 Pulse Oximetry 92 Oxygen Delivery Room Air Fraction of Inspired Oxygen 08/13/24 22:00 08/13/24 23:51 08/14/24 00:00 Temperature 98 F Pulse Rate 70 74 74 Respiratory Rate 20 Blood Pressure 156/85 H Pulse Oximetry 97 Oxygen Delivery Fraction of Inspired Oxygen 08/14/24 00:50 08/14/24 02:00 08/14/24 04:00 Temperature 98.1 F Pulse Rate 74 68 70 Respiratory Rate 20 16 Blood Pressure 139/82 Pulse Oximetry 97 96 Oxygen Delivery Room Air Fraction of Inspired Oxygen 08/14/24 04:00 08/14/24 05:00 08/14/24 06:00 Temperature Pulse Rate 68 70 73 Respiratory Rate 16 Blood Pressure Pulse Oximetry 96 Oxygen Delivery Room Air Fraction of Inspired Oxygen 08/14/24 07:39 08/14/24 07:39 08/14/24 08:00 Temperature 98.4 F 98.4 F Pulse Rate 75 76 Respiratory Rate 16 Blood Pressure 167/97 H Pulse Oximetry 99 Oxygen Delivery Fraction of Inspired Oxygen 08/14/24 09:07 08/14/24 09:11 08/14/24 09:16 Temperature Pulse Rate 76 Respiratory Rate 69 H 16 Blood Pressure 138/80 124/77 125/87 Pulse Oximetry 97 99 Oxygen Delivery Fraction of Inspired Oxygen 08/14/24 09:41 08/14/24 10:00 08/14/24 11:38 Temperature 98.9 F Pulse Rate 70 66 Respiratory Rate 14 Blood Pressure 151/87 H Pulse Oximetry 99 Oxygen Delivery Room Air Fraction of Inspired Oxygen Exam 2 Const: General: cooperative and no acute distress HENMT: Head: normal to inspection Eyes: General: appearance normal, both eyes and all related structures Neck: Neck: normal visual inspection Resp: Effort & Inspection: normal respiratory effort Cardio: Rate: regular rate Rhythm: regular rhythm GI: Inspection: distended GI Palp: Yes Soft to palpation, No Tenderness to palpation present (GI) and No Guarding due to palpation present (GI) A uscultation: normal bowel sounds Back/Spine/Pelvis: Cervical Spine: normal cervical lordosis Skin: General skin exam: normal color and no rashes or lesions noted Neuro: General: moves all extremities and no focal motor deficits Speech: n ormal speech Other: awake and alert but gets confused Extrem: General: normal to inspection and full ROM Psych: Speech and movement: Normal speech and movement present Results Labs 08/13/24 10:39 08/13/24 10:39
[2024-08-14 12:49] LABS: Alanine Aminotransferase 40 U/L (6-50); Alkaline Phosphatase 113 U/L (38-126); Anion Gap 8 mmol/L (4-12); Aspartate Amino Transferase 48 U/L (17-59); Bilirubin,Total 1.3 mg/dL (0.2-1.3); Blood Urea Nitrogen 22 mg/dL (9-20); Calcium 8.2 mg/dL (8.4-10.2); Carbon Dioxide 29 mmol/L (22-30); Chloride 116 mmol/L (98-107); Estimated CRCL calculation 50 ml/min; Estimated Glomerular Filt Rate 60; Glucose 90 mg/dL (65-110); Magnesium 1.6 mg/dL (1.6-2.3); Potassium 2.7 mmol/L (3.4-5.0); Sodium 153 mmol/L (137-145)
[2024-08-14] MEDS: POTASSIUM CHLORIDE 20 MEQ PACKET (FOR LIQUID) 40 MEQ PO (13:30)
[2024-08-14] MEDS: POTASSIUM CHLORIDE INJ 40 MEQ in SODIUM CHLORIDE 0.9% IV 500 ML 130 MEQ IVPB (13:31)
--- NOTE | 2024-08-14 13:39 | P.CONGS_ITS ---
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 Discussed with her that the only surgical treatment would be a diverting colostomy which she does not want patient to undergo. Would recommend continued medical management. Will try erythromycin to help with GI motility. Could also consider neostigmine but patient is off telemetry and would need to be placed back on telemetry to try this due to potential cardiac side effects. As long as bowel function is continuing and he is not complaining of any nausea or vomiting, would likely just recommend stimulants and laxatives to help prevent fecal impaction. No other surgical recommendations at this time. Will follow p.r.n.. (2) Dementia of the Alzheimer's type: Code(s): G30.9 - Alzheimer's disease, unspecified; F02.80 - Dementia in other diseases classified elsewhere, unspecified severity, without behavioral disturbance, psychotic disturbance, mood disturbance, and anxiety Status: Acute (3) Atrial fibrillation: Code(s): I48.91 - Unspecified atrial fibrillation Status: Acute History of Present Illness Consult details Consult date: 08/14/24 Reason for consult: other (Colonic pseuodoobstruction) Requesting physician: Yara Wong APRN Narrative: This is a 78-year-old man who I am asked to see for colonic distension. He was hospitalized for a syncopal episode after having a bowel movement on 08/13/2024. The patient has dementia and is a poor historian, therefore history is obtained from the chart and the patient's . A CT was performed in the emergency department which showed evidence of a distended sigmoid colon and rectum. This is a chronic finding compared to prior CTs over the past year. The patient does not have any nausea or vomiting. He is still having bowel movements. Obstruction was ruled out with sigmoidoscopy on 09/30/2023. Colonoscopy was unable to be completed due to a tortuous colon, but there was no obstruction in the rectum or sigmoid colon. Patient denies any abdominal pain. Review of Systems 2 Review of Systems: All systems reviewed & are unremarkable except as noted in HPI and below Constitutional: Constitutional: Denies chills and Denies fever(s) Cardiovascular: Cardiovascular: Denies chest pain and Denies dyspnea Respiratory: Respiratory: Denies dyspnea Gastrointestinal: Gastrointestinal: Reports as per [facility] Past Medical History Medical History Dementia of the Alzheimer's type Hyperlipidemia Hypertension Dementia Prostate cancer Surgical History Surgical History History of cataract extraction History of prostatectomy History of penile implant Explanted in September 2023 due to erosion. Family History Family History Sibling Diabetes mellitus Father Hypertension Family history of coronary artery disease Social History Social History Social History: Surrogate medical decision maker: Bobbi Cohen, spouse. Code status: Full code. Smoking status: Former smoker Tobacco type: cigarettes Second hand tobacco smoke exposure: No Alcohol intake: former Substance use: never Substance use type: does not use Do You Feel Safe in your Home?: Yes Lack of Transportation: No Lack of Food: Never True Current Housing: I Have Housing Concerned About Future Housing: No Difficulty Paying Gas/Electric Bills: No Difficulty Paying for Meds: No Currently Unemployed: No Education: Don't Know Difficulty w/ Childcare or Family Care: No Living arrangements: with family Spiritual care concerns: No Agree to blood products: Yes Meds Home Medications and Allergies Home Medications ?Medication ?Instructions ?Recorded ?Confirmed ?Type bisacodyl 5 mg tablet,delayed 10 mg (2 x 5 mg) PO QAM #1 tablet 10/01/23 08/13/24 Rx release (Laxative (bisacodyl)) simethicone 125 mg capsule (Gas-X 125 mg PO QID #1 cap 10/01/23 08/13/24 Rx Extra Strength) potassium chloride 20 mEq 20 meq PO DAILY #90 tabs 10/13/23 08/13/24 Rx tablet,extended release polyethylene glycol 3350 17 17 g PO ONCE PRN constipation 11/11/23 08/13/24 History gram/dose oral powder (Miralax) potassium chloride 20 mEq oral 20 meq PO DAILY #100 ea 11/11/23 08/13/24 Rx packet memantine 10 mg tablet 10 mg PO BID #180 tabs 03/12/24 08/13/24 Rx ergocalciferol (vitamin D2) 1,250 1,250 mcg PO WEEKLY #12 caps 05/10/24 08/13/24 Rx mcg (50,000 unit) capsule (Vitamin D2) docusate sodium 100 mg capsule 100 mg PO DAILY 07/24/24 08/13/24 History (Colace) aspirin 81 mg capsule 81 mg PO DAILY 08/13/24 08/13/24 History atorvastatin 80 mg tablet (Lipitor) 80 mg PO DAILY 08/13/24 08/13/24 History clopidogrel 75 mg tablet 75 mg PO DAILY 08/13/24 08/13/24 History levetiracetam 250 mg tablet 250 mg PO BID 08/13/24 08/13/24 History (Keppra) Allergies Allergy/AdvReac Type Severity Reaction Status Date / Time No Known Allergies Allergy Verified 08/13/24 14:57 Vital Signs Vital Signs - 24 hr 08/13/24 14:02 08/13/24 14:46 08/13/24 15:01 Temperature Pulse Rate 81 88 81 Respiratory Rate 20 15 11 L Blood Pressure 155/83 H 127/94 H 140/111 H Pulse Oximetry 98 99 98 Oxygen Delivery Fraction of Inspired Oxygen 08/13/24 15:16 08/13/24 15:31 08/13/24 16:25 Temperature Pulse Rate 80 84 76 Respiratory Rate 16 16 16 Blood Pressure 141/92 H 153/92 H 150/88 H Pulse Oximetry 97 95 97 Oxygen Delivery Fraction of Inspired Oxygen 08/13/24 17:00 08/13/24 17:00 08/13/24 17:30 Temperature 97.9 F 97.4 F L Pulse Rate 54 L 66 Respiratory Rate 18 22 H Blood Pressure 148/84 H 110/76 Pulse Oximetry 100 100 Oxygen Delivery Room Air Fraction of Inspired Oxygen 08/13/24 18:00 08/13/24 19:55 08/13/24 20:00 Temperature 97.6 F Pulse Rate 80 72 Respiratory Rate 18 Blood Pressure 155/63 H Pulse Oximetry 97 92 Oxygen Delivery Room Air Fraction of Inspired Oxygen 21 08/13/24 20:00 08/13/24 20:00 08/13/24 20:00 Temperature Pulse Rate 75 Respiratory Rate Blood Pressure 155/63 H 114/81 Pulse Oximetry Oxygen Delivery Fraction of Inspired Oxygen 08/13/24 21:00 08/13/24 22:00 08/13/24 23:51 Temperature 98 F Pulse Rate 72 70 74 Respiratory Rate 18 20 Blood Pressure 156/85 H Pulse Oximetry 92 97 Oxygen Delivery Room Air Fraction of Inspired Oxygen 08/14/24 00:00 08/14/24 00:50 08/14/24 02:00 Temperature Pulse Rate 74 74 68 Respiratory Rate 20 Blood Pressure Pulse Oximetry 97 Oxygen Delivery Room Air Fraction of Inspired Oxygen 08/14/24 04:00 08/14/24 04:00 08/14/24 05:00 Temperature 98.1 F Pulse Rate 70 68 70 Respiratory Rate 16 16 Blood Pressure 139/82 Pulse Oximetry 96 96 Oxygen Delivery Room Air Fraction of Inspired Oxygen 08/14/24 06:00 08/14/24 07:39 08/14/24 07:39 Temperature 98.4 F 98.4 F Pulse Rate 73 75 Respiratory Rate 16 Blood Pressure 167/97 H Pulse Oximetry 99 Oxygen Delivery Fraction of Inspired Oxygen 08/14/24 08:00 08/14/24 09:07 08/14/24 09:11 Temperature Pulse Rate 76 76 Respiratory Rate 69 H 16 Blood Pressure 138/80 124/77 Pulse Oximetry 97 99 Oxygen Delivery Fraction of Inspired Oxygen 08/14/24 09:16 08/14/24 09:41 08/14/24 10:00 Temperature Pulse Rate 70 Respiratory Rate Blood Pressure 125/87 Pulse Oximetry Oxygen Delivery Room Air Fraction of Inspired Oxygen 08/14/24 11:38 Temperature 98.9 F Pulse Rate 66 Respiratory Rate 14 Blood Pressure 151/87 H Pulse Oximetry 99 Oxygen Delivery Fraction of Inspired Oxygen Exam 2 Const: General: cooperative, no acute distress and average body habitus N utritional Appearance: average body habitus Orientation/consciousness: p atient oriented x3 HENMT: Head: normal to inspection Ears: hearing grossly normal bilaterally Mouth: Yes Normal oral and palatal mucosa present Eyes: General: appearance normal, both eyes and all related structures S clera: sclerae normal EOM: EOMs intact bilaterally Neck: Neck: normal visual inspection and full ROM Resp: Effort & Inspection: normal respiratory effort and able to speak in complete sentences Cardio: Jugular venous distension: no JVD Rate: regular rate Rhythm: a bnormal rhythm irregularly irregular Heart sounds: S1 normal heart sound present and S2 normal heart sound present GI: Inspection: non-distended GI Palp: Yes Soft to palpation, No Tenderness to palpation present (GI), No Guarding due to palpation present (GI) and No Rebound tenderness present Percussion: Yes normal to percussion A uscultation: normal bowel sounds Rectal Exam: deferred and other (Sigmoidoscopy performed within the past 12 months) Back/Spine/Pelvis: Cervical Spine: normal cervical lordosis and cervical ROM normal Skin: General skin exam: normal color and no rashes or lesions noted Neuro: General: patient oriented x3, moves all extremities, no focal motor deficits and CN's II-XI intact bilaterally Speech: normal speech Extrem: General: normal to inspection, full ROM and no clubbing, cyanosis or edema Psych: Appearance: grossly normal Mental Status: mental status grossly normal Speech and movement: Normal speech and movement present Affect: n ormal affect Attitude: cooperative Thought process: Normal thought process present Results Labs 08/14/24 12:22 08/14/24 12:22 Labs: Abnormal lab results 08/14/24 Range/Units 12:22 RDW 15.3 H (11.5-14.5) % Plt Count 135 L (150-375) k/mm3 MPV 11.2 H (7.4-10.4) fl Sodium 153 H (137-145) mmol/L Potassium 2.7 L* (3.4-5.0) mmol/L Chloride 116 H (98-107) mmol/L BUN 22 H D (9-20) mg/dL Calcium 8.2 L (8.4-10.2) mg/dL Total Protein 6.0 L (6.3-8.2) g/dL Albumin 3.0 L (3.5-5.1) g/dL Diabetes panel 08/14/24 Range/Units 12:22 Sodium 153 H (137-145) mmol/L Potassium 2.7 L* (3.4-5.0) mmol/L Chloride 116 H (98-107) mmol/L Carbon Dioxide 29 (22-30) mmol/L BUN 22 H D (9-20) mg/dL Creatinine 1.17 (0.7-1.3) mg/dL Glucose 90 (65-110) mg/dL Calcium 8.2 L (8.4-10.2) mg/dL AST 48 (17-59) U/L ALT 40 (6-50) U/L Alkaline Phosphatase 113 (38-126) U/L Total Protein 6.0 L (6.3-8.2) g/dL Albumin 3.0 L (3.5-5.1) g/dL Calcium panel 08/14/24 Range/Units 12:22 Calcium 8.2 L (8.4-10.2) mg/dL Albumin 3.0 L (3.5-5.1) g/dL Pituitary panel 08/14/24 Range/Units 12:22 Sodium 153 H (137-145) mmol/L Potassium 2.7 L* (3.4-5.0) mmol/L Chloride 116 H (98-107) mmol/L Carbon Dioxide 29 (22-30) mmol/L BUN 22 H D (9-20) mg/dL Creatinine 1.17 (0.7-1.3) mg/dL Glucose 90 (65-110) mg/dL Calcium 8.2 L (8.4-10.2) mg/dL Adrenal panel 08/14/24 Range/Units 12:22 Sodium 153 H (137-145) mmol/L Potassium 2.7 L* (3.4-5.0) mmol/L Chloride 116 H (98-107) mmol/L Carbon Dioxide 29 (22-30) mmol/L BUN 22 H D (9-20) mg/dL Creatinine 1.17 (0.7-1.3) mg/dL Glucose 90 (65-110) mg/dL Calcium 8.2 L (8.4-10.2) mg/dL Total Bilirubin 1.3 (0.2-1.3) mg/dL AST 48 (17-59) U/L ALT 40 (6-50) U/L Alkaline Phosphatase 113 (38-126) U/L Total Protein 6.0 L (6.3-8.2) g/dL Albumin 3.0 L (3.5-5.1) g/dL All other labs normal. Imaging Additional studies: ITS Impressions Chest/Abdomen/Pelvis CT 08/13/24 12:24 IMPRESSION: 1. Large sliding hiatal hernia. 2. Distended rectosigmoid, consistent with adynamic ileus. Head CT 08/13/24 13:43 IMPRESSION: 1. Cortical hough matter enhancement along the gyri in the bilateral parietal lobes, right or left suspicious for subacute infarcts. The distribution suggests possibility of watershed infarcts in the setting of hypotension. 2. Moderate scattered white matter hypoattenuation consistent with chronic small vessel ischemic disease. 3. Ongoing sinus disease with new dependently layering mucus in the bilateral maxillary sinuses.
--- NOTE | 2024-08-14 15:36 | PM.IMPN ---
Progress Note: A&P Assessment and Plan (1) Stroke: Code(s): I63.9 - Cerebral infarction, unspecified Status: Acute Assessment and Plan: Subacute stroke seen on CT will request records from [facility] to compared to stroke from 2 weeks ago PT and OT evaluate and treat (2) Syncope: Code(s): R55 - Syncope and collapse Status: Acute Assessment and Plan: Syncope with severe hypotension is more likely than cardiac arrest due to patient is only receiving brief CPR and not requiring cardiac medications or intubation Telemetry monitoring Echo with bubble study pending Orthostatic vital signs (3) Colon distention: Code(s): K63.89 - Other specified diseases of intestine Status: Acute Assessment and Plan: GI and surgery consulted NPO sips med IVF (4) Atrial fibrillation: Code(s): I48.91 - Unspecified atrial fibrillation Status: Acute Assessment and Plan: On aspirin and Plavix (5) Hypertension: Code(s): I10 - Essential (primary) hypertension Status: Acute Assessment and Plan: Continue home antihypertensive (6) Hypokalemia: Code(s): E87.6 - Hypokalemia Status: Acute Assessment and Plan: Daily BMP Replete as needed (7) Dementia of the Alzheimer's type: Code(s): G30.9 - Alzheimer's disease, unspecified; F02.80 - Dementia in other diseases classified elsewhere, unspecified severity, without behavioral disturbance, psychotic disturbance, mood disturbance, and anxiety Status: Acute Assessment and Plan: Continue home medications (8) Seizure: Code(s): R56.9 - Unspecified convulsions Status: Inactive Assessment and Plan: Continue Keppra Plan Will hold off on anticoagulation until he is seen by surgery patient is currently at his baseline, his is present in room providing ROS and history, patient has history of colon distention-[place] syndrome patient is seen by the general surgeon and GI and recommending conservative management with stimulants and laxative, 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 Subjective Date/time seen: 08/14/24 15:36 Interval history: Chief Complaint: Syncope versus cardiac arrest H&P-Narrative: 78-year-old male past medical history of this dementia hypertension hyperlipidemia, and prostate cancer and stroke last month workup at [facility] presents the hospital with syncope versus cardiac arrest. Since discharge from the hospital after acute stroke patient has orthostatic hypotension. Per the family they were getting him up helping him to the bathroom when he lost consciousness and sat him down on the toilet. When EMS arrived they were unable to feel pulses a gave him CPR for about 2 minutes with the patient becoming responsive. Patient did not receive cardiac medications or need to be intubated afterwards. On bedside exam the patient is awake and talking. Denies chest pain or abdominal pain CT shows new subacute stroke compared to our last imaging however he did have a stroke last month with workup at [facility]. 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 Review of Systems Review of Systems: 12 systems were reviewed and are negative except for as per HPI. Exam Narrative: Elderly frail Patient is comfortable, NAD HEENT: eyes are clear and none icteric LUNGS:CTA HEART: RR S1S2 ABD: BS+, Soft and nontender Lower extremities: no edema SKIN: nonjaundiced Neuro: Dementia Objective Data Vital Signs Vital Signs: Vital Signs - 24 hr 08/13/24 16:25 08/13/24 17:00 08/13/24 17:00 Temperature 36.6 C Pulse Rate 76 54 L Respiratory Rate 16 18 Blood Pressure 150/88 H 148/84 H Pulse Oximetry 97 100 Oxygen Delivery Room Air Fraction of Inspired Oxygen 08/13/24 17:30 08/13/24 18:00 08/13/24 19:55 Temperature 36.3 C L Pulse Rate 66 80 Respiratory Rate 22 H Blood Pressure 110/76 Pulse Oximetry 100 97 Oxygen Delivery Room Air Fraction of Inspired Oxygen 21 08/13/24 20:00 08/13/24 20:00 08/13/24 20:00 Temperature 36.4 C Pulse Rate 72 Respiratory Rate 18 Blood Pressure 155/63 H 155/63 H 114/81 Pulse Oximetry 92 Oxygen Delivery Fraction of Inspired Oxygen 08/13/24 20:00 08/13/24 21:00 08/13/24 22:00 Temperature Pulse Rate 75 72 70 Respiratory Rate 18 Blood Pressure Pulse Oximetry 92 Oxygen Delivery Room Air Fraction of Inspired Oxygen 08/13/24 23:51 08/14/24 00:00 08/14/24 00:50 Temperature 36.6 C Pulse Rate 74 74 74 Respiratory Rate 20 20 Blood Pressure 156/85 H Pulse Oximetry 97 97 Oxygen Delivery Room Air Fraction of Inspired Oxygen 08/14/24 02:00 08/14/24 04:00 08/14/24 04:00 Temperature 36.7 C Pulse Rate 68 70 68 Respiratory Rate 16 Blood Pressure 139/82 Pulse Oximetry 96 Oxygen Delivery Fraction of Inspired Oxygen 08/14/24 05:00 08/14/24 06:00 08/14/24 07:39 Temperature 36.9 C Pulse Rate 70 73 Respiratory Rate 16 Blood Pressure Pulse Oximetry 96 Oxygen Delivery Room Air Fraction of Inspired Oxygen 08/14/24 07:39 08/14/24 08:00 08/14/24 09:07 Temperature 36.9 C Pulse Rate 75 76 Respiratory Rate 16 69 H Blood Pressure 167/97 H 138/80 Pulse Oximetry 99 97 Oxygen Delivery Fraction of Inspired Oxygen 08/14/24 09:11 08/14/24 09:16 08/14/24 09:41 Temperature Pulse Rate 76 Respiratory Rate 16 Blood Pressure 124/77 125/87 Pulse Oximetry 99 Oxygen Delivery Room Air Fraction of Inspired Oxygen 08/14/24 10:00 08/14/24 11:38 08/14/24 12:02 Temperature 37.2 C 36.8 C Pulse Rate 70 66 69 Respiratory Rate 14 16 Blood Pressure 151/87 H 143/76 H Pulse Oximetry 99 100 Oxygen Delivery Fraction of Inspired Oxygen Intake/Output Intake/Output: Intake & Output 08/11/24 08/12/24 08/13/24 08/14/24 23:59 23:59 23:59 23:59 Intake Total 1220 Output Total 0 300 Balance 1220 -300 Meds/Results Medications: Active Medications Generic Name Dose Route Start Last Admin Trade Name Freq PRN Reason Stop Dose Admin Aspirin 81 mg 08/14/24 09:00 08/14/24 09:31 Aspirin 81 Mg Chewable Tablet PO 81 mg DAILY PILY Administration Atorvastatin Calcium 80 mg 08/14/24 09:00 08/14/24 09:32 Atorvastatin 40 Mg Tablet PO 80 mg DAILY PILY Administration Clopidogrel Bisulfate 75 mg 08/14/24 09:00 08/14/24 09:31 Clopidogrel Bisulfate 75 Mg Tablet PO 75 mg DAILY PILY Administration Potassium Chloride 40 meq/ 520 mls @ 130 mls/hr 08/14/24 13:00 08/14/24 13:31 Sodium Chloride IVPB 08/14/24 16:59 130 mls/hr ONCE ONE Administration Erythromycin Lactobionate 250 100 mls @ 200 mls/hr 08/14/24 14:00 mg/ Sodium Chloride IVPB 08/19/24 13:59 Q8HR PILY Levetiracetam 250 mg 08/13/24 17:00 08/14/24 09:31 Levetiracetam 250 Mg Tablet PO 250 mg BID PILY Administration Memantine 10 mg 08/13/24 21:00 08/14/24 09:31 Memantine 10 Mg Tablet PO 10 mg Q12HR PILY Administration Perflutren Lipid Microsphere 0 ml 08/13/24 17:52 Perflutren Lipid Microspheres 1.5 Ml Vial Diluted To 10 Ml Total Volume IV PUSH 08/16/24 17:52 ONCE PRN adequate visualization Protocol Radiology Results: ITS Impressions Chest/Abdomen/Pelvis CT 08/13/24 12:24 IMPRESSION: 1. Large sliding hiatal hernia. 2. Distended rectosigmoid, consistent with adynamic ileus. Head CT 08/13/24 13:43 IMPRESSION: 1. Cortical hough matter enhancement along the gyri in the bilateral parietal lobes, right or left suspicious for subacute infarcts. The distribution suggests possibility of watershed infarcts in the setting of hypotension. 2. Moderate scattered white matter hypoattenuation consistent with chronic small vessel ischemic disease. 3. Ongoing sinus disease with new dependently layering mucus in the bilateral maxillary sinuses. Labs Labs: Laboratory Results - last 24 hr 08/14/24 12:22 WBC 7.2 RBC 4.70 Hgb 14.3 Hct 42.5 MCV 90.4 MCH 30.4 MCHC 33.6 RDW 15.3 H Plt Count 135 L MPV 11.2 H % Immature Plt Fraction 7.6 Sodium 153 H Potassium 2.7 L* Chloride 116 H Carbon Dioxide 29 Anion Gap 8 BUN 22 H D Creatinine 1.17 Estim Creat Clear Calc 50 Estimated GFR 60 Glucose 90 Calcium 8.2 L Magnesium 1.6 Total Bilirubin 1.3 AST 48 ALT 40 Alkaline Phosphatase 113 Total Protein 6.0 L Albumin 3.0 L Quality VTE Prophylaxis VTE prophylaxis: mechanical ordered
[2024-08-14] MEDS: ERYTHROMYCIN LACTOBIONATE INJ 250 MG in SODIUM CHLORIDE 0.9% IV 100 ML 200 MG IVPB ×2 (16:19→23:07)
--- NOTE | 2024-08-14 16:21 | WPDNEURCNPN ---
Assessment and Plan Assessment and plan (1) Syncope and collapse: Code(s): R55 - Syncope and collapse Status: Acute (2) Dementia of the Alzheimer's type: Code(s): G30.9 - Alzheimer's disease, unspecified; F02.80 - Dementia in other diseases classified elsewhere, unspecified severity, without behavioral disturbance, psychotic disturbance, mood disturbance, and anxiety Status: Acute (3) Stroke: Code(s): I63.9 - Cerebral infarction, unspecified Status: Acute (4) Essential (primary) hypertension: Code(s): I10 - Essential (primary) hypertension Status: Acute (5) Atrial fibrillation: Code(s): I48.91 - Unspecified atrial fibrillation Status: Acute Plan Discharge summary from [facility] indicated that the principal diagnosis a new onset seizure. In addition he was thought to have severe dementia Alzheimer's type and has hypokalemia and primary hypertension. He had a seizure-like activity. MRI of the brain has shown acute cortical infarct posterior parietal lobes bilaterally. Echocardiogram has shown ejection fraction of 65% and no focal wall motion abnormalities with mild enlargement of the left atrium. CT angiogram of the head and neck shows no acute intracranial hemorrhage. No carotid or vertebral stenosis. Hemoglobin A1c was 5.4 and lipid profile was unremarkable. Neurology had seen the patient and started him on Keppra. EEG was done. It appears that he was prescribed Keppra 250 mg twice a day. Most recent EKG shows sinus rhythm. Consult date: 08/14/24 HPI: Lamont Cohen is a 78 year old male With history of dementia and possible progressive aphasia was brought to the hospital after having had a spell brief spell of unresponsiveness while on commode. Cardiac resuscitation was began just as a preventive measure according to his who does not think that he actually had a cardiac arrest. Patient was recently hospitalized [facility] with stroke-like symptoms. He was feeling generally weak but he did not have any paralysis on either side of the body. He is already on aspirin and Plavix and Lipitor. There is history of atrial fibrillation and he also carries a diagnosis of seizure disorder and is on Keppra. He also has some distention of the abdomen for which she has been seen by surgeon and thought to have chronic condition which can present with the partial obstruction. In addition the patient has been seen by gastric brought. There is also history of prostate, hyperlipidemia, hypertension he had patient was in our hospital for [address] scan of brain performed on this admission compared to previous imaging done at this level. His states that his potassium is always going and often requires supplement for that. He tends to keep his eyes closed and does not communicate very much and much of the history is obtained from his . he is currently on Namenda for memory loss and was unable to tolerate Aricept due to diarrhea. Review of Systems Review of Systems: History obtained mostly from the 1 that with ROS unobtainable: Yes unobtainable due to mental status PMFSH Past Medical History Medical History Dementia of the Alzheimer's type Hyperlipidemia Hypertension Dementia Prostate cancer Surgical History Surgical History History of cataract extraction History of prostatectomy History of penile implant Explanted in September 2023 due to erosion. Family History Family History Sibling Diabetes mellitus Father Hypertension Family history of coronary artery disease Social History Social History Social History: Surrogate medical decision maker: Bobbi Cohen, spouse. Code status: Full code. Smoking status: Former smoker Tobacco type: cigarettes Second hand tobacco smoke exposure: No Alcohol intake: former Substance use: never Substance use type: does not use Do You Feel Safe in your Home?: Yes Lack of Transportation: No Lack of Food: Never True Current Housing: I Have Housing Concerned About Future Housing: No Difficulty Paying Gas/Electric Bills: No Difficulty Paying for Meds: No Currently Unemployed: No Education: Don't Know Difficulty w/ Childcare or Family Care: No Living arrangements: with family Spiritual care concerns: No Agree to blood products: Yes Meds Home Medications and Allergies Home Medications ?Medication ?Instructions ?Recorded ?Confirmed ?Type bisacodyl 5 mg tablet,delayed 10 mg (2 x 5 mg) PO QAM #1 tablet 10/01/23 08/13/24 Rx release (Laxative (bisacodyl)) simethicone 125 mg capsule (Gas-X 125 mg PO QID #1 cap 10/01/23 08/13/24 Rx Extra Strength) potassium chloride 20 mEq 20 meq PO DAILY #90 tabs 10/13/23 08/13/24 Rx tablet,extended release polyethylene glycol 3350 17 17 g PO ONCE PRN constipation 11/11/23 08/13/24 History gram/dose oral powder (Miralax) potassium chloride 20 mEq oral 20 meq PO DAILY #100 ea 11/11/23 08/13/24 Rx packet memantine 10 mg tablet 10 mg PO BID #180 tabs 03/12/24 08/13/24 Rx ergocalciferol (vitamin D2) 1,250 1,250 mcg PO WEEKLY #12 caps 05/10/24 08/13/24 Rx mcg (50,000 unit) capsule (Vitamin D2) docusate sodium 100 mg capsule 100 mg PO DAILY 07/24/24 08/13/24 History (Colace) aspirin 81 mg capsule 81 mg PO DAILY 08/13/24 08/13/24 History atorvastatin 80 mg tablet (Lipitor) 80 mg PO DAILY 08/13/24 08/13/24 History clopidogrel 75 mg tablet 75 mg PO DAILY 08/13/24 08/13/24 History levetiracetam 250 mg tablet 250 mg PO BID 08/13/24 08/13/24 History (Keppra) Allergies Allergy/AdvReac Type Severity Reaction Status Date / Time No Known Allergies Allergy Verified 08/13/24 14:57 Vital Signs Vital Signs - 24 hr 08/13/24 16:25 08/13/24 17:00 08/13/24 17:00 Temperature 97.9 F Pulse Rate 76 54 L Respiratory Rate 16 18 Blood Pressure 150/88 H 148/84 H Pulse Oximetry 97 100 Oxygen Delivery Room Air Fraction of Inspired Oxygen 08/13/24 17:30 08/13/24 18:00 08/13/24 19:55 Temperature 97.4 F L Pulse Rate 66 80 Respiratory Rate 22 H Blood Pressure 110/76 Pulse Oximetry 100 97 Oxygen Delivery Room Air Fraction of Inspired Oxygen 08/13/24 20:00 08/13/24 20:00 08/13/24 20:00 Temperature 97.6 F Pulse Rate 72 Respiratory Rate 18 Blood Pressure 155/63 H 155/63 H 114/81 Pulse Oximetry 92 Oxygen Delivery Fraction of Inspired Oxygen 08/13/24 20:00 08/13/24 21:00 08/13/24 22:00 Temperature Pulse Rate 75 72 70 Respiratory Rate 18 Blood Pressure Pulse Oximetry 92 Oxygen Delivery Room Air Fraction of Inspired Oxygen 08/13/24 23:51 08/14/24 00:00 08/14/24 00:50 Temperature 98 F Pulse Rate 74 74 74 Respiratory Rate 20 20 Blood Pressure 156/85 H Pulse Oximetry 97 97 Oxygen Delivery Room Air Fraction of Inspired Oxygen 08/14/24 02:00 08/14/24 04:00 08/14/24 04:00 Temperature 98.1 F Pulse Rate 68 70 68 Respiratory Rate 16 Blood Pressure 139/82 Pulse Oximetry 96 Oxygen Delivery Fraction of Inspired Oxygen 08/14/24 05:00 08/14/24 06:00 08/14/24 07:39 Temperature 98.4 F Pulse Rate 70 73 Respiratory Rate 16 Blood Pressure Pulse Oximetry 96 Oxygen Delivery Room Air Fraction of Inspired Oxygen 08/14/24 07:39 08/14/24 08:00 08/14/24 09:07 Temperature 98.4 F Pulse Rate 75 76 Respiratory Rate 16 69 H Blood Pressure 167/97 H 138/80 Pulse Oximetry 99 97 Oxygen Delivery Fraction of Inspired Oxygen 08/14/24 09:11 08/14/24 09:16 08/14/24 09:41 Temperature Pulse Rate 76 Respiratory Rate 16 Blood Pressure 124/77 125/87 Pulse Oximetry 99 Oxygen Delivery Room Air Fraction of Inspired Oxygen 08/14/24 10:00 08/14/24 11:38 08/14/24 12:02 Temperature 98.9 F 98.2 F Pulse Rate 70 66 69 Respiratory Rate 14 16 Blood Pressure 151/87 H 143/76 H Pulse Oximetry 99 100 Oxygen Delivery Fraction of Inspired Oxygen 08/14/24 15:56 Temperature 98.9 F Pulse Rate 93 Respiratory Rate 20 Blood Pressure 121/73 Pulse Oximetry 96 Oxygen Delivery Fraction of Inspired Oxygen Exam Narrative: patient unable to cooperate very well. Tends to keep his eyes closed and does not communicate very much. I am unable to get him to count the fingers reliably. He did squeeze my fingers with both hands and wiggle his toes I. No involuntary movements seen. Examination was limited since he is unable to cooperate very well. Results Labs 08/14/24 12:22 08/14/24 12:22 Labs: Short CBC 08/14/24 Range/Units 12:22 WBC 7.2 (4.5-10.0) K/mm3 Hgb 14.3 (14.0-18.0) g/dL Hct 42.5 (42.0-52.0) % Plt Count 135 L (150-375) k/mm3 BMP 08/14/24 12:22 Sodium 153 H Potassium 2.7 L* Chloride 116 H Carbon Dioxide 29 BUN 22 H D Creatinine 1.17 Glucose 90 Calcium 8.2 L Liver Function 08/14/24 Range/Units 12:22 Total Bilirubin 1.3 (0.2-1.3) mg/dL AST 48 (17-59) U/L ALT 40 (6-50) U/L Alkaline Phosphatase 113 (38-126) U/L Albumin 3.0 L (3.5-5.1) g/dL Imaging Radiologist's impression: EXAMINATION: CT brain wo con DATE: 08/13/2024 13:42 INDICATION: Syncope TECHNIQUE: Computed tomography (CT) of the head was performed without intravenous contrast. Sagittal and coronal reconstructions were performed. The mA was adjusted according to patient size. Iterative reconstruction technique was employed. The dose-length product was 605.33 mGy-cm. COMPARISON: head CT dated 07/24/2024 FINDINGS: There is residual contrast in the dural sinuses from the contrast enhanced CT performed an hour and a half prior. There is hough matter enhancement along multiple gyri in the bilateral parietal lobes, right greater than left previously seen in the setting subacute infarct. The distribution suggests possible watershed infarcts in the setting of hypertension. No acute intracranial hemorrhage, acute infarction or abnormal extra axial fluid collection. There is moderate scattered white matter hypoattenuation consistent with chronic small vessel ischemic disease. Ventricles are normal and symmetric. No mass/mass effect. Changes of bilateral intraocular lens replacement. The orbits and mastoid air cells are normal. Mucosal thickening in the bilateral ethmoid and maxillary sinuses with dependent mucus in the bilateral maxillary sinuses which can be seen with acute sinusitis. IMPRESSION: 1. Cortical hough matter enhancement along the gyri in the bilateral parietal lobes, right or left suspicious for subacute infarcts. The distribution suggests possibility of watershed infarcts in the setting of hypotension. 2. Moderate scattered white matter hypoattenuation consistent with chronic small vessel ischemic disease. 3. Ongoing sinus disease with new dependently layering mucus in the bilateral maxillary sinuses. Reviewed, dictated and finalized at location B. [employer]
[2024-08-14 22:24] LABS: Anion Gap 7 mmol/L (4-12); Blood Urea Nitrogen 20 mg/dL (9-20); Calcium 8.1 mg/dL (8.4-10.2); Carbon Dioxide 25 mmol/L (22-30); Chloride 119 mmol/L (98-107); Estimated CRCL calculation 54 ml/min; Estimated Glomerular Filt Rate > 60; Glucose 97 mg/dL (65-110); Potassium 2.9 mmol/L (3.4-5.0); Sodium 151 mmol/L (137-145)
[2024-08-15] VITALS (9 sets, daily range): BP systolic 102–151; BP diastolic 68–90; PULSE 64–90; RESP 16–18; TEMP 36.4–37.1; O2SAT 90–100
--- NOTE | 2024-08-15 00:45 | PC.NURSE ---
This patient, Lamont Cohen, was transferred to [facility] on 08/15/24 at 0035. Personal belongings sent with patient. Report given to RN. Laura. Appropriate documentation sent with patient.
--- NOTE | 2024-08-15 01:49 | PC.NURSE ---
Daylight Savings Time For Daylight Savings Time Ending in the Fall - Clocks are moved back. For Daylight Savings Time Beginning in the Spring - Clocks are moved ahead. For [facility], the time of change occurs at 0200 hrs. Time is taken from the server administrator. This entry on the patient's chart recognizes the change in time reflected during documentation. Example: 2 entries for vital signs may be charted for 0200 hrs.
[2024-08-15 05:09] LABS: Hematocrit 39.5 % (42.0-52.0); Hemoglobin 13.3 g/dL (14.0-18.0); Immature Platelet Fraction Pct 7.4 % (0.9-11.2); Mean Corpuscular HGB Conc 33.7 g/dl (32-36); Mean Corpuscular Hemoglobin 30.9 pg (26-34); Mean Corpuscular Volume 91.6 fl (80-100); Mean Platelet Volume 11.9 fl (7.4-10.4); Platelet Count Result 123 k/mm3 (150-375); Red Blood Count 4.31 M/mm3 (4.6-6.20); Red Cell Distribution Width 15.7 % (11.5-14.5); White Blood Count 6.2 K/mm3 (4.5-10.0)
[2024-08-15 05:18] LABS: Anion Gap 8 mmol/L (4-12); Blood Urea Nitrogen 19 mg/dL (9-20); Calcium 8.2 mg/dL (8.4-10.2); Carbon Dioxide 24 mmol/L (22-30); Chloride 120 mmol/L (98-107); Estimated CRCL calculation 54 ml/min; Estimated Glomerular Filt Rate > 60; Glucose 92 mg/dL (65-110); Magnesium 1.7 mg/dL (1.6-2.3); Potassium 3.3 mmol/L (3.4-5.0); Sodium 152 mmol/L (137-145)
[2024-08-15] MEDS: ERYTHROMYCIN LACTOBIONATE INJ 250 MG in SODIUM CHLORIDE 0.9% IV 100 ML 200 MG IVPB ×3 (05:26→22:41)
--- NOTE | 2024-08-15 07:56 | PC.NURSE ---
08/15/24 at 0620-Pt's , Bobbi Cohen called and notified of this Pt's room transfer and provided with the Pt's new room number of 250-01.
[2024-08-15] MEDS: ASPIRIN 81 MG CHEWABLE TABLET PO (10:04)
[2024-08-15] MEDS: CLOPIDOGREL BISULFATE 75 MG TABLET PO (10:04)
[2024-08-15] MEDS: levETIRAcetam 500 MG TABLET PO ×2 (10:05→18:01)
[2024-08-15] MEDS: ATORVASTATIN 40 MG TABLET 80 MG PO (10:05)
[2024-08-15] MEDS: MEMANTINE 10 MG TABLET PO ×2 (10:05→22:41)
[2024-08-15] MEDS: POTASSIUM CHLORIDE 20 MEQ PACKET (FOR LIQUID) 40 MEQ PO (10:11)
--- NOTE | 2024-08-15 12:27 | PM.IMPN ---
Progress Note: A&P Assessment and Plan (1) Stroke: Code(s): I63.9 - Cerebral infarction, unspecified Status: Acute Assessment and Plan: Subacute stroke seen on CT will request records from [facility] to compared to stroke from 2 weeks ago PT and OT evaluate and treat (2) Syncope: Code(s): R55 - Syncope and collapse Status: Acute Assessment and Plan: Syncope with severe hypotension is more likely than cardiac arrest due to patient is only receiving brief CPR and not requiring cardiac medications or intubation Telemetry monitoring Echo with bubble study pending Orthostatic vital signs (3) Colon distention: Code(s): K63.89 - Other specified diseases of intestine Status: Acute Assessment and Plan: GI and surgery consulted NPO sips med IVF (4) Atrial fibrillation: Code(s): I48.91 - Unspecified atrial fibrillation Status: Acute Assessment and Plan: On aspirin and Plavix (5) Hypertension: Code(s): I10 - Essential (primary) hypertension Status: Acute Assessment and Plan: Continue home antihypertensive (6) Hypokalemia: Code(s): E87.6 - Hypokalemia Status: Acute Assessment and Plan: Daily BMP Replete as needed (7) Dementia of the Alzheimer's type: Code(s): G30.9 - Alzheimer's disease, unspecified; F02.80 - Dementia in other diseases classified elsewhere, unspecified severity, without behavioral disturbance, psychotic disturbance, mood disturbance, and anxiety Status: Acute Assessment and Plan: Continue home medications (8) Seizure: Code(s): R56.9 - Unspecified convulsions Status: Inactive Assessment and Plan: Continue Keppra Plan Will hold off on anticoagulation until he is seen by surgery 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 Subjective Date/time seen: 08/15/24 12:27 Interval history: Chief Complaint: Syncope versus cardiac arrest H&P-Narrative: 78-year-old male past medical history of this dementia hypertension hyperlipidemia, and prostate cancer and stroke last month workup at [facility] presents the hospital with syncope versus cardiac arrest. Since discharge from the hospital after acute stroke patient has orthostatic hypotension. Per the family they were getting him up helping him to the bathroom when he lost consciousness and sat him down on the toilet. When EMS arrived they were unable to feel pulses a gave him CPR for about 2 minutes with the patient becoming responsive. Patient did not receive cardiac medications or need to be intubated afterwards. On bedside exam the patient is awake and talking. Denies chest pain or abdominal pain CT shows new subacute stroke compared to our last imaging however he did have a stroke last month with workup at [facility]. 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 Review of Systems Review of Systems: 12 systems were reviewed and are negative except for as per HPI. Exam Narrative: Elderly frail Patient is comfortable, NAD HEENT: eyes are clear and none icteric LUNGS:CTA HEART: RR S1S2 ABD: BS+, Soft and nontender Lower extremities: no edema SKIN: nonjaundiced Neuro: Dementia Objective Data Vital Signs Vital Signs: Vital Signs - 24 hr 08/14/24 11:38 08/14/24 12:00 08/14/24 12:02 Temperature 37.2 C 36.8 C Pulse Rate 66 69 Respiratory Rate 14 16 Blood Pressure 151/87 H 143/76 H Pulse Oximetry 99 100 Oxygen Delivery Room Air Fraction of Inspired Oxygen 08/14/24 15:56 08/14/24 20:00 08/14/24 20:00 Temperature 37.2 C 36.4 C Pulse Rate 93 62 Respiratory Rate 20 20 Blood Pressure 121/73 132/74 132/74 Pulse Oximetry 96 96 Oxygen Delivery Fraction of Inspired Oxygen 08/14/24 20:00 08/14/24 20:13 08/14/24 20:35 Temperature Pulse Rate 64 Respiratory Rate 16 Blood Pressure 130/68 Pulse Oximetry 92 96 Oxygen Delivery Room Air Room Air Fraction of Inspired Oxygen 21 08/15/24 01:03 08/15/24 06:00 08/15/24 06:04 Temperature 36.4 C L 36.4 C 36.4 C Pulse Rate 70 70 70 Respiratory Rate 16 16 16 Blood Pressure 151/78 H 149/83 H 149/83 H Pulse Oximetry 100 99 99 Oxygen Delivery Fraction of Inspired Oxygen 08/15/24 06:06 Temperature 36.4 C Pulse Rate 74 Respiratory Rate 16 Blood Pressure 136/83 Pulse Oximetry 98 Oxygen Delivery Fraction of Inspired Oxygen Intake/Output Intake/Output: Intake & Output 08/12/24 08/13/24 08/14/24 08/16/24 23:59 23:59 23:59 00:59 Intake Total 1220 1510 340 Output Total 0 300 450 Balance 1220 1210 -110 Meds/Results Medications: Active Medications Generic Name Dose Route Start Last Admin Trade Name Freq PRN Reason Stop Dose Admin Aspirin 81 mg 08/14/24 09:00 08/15/24 10:04 Aspirin 81 Mg Chewable Tablet PO 81 mg DAILY PILY Administration Atorvastatin Calcium 80 mg 08/14/24 09:00 08/15/24 10:05 Atorvastatin 40 Mg Tablet PO 80 mg DAILY PILY Administration Clopidogrel Bisulfate 75 mg 08/14/24 09:00 08/15/24 10:04 Clopidogrel Bisulfate 75 Mg Tablet PO 75 mg DAILY PILY Administration Erythromycin Lactobionate 250 100 mls @ 200 mls/hr 08/14/24 14:00 08/15/24 05:56 mg/ Sodium Chloride IVPB 08/19/24 13:59 Infused Q8HR PILY Infusion Levetiracetam 500 mg 08/15/24 09:00 08/15/24 10:05 Levetiracetam 500 Mg Tablet PO 500 mg BID PILY Administration Memantine 10 mg 08/13/24 21:00 08/15/24 10:05 Memantine 10 Mg Tablet PO 10 mg Q12HR PILY Administration Perflutren Lipid Microsphere 0 ml 03/07/25 17:52 Perflutren Lipid Microspheres 1.5 Ml Vial Diluted To 10 Ml Total Volume IV PUSH 08/16/24 17:52 ONCE PRN adequate visualization Protocol Radiology Results: ITS Impressions Chest/Abdomen/Pelvis CT 08/13/24 12:24 IMPRESSION: 1. Large sliding hiatal hernia. 2. Distended rectosigmoid, consistent with adynamic ileus. Head CT 08/13/24 13:43 IMPRESSION: 1. Cortical hough matter enhancement along the gyri in the bilateral parietal lobes, right or left suspicious for subacute infarcts. The distribution suggests possibility of watershed infarcts in the setting of hypotension. 2. Moderate scattered white matter hypoattenuation consistent with chronic small vessel ischemic disease. 3. Ongoing sinus disease with new dependently layering mucus in the bilateral maxillary sinuses. Labs Labs: Laboratory Results - last 24 hr 08/14/24 08/14/24 08/15/24 12:22 22:02 04:58 WBC 7.2 6.2 RBC 4.70 4.31 L Hgb 14.3 13.3 L Hct 42.5 39.5 L MCV 90.4 91.6 MCH 30.4 30.9 MCHC 33.6 33.7 RDW 15.3 H 15.7 H Plt Count 135 L 123 L MPV 11.2 H 11.9 H % Immature Plt Fraction 7.6 7.4 Sodium 153 H 151 H 152 H Potassium 2.7 L* 2.9 L 3.3 L Chloride 116 H 119 H 120 H Carbon Dioxide 29 25 24 Anion Gap 8 7 8 BUN 22 H D 20 19 Creatinine 1.17 1.07 1.08 Estim Creat Clear Calc 50 54 54 Estimated GFR 60 > 60 > 60 Glucose 90 97 92 Calcium 8.2 L 8.1 L 8.2 L Magnesium 1.6 1.7 Total Bilirubin 1.3 AST 48 ALT 40 Alkaline Phosphatase 113 Total Protein 6.0 L Albumin 3.0 L Quality VTE Prophylaxis VTE prophylaxis: mechanical ordered
--- NOTE | 2024-08-15 12:36 | WPDGIPROGNO ---
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 Status: Acute Assessment and Plan: chronic finding, he is having BM and has been eating it seems that he has chronic colonic pseudo-obstruction and atonic colon- family does not want surgery intervention and no need to repeat endoscopy continue with laxatives tolerating diet but pureed consistency (2) Colon distention: Code(s): K63.89 - Other specified diseases of intestine Status: Acute Assessment and Plan: no changes (3) Constipation: Code(s): K59.00 - Constipation, unspecified Status: Acute (4) Dementia of the Alzheimer's type: Code(s): G30.9 - Alzheimer's disease, unspecified; F02.80 - Dementia in other diseases classified elsewhere, unspecified severity, without behavioral disturbance, psychotic disturbance, mood disturbance, and anxiety Status: Acute (5) Syncope and collapse: Code(s): R55 - Syncope and collapse Status: Acute Subjective Date/time seen: 08/15/24 12:36 Interval history: at bedside, he had BM and patient is not complaining of abdominal pain Review of Systems Review of Systems: All systems reviewed & are unremarkable except as noted in HPI and below Exam Const: General: cooperative, no acute distress and average body habitus HENMT: Head: normal to inspection Eyes: General: appearance normal, both eyes and all related structures Neck: Neck: normal visual inspection Resp: Effort & Inspection: normal respiratory effort Cardio: Jugular venous distension: no JVD Rate: regular rate Rhythm: abnormal rhythm irregularly irregular GI: Inspection: non-distended GI Palp: Yes Soft to palpation, No Tenderness to palpation present (GI), No Guarding due to palpation present (GI) and No Rebound tenderness present Percussion: Yes normal to percussion Auscultation: normal bowel sounds Back/Spine/Pelvis: Cervical Spine: normal cervical lordosis Skin: General skin exam: normal color and no rashes or lesions noted Neuro: General: moves all extremities Other: confused- baseline dementia Extrem: General: normal to inspection Objective Data Vital Signs Vital Signs: Vital Signs - 24 hr 08/14/24 11:38 08/14/24 12:00 08/14/24 12:02 Temperature 98.9 F 98.2 F Pulse Rate 66 69 Respiratory Rate 14 16 Blood Pressure 151/87 H 143/76 H Pulse Oximetry 99 100 Oxygen Delivery Room Air Fraction of Inspired Oxygen 08/14/24 15:56 08/14/24 20:00 08/14/24 20:00 Temperature 98.9 F 97.6 F Pulse Rate 93 62 Respiratory Rate 20 20 Blood Pressure 121/73 132/74 132/74 Pulse Oximetry 96 96 Oxygen Delivery Fraction of Inspired Oxygen 08/14/24 20:00 08/14/24 20:13 08/14/24 20:35 Temperature Pulse Rate 64 Respiratory Rate 16 Blood Pressure 130/68 Pulse Oximetry 92 96 Oxygen Delivery Room Air Room Air Fraction of Inspired Oxygen 21 08/15/24 01:03 08/15/24 06:00 08/15/24 06:04 Temperature 97.5 F L 97.6 F 97.6 F Pulse Rate 70 70 70 Respiratory Rate 16 16 16 Blood Pressure 151/78 H 149/83 H 149/83 H Pulse Oximetry 100 99 99 Oxygen Delivery Fraction of Inspired Oxygen 08/15/24 06:06 Temperature 97.6 F Pulse Rate 74 Respiratory Rate 16 Blood Pressure 136/83 Pulse Oximetry 98 Oxygen Delivery Fraction of Inspired Oxygen Intake/Output Intake/Output: Intake & Output 08/12/24 08/13/24 08/14/24 08/16/24 23:59 23:59 23:59 00:59 Intake Total 1220 1510 340 Output Total 0 300 450 Balance 1220 1210 -110 Meds/Results Medications: Active Medications Generic Name Dose Route Start Last Admin Trade Name Freq PRN Reason Stop Dose Admin Aspirin 81 mg 08/14/24 09:00 08/15/24 10:04 Aspirin 81 Mg Chewable Tablet PO 81 mg DAILY PILY Administration Atorvastatin Calcium 80 mg 08/14/24 09:00 08/15/24 10:05 Atorvastatin 40 Mg Tablet PO 80 mg DAILY PILY Administration Clopidogrel Bisulfate 75 mg 08/14/24 09:00 08/15/24 10:04 Clopidogrel Bisulfate 75 Mg Tablet PO 75 mg DAILY PILY Administration Erythromycin Lactobionate 250 100 mls @ 200 mls/hr 08/14/24 14:00 08/15/24 05:56 mg/ Sodium Chloride IVPB 08/19/24 13:59 Infused Q8HR PILY Infusion Levetiracetam 500 mg 08/15/24 09:00 08/15/24 10:05 Levetiracetam 500 Mg Tablet PO 500 mg BID PILY Administration Memantine 10 mg 08/13/24 21:00 08/15/24 10:05 Memantine 10 Mg Tablet PO 10 mg Q12HR PILY Administration Perflutren Lipid Microsphere 0 ml 08/13/24 17:52 Perflutren Lipid Microspheres 1.5 Ml Vial Diluted To 10 Ml Total Volume IV PUSH 08/16/24 17:52 ONCE PRN adequate visualization Protocol Radiology Results: ITS Impressions Chest/Abdomen/Pelvis CT 08/13/24 12:24 IMPRESSION: 1. Large sliding hiatal hernia. 2. Distended rectosigmoid, consistent with adynamic ileus. Head CT 08/13/24 13:43 IMPRESSION: 1. Cortical hough matter enhancement along the gyri in the bilateral parietal lobes, right or left suspicious for subacute infarcts. The distribution suggests possibility of watershed infarcts in the setting of hypotension. 2. Moderate scattered white matter hypoattenuation consistent with chronic small vessel ischemic disease. 3. Ongoing sinus disease with new dependently layering mucus in the bilateral maxillary sinuses. Labs Labs: Laboratory Results - last 24 hr 08/14/24 08/14/24 08/15/24 12:22 22:02 04:58 WBC 7.2 6.2 RBC 4.70 4.31 L Hgb 14.3 13.3 L Hct 42.5 39.5 L MCV 90.4 91.6 MCH 30.4 30.9 MCHC 33.6 33.7 RDW 15.3 H 15.7 H Plt Count 135 L 123 L MPV 11.2 H 11.9 H % Immature Plt Fraction 7.6 7.4 Sodium 153 H 151 H 152 H Potassium 2.7 L* 2.9 L 3.3 L Chloride 116 H 119 H 120 H Carbon Dioxide 29 25 24 Anion Gap 8 7 8 BUN 22 H D 20 19 Creatinine 1.17 1.07 1.08 Estim Creat Clear Calc 50 54 54 Estimated GFR 60 > 60 > 60 Glucose 90 97 92 Calcium 8.2 L 8.1 L 8.2 L Magnesium 1.6 1.7 Total Bilirubin 1.3 AST 48 ALT 40 Alkaline Phosphatase 113 Total Protein 6.0 L Albumin 3.0 L
[2024-08-16] VITALS (8 sets, daily range): BP systolic 122–134; BP diastolic 68–94; PULSE 62–134; RESP 14–18; TEMP 36.2–36.5; O2SAT 91–100; BMI 22.9
[2024-08-16 05:10] LABS: Hematocrit 43.6 % (42.0-52.0); Hemoglobin 14.3 g/dL (14.0-18.0); Immature Platelet Fraction Pct 7.5 % (0.9-11.2); Mean Corpuscular HGB Conc 32.8 g/dl (32-36); Mean Corpuscular Hemoglobin 30.4 pg (26-34); Mean Corpuscular Volume 92.6 fl (80-100); Mean Platelet Volume 11.6 fl (7.4-10.4); Platelet Count Result 129 k/mm3 (150-375); Red Blood Count 4.71 M/mm3 (4.6-6.20); Red Cell Distribution Width 15.6 % (11.5-14.5); White Blood Count 6.3 K/mm3 (4.5-10.0)
[2024-08-16 05:20] LABS: Anion Gap 12 mmol/L (4-12); Blood Urea Nitrogen 15 mg/dL (9-20); Calcium 8.1 mg/dL (8.4-10.2); Carbon Dioxide 22 mmol/L (22-30); Chloride 117 mmol/L (98-107); Estimated CRCL calculation 55 ml/min; Estimated Glomerular Filt Rate > 60; Glucose 86 mg/dL (65-110); Magnesium 1.7 mg/dL (1.6-2.3); Sodium 151 mmol/L (137-145)
[2024-08-16] MEDS: ERYTHROMYCIN LACTOBIONATE INJ 250 MG in SODIUM CHLORIDE 0.9% IV 100 ML 200 MG IVPB ×3 (05:35→21:12)
[2024-08-16] MEDS: MEMANTINE 10 MG TABLET PO ×2 (09:47→21:04)
[2024-08-16] MEDS: levETIRAcetam 500 MG TABLET PO ×2 (09:47→17:08)
[2024-08-16] MEDS: ASPIRIN 81 MG CHEWABLE TABLET PO (09:47)
[2024-08-16] MEDS: ATORVASTATIN 40 MG TABLET 80 MG PO (09:47)
[2024-08-16] MEDS: CLOPIDOGREL BISULFATE 75 MG TABLET PO (09:47)
[2024-08-16] MEDS: POTASSIUM CHLORIDE 20 MEQ PACKET (FOR LIQUID) 40 MEQ PO ×2 (09:48→12:34)
--- NOTE | 2024-08-16 15:15 | P.PNIM_ITS ---
Progress Note: A&P Assessment and Plan (1) Stroke: Code(s): I63.9 - Cerebral infarction, unspecified Status: Acute Assessment and Plan: Subacute stroke seen on CT will request records from [facility] to compared to stroke from 2 weeks ago PT and OT evaluate and treat (2) Syncope: Code(s): R55 - Syncope and collapse Status: Acute Assessment and Plan: Syncope with severe hypotension is more likely than cardiac arrest due to patient is only receiving brief CPR and not requiring cardiac medications or intubation Telemetry monitoring Echo with bubble study pending Orthostatic vital signs (3) Colon distention: Code(s): K63.89 - Other specified diseases of intestine Status: Acute Assessment and Plan: GI and surgery consulted NPO sips med IVF (4) Atrial fibrillation: Code(s): I48.91 - Unspecified atrial fibrillation Status: Acute Assessment and Plan: On aspirin and Plavix (5) Hypertension: Code(s): I10 - Essential (primary) hypertension Status: Acute Assessment and Plan: Continue home antihypertensive (6) Hypokalemia: Code(s): E87.6 - Hypokalemia Status: Acute Assessment and Plan: Daily BMP Replete as needed (7) Dementia of the Alzheimer's type: Code(s): G30.9 - Alzheimer's disease, unspecified; F02.80 - Dementia in other diseases classified elsewhere, unspecified severity, without behavioral disturbance, psychotic disturbance, mood disturbance, and anxiety Status: Acute Assessment and Plan: Continue home medications (8) Seizure: Code(s): R56.9 - Unspecified convulsions Status: Inactive Assessment and Plan: Continue Keppra Plan Will hold off on anticoagulation until he is seen by surgery 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 Subjective Date/time seen: 08/16/24 15:15 Interval history: Chief Complaint: Syncope versus cardiac arrest H&P-Narrative: 78-year-old male past medical history of this dementia hypertension hyperlipidemia, and prostate cancer and stroke last month workup at [facility] presents the hospital with syncope versus cardiac arrest. Since discharge from the hospital after acute stroke patient has orthostatic hypotension. Per the family they were getting him up helping him to the bathroom when he lost consciousness and sat him down on the toilet. When EMS arrived they were unable to feel pulses a gave him CPR for about 2 minutes with the patient becoming responsive. Patient did not receive cardiac medications or need to be intubated afterwards. On bedside exam the patient is awake and talking. Denies chest pain or abdominal pain CT shows new subacute stroke compared to our last imaging however he did have a stroke last month with workup at [facility]. 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 Review of Systems Review of Systems: 12 systems were reviewed and are negativ e except for as per HPI. Exam Narrative: Elderly frail Patient is comfortable, NAD HEENT: eyes are clear and none icteric LUNGS:CTA HEART: RR S1S2 ABD: BS+, Soft and nontender Lower extremities: no edema SKIN: nonjaundiced Neuro: Dementia Objective Data Vital Signs Vital Signs: Vital Signs - 24 hr 08/15/24 20:00 08/15/24 20:00 08/15/24 21:00 Temperature 37.1 C 36.5 C Pulse Rate 64 64 90 Respiratory Rate 18 18 18 Blood Pressure 102/81 148/89 H Pulse Oximetry 90 90 95 Oxygen Delivery Room Air Fraction of Inspired Oxygen 08/15/24 21:00 08/15/24 22:00 08/16/24 06:00 Temperature 36.6 C 37.1 C 36.4 C Pulse Rate 69 64 133 H Respiratory Rate 18 18 18 Blood Pressure 145/90 H 102/81 Pulse Oximetry 92 90 93 Oxygen Delivery Fraction of Inspired Oxygen 08/16/24 08:00 08/16/24 09:47 08/16/24 14:24 Temperature 36.2 C L Pulse Rate 62 64 Respiratory Rate 14 18 Blood Pressure 134/79 122/68 Pulse Oximetry 98 93 100 Oxygen Delivery Room Air Fraction of Inspired Oxygen 21 Intake/Output Intake/Output: Intake & Output 08/13/24 08/14/24 08/16/24 08/16/24 23:59 23:59 00:59 23:59 Intake Total 1220 1510 900 245 Output Total 0 294 151 2741 Balance 1220 1210 150 -755 Meds/Results Medications: Active Medications Generic Name Dose Route Start Last Admin Trade Name Freq PRN Reason Stop Dose Admin Aspirin 81 mg 08/14/24 09:00 08/16/24 09:47 Aspirin 81 Mg Chewable Tablet PO 81 mg DAILY PILY Administration Atorvastatin Calcium 80 mg 08/14/24 09:00 08/16/24 09:47 Atorvastatin 40 Mg Tablet PO 80 mg DAILY PILY Administration Clopidogrel Bisulfate 75 mg 08/14/24 09:00 08/16/24 09:47 Clopidogrel Bisulfate 75 Mg Tablet PO 75 mg DAILY PILY Administration Erythromycin Lactobionate 250 100 mls @ 200 mls/hr 08/14/24 14:00 08/16/24 13:42 mg/ Sodium Chloride IVPB 08/19/24 13:59 Infused Q8HR PILY Infusion Levetiracetam 500 mg 08/15/24 09:00 08/16/24 09:47 Levetiracetam 500 Mg Tablet PO 500 mg BID PILY Administration Memantine 10 mg 08/13/24 21:00 08/16/24 09:47 Memantine 10 Mg Tablet PO 10 mg Q12HR PILY Administration Perflutren Lipid Microsphere 0 ml 08/13/24 17:52 Perflutren Lipid Microspheres 1.5 Ml Vial Diluted To 10 Ml Total Volume IV PUSH 08/16/24 17:52 ONCE PRN adequate visualization Protocol Radiology Results: ITS Impressions Chest/Abdomen/Pelvis CT 08/13/24 12:24 IMPRESSION: 1. Large sliding hiatal hernia. 2. Distended rectosigmoid, consistent with adynamic ileus. Head CT 08/13/24 13:43 IMPRESSION: 1. Cortical hough matter enhancement along the gyri in the bilateral parietal lobes, right or left suspicious for subacute infarcts. The distribution suggests possibility of watershed infarcts in the setting of hypotension. 2. Moderate scattered white matter hypoattenuation consistent with chronic small vessel ischemic disease. 3. Ongoing sinus disease with new dependently layering mucus in the bilateral maxillary sinuses. Abdomen X-Ray 08/16/24 09:24 IMPRESSION: 1. Distended rectosigmoid, consistent with adynamic ileus. Labs Labs: Laboratory Results - last 24 hr 08/16/24 04:54 WBC 6.3 RBC 4.71 Hgb 14.3 Hct 43.6 MCV 92.6 MCH 30.4 MCHC 32.8 RDW 15.6 H Plt Count 129 L MPV 11.6 H % Immature Plt Fraction 7.5 Sodium 151 H Potassium 3.0 L Chloride 117 H Carbon Dioxide 22 Anion Gap 12 BUN 15 Creatinine 1.05 Estim Creat Clear Calc 55 Estimated GFR > 60 Glucose 86 Calcium 8.1 L Magnesium 1.7 Quality VTE Prophylaxis VTE prophylaxis: mechanical ordered
--- NOTE | 2024-08-16 18:00 | WPDGIPROGNO ---
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 Status: Acute Assessment and Plan: chronic finding, he is having BM and has been eating (pureed diet, aspiration precautions) it seems that he has chronic colonic pseudo-obstruction and atonic colon- family does not want surgery intervention and no need to repeat endoscopy continue with laxatives will follow only as needed (2) Colon distention: Code(s): K63.89 - Other specified diseases of intestine Status: Acute Assessment and Plan: no changes (3) Constipation: Code(s): K59.00 - Constipation, unspecified Status: Acute (4) Dementia of the Alzheimer's type: Code(s): G30.9 - Alzheimer's disease, unspecified; F02.80 - Dementia in other diseases classified elsewhere, unspecified severity, without behavioral disturbance, psychotic disturbance, mood disturbance, and anxiety Status: Acute (5) Syncope and collapse: Code(s): R55 - Syncope and collapse Status: Acute Assessment and Plan: work up by primary Subjective Date/time seen: 08/16/24 18:00 Interval history: no new issues, same poor oral intake and he is on special diet (he has advanced dementia) + BM at bedside Review of Systems Review of Systems: All systems reviewed & are unremarkable except as noted in HPI and below Exam Const: General: no acute distress HENMT: Head: normal to inspection Eyes: General: appearance normal, both eyes and all related structures Neck: Neck: normal visual inspection Resp: Effort & Inspection: normal respiratory effort Cardio: Rate: regular rate Rhythm: abnormal rhythm irregularly irregular GI: Inspection: non-distended GI Palp: Yes Soft to palpation, No Tenderness to palpation present (GI) and No Guarding due to palpation present (GI) Percussion: Yes normal to percussion Auscultation: normal bowel sounds Back/Spine/Pelvis: Cervical Spine: normal cervical lordosis Skin: General skin exam: normal color and no rashes or lesions noted Neuro: General: moves all extremities Other: confused- baseline dementia Extrem: General: normal to inspection Objective Data Vital Signs Vital Signs: Vital Signs - 24 hr 08/15/24 20:00 08/15/24 20:00 08/15/24 21:00 Temperature 98.7 F 97.7 F Pulse Rate 64 64 90 Respiratory Rate 18 18 18 Blood Pressure 102/81 148/89 H Pulse Oximetry 90 90 95 Oxygen Delivery Room Air Fraction of Inspired Oxygen 21 08/15/24 21:00 08/15/24 22:00 08/16/24 06:00 Temperature 97.8 F 98.7 F 97.6 F Pulse Rate 69 64 133 H Respiratory Rate 18 18 18 Blood Pressure 145/90 H 102/81 Pulse Oximetry 92 90 93 Oxygen Delivery Fraction of Inspired Oxygen 08/16/24 08:00 08/16/24 09:47 08/16/24 14:24 Temperature 97.2 F L Pulse Rate 62 64 Respiratory Rate 14 18 Blood Pressure 134/79 122/68 Pulse Oximetry 98 93 100 Oxygen Delivery Room Air Fraction of Inspired Oxygen 21 Intake/Output Intake/Output: Intake & Output 08/13/24 08/14/24 08/16/24 08/16/24 23:59 23:59 00:59 23:59 Intake Total 1220 1510 900 245 Output Total 0 728 585 0847 Balance 1220 1210 150 -755 Meds/Results Medications: Active Medications Generic Name Dose Route Start Last Admin Trade Name Freq PRN Reason Stop Dose Admin Aspirin 81 mg 08/14/24 09:00 08/16/24 09:47 Aspirin 81 Mg Chewable Tablet PO 81 mg DAILY PILY Administration Atorvastatin Calcium 80 mg 08/14/24 09:00 08/16/24 09:47 Atorvastatin 40 Mg Tablet PO 80 mg DAILY PILY Administration Clopidogrel Bisulfate 75 mg 08/14/24 09:00 08/16/24 09:47 Clopidogrel Bisulfate 75 Mg Tablet PO 75 mg DAILY PILY Administration Erythromycin Lactobionate 250 100 mls @ 200 mls/hr 08/14/24 14:00 08/16/24 13:42 mg/ Sodium Chloride IVPB 08/19/24 13:59 Infused Q8HR [facility] Infusion Levetiracetam 500 mg 08/15/24 09:00 08/16/24 17:08 Levetiracetam 500 Mg Tablet PO 500 mg BID PILY Administration Memantine 10 mg 08/13/24 21:00 08/16/24 09:47 Memantine 10 Mg Tablet PO 10 mg Q12HR PILY Administration Radiology Results: ITS Impressions Chest/Abdomen/Pelvis CT 08/13/24 12:24 IMPRESSION: 1. Large sliding hiatal hernia. 2. Distended rectosigmoid, consistent with adynamic ileus. Head CT 08/13/24 13:43 IMPRESSION: 1. Cortical hough matter enhancement along the gyri in the bilateral parietal lobes, right or left suspicious for subacute infarcts. The distribution suggests possibility of watershed infarcts in the setting of hypotension. 2. Moderate scattered white matter hypoattenuation consistent with chronic small vessel ischemic disease. 3. Ongoing sinus disease with new dependently layering mucus in the bilateral maxillary sinuses. Abdomen X-Ray 08/16/24 09:24 IMPRESSION: 1. Distended rectosigmoid, consistent with adynamic ileus. Labs Labs: Laboratory Results - last 24 hr 08/16/24 04:54 WBC 6.3 RBC 4.71 Hgb 14.3 Hct 43.6 MCV 92.6 MCH 30.4 MCHC 32.8 RDW 15.6 H Plt Count 129 L MPV 11.6 H % Immature Plt Fraction 7.5 Sodium 151 H Potassium 3.0 L Chloride 117 H Carbon Dioxide 22 Anion Gap 12 BUN 15 Creatinine 1.05 Estim Creat Clear Calc 55 Estimated GFR > 60 Glucose 86 Calcium 8.1 L Magnesium 1.7
--- NOTE | 2024-08-16 21:49 | PC.NURSE ---
hedis review nurse of VS as documented via PCT, heartrate 134; RN obtained manual HR of 71; Noted O2 on room air was 84%, 2L NC applied and patient rebounded to 95% on 2L NC.
--- NOTE | 2024-08-16 22:02 | ECG_ITS ---
Test Date: 2024-08-16 22:19:47 Measurements Intervals [place] Rate: 69 P: 42 [place]: 153 QRS: 51 QRSD: 92 T: 0 QT: 409 QTc: 438 Interpretive Statements SINUS RHYTHM NONSPECIFIC T-WAVE ABNORMALITY Compared to ECG 08/13/2024 12:50:25 No significant changes Electronically Signed On 08-17-2024 14:46:17 CDT by Lillian Villalta M.D.
[2024-08-16 22:31] LABS: Alveolar/Arterial O2 Gradient 58.6 mmHg; Base Excess ABG 1.4 mEq/l (+/-2.0); Fractional Inspired Oxygen 28 %; HCO3 ABG 24.9 mEq/l (22.0-26.0); Oxygen Content ABG 18.9 %vol (16.0-22.0); Oxygen Saturation ABG 97.8 % (95.0-100.0); PCO2 ABG 36.2 mmHg (35.0-45.0); PO2 ABG 98.3 mmHg (80.0-100.0); PO2 FiO2 Ratio Arterial Blood 3.51 %; Total Hemoglobin 13.8 g/dL (12.0-18.0); pH ABG 7.456 (7.350-7.450)
[2024-08-16 22:32] LABS: Device NASAL CANNULA; Modified Allen's Test Pass; Site Drawn RIGHT RADIAL
[2024-08-17 05:36] LABS: Hematocrit 38.8 % (42.0-52.0); Hemoglobin 12.8 g/dL (14.0-18.0); Mean Corpuscular Hemoglobin 30.2 pg (26-34); Mean Corpuscular Volume 91.5 fl (80-100); Mean Platelet Volume 11.4 fl (7.4-10.4); Platelet Count Result 119 k/mm3 (150-375); Red Blood Count 4.24 M/mm3 (4.6-6.20); Red Cell Distribution Width 15.6 % (11.5-14.5); White Blood Count 6.3 K/mm3 (4.5-10.0)
[2024-08-17] MEDS: ERYTHROMYCIN LACTOBIONATE INJ 250 MG in SODIUM CHLORIDE 0.9% IV 100 ML 200 MG IVPB (05:37)
[2024-08-17 05:56] LABS: Anion Gap 8 mmol/L (4-12); Blood Urea Nitrogen 14 mg/dL (9-20); Calcium 8.1 mg/dL (8.4-10.2); Carbon Dioxide 25 mmol/L (22-30); Chloride 118 mmol/L (98-107); Estimated CRCL calculation 57 ml/min; Estimated Glomerular Filt Rate > 60; Glucose 88 mg/dL (65-110); Magnesium 1.7 mg/dL (1.6-2.3); Potassium 2.7 mmol/L (3.4-5.0); Sodium 151 mmol/L (137-145)
[2024-08-17 06:00] VITALS: BP 128/65; PULSE 65; RESP 18; TEMP 36.4; O2SAT 100
[2024-08-17] MEDS: POTASSIUM CHLORIDE INJ 40 MEQ in SODIUM CHLORIDE 0.9% IV 500 ML 130 MEQ IVPB (06:36)
[2024-08-17 08:00] VITALS: BP 149/68; PULSE 74; RESP 18; TEMP 36.4; O2SAT 100
[2024-08-17] MEDS: MEMANTINE 10 MG TABLET PO (09:05)
[2024-08-17] MEDS: MAGNESIUM OXIDE 400 MG TABLET PO (09:05)
[2024-08-17] MEDS: ASPIRIN 81 MG CHEWABLE TABLET PO (09:05)
[2024-08-17] MEDS: CLOPIDOGREL BISULFATE 75 MG TABLET PO (09:05)
[2024-08-17] MEDS: ATORVASTATIN 40 MG TABLET 80 MG PO (09:05)
[2024-08-17] MEDS: levETIRAcetam 500 MG TABLET PO ×2 (09:05→17:52)
[2024-08-17 09:15] VITALS: O2SAT 94
[2024-08-17 11:46] LABS: Anion Gap 3 mmol/L (4-12); Blood Urea Nitrogen 14 mg/dL (9-20); Carbon Dioxide 28 mmol/L (22-30); Chloride 119 mmol/L (98-107); Estimated CRCL calculation 58 ml/min; Estimated Glomerular Filt Rate > 60; Glucose 97 mg/dL (65-110); Magnesium 1.7 mg/dL (1.6-2.3); Potassium 3.2 mmol/L (3.4-5.0); Sodium 150 mmol/L (137-145)
[2024-08-17] MEDS: KCL 20 MEQ/SW 100 ML 100 ML 50 MEQ IVPB (12:19)
--- NOTE | 2024-08-17 12:40 | ECG_ITS ---
Test Date: 2024-08-17 12:51:40 Measurements Intervals [place] Rate: 67 P: 71 [place]: 157 QRS: 57 QRSD: 91 T: 35 QT: 411 QTc: 434 Interpretive Statements SINUS RHYTHM NONSPECIFIC T-WAVE ABNORMALITY Compared to ECG 08/16/2024 22:19:47 No significant changes Electronically Signed On 08-17-2024 15:06:09 CDT by Lillian Villalta M.D.
[2024-08-17 13:24] LABS: Troponin I < 0.012 ng/mL (0.000-0.034)
[2024-08-17 14:00] VITALS: BP 167/88; PULSE 80; RESP 16; TEMP 36.8; O2SAT 94
--- NOTE | 2024-08-17 14:44 | PM.IMPN ---
Progress Note: A&P Assessment and Plan (1) Stroke: Code(s): I63.9 - Cerebral infarction, unspecified Status: Acute Assessment and Plan: Subacute stroke seen on CT will request records from [facility] to compared to stroke from 2 weeks ago PT and OT evaluate and treat (2) Syncope: Code(s): R55 - Syncope and collapse Status: Acute Assessment and Plan: Syncope with severe hypotension is more likely than cardiac arrest due to patient is only receiving brief CPR and not requiring cardiac medications or intubation Telemetry monitoring Echo with bubble study pending Orthostatic vital signs (3) Colon distention: Code(s): K63.89 - Other specified diseases of intestine Status: Acute Assessment and Plan: GI and surgery consulted NPO sips med IVF (4) Atrial fibrillation: Code(s): I48.91 - Unspecified atrial fibrillation Status: Acute Assessment and Plan: On aspirin and Plavix (5) Hypertension: Code(s): I10 - Essential (primary) hypertension Status: Acute Assessment and Plan: Continue home antihypertensive (6) Hypokalemia: Code(s): E87.6 - Hypokalemia Status: Acute Assessment and Plan: Daily BMP Replete as needed (7) Dementia of the Alzheimer's type: Code(s): G30.9 - Alzheimer's disease, unspecified; F02.80 - Dementia in other diseases classified elsewhere, unspecified severity, without behavioral disturbance, psychotic disturbance, mood disturbance, and anxiety Status: Acute Assessment and Plan: Continue home medications (8) Seizure: Code(s): R56.9 - Unspecified convulsions Status: Inactive Assessment and Plan: Continue Keppra Plan Will hold off on anticoagulation until he is seen by surgery 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 Subjective Date/time seen: 08/17/24 14:44 Interval history: Chief Complaint: Syncope versus cardiac arrest H&P-Narrative: 78-year-old male past medical history of this dementia hypertension hyperlipidemia, and prostate cancer and stroke last month workup at [facility] presents the hospital with syncope versus cardiac arrest. Since discharge from the hospital after acute stroke patient has orthostatic hypotension. Per the family they were getting him up helping him to the bathroom when he lost consciousness and sat him down on the toilet. When EMS arrived they were unable to feel pulses a gave him CPR for about 2 minutes with the patient becoming responsive. Patient did not receive cardiac medications or need to be intubated afterwards. On bedside exam the patient is awake and talking. Denies chest pain or abdominal pain CT shows new subacute stroke compared to our last imaging however he did have a stroke last month with workup at [facility]. 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 Review of Systems Review of Systems: ROS unobtainable: Yes unobtainable due to mental status Exam Narrative: Elderly frail Patient is comfortable, NAD HEENT: eyes are clear and none icteric LUNGS:CTA HEART: RR S1S2 ABD: BS+, Soft and nontender Lower extremities: no edema SKIN: nonjaundiced Neuro: Dementia Objective Data Vital Signs Vital Signs: Vital Signs - 24 hr 08/16/24 20:00 08/16/24 21:00 08/16/24 21:49 Temperature 36.5 C Pulse Rate 134 H 71 Respiratory Rate 18 18 Blood Pressure 134/94 H Pulse Oximetry 91 95 Oxygen Delivery Room Air Nasal Cannula Oxygen Flow Rate 2 08/16/24 21:52 08/16/24 22:00 08/17/24 06:00 Temperature 36.5 C 36.4 C L Pulse Rate 71 134 H 65 Respiratory Rate 18 18 Blood Pressure 134/94 H 128/65 Pulse Oximetry 95 91 100 Oxygen Delivery Nasal Cannula Oxygen Flow Rate 2 08/17/24 08:00 08/17/24 14:00 Temperature 36.4 C 36.8 C Pulse Rate 74 80 Respiratory Rate 18 16 Blood Pressure 149/68 H 167/88 H Pulse Oximetry 100 94 Oxygen Delivery Oxygen Flow Rate Intake/Output Intake/Output: Intake & Output 08/14/24 08/16/24 08/16/24 08/17/24 23:59 00:59 23:59 23:59 Intake Total 1510 900 445 Output Total 090 053 7112 350 Balance 1210 150 -855 -350 Meds/Results Medications: Active Medications Generic Name Dose Route Start Last Admin Trade Name Freq PRN Reason Stop Dose Admin Aspirin 81 mg 08/14/24 09:00 08/17/24 09:05 Aspirin 81 Mg Chewable Tablet PO 81 mg DAILY PILY Administration Atorvastatin Calcium 80 mg 08/14/24 09:00 08/17/24 09:05 Atorvastatin 40 Mg Tablet PO 80 mg DAILY PILY Administration Clopidogrel Bisulfate 75 mg 08/14/24 09:00 08/17/24 09:05 Clopidogrel Bisulfate 75 Mg Tablet PO 75 mg DAILY PILY Administration Levetiracetam 500 mg 08/15/24 09:00 08/17/24 09:05 Levetiracetam 500 Mg Tablet PO 500 mg BID PILY Administration Magnesium Oxide 400 mg 08/17/24 09:00 08/17/24 09:05 Magnesium Oxide 400 Mg Tablet PO 400 mg QAM PILY Administration Memantine 10 mg 08/13/24 21:00 08/17/24 09:05 Memantine 10 Mg Tablet PO 10 mg Q12HR PILY Administration Potassium Chloride 40 meq 08/17/24 18:00 Potassium Chloride 20 Meq Packet (For Liquid) PO 08/17/24 18:01 ONCE ONE Radiology Results: ITS Impressions Chest/Abdomen/Pelvis CT 08/13/24 12:24 IMPRESSION: 1. Large sliding hiatal hernia. 2. Distended rectosigmoid, consistent with adynamic ileus. Head CT 08/13/24 13:43 IMPRESSION: 1. Cortical hough matter enhancement along the gyri in the bilateral parietal lobes, right or left suspicious for subacute infarcts. The distribution suggests possibility of watershed infarcts in the setting of hypotension. 2. Moderate scattered white matter hypoattenuation consistent with chronic small vessel ischemic disease. 3. Ongoing sinus disease with new dependently layering mucus in the bilateral maxillary sinuses. Abdomen X-Ray 08/16/24 09:24 IMPRESSION: 1. Distended rectosigmoid, consistent with adynamic ileus. Chest X-Ray 08/16/24 22:55 IMPRESSION: Segmental left medial basilar opacity may represent atelectasis or pneumonia, to include aspiration. Possible small left pleural effusion. Multiple loops of dilated bowel in the upper abdomen. Labs Labs: Laboratory Results - last 24 hr 08/16/24 08/17/24 08/17/24 22:26 04:58 11:31 WBC 6.3 RBC 4.24 L Hgb 12.8 L Hct 38.8 L MCV 91.5 MCH 30.2 MCHC 33.0 RDW 15.6 H Plt Count 119 L MPV 11.4 H Puncture Site Right radial ABG pH 7.456 H ABG pCO2 36.2 ABG pO2 98.3 ABG PO2/FiO2 Ratio 3.51 ABG HCO3 24.9 ABG O2 Saturation 97.8 ABG O2 Content 18.9 ABG Base Excess 1.4 A-a Gradient 58.6 Oxyhemoglobin 97.0 Total Hemoglobin 13.8 O2 Delivery Device Nasal cannula O2 Liters/Min 2.0 FiO2 28 Sodium 151 H 150 H Potassium 2.7 L* 3.2 L Chloride 118 H 119 H Carbon Dioxide 25 28 Anion Gap 8 3 L BUN 14 14 Creatinine 1.01 1.01 Estim Creat Clear Calc 57 58 Estimated GFR > 60 > 60 Glucose 88 97 Calcium 8.1 L 8.0 L Magnesium 1.7 1.7 Troponin I < 0.012 Quality VTE Prophylaxis VTE prophylaxis: mechanical ordered
[2024-08-17] MEDS: POTASSIUM CHLORIDE 20 MEQ PACKET (FOR LIQUID) 40 MEQ PO (17:52)
[2024-08-17 22:00] VITALS: BP 130/68; PULSE 64; RESP 18; TEMP 36.4; O2SAT 98
[2024-08-18 04:41] VITALS: BP 123/57; PULSE 68; RESP 20; TEMP 37.1; O2SAT 97
[2024-08-18 05:27] LABS: Hematocrit 39.1 % (42.0-52.0); Hemoglobin 13.1 g/dL (14.0-18.0); Immature Platelet Fraction Pct 5.8 % (0.9-11.2); Mean Corpuscular HGB Conc 33.5 g/dl (32-36); Mean Corpuscular Hemoglobin 30.7 pg (26-34); Mean Corpuscular Volume 91.6 fl (80-100); Mean Platelet Volume 11.5 fl (7.4-10.4); Platelet Count Result 109 k/mm3 (150-375); Red Blood Count 4.27 M/mm3 (4.6-6.20); Red Cell Distribution Width 15.6 % (11.5-14.5); White Blood Count 5.5 K/mm3 (4.5-10.0)
[2024-08-18 05:41] LABS: Anion Gap 7 mmol/L (4-12); Blood Urea Nitrogen 14 mg/dL (9-20); Calcium 8.2 mg/dL (8.4-10.2); Carbon Dioxide 24 mmol/L (22-30); Chloride 120 mmol/L (98-107); Estimated CRCL calculation 60 ml/min; Estimated Glomerular Filt Rate > 60; Glucose 84 mg/dL (65-110); Magnesium 1.8 mg/dL (1.6-2.3); Potassium 3.1 mmol/L (3.4-5.0); Sodium 151 mmol/L (137-145)
[2024-08-18] MEDS: MEMANTINE 10 MG TABLET PO ×2 (08:42→21:05)
[2024-08-18] MEDS: levETIRAcetam 500 MG TABLET PO ×2 (08:42→17:09)
[2024-08-18] MEDS: POTASSIUM CHLORIDE 20 MEQ PACKET (FOR LIQUID) 40 MEQ PO (08:42)
[2024-08-18] MEDS: ASPIRIN 81 MG CHEWABLE TABLET PO (08:42)
[2024-08-18] MEDS: MAGNESIUM OXIDE 400 MG TABLET PO (08:42)
[2024-08-18] MEDS: CLOPIDOGREL BISULFATE 75 MG TABLET PO (08:42)
[2024-08-18] MEDS: ATORVASTATIN 40 MG TABLET 80 MG PO (08:42)
--- NOTE | 2024-08-18 13:01 | P.PNIM_ITS ---
Progress Note: A&P Assessment and Plan (1) Stroke: Code(s): I63.9 - Cerebral infarction, unspecified Status: Acute Assessment and Plan: Subacute stroke seen on CT will request records from [facility] to compared to stroke from 2 weeks ago PT and OT evaluate and treat (2) Syncope: Code(s): R55 - Syncope and collapse Status: Acute Assessment and Plan: Syncope with severe hypotension is more likely than cardiac arrest due to patient is only receiving brief CPR and not requiring cardiac medications or intubation Telemetry monitoring Echo with bubble study pending Orthostatic vital signs (3) Colon distention: Code(s): K63.89 - Other specified diseases of intestine Status: Acute Assessment and Plan: GI and surgery consulted NPO sips med IVF (4) Atrial fibrillation: Code(s): I48.91 - Unspecified atrial fibrillation Status: Acute Assessment and Plan: On aspirin and Plavix (5) Hypertension: Code(s): I10 - Essential (primary) hypertension Status: Acute Assessment and Plan: Continue home antihypertensive (6) Hypokalemia: Code(s): E87.6 - Hypokalemia Status: Acute Assessment and Plan: Daily BMP Replete as needed (7) Dementia of the Alzheimer's type: Code(s): G30.9 - Alzheimer's disease, unspecified; F02.80 - Dementia in other diseases classified elsewhere, unspecified severity, without behavioral disturbance, psychotic disturbance, mood disturbance, and anxiety Status: Acute Assessment and Plan: Continue home medications (8) Seizure: Code(s): R56.9 - Unspecified convulsions Status: Inactive Assessment and Plan: Continue Keppra Plan Will hold off on anticoagulation until he is seen by surgery 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, will monitor, and supplement, patient is seen by his neurologist suggested patient has history of seizures, and being treated with Keppra, patient remains clinically stable, to further evaluate patient syncopal episode cardiac echo was ordered and it is essentially normal, on 08/16 patient c/o CP trops and EKG were ordered and are normal, patient's spoke with post acute care nurse and would like to be discharge under hospice care, waiting for authorization, still not sure what the plan as family finance are limited, patient po intake is very poor and his potassium levels are low, patient is refusing oral, will give IV, also discussed possible insert PEG to increase PO intake, she will decided and will let us know about PEG. will continue to monit or. Subjective Date/time seen: 08/18/24 13:01 Interval history: Chief Complaint: Syncope versus cardiac arrest H&P-Narrative: 78-year-old male past medical history of this dementia hypertension hyperlipidemia, and prostate cancer and stroke last month workup at [facility] presents the hospital with syncope versus cardiac arrest. Since discharge from the hospital after acute stroke patient has orthostatic hypotension. Per the family they were getting him up helping him to the bathroom when he lost consciousness and sat him down on the toilet. When EMS arrived they were unable to feel pulses a gave him CPR for about 2 minutes with the patient becoming responsive. Patient did not receive cardiac medications or need to be intubated afterwards. On bedside exam the patient is awake and talking. Denies chest pain or abdominal pain CT shows new subacute stroke compared to our last imaging however he did have a stroke last month with workup at [facility]. 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, will monitor, and supplement, patient is seen by his neurologist suggested patient has history of seizures, and being treated with Keppra, patient remains clinically stable, to further evaluate patient syncopal episode cardiac echo was ordered and it is essentially normal, on 08/16 patient c/o CP trops and EKG were ordered and are normal, patient's spoke with post acute care nurse and would like to be discharge under hospice care, waiting for authorization, still not sure what the plan as family finance are limited, patient po intake is very poor and his potassium levels are low, patient is refusing oral, will give IV, also discussed possible insert PEG to increase PO intake, she will decided and will let us know about PEG. will continue to monitor. Review of Systems Review of Systems: ROS unobtainable: Yes unobtainable due to mental status Exam Narrative: Elderly frail Patient is comfortable, NAD HEENT: eyes are clear and none icteric LUNGS:CTA HEART: RR S1S2 ABD: BS+, Soft and nontender Lower extremities: no edema SKIN: nonjaundiced Neuro: Dementia Objective Data Vital Signs Vital Signs: Vital Signs - 24 hr 08/17/24 14:00 08/17/24 20:00 08/17/24 22:00 Temperature 36.8 C 36.4 C Pulse Rate 80 64 Respiratory Rate 16 18 Blood Pressure 167/88 H 130/68 Pulse Oximetry 94 98 Oxygen Delivery Room Air 08/18/24 04:41 08/18/24 08:00 Temperature 37.1 C Pulse Rate 68 Respiratory Rate 20 Blood Pressure 123/57 L Pulse Oximetry 97 Oxygen Delivery Room Air Intake/Output Intake/Output: Intake & Output 08/16/24 08/16/24 08/17/24 08/18/24 00:59 23:59 23:59 23:59 Intake Total 900 445 20 Output Total 750 1300 500 350 Balance 150 -855 -500 -330 Meds/Results Medications: Active Medications Generic Name Dose Route Start Last Admin Trade Name Freq PRN Reason Stop Dose Admin Aspirin 81 mg 08/14/24 09:00 08/18/24 08:42 Aspirin 81 Mg Chewable Tablet PO 81 mg DAILY PILY Administration Atorvastatin Calcium 80 mg 08/14/24 09:00 08/18/24 08:42 Atorvastatin 40 Mg Tablet PO 80 mg DAILY PILY Administration Clopidogrel Bisulfate 75 mg 08/14/24 09:00 08/18/24 08:42 Clopidogrel Bisulfate 75 Mg Tablet PO 75 mg DAILY PILY Administration Potassium Chloride 40 meq/ 520 mls @ 130 mls/hr 08/18/24 14:00 Sodium Chloride IVPB 08/18/24 17:59 ONCE ONE Levetiracetam 500 mg 08/15/24 09:00 08/18/24 08:42 Levetiracetam 500 Mg Tablet PO 500 mg BID PILY Administration Magnesium Oxide 400 mg 08/17/24 09:00 08/18/24 08:42 Magnesium Oxide 400 Mg Tablet PO 400 mg QAM PILY Administration Memantine 10 mg 08/13/24 21:00 08/18/24 08:42 Memantine 10 Mg Tablet PO 10 mg Q12HR PILY Administration Potassium Chloride 40 meq 08/18/24 08:30 08/18/24 08:42 Potassium Chloride 20 Meq Packet (For Liquid) PO 40 meq DAILY PILY Administration Radiology Results: ITS Impressions Chest/Abdomen/Pelvis CT 08/13/24 12:24 IMPRESSION: 1. Large sliding hiatal hernia. 2. Distended rectosigmoid, consistent with adynamic ileus. Head CT 08/13/24 13:43 IMPRESSION: 1. Cortical hough matter enhancement along the gyri in the bilateral parietal lobes, right or left suspicious for subacute infarcts. The distribution suggests possibility of watershed infarcts in the setting of hypotension. 2. Moderate scattered white matter hypoattenuation consistent with chronic small vessel ischemic disease. 3. Ongoing sinus disease with new dependently layering mucus in the bilateral maxillary sinuses. Abdomen X-Ray 08/16/24 09:24 IMPRESSION: 1. Distended rectosigmoid, consistent with adynamic ileus. Chest X-Ray 08/16/24 22:55 IMPRESSION: Segmental left medial basilar opacity may represent atelectasis or pneumonia, to include aspiration. Possible small left pleural effusion. Multiple loops of dilated bowel in the upper abdomen. Labs Labs: Laboratory Results - last 24 hr 08/17/24 08/18/24 11:31 04:49 WBC 5.5 RBC 4.27 L Hgb 13.1 L Hct 39.1 L MCV 91.6 MCH 30.7 MCHC 33.5 RDW 15.6 H Plt Count 109 L MPV 11.5 H % Immature Plt Fraction 5.8 Sodium 151 H Potassium 3.1 L Chloride 120 H Carbon Dioxide 24 Anion Gap 7 BUN 14 Creatinine 0.97 Estim Creat Clear Calc 60 Estimated GFR > 60 Glucose 84 Calcium 8.2 L Magnesium 1.8 Troponin I < 0.012 Quality VTE Prophylaxis VTE prophylaxis: mechanical ordered
[2024-08-18 13:51] VITALS: BMI 10.0
[2024-08-18 14:00] VITALS: BP 145/90; PULSE 69; RESP 20; TEMP 36.6; O2SAT 97
[2024-08-18 15:09] VITALS: BP 115/83; PULSE 77; RESP 24; O2SAT 97
[2024-08-18] MEDS: levETIRAcetam 500MG/NACL 100ML 500 MG/100 ML BAG 400 MG IVPB (21:02)
[2024-08-18 21:04] VITALS: BP 155/89; PULSE 67; RESP 20; TEMP 37.1; O2SAT 100
[2024-08-19 04:59] LABS: Hematocrit 41.5 % (42.0-52.0); Hemoglobin 13.5 g/dL (14.0-18.0); Mean Corpuscular HGB Conc 32.5 g/dl (32-36); Mean Corpuscular Hemoglobin 29.5 pg (26-34); Mean Corpuscular Volume 90.8 fl (80-100); Mean Platelet Volume 11.2 fl (7.4-10.4); Platelet Count Result 125 k/mm3 (150-375); Red Blood Count 4.57 M/mm3 (4.6-6.20); Red Cell Distribution Width 15.5 % (11.5-14.5); White Blood Count 5.2 K/mm3 (4.5-10.0)
[2024-08-19 05:08] LABS: Anion Gap 9 mmol/L (4-12); Blood Urea Nitrogen 13 mg/dL (9-20); Calcium 8.1 mg/dL (8.4-10.2); Carbon Dioxide 24 mmol/L (22-30); Chloride 118 mmol/L (98-107); Estimated CRCL calculation 62 ml/min; Estimated Glomerular Filt Rate > 60; Glucose 75 mg/dL (65-110); Magnesium 1.9 mg/dL (1.6-2.3); Potassium 3.1 mmol/L (3.4-5.0); Sodium 151 mmol/L (137-145)
[2024-08-19 05:17] VITALS: BP 164/73; PULSE 94; RESP 18; TEMP 36.2; O2SAT 93
[2024-08-19] MEDS: levETIRAcetam 500MG/NACL 100ML 500 MG/100 ML BAG 400 MG IVPB ×2 (08:35→20:05)
[2024-08-19] MEDS: POTASSIUM CHLORIDE INJ 40 MEQ in SODIUM CHLORIDE 0.9% IV 500 ML 130 MEQ IVPB (08:41)
[2024-08-19] MEDS: POTASSIUM CHLORIDE 20 MEQ PACKET (FOR LIQUID) 40 MEQ PO (09:06)
--- NOTE | 2024-08-19 11:04 | WPDNEUROPN ---
Progress Note: A&P Assessment and Plan (1) Stroke: Code(s): I63.9 - Cerebral infarction, unspecified Status: Acute Assessment and Plan: CT scan of brain shows some hypodensity in the parietal area however there is some increased hyperdensity in the right occipital area and to some extent in the left occipital area this could be a legs reperfusion in the setting of a new stroke. He was evaluated at [facility]. (2) Dementia of the Alzheimer's type: Code(s): G30.9 - Alzheimer's disease, unspecified; F02.80 - Dementia in other diseases classified elsewhere, unspecified severity, without behavioral disturbance, psychotic disturbance, mood disturbance, and anxiety Status: Acute Assessment and Plan: Patient's tends to keep his eyes closed and does not communicate very much in this pattern has been longstanding according to his . 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 He is on potassium supplements. Along with I noted his serum sodium is high and this is being addressed by the hospitalist team. (5) Syncope and collapse: Code(s): R55 - Syncope and collapse Status: Acute Assessment and Plan: He had a passing out spell prior to admission. Since he was already on Keppra 250 mg at twice a day for the suspicion of possible seizure we will increase that to 500 mg twice a day. He has not had any further spells of unresponsiveness. Time Spent With Patient Time: Patient is on dual antiplatelets and statin and as well as Namenda 10 mg twice a day and these should be continued. He is being considered for hospice care. Care coordinating team were here at the time when I saw him. His and family members were also present. Tends to keep his eyes closed but upon much pursue will he may open briefly. This could be some form of apraxia. I am unable to test his extraocular movements reliably since he does not cooperate. He does not appear to be on any sedating medications and this has been a long-term pattern. Of suggest to add Lexapro 10 mg a day and continue the Namenda 10 mg twice a day other medications as before. Last LDL on 11/28/2023 was 104. TSH was normal. I will also go ahead and order were checking her B vitamin B1, B12, methylmalonic acid level, and homocystine level. Subjective Date/time seen: 08/19/24 11:04 Interval history: The patient is 78-year-old with history of cerebrovascular disease, atrial fibrillation and dementia. In addition he also been diagnosed to have pseudo obstruction of the colon. The patient tends to keep his eyes closed. His was present the time of the evaluation. summer school coordinator are working with her with regard to further care possible hospice. CT scan of brain has shown bilateral parietal lobe infarcts raising possibility of watershed infarct due to hypotension. Patient was in [facility] for few days and he was started on low-dose Keppra and is already on dual antiplatelets and statins. No significant additional changes have been reported. He did have an episode of loss of consciousness 1 on the toilet seat before he came in he has not had any further spells after being here. Review of Systems Review of Systems: ROS unobtainable: Yes unobtainable due to mental status Exam Narrative: The patient attends to keep his eyes closed however upon several attempts he will open his eyes briefly but does not talk. Family members also tried and he may sometimes mom will something but it is difficult to understand exactly what he is saying. Difficult detailed evaluation since the patient unable to cooperate very much. There is no involuntary movement noted. No cogwheeling or tremor. Objective Data Vital Signs Vital Signs: Vital Signs - 24 hr 08/18/24 14:00 08/18/24 14:00 08/18/24 15:09 Temperature 97.8 F 97.8 F Pulse Rate 69 69 77 Respiratory Rate 20 20 24 H Blood Pressure 145/90 H 145/90 H 115/83 Pulse Oximetry 97 97 97 08/18/24 21:04 08/19/24 05:17 Temperature 98.7 F 97.1 F L Pulse Rate 67 94 Respiratory Rate 20 18 Blood Pressure 155/89 H 164/73 H Pulse Oximetry 100 93 Intake/Output Intake/Output: Intake & Output 08/16/24 08/17/24 08/18/24 08/19/24 23:59 23:59 23:59 23:59 Intake Total 445 220 0 Output Total 1300 500 350 400 Balance -855 -500 -130 -400 Meds/Results Medications: Active Medications Generic Name Dose Route Start Last Admin Trade Name Robert PRN Reason Stop Dose Admin Aspirin 81 mg 08/14/24 09:00 08/18/24 08:42 Aspirin 81 Mg Chewable Tablet PO 81 mg DAILY PILY Administration Atorvastatin Calcium 80 mg 08/14/24 09:00 08/18/24 08:42 Atorvastatin 40 Mg Tablet PO 80 mg DAILY PILY Administration Clopidogrel Bisulfate 75 mg 08/14/24 09:00 08/18/24 08:42 Clopidogrel Bisulfate 75 Mg Tablet PO 75 mg DAILY PILY Administration Levetiracetam 500 mg in 100 mls @ 400 mls/hr 08/18/24 21:00 08/19/24 08:35 Keppra Iv IVPB 400 mls/hr Q12HR PILY Administration Potassium Chloride 40 meq/ 520 mls @ 130 mls/hr 08/19/24 07:19 08/19/24 08:41 Sodium Chloride IVPB 08/19/24 11:18 130 mls/hr ONCE ONE Administration Magnesium Oxide 400 mg 08/17/24 09:00 08/18/24 08:42 Magnesium Oxide 400 Mg Tablet PO 400 mg QAM PILY Administration Memantine 10 mg 08/13/24 21:00 08/18/24 21:05 Memantine 10 Mg Tablet PO 10 mg Q12HR PILY Administration Potassium Chloride 40 meq 08/19/24 09:00 08/19/24 09:06 Potassium Chloride 20 Meq Packet (For Liquid) PO 40 meq DAILY PILY Administration Radiology Results: ITS Impressions Chest/Abdomen/Pelvis CT 08/13/24 12:24 IMPRESSION: 1. Large sliding hiatal hernia. 2. Distended rectosigmoid, consistent with adynamic ileus. Head CT 08/13/24 13:43 IMPRESSION: 1. Cortical hough matter enhancement along the gyri in the bilateral parietal lobes, right or left suspicious for subacute infarcts. The distribution suggests possibility of watershed infarcts in the setting of hypotension. 2. Moderate scattered white matter hypoattenuation consistent with chronic small vessel ischemic disease. 3. Ongoing sinus disease with new dependently layering mucus in the bilateral maxillary sinuses. Abdomen X-Ray 08/16/24 09:24 IMPRESSION: 1. Distended rectosigmoid, consistent with adynamic ileus. Chest X-Ray 08/16/24 22:55 IMPRESSION: Segmental left medial basilar opacity may represent atelectasis or pneumonia, to include aspiration. Possible small left pleural effusion. Multiple loops of dilated bowel in the upper abdomen. Labs Labs: Laboratory Results - last 24 hr 08/19/24 04:36 WBC 5.2 RBC 4.57 L Hgb 13.5 L Hct 41.5 L MCV 90.8 MCH 29.5 MCHC 32.5 RDW 15.5 H Plt Count 125 L MPV 11.2 H Sodium 151 H Potassium 3.1 L Chloride 118 H Carbon Dioxide 24 Anion Gap 9 BUN 13 Creatinine 0.94 Estim Creat Clear Calc 62 Estimated GFR > 60 Glucose 75 Calcium 8.1 L Magnesium 1.9
--- NOTE | 2024-08-19 12:01 | P.PNIM_ITS ---
Progress Note: A&P Assessment and Plan (1) Stroke: Code(s): I63.9 - Cerebral infarction, unspecified Status: Acute Assessment and Plan: Subacute stroke seen on CT will request records from [facility], [place] to compared to stroke from 2 weeks ago PT and OT evaluate and treat (2) Syncope: Code(s): R55 - Syncope and collapse Status: Acute Assessment and Plan: Syncope with severe hypotension is more likely than cardiac arrest due to patient is only receiving brief CPR and not requiring cardiac medications or intubation Telemetry monitoring Echo with bubble study pending Orthostatic vital signs (3) Colon distention: Code(s): K63.89 - Other specified diseases of intestine Status: Acute Assessment and Plan: GI and surgery consulted NPO sips med IVF (4) Atrial fibrillation: Code(s): I48.91 - Unspecified atrial fibrillation Status: Acute Assessment and Plan: On aspirin and Plavix (5) Hypertension: Code(s): I10 - Essential (primary) hypertension Status: Acute Assessment and Plan: Continue home antihypertensive (6) Hypokalemia: Code(s): E87.6 - Hypokalemia Status: Acute Assessment and Plan: Daily BMP Replete as needed (7) Dementia of the Alzheimer's type: Code(s): G30.9 - Alzheimer's disease, unspecified; F02.80 - Dementia in other diseases classified elsewhere, unspecified severity, without behavioral disturbance, psychotic disturbance, mood disturbance, and anxiety Status: Acute Assessment and Plan: Continue home medications (8) Seizure: Code(s): R56.9 - Unspecified convulsions Status: Inactive Assessment and Plan: Continue Keppra Plan Will hold off on anticoagulation until he is seen by surgery patient is currently at his baseline, his is present in room providing ROS and history, patient has history of colon distention-Laurel syndrome patient is seen by the general surgeon and GI and recommending conservative management with stimulants and laxative, 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, will monitor, and supplement, patient is seen by his neurologist suggested patient has history of seizures, and being treated with Keppra, patient remains clinically stable, to further evaluate patient syncopal episode cardiac echo was ordered and it is essentially normal, on 08/16 patient c/o CP trops and EKG were ordered and are normal, patient's spoke with care transition manager and would like to be discharge under hospice care, waiting for authorization, still not sure what the plan as family finance are limited, patient po intake is very poor and his potassium levels are low, patient is refusing oral, will give IV, also discussed possible insert PEG to increase PO intake, she will decided and will let us know about PEG. will continue to [facility]. today patient is still refusing to take PO, discussed with patient and she agreed for NG tube and PEG, NG tube was ordered, mud analysis supervisor and GI were consulted, but later patient has decided to place patient under hospice. will wait to hear from care transition manager. Subjective Date/time seen: 08/19/24 12:01 Interval history: Chief Complaint: Syncope versus cardiac arrest H&P-Narrative: 78-year-old male past medical history of this dementia hypertension hyperlipi demia, and prostate cancer and stroke last month workup at [facility], [place] presents the hospital with syncope versus cardiac arrest. Since discharge from the hospital after acute stroke patient has orthostatic hypotension. Per the family they were getting him up helping him to the bathroom when he lost consciousness and sat him down on the toilet. When EMS arrived they were unable to feel pulses a gave him CPR for about 2 minutes with the patient becoming responsive. Patient did not receive cardiac medications or need to be intubated afterwards. On bedside exam the patient is awake and talking. Denies chest pain or abdominal pain CT shows new subacute stroke compared to our last imaging however he did have a stroke last month with workup at [facility] [place]. 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, will monitor, and supplement, patient is seen by his neurologist suggested patient has history of seizures, and being treated with Keppra, patient remains clinically stable, to further evaluate patient syncopal episode cardiac echo was ordered and it is essentially normal, on 08/16 patient c/o CP trops and EKG were ordered and are normal, patient's spoke with care transition manager and would like to be discharge under hospice care, waiting for authorization, still not sure what the plan as family finance are limited, patient po intake is very poor and his potassium levels are low, patient is refusing oral, will give IV, also discussed possible insert PEG to increase PO intake, she will decided and will let us know about PEG. will continue to monitor. today patient is still refusing to take PO, discussed with patient and she agreed for NG tube and PEG, NG tube was ordered, mud analysis supervisor and GI were consulted, but later patient has decided to place patient under hospice. will wait to hear from care transition manager. Review of Systems Review of Systems: 12 systems were reviewed and are negativ e except for as per HPI. ROS unobtainable: Yes unobtainable due to mental status Exam Narrative: Elderly frail Patient is comfortable, NAD HEENT: eyes are clear and none icteric LUNGS:CTA HEART: RR S1S2 ABD: BS+, Soft and nontender Lower extremities: no edema SKIN: nonjaundiced Neuro: Dementia Objective Data Vital Signs Vital Signs: Vital Signs - 24 hr 08/18/24 14:00 08/18/24 14:00 08/18/24 15:09 Temperature 36.6 C 36.6 C Pulse Rate 69 69 77 Respiratory Rate 20 20 24 H Blood Pressure 145/90 H 145/90 H 115/83 Pulse Oximetry 97 97 97 Oxygen Delivery 08/18/24 21:04 08/19/24 05:17 08/19/24 08:00 Temperature 37.1 C 36.2 C L Pulse Rate 67 94 Respiratory Rate 20 18 Blood Pressure 155/89 H 164/73 H Pulse Oximetry 100 93 Oxygen Delivery Room Air Intake/Output Intake/Output: Intake & Output 08/16/24 08/17/24 08/18/24 08/19/24 23:59 23:59 23:59 23:59 Intake Total 445 220 0 Output Total 1300 500 350 400 Balance -855 -500 -130 -400 Meds/Results Medications: Active Medications Generic Name Dose Route Start Last Admin Trade Name Freq PRN Reason Stop Dose Admin Aspirin 81 mg 08/14/24 09:00 08/19/24 11:13 Aspirin 81 Mg Chewable Tablet PO Not Given DAILY [facility] Atorvastatin Calcium 80 mg 08/14/24 09:00 08/19/24 11:13 Atorvastatin 40 Mg Tablet PO Not Given DAILY [facility] Clopidogrel Bisulfate 75 mg 08/14/24 09:00 08/19/24 11:13 Clopidogrel Bisulfate 75 Mg Tablet PO Not Given DAILY [facility] Escitalopram Oxalate 10 mg 08/19/24 09:00 Escitalopram Oxalate 10 Mg Tablet PO DAILY [facility] Levetiracetam 500 mg in 100 mls @ 400 mls/hr 08/18/24 21:00 08/19/24 08:35 Keppra Iv IVPB 400 mls/hr Q12HR PILY Administration Magnesium Oxide 400 mg 08/17/24 09:00 08/19/24 11:13 Magnesium Oxide 400 Mg Tablet PO Not Given QAM PILY Memantine 10 mg 08/13/24 21:00 08/19/24 11:13 Memantine 10 Mg Tablet PO Not Given Q12HR PILY Potassium Chloride 40 meq 08/19/24 09:00 08/19/24 09:06 Potassium Chloride 20 Meq Packet (For Liquid) PO 40 meq DAILY PILY Administration Radiology Results: ITS Impressions Chest/Abdomen/Pelvis CT 08/13/24 12:24 IMPRESSION: 1. Large sliding hiatal hernia. 2. Distended rectosigmoid, consistent with adynamic ileus. Head CT 08/13/24 13:43 IMPRESSION: 1. Cortical hough matter enhancement along the gyri in the bilateral parietal lobes, right or left suspicious for subacute infarcts. The distribution suggests possibility of watershed infarcts in the setting of hypotension. 2. Moderate scattered white matter hypoattenuation consistent with chronic small vessel ischemic disease. 3. Ongoing sinus disease with new dependently layering mucus in the bilateral maxillary sinuses. Abdomen X-Ray 08/16/24 09:24 IMPRESSION: 1. Distended rectosigmoid, consistent with adynamic ileus. Chest X-Ray 08/16/24 22:55 IMPRESSION: Segmental left medial basilar opacity may represent atelectasis or pneumonia, to include aspiration. Possible small left pleural effusion. Multiple loops of dilated bowel in the upper abdomen. Labs Labs: Laboratory Results - last 24 hr 08/19/24 04:36 WBC 5.2 RBC 4.57 L Hgb 13.5 L Hct 41.5 L MCV 90.8 MCH 29.5 MCHC 32.5 RDW 15.5 H Plt Count 125 L MPV 11.2 H Sodium 151 H Potassium 3.1 L Chloride 118 H Carbon Dioxide 24 Anion Gap 9 BUN 13 Creatinine 0.94 Estim Creat Clear Calc 62 Estimated GFR > 60 Glucose 75 Calcium 8.1 L Magnesium 1.9 Quality VTE Prophylaxis VTE prophylaxis: mechanical ordered
[2024-08-19 12:48] LABS: Vitamin D 25 Hydroxy 58.6 ng/mL
[2024-08-19 13:55] LABS: Folic Acid 4.6 ng/mL (2.76->20)
[2024-08-19 14:00] VITALS: BP 122/79; PULSE 70; RESP 16; TEMP 36.3; O2SAT 100
--- NOTE | 2024-08-19 16:02 | P.PNGI_ITS ---
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 (3) Colon distention: Code(s): K63.89 - Other specified diseases of intestine Status: Acute Assessment and Plan: no changes (4) Constipation: Code(s): K59.00 - Constipation, unspecified Status: Acute (5) Dementia of the Alzheimer's type: Code(s): G30.9 - Alzheimer's disease, unspecified; F02.80 - Dementia in other diseases classified elsewhere, unspecified severity, without behavioral disturbance, psychotic disturbance, mood disturbance, and anxiety Status: Acute Subjective Date/time seen: 08/19/24 16:02 Interval history: we were called to see him again because limited oral intake and risk of aspiration given h/o CVA and dementia Review of Systems Review of Systems: All systems reviewed & are unremarkable except as noted in HPI and below Exam Const: General: no acute distress HENMT: Head: normal to inspection Eyes: General: appearance normal, both eyes and all related structures Neck: Neck: normal visual inspection Resp: Effort & Inspection: normal respiratory effort Cardio: Rate: regular rate GI: Inspection: non-distended GI Palp: Yes Soft to palpation, No Tenderness to palpation present (GI) and No Guarding due to palpation present (GI) Percussion: Yes normal to percussion Auscultation: normal bowel sounds Back/Spine/Pelvis: Cervical Spine: normal cervical lordosis Skin: General skin exam: normal color and no rashes or lesions noted Neuro: Other: confused- baseline dementia Extrem: General: normal to inspection Objective Data Vital Signs Vital Signs: Vital Signs - 24 hr 08/18/24 21:04 08/19/24 05:17 08/19/24 08:00 Temperature 98.7 F 97.1 F L Pulse Rate 67 94 Respiratory Rate 20 18 Blood Pressure 155/89 H 164/73 H Pulse Oximetry 100 93 Oxygen Delivery Room Air 08/19/24 14:00 Temperature 97.3 F L Pulse Rate 70 Respiratory Rate 16 Blood Pressure 122/79 Pulse Oximetry 100 Oxygen Delivery Intake/Output Intake/Output: Intake & Output 08/16/24 08/17/24 08/18/24 08/19/24 23:59 23:59 23:59 23:59 Intake Total 445 220 0 Output Total 1300 500 350 400 Balance -855 -500 -130 -400 Meds/Results Medications: Active Medications Generic Name Dose Route Start Last Admin Trade Name Robert PRN Reason Stop Dose Admin Aspirin 81 mg 08/14/24 09:00 08/19/24 11:13 Aspirin 81 Mg Chewable Tablet PO Not Given DAILY [facility] Atorvastatin Calcium 80 mg 08/14/24 09:00 08/19/24 11:13 Atorvastatin 40 Mg Tablet PO Not Given DAILY PILY Clopidogrel Bisulfate 75 mg 08/14/24 09:00 08/19/24 11:13 Clopidogrel Bisulfate 75 Mg Tablet PO Not Given DAILY PILY Escitalopram Oxalate 10 mg 08/19/24 09:00 08/19/24 12:46 Escitalopram Oxalate 10 Mg Tablet PO Not Given DAILY PILY Levetiracetam 500 mg in 100 mls @ 400 mls/hr 08/18/24 21:00 08/19/24 08:35 Keppra Iv IVPB 400 mls/hr Q12HR PILY Administration Magnesium Oxide 400 mg 08/17/24 09:00 08/19/24 11:13 Magnesium Oxide 400 Mg Tablet PO Not Given QAM PILY Memantine 10 mg 08/13/24 21:00 08/19/24 11:13 Memantine 10 Mg Tablet PO Not Given Q12HR [facility] Potassium Chloride 40 meq 08/19/24 09:00 08/19/24 09:06 Potassium Chloride 20 Meq Packet (For Liquid) PO 40 meq DAILY PILY Administration Radiology Results: ITS Impressions Chest/Abdomen/Pelvis CT 08/13/24 12:24 IMPRESSION: 1. Large sliding hiatal hernia. 2. Distended rectosigmoid, consistent with adynamic ileus. Head CT 08/13/24 13:43 IMPRESSION: 1. Cortical hough matter enhancement along the gyri in the bilateral parietal lobes, right or left suspicious for subacute infarcts. The distribution suggests possibility of watershed infarcts in the setting of hypotension. 2. Moderate scattered white matter hypoattenuation consistent with chronic small vessel ischemic disease. 3. Ongoing sinus disease with new dependently layering mucus in the bilateral maxillary sinuses. Abdomen X-Ray 08/16/24 09:24 IMPRESSION: 1. Distended rectosigmoid, consistent with adynamic ileus. Chest X-Ray 08/16/24 22:55 IMPRESSION: Segmental left medial basilar opacity may represent atelectasis or pneumonia, to include aspiration. Possible small left pleural effusion. Multiple loops of dilated bowel in the upper abdomen. Labs Labs: Laboratory Results - last 24 hr 08/19/24 08/19/24 08/19/24 04:36 12:07 12:08 WBC 5.2 RBC 4.57 L Hgb 13.5 L Hct 41.5 L MCV 90.8 MCH 29.5 MCHC 32.5 RDW 15.5 H Plt Count 125 L MPV 11.2 H Sodium 151 H Potassium 3.1 L Chloride 118 H Carbon Dioxide 24 Anion Gap 9 BUN 13 Creatinine 0.94 Estim Creat Clear Calc 62 Estimated GFR > 60 Glucose 75 Calcium 8.1 L Magnesium 1.9 Vitamin B12 912.0 Vitamin D 25-Hydroxy 58.6 Folate 4.6
[2024-08-19] MEDS: MEMANTINE 10 MG TABLET PO (20:06)
[2024-08-19 20:26] VITALS: BP 122/77; PULSE 72; RESP 16; TEMP 36.7; O2SAT 97
[2024-08-20 05:14] VITALS: BP 152/80; PULSE 72; RESP 16; TEMP 36.6; O2SAT 95
[2024-08-20 05:24] LABS: Hematocrit 41.3 % (42.0-52.0); Hemoglobin 13.6 g/dL (14.0-18.0); Immature Platelet Fraction Pct 5.6 % (0.9-11.2); Mean Corpuscular HGB Conc 32.9 g/dl (32-36); Mean Corpuscular Volume 91.2 fl (80-100); Mean Platelet Volume 10.9 fl (7.4-10.4); Platelet Count Result 117 k/mm3 (150-375); Red Blood Count 4.53 M/mm3 (4.6-6.20); Red Cell Distribution Width 15.8 % (11.5-14.5); White Blood Count 5.4 K/mm3 (4.5-10.0)
[2024-08-20 05:36] LABS: Anion Gap 7 mmol/L (4-12); Blood Urea Nitrogen 16 mg/dL (9-20); Calcium 8.2 mg/dL (8.4-10.2); Carbon Dioxide 25 mmol/L (22-30); Chloride 120 mmol/L (98-107); Estimated CRCL calculation 59 ml/min; Estimated Glomerular Filt Rate > 60; Glucose 91 mg/dL (65-110); Magnesium 1.9 mg/dL (1.6-2.3); Potassium 3.3 mmol/L (3.4-5.0); Sodium 152 mmol/L (137-145)
[2024-08-20] MEDS: levETIRAcetam 500MG/NACL 100ML 500 MG/100 ML BAG 400 MG IVPB (09:59)
--- NOTE | 2024-08-20 13:40 | PCNFU ---
Nutrition Follow-Up Complete: Inadequate oral intake related to chronic altered GI function as evidenced by dx, intakes 0-50% Goal: Improve PO intake to >50% Patient has limited progress on goal. No new goal. Pt current nutrition is Pureed, Level,4 /Heart Healthy Last recorded weight is 79.3 kg, down from 80 kg on admit. Bowel Motility: +BM reported 08/19 Labs Reviewed: K 3.3, Na 152, Hct 41.3, Hgb 13.6 Meds Noted: Keppra Skin: WNL Additional Notes: Patient current with Pureed, Level 4/Heart Healthy diet with Ensure Enlive BID (350 kcal and 20 gm protein). Patient is consuming < 50% of meals x 7 days. Plans for hospice at discharge. Monitoring intakes, weights, labs, supplement tolerance, plan of care Follow up in 3 days
[2024-08-20 14:00] VITALS: BP 139/62; PULSE 63; RESP 16; TEMP 36.4; O2SAT 99
--- NOTE | 2024-08-20 14:28 | PM.DS ---
DS: Admitting Diagnosis Discharge Date 08/20/24 Admitting Diagnosis Syncope versus cardiac arrest DS: Discharge Diagnosis Discharge Diagnosis (1) Stroke: Code(s): I63.9 - Cerebral infarction, unspecified Status: Acute Assessment and Plan: Subacute stroke seen on CT will request records from [facility] to compared to stroke from 2 weeks ago PT and OT evaluate and treat (2) Syncope: Code(s): R55 - Syncope and collapse Status: Acute Assessment and Plan: Syncope with severe hypotension is more likely than cardiac arrest due to patient is only receiving brief CPR and not requiring cardiac medications or intubation Telemetry monitoring Echo with bubble study pending Orthostatic vital signs (3) Colon distention: Code(s): K63.89 - Other specified diseases of intestine Status: Acute Assessment and Plan: GI and surgery consulted NPO sips med IVF (4) Atrial fibrillation: Code(s): I48.91 - Unspecified atrial fibrillation Status: Acute Assessment and Plan: On aspirin and Plavix (5) Hypertension: Code(s): I10 - Essential (primary) hypertension Status: Acute Assessment and Plan: Continue home antihypertensive (6) Hypokalemia: Code(s): E87.6 - Hypokalemia Status: Acute Assessment and Plan: Daily BMP Replete as needed (7) Dementia of the Alzheimer's type: Code(s): G30.9 - Alzheimer's disease, unspecified; F02.80 - Dementia in other diseases classified elsewhere, unspecified severity, without behavioral disturbance, psychotic disturbance, mood disturbance, and anxiety Status: Acute Assessment and Plan: Continue home medications (8) Seizure: Code(s): R56.9 - Unspecified convulsions Status: Inactive Assessment and Plan: Continue Keppra Plan Will hold off on anticoagulation until he is seen by surgery DS: Summary Hospital Course Hospital Course: patient is currently at his baseline, his is present in room providing ROS and history, patient has history of colon distention-[place] syndrome patient is seen by the general surgeon and GI and recommending conservative management with stimulants and laxative, 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, will monitor, and supplement, patient is seen by his neurologist suggested patient has history of seizures, and being treated with Keppra, patient remains clinically stable, to further evaluate patient syncopal episode cardiac echo was ordered and it is essentially normal, on 08/16 patient c/o CP trops and EKG were ordered and are normal, patient's spoke with early breastfeeding care specialist and would like to be discharge under hospice care, waiting for authorization, still not sure what the plan as family finance are limited, patient po intake is very poor and his potassium levels are low, patient is refusing oral, will give IV, also discussed possible insert PEG to increase PO intake, she will decided and will let us know about PEG. will continue to monitor. today patient is still refusing to take PO, discussed with patient and she agreed for NG tube and PEG, NG tube was ordered, interior design professor and GI were consulted, but later patient has decided to place patient under hospice. will discharge patient to [place] where he will be admitted under hospice care. Time Spent with Patient Time attestation: Total time spent providing and/or coordinating discharge services: Exam Narrative: Elderly frail Patient is comfortable, NAD HEENT: eyes are clear and none icteric LUNGS:CTA HEART: RR S1S2 ABD: BS+, Soft and nontender Lower extremities: no edema SKIN: nonjaundiced Neuro: Dementia DS: Data Data Completed and Pending Labs on day of discharge: Labs from last 24 hours 08/20/24 05:11 WBC 5.4 RBC 4.53 L Hgb 13.6 L Hct 41.3 L MCV 91.2 MCH 30.0 MCHC 32.9 RDW 15.8 H Plt Count 117 L MPV 10.9 H % Immature Plt Fraction 5.6 Sodium 152 H Potassium 3.3 L Chloride 120 H Carbon Dioxide 25 Anion Gap 7 BUN 16 Creatinine 0.99 Estim Creat Clear Calc 59 Estimated GFR > 60 Glucose 91 Calcium 8.2 L Magnesium 1.9 Discharge Plan Discharge Attending physician on discharge: Akash Plummer Consulting providers: Haydee Hollingsworth; Rene Johnston; Lillian Villalta; Herman Newman; Dave Gonzalez; Yara Wong; Mario Muro; Ankit Garcia V. Discharging Clinician: Akash Plummer Patient Disposition: Hospice - Medical Facility Activity: as tolerated Diet: as tolerated Discharge Instructions: patient is being discharged to [place] where he will be admitted under hospice care Patient Instructions: Clopidogrel (By mouth) Patient Language: Turkish Follow-up/Referrals: Payal Mason DO [Primary Care Provider] - Discharge Medications: New magnesium oxide 400 mg (241.3 mg magnesium) Tablet 400 mg PO QAM Qty: 30 0RF Continued polyethylene glycol 3350 [Miralax] 17 gram/dose powder 17 g PO ONCE PRN (Reason: constipation) potassium chloride 20 mEq packet 20 meq PO DAILY Qty: 100 0RF memantine 10 mg tablet 10 mg PO BID Qty: 180 3RF bisacodyl [Laxative (bisacodyl)] 5 mg Tablet,Delayed Release (Dr/Ec) 10 mg PO QAM Qty: 1 0RF simethicone [Gas-X Extra Strength] 125 mg Capsule 125 mg PO QID Qty: 1 0RF docusate sodium [Colace] 100 mg capsule 100 mg PO DAILY levetiracetam [Keppra] 250 mg tablet 250 mg PO BID atorvastatin [Lipitor] 80 mg tablet 80 mg PO DAILY clopidogrel 75 mg tablet 75 mg PO DAILY aspirin 81 mg capsule 81 mg PO DAILY potassium chloride 20 mEq tablet extended release 20 meq PO DAILY Qty: 90 1RF ergocalciferol (vitamin D2) [Vitamin D2] 1,250 mcg (50,000 unit) capsule 1,250 mcg PO WEEKLY Qty: 12 1RF Rx Instructions: every friday Date of admission: 08/14/24 18:19 Primary Care Provider: Payal Mason Admitting Provider: Akash Plummer Attending physician on admission: Akash Plummer Condition: Stable
[2024-08-20 16:02] LABS: SARS-CoV-2 RNA PCR Negative (Negative)
[2024-08-23 15:34] LABS: Homocysteine 17.6 umol/L (<11.4)
[2024-08-23 17:24] LABS: Methylmalonic Acid 72 nmol/L (69-390)
[2024-08-25 08:59] LABS: Vitamin B1 <6 nmol/L (8-30)
== END 2024-08-20 17:35 | disposition hospice, inpatient (51) | DRG 312 ==
LOC: ANHED 10:42 → ANHIMU 17:18 → ANH2MED 08-15 00:47
PROVIDERS: Nurse Practitioner Gerontology; Psychiatry & Neurology Neurology; Admitting Provider Family Medicine; Emergency Provider Emergency Medicine; PCP Family Medicine; Visit Provider Family Medicine
DX: I95.1 Orthostatic hypotension (principal); I63.9 Cerebral infarction, unspecified; G30.9 Alzheimer's disease, unspecified; F02.80 Dementia in other diseases classified elsewhere, unspecified severity, without behavioral disturbance, psychotic disturbance, mood disturbance, and anxiety; R13.10 Dysphagia, unspecified; K59.81 Ogilvie syndrome; K63.89 Other specified diseases of intestine; E78.5 Hyperlipidemia, unspecified; G40.909 Epilepsy, unspecified, not intractable, without status epilepticus; I10 Essential (primary) hypertension; E87.6 Hypokalemia; I48.91 Unspecified atrial fibrillation; Z85.46 Personal history of malignant neoplasm of prostate; Z87.891 Personal history of nicotine dependence; Z86.73 Personal history of transient ischemic attack (TIA), and cerebral infarction without residual deficits; Z79.82 Long term (current) use of aspirin; Z79.02 Long term (current) use of antithrombotics/antiplatelets
CPT/HCPCS: 36415; 36600; 70450; 71045; 71260; 74018; 74177; 80048; 80053; 82306; 82607; 82746; 82805; 83090; 83605; 83735; 83880; 83921; 84425; 84484; 85018; 85025; 85027; 85055; 85610; 85730; 87635; 93005; 93306; 96365; 96366; 96367; 97110; 97162; 97165; 97530; 99285; A9270; G0378; J1364; J1953; J3480; J7040; J7120; Q9967